=== PATIENT | female | born 1975 | race African-American/Black ===

== ENCOUNTER 2018-05-22 14:44 | Inpatient (IN) | payer MEDICARE, OTHER ==
[2018-05-22 16:03] VITALS: BMI 33.1
--- NOTE | 2018-05-22 19:21 | HP ---
COWS - Scale Resting Pulse: 0= CO 80 or Below Sweatin=Flushed/Facial Moisture Restless Observation: 1= Difficult to Sit Still Pupil Size: 2= Moderately Dilated (Pupils = 4 mm) Bone or Joint Aches: 1= Mild Discomfort Runny Nose/ Eye Tearin= Runny Nose/Eyes GI Upset > 30mins: 2= Nausea/Diarrhea Tremor Observation: 2= Slight Tremor Visible Yawning Observation: 0= None Anxiety or Irritability: 2=Irritable/Anxious Goose Flesh Skin: 0=Smooth Skin COWS Score: 14 CIWA Score - Admission Criteria OAS Guidelines: Admission for Medically Managed Detox: Requires at least one of the followin. CIWA greater than 12 2. Seizures within the past 24 hours 3. Delirium tremens within the past 24 hours 4. Hallucinations within the past 24 hours 5. Acute intervention needed for co occurring medical disorder 6. Acute intervention needed for co occurring psychiatric disorder 7. Severe withdrawal that cannot be handled at a lower level of care (continued vomiting, continued diarrhea, abnormal vital signs) requiring intravenous medication and/or fluids 8. Admission ROS [facility] Chief Complaint: Here for heroin withdrawal. Allergies/Adverse Reactions: Allergies Allergy/AdvReac Type Severity Reaction Status Date / Time No Known Allergies Allergy Verified 05/22/18 18:07 History of Present Illness: Hx alcohol use since age 35. States does not drink every day and alcohol is not a problem. Heroin use since age 35. States heroin is a significant problem and unable to cut down or stop. Denies seizures, blackouts, or overdose. Longest period of sobriety 2 days. States hx mental health issues, including schizo and anxiety. Hysterectomy 2010. Skin rash x years w/ itching. PDMP - negative Exam Limitations: No Limitations - Ebola screening Have you traveled outside of the country in the last 21 days: No Have you had contact with anyone from an Ebola affected area: No Have you been sick,other than usual withdrawal symptoms: No Do you have a fever: No - Review of Systems Constitutional: Diaphoresis, Changes in sleep (Difficulty falling asleep and staying asleep. Has nightmares.) EENT: reports: Blurred Vision, Nose Congestion (Runny r/t withdrawal), Other ( Blind (R) eye x 3 years.) Respiratory: reports: No Symptoms reported Cardiac: reports: No Symptoms Reported GI: reports: Diarrhea ( r/t withdrawal), Nausea ( r/t withdrawal) : reports: No Symptoms Reported Musculoskeletal: reports: Back Pain (LBP r/t withdrawal) Integumentary: reports: Rash (Rash on face and legs x 8 years w/ itching.) Neuro: reports: Tingling (Tingling at night in hands and fingers.), Tremors ( Papular lesions on face and legs x) Endocrine: reports: No Symptoms Reported Hematology: reports: No Symptoms Reported, Other (Asymptomatic varicose veins in legs.) Psychiatric: reports: Judgement Intact, Orientated x3, Agitated, Anxious, Depressed (Denies thoughts of harming self and others.) Patient History - Patient Medical History Hx Asthma: No Hx Chronic Obstructive Pulmonary Disease (COPD): No Hx Cardiac Disorders: No Hx Hypertension: No Hx Seizures: No Hx Diabetes: No Hx Gastrointestinal Disorders: No Hx Sexually Transmitted Disorders: No Hx Renal Disease (ESRD): No Hx Schizophrenia: Yes (WITH PSYCHOSIS) - Patient Surgical History Past Surgical History: No - PPD History Previous Implant?: No - Reproductive History Patient is a Female of Child Bearing Age (11 -55 yrs old): Yes Last Menstrual Period: 05/23/11 (Hysterectomy) Patient : No - Smoking Cessation Smoking history: Never smoked Have you smoked in the past 12 months: Yes Aproximately how many cigarettes per day: 2 Hx Chewing Tobacco Use: No Initiated information on smoking cessation: Yes 'Breaking Loose' booklet given: 05/22/18 - Substance & Tx. History Hx Alcohol Use: Yes Hx Substance Use: Yes Substance Use Type: Alcohol, Heroin Hx Substance Use Treatment: No - Substances Abused Alcohol Route: Oral Frequency: 3-6 times per week Amount used: 4 BOTTLE BEER (total 48 oz) Age of first use: 35 Date of Last Use: 05/22/18 Heroin Route: SNIFF Frequency: Daily Amount used: 1 BUNDLE Age of first use: 35 Date of Last Use: 05/22/18 Admission Physical Exam BHS - Vital Signs Vital Signs: Vital Signs - 24 hr 05/22/18 16:01 Temperature 97.2 F L Pulse Rate 80 Respiratory 20 Rate Blood Pressure 142/97 - Physical General Appearance: Yes: Mild Distress, Tremorous, Irritable, Sweating (Facial moisture), Anxious HEENTM: Yes: EOMI, Hearing grossly Normal, Normocephalic, Normal Voice, VINCE ( Pupils = 4 mm) Respiratory: Yes: Lungs Clear, Normal Breath Sounds, No Respiratory Distress Neck: Yes: No masses,lesions,Nodules, Supple Breast: Yes: Breast Exam Deferred Cardiology: Yes: Regular Rhythm, Regular Rate, S1, S2 Abdominal: Yes: Non Tender, Soft, Increased Bowel Sounds, Protuberent ( Increased abdominal adiposity) Genitourinary: Yes: Within Normal Limits Back: Yes: Normal Inspection Musculoskeletal: Yes: full range of Motion Extremities: Yes: Normal Capillary Refill, Normal Range of Motion, Non-Tender, Tremors (Mod tremors of hands when arms extended) Neurological: Yes: drying machine operator II-XII NML intact, Fully Oriented, Alert, Motor Strength 5/5, Normal Mood/Affect, Normal Response Integumentary: Yes: Normal Color, Dry, Warm, Rash (Papular lesions on scalp, face and legs. Lesions on legs and scalp scratched w/ exposure of granulation tissues w/o drainage/discharge.) Lymphatic: Yes: Within Normal Limits - Diagnostic (1) Opioid dependence with withdrawal Current Visit: Yes Status: Acute (2) Back pain Current Visit: No Status: Acute Qualifiers: Back pain location: low back pain Chronicity: chronic Back pain laterality: midline Sciatica presence: without sciatica Qualified Code(s): M54.5 - Low back pain; G89.29 - Other chronic pain (3) Uncomplicated alcohol abuse Current Visit: Yes Status: Chronic (4) Skin lesions, generalized Current Visit: Yes Status: Chronic (5) Vision loss, right eye Current Visit: Yes Status: Chronic Cleared for Admission [facility] - Detox or Rehab [facility] Level of Care: Medically Managed Detox Regimen/Protocol: Methadone [facility] Breath Alcohol Content Breath Alcohol Content: 0 Urine Drug Screen - Results Drug Screen Negative: No Urine Drug Screen Results: THC-Marijuana, OPI-Opiates, BZO-Benzodiazepines, FEN- Fentanyl
[2018-05-22] MEDS ORDERED: MAGNESIUM CITRATE 300 ML BOTTLE PO PRN (19:43)
[2018-05-22] MEDS ORDERED: MAGNESIUM HYDROX 2400MG/30ML ORAL SUSPENSION 30 ML CUP PO PRN (19:43)
[2018-05-22] MEDS ORDERED: MAG HYDROX/AL HYDROX/SIMETH 30 ML UNIT-DOSE CUP PO PRN (19:43)
[2018-05-22] MEDS ORDERED: ACETAMINOPHEN 325 MG TABLET (FP) PO PRN (19:43)
[2018-05-22] MEDS ORDERED: LOPERAMIDE HCL 2 MG CAPSULE PO PRN (19:43)
[2018-05-22] MEDS ORDERED: MENTHOL/PHENOL 1 EACH UD MM PRN (19:43)
[2018-05-22] MEDS ORDERED: COLLOIDAL OATMEAL 1 BAR EACH TP PRN (19:47)
[2018-05-22] MEDS ORDERED: METHADONE HCL 10 MG TABLET (FOR DETOX USE ONLY) PO ONE ×2 (20:00→23:00)
[2018-05-22] MEDS: diazePAM 5 MG TABLET PO PRN (21:49)
[2018-05-22] MEDS: BACITRACIN 0.9 GM PACKET TP SCH (21:49)
[2018-05-22] MEDS ORDERED: MELATONIN 5 MG TABLETS PO PRN (22:00)
[2018-05-22] MEDS ORDERED: THIAMINE HCL 100 MG TABLET (FP) PO SCH (22:00)
[2018-05-22] MEDS: IBUPROFEN 400 MG TABLET (FP) PO PRN (23:51)
[2018-05-23 02:46] LABS: URINE APPEARANCE SLCLOUDY; URINE BILIRUBIN NEGATIVE (<2.0 mg/dL); URINE COLOR YELLOW; URINE GLUCOSE (UA) NEGATIVE (NEGATIVE); URINE KETONE NEGATIVE (NEGATIVE); URINE LEUK ESTERASE NEGATIVE (NEGATIVE); URINE NITRITE NEGATIVE (NEGATIVE); URINE PROTEIN NEGATIVE (NEGATIVE)
--- NOTE | 2018-05-23 08:09 | CONSULT ---
[facility] Psychiatric Consult - Data Date of interview: 05/23/18 Admission source: [facility] Identifying data: This is 42 years old female, single, mother of one, living with family, on PA support, with history of Schizophrenia, with psychiatric hospitalizations history, repoorting Alcophol Heroin dependence, reporting withdrawal symptoms and seeking detox. Substance Abuse History: Smoking history: Never smoked. Have you smoked in the past 12 months: Yes. Aproximately how many cigarettes per day: 2. Hx Chewing Tobacco Use: No. Initiated information on smoking cessation: Yes. 'Breaking Loose' booklet given: 05/22/18. - Substance & Tx. History. Hx Alcohol Use: Yes. Hx Substance Use: Yes. Substance Use Type: Alcohol, Heroin. Hx Substance Use Treatment: No. - Substances Abused. Alcohol. Route: Oral. Frequency: 3-6 times per week. Amount used: 4 BOTTLE BEER (total 48 oz). Age of first use: 35. Date of Last Use: 05/22/18. Heroin. Route: SNIFF. Frequency: Daily. Amount used: 1 BUNDLE. Age of first use: 35. Date of Last Use: 05/22/18 Medical History: LBP, R.eye blindness Psychiatric History: Patient reports to carry Schizophrenia, denies psychiatric hospitalization history, reports insomnia, reports no syicidal, homicodal history, reports insomnia, taking prior to admission Seroquel 100mg po qhs. Patient denies suicidal, homicidal history. Physical/Sexual Abuse/Trauma History: Denies Additional Comment: Seroquel 100mg po qhs Mental Status Exam - Mental Status Exam Alert and Oriented to: Person Cognitive Function: Fair Patient Appearance: Unkempt Mood: Anxious Affect: Mood Congruent Patient Behavior: Cooperative Speech Pattern: Appropriate Voice Loudness: Normal Thought Process: Goal Oriented Thought Disorder: Being Controlled Hallucinations: Denies Suicidal Ideation: Denies Homicidal Ideation: Denies Insight/Judgement: Fair Sleep: Difficulty falling asleep Appetite: Fair Muscle strength/Tone: Mild Hypotonicity Gait/Station: Shuffling Additional Comments: Seroquel 100mg po qhs Psychiatric Findings - Problem List ([place] 1, 2,3) (1) Alcohol dependence Current Visit: Yes Status: Acute (2) Paranoid schizophrenia Current Visit: Yes Status: Acute (3) Opioid dependence with withdrawal Current Visit: Yes Status: Acute (4) Vision loss, right eye Current Visit: Yes Status: Chronic - Initial Treatment Plan Initial Treatment Plan: Seroquel 100mg po qhs
[2018-05-23 09:38] VITALS: BP 104/57; PULSE 76; TEMP 98.1
[2018-05-23] MEDS ORDERED: PRENATAL VITAMINS W/ FOLIC ACID TABLET (FP) PO SCH (10:00)
[2018-05-23] MEDS ORDERED: METHADONE HCL 10 MG TABLET (FOR DETOX USE ONLY) PO ONE (10:00)
[2018-05-23] MEDS ORDERED: BACITRACIN 15 GM TUBE TOPICAL OINTMENT TP SCH (10:00)
[2018-05-23] MEDS: BACITRACIN 0.9 GM PACKET TP SCH (10:40)
[2018-05-23] MEDS: diazePAM 5 MG TABLET PO PRN (10:42)
[2018-05-23] MEDS: IBUPROFEN 400 MG TABLET (FP) PO PRN (10:58)
[2018-05-23] MEDS ORDERED: ONDANSETRON *ODT* 4 MG TABLET SL PRN (11:18)
--- NOTE | 2018-05-23 11:55 | EKG ---
Test Reason : Blood Pressure : / mmHG Vent. Rate : 072 BPM Atrial Rate : 072 BPM P-R Int : 154 ms QRS Dur : 088 ms QT Int : 404 ms P-R-T Axes : 011 041 027 degrees QTc Int : 442 ms NORMAL SINUS RHYTHM NORMAL ECG WHEN COMPARED WITH ECG OF 24-MAR-1998 17:33, NO SIGNIFICANT CHANGE WAS FOUND Confirmed by GINGER PINZON MD ([id number]) on 05/23/2018 11:55:21 AM Referred By: Confirmed By:GINGER PINZON MD
--- NOTE | 2018-05-23 12:35 | PN ---
Progress Note (short form) - Note Progress Note: Asked to see this patient for evaluation of aggressive verbal abuse towards the LEATHER FINISHER and RN's on the unit. The LEATHER FINISHER, Leatha Shaver, who was covering Ms. Hernandez called and explained to me that the patient was using verbally abusive langauge towards her. On the unit, the patient was using racial slurs towards our full time staff interpreter's. The patient is a 42 year old black woman with a self-reported history of bipolar and schizoaffective disorder. She was seen by psychiatry who recommended Seroquel 100mg QHS. They did not recommend any other medications at this time. She was placed on a Librium and Methadone taper for alcohol and opiate use disorders. A MDT was arranged (myself, nurse manager poker deb, clinical edging supervisor Mirza) to discuss the case and how to best approach the patient in a non-threatening manner. The patient was approached and asked to return to her room so we could speak with her in private. She was asked about her use of inappropriate and aggressive language in a non-confrontational way. She denies using this type of language initially. When the RN to whom she spoke that way reminded her of some of the phrases she used, the patient again denied use of the language but became more and more agitated. I explained that there are alternative settings for obtaining the treatment she desires and that she would be more suitable for an outpatient facility which did not require so much personal negotiations in such a small space with many people. She refused this type of placement. The patient then went on to become aggressive verbally towards the security staff and the RN. Many attempts were made to de-escalate the situation without success. The patient was again offered discharge planning and the opportunity to appeal the discharge. She declined both.
--- NOTE | 2018-05-23 12:55 | PN ---
[facility] Progress Note Note: after medication, pt approached the nurses desk insisting on getting a tube of bacitracin for her body. pt was told that bacitracin was ordered but will try to see if pharmacy would send up a tube instead of the packets as per pt request. pt was told that pharmacy will get the tube and told pt she will get it as soon as it arrives from pharmacy. Pt then became irritable and aggressive using racial slurs and threatening towards staff and medical provider. Pt began to state "I know what to do, I am going to fuck some people up if i dont get what i need right now." pt was asked in a non confrontational way if there is anything she need until we can provide the bacitracin because she instantly became angry, pt looked at junior copywriter and pointed and states I going to start with you and going to fuck you up first. junior copywriter immediately called Dr. Uribe regarding the situation at hand. pt was escorted off the premises with security. pt refused any aftercare referrals. pt was administrative discharge.
--- NOTE | 2018-05-23 13:02 | DS ---
[facility] Detox Discharge Summary Admission Date: 05/22/18 - History Present History: Alcohol Dependence, Opioid Dependence - Physical Exam Results Vital Signs: Vital Signs Temperature 98.1 F 05/23/18 09:37 Pulse Rate 76 05/23/18 09:37 Respiratory Rate 16 05/23/18 09:37 Blood Pressure 104/57 L 05/23/18 09:37 O2 Sat by Pulse Oximetry (%) - Treatment Hospital Course: Discharged Condition Good - Medication Discharge Medications: Ambulatory Orders Quetiapine Fumarate [Seroquel] 100 mg PO HS #30 tablet 05/23/18 - AMA Did Patient Leave Against Medical Advice: No (administrative discharge. )
[2018-05-23] MEDS ORDERED: QUEtiapine FUMARATE 100 MG TABLET (FP) PO SCH (22:00)
[2018-05-24] MEDS ORDERED: METHADONE HCL 5 MG TABLET (FOR DETOX USE ONLY) PO ONE (10:00)
[2018-05-25] MEDS ORDERED: METHADONE HCL 5 MG TABLET (FOR DETOX USE ONLY) PO ONE (10:00)
[2018-05-26] MEDS ORDERED: METHADONE HCL 10 MG TABLET (FOR DETOX USE ONLY) PO ONE (10:00)
[2018-05-27] MEDS ORDERED: METHADONE HCL 5 MG TABLET (FOR DETOX USE ONLY) PO ONE (06:00)
== END 2018-05-23 12:18 | disposition left against medical advice (07) | DRG 897 ==
LOC: YASAS 14:44 → Y6N 19:11
PROC: HZ2ZZZZ Detoxification Services for Substance Abuse Treatment (ICD-10-PCS; principal; 2018-05-22)
DX: F11.23 Opioid dependence with withdrawal (principal); F10.20 Alcohol dependence, uncomplicated; F25.0 Schizoaffective disorder, bipolar type; H54.62 Unqualified visual loss, left eye, normal vision right eye; L98.8 Other specified disorders of the skin and subcutaneous tissue; M54.5 Low back pain; G89.29 Other chronic pain; F91.8 Other conduct disorders; Z91.19 Patient's noncompliance with other medical treatment and regimen
CPT/HCPCS: 81003; 93005; 93010

== ENCOUNTER 2020-04-02 03:12 | Inpatient (IN) | payer MEDICARE, OTHER ==
--- OUTSIDE RECORDS SUMMARY | 2020-04-02 03:58 | XMS ---
:1975 [facility] Organization [facility] Providers Name Role Phone MOISES LOWRY Unavailable Unavailable ED STAFF PHYSICIAN, STAFF Unavailable Unavailable RENAE LYLE MD Unavailable Unavailable [place], C Unavailable Unavailable Jose M, C Unavailable Unavailable Jose M, C Unavailable Unavailable [place], C Unavailable Unavailable Re-disclosure Warning The records that you are about to access may contain information from federally- assisted alcohol or drug abuse programs. If such information is present, then the following federally mandated warning applies: This information has been disclosed to you from records protected by federal confidentiality rules (42 CFR part 2). The federal rules prohibit you from making any further disclosure of this information unless further disclosure is expressly permitted by the written consent of the person to whom it pertains or as otherwise permitted by 42 CFR part 2. A general authorization for the release of medical or other information is NOT sufficient for this purpose. The Federal rules restrict any use of the information to criminally investigate or prosecute any alcohol or drug abuse patient.The records that you are about to access may contain highly sensitive health information, the redisclosure of which is protected by Article 27-F of the [facility] Public Health law. If you continue you may haveaccess to information: Regarding HIV / AIDS; Provided by facilities licensed or operated by the [facility] Office of Mental Health; or Provided by the [facility] Office for People With Developmental Disabilities. If such information is present, then the following [facility] mandated warning applies: This information has been disclosed to you from confidential records which are protected by state law. State law prohibits you from making any further disclosure of this information without the specific written consent of the person to whom it pertains, or as otherwise permitted by law. Any unauthorized further disclosure in violation of state law may result in a fine or residential sentence or both. A general authorization for the release of medical or other information is NOT sufficient authorization for further disclosure. Encounters Encounter Providers Location Date Indications Data Source(s ) Outpatient 01/07/2020 [facility] 01:44:00 PM Medical Cente r EDT Outpatient 01/07/2020 [facility] 12:00:00 AM Medical Cente r EDT Inpatient Attender: MOISES Orellana-HAL6 12/27/2019 [facility] JUSTINE DE LEON 06:17:[address] HAttender: STAFF ED EDT - STAFF 12/30/2019 PHYSICIANAdmitter: 05:50:00 PM MOISES DE LEON EDT HReferrer: MOISES Orellana Patient discharged. 12/27/2019 12:00:00 AM [facility] EDT - 11/27/2016 [place] 12:00:00 AM EDT Outpatient 02/19/2019 09:24:00 AM [facility] EDT Center Outpatient 02/19/2019 12:00:00 AM [facility] EDT Center Inpatient Attender: RENAE V-1D 01/03/2019 04:35:00 PM [facility] Hospital : Bryanna Salguero 10:17:00 PM EDT Outpatient [facility] 01/03/2019 12:47:00 PM [facility] EDT - 01/03/2019 Hospital 06:23:00 PM EDT Immunizations Vaccine Date Status Description Data Source(s) pneumococcal 11/27/2016 completed [facility] edical polysaccharide PPV23 11:28:00 AM EDT Cent er Medications Medication Brand Start Product Dose Route Administrative Pharm[facility] Indications Reaction Description Data Name Date Form Instructions Instructions Source(s) cobicistat Prezco ORAL complet Prezcob ix - Saint 150 MG / bix - 2019 Table ed 150 MG-800 Rudolph cents darunavir 150 12:00: t MG ORAL Hospi javon 800 MG Oral MG-800 00 AM Tablet Tablet MG EDT [Prezcobix] ORAL Tablet valacyclovi Valtre ORAL complet Valtre x - Saint r 500 MG x - 2018 Table ed 500 MG ORAL Rudolph cents Oral Tablet 500 MG 12:00: t Tablet Ho spital [Valtrex] ORAL 00 AM Tablet EDT Mirtazapine Remero ORAL complet Remero n - 15 Saint 15 MG Oral n - 15 2018 Table ed MG ORAL Rudolph cents Tablet MG 12:00: t Tablet Hospital [Remeron] ORAL 00 AM Tablet EDT quetiapine SEROqu ORAL complet SEROque l - Saint 50 MG Oral el - 2018 Table ed 50 MG ORAL Vi ncents Tablet 50 MG 12:00: t Tablet Hospital [Seroquel] ORAL 00 AM Tablet EDT quetiapine QUEtia 1 complet Kandice t 300 MG Oral pine ed Juan Tablet 300 mg Medical QUEtiapine Tablet Center 300 mg , Tablet, Ordere Ordered By: d By: Chinmay Griffin MDDirection f, s: 1 tablet MDDire oral daily ctions at bedtime : 1 tablet oral daily at bedtim e Nystatin nystat 5 mL complet Saint [id number] in ed Juan UNT/ML Oral 100,00 Medica l Suspension 0 Center nystatin unit/m 100,000 L unit/mL Suspen Suspension, roya, Ordered By: Abisai mahoney By: Bel Latif FNPDirectio e ns: 5 mL Wickha oral four m, times daily FNPDir ection s: 5 mL oral four times daily Fluconazole flucon 1 complet Diflucan Saint 100 MG Oral azole ed Juan Tablet (Diflu Medical [Diflucan] can) Center fluconazole 100 mg (Diflucan) Tablet 100 mg , Tablet, Ordere Ordered By: d By: Chinmay Griffinirection f, s: 1 tablet MDDire oral daily ctions : 1 tablet oral daily Amoxicillin amoxic 1 complet Satya nt 875 MG / illin- ed Juan Clavulanate pot Medical 125 MG Oral clavul Center Tablet anate amoxicillin 875 -pot mg-125 clavulanate mg 875 mg-125 Tablet mg Tablet, , Ordered By: Abisai mahoney By: Bel Latif FNPDirectio e ns: 1 Wickha tablet oral m, every FNPDir twelve ection hours with s: 1 or after tablet food oral every twelve hours with or after food valacyclovi valACY 2 complet Valtrex Saint r 500 MG clovir ed Juan Oral Tablet (Valtr Medica l [Valtrex] ex) [place] valACYclovi 500 mg r (Valtrex) Tablet 500 mg , Tablet, Ordere Ordered By: d By: Chinmay Griffin MDDirection f, s: 2 tablet MDDire oral twice ctions a day : 2 tablet oral twice a day Insurance Providers Payer name Policy type Policy ID Covered Covered alliance party's Policy P jay / Coverage alliance party ID relationship to Gray Inf ormation type gray W [id number] RADHA [id number] 01 [id number] 01 [id number] RADHA [id number] 01 [id number] RADHA HMO [id number] 01 [id number] MEDICARE OP W [id number] 01 [id number] MEDICAID INP [id number] Self [id number] F REHAB SELF PAY 00 Self 00 MDM RADHA [id number] Self [id number] MEDICARE ADV MEDICAID INP [id number] Self [id number] F PSYCH MEDICAID [id number] SP [id number] HARDEEP MEDICARE [id number] SP [id number] RADHA [id number] SP [id number] 900 MEDICARE ADV PLAN Problems, Conditions, and Diagnoses Code Display Name Description Problem Type Effective Data Dates Source(s) F19.10 Other psychoactive OTHER PSYCHOACTIVE Diagnosis 0 substance abuse, SUBSTANCE ABUSE, 05:50:00 PM Adriano osephs uncomplicated UNCOMPLICATED [facility] F25.9 Schizoaffective SCHIZOAFFECTIVE Diagnosis 12/30/2019 Kandice t disorder, DISORDER, 05:50:00 PM [facility] unspecified UNSPECIFIED [facility] F17.210 Nicotine dependence, NICOTINE DEPENDENCE, Diagnosis 12/29 cigarettes, CIGARETTES, 05:50:00 PM [facility] uncomplicated UNCOMPLICATED [facility] D64.9 Anemia, unspecified ANEMIA, UNSPECIFIED Diagnosis 020 Saint 05:50:00 PM [facility] A60.04 Herpesviral HERPESVIRAL Diagnosis 12/30/2019 vulvovaginitis VULVOVAGINITIS 05:50:00 PM [facility] B37.0 Candidal stomatitis CANDIDAL STOMATITIS Diagnosis 020 [facility] 05:50:00 PM [facility] B20 Human HUMAN Diagnosis 12/30/2019 [facility] immunodeficiency IMMUNODEFICIENCY 05:50:00 PM [facility] virus [HIV] disease VIRUS (HIV) DISEASE [facility] Z86.711 Personal history of PERSONAL HISTORY OF Diagnosis [facility] pulmonary embolism PULMONARY EMBOLISM 05:50:00 PM [facility] K29.00 Acute gastritis ACUTE GASTRITIS Diagnosis 12/30/2019 Kandice t without bleeding WITHOUT BLEEDING 05:50:00 PM [facility] R11.2 Nausea with NAUSEA WITH Diagnosis 12/27/2019 [facility] vomiting, VOMITING, 06:17:00 AM [facility] unspecified UNSPECIFIED [facility] F11.20 Opioid dependence, Opioid dependence, Diagnosis 9 [facility] uncomplicated uncomplicated 01:44:00 PM [facility] Hospital Results ID Date Data Source [facility].[id number] 12/30/2019 11:27:00 AM T [facility] Name Value Range Interpretation Code Description Data Josiane rce(s) Supporting Document(s ) UNK <content [facility] styleCode="Bold"> Medical Cent er Packed Red Blood Cells </content>Transfu sed 1 unit. (Reference Range: not available)
ID Date Data Source [facility].[id number] 12/30/2019 08:15:00 AM T [facility] Name Value Range Interpretation Code Description Data Josiane rce(s) Supporting Document(s ) UNK <content [facility] styleCode="Bold"> Medical Cent er RH Type </content>POSITIV E (Reference Range: not available)
UNK <content [facility] styleCode="Bold"> Medical Cent er Blood Type </content>GROUP A (Reference Range: not available)
ID Date Data Source Liver 12/30/2019 05:30:00 AM EDT [facility] Profile.[id number] Name Value Range Interpretation Description Data Sup porting Code Source(s) Document(s ) Alkaline 38-126 <content [facility] phosphatase styleCode="Bold"> Juan [Enzymatic Alkaline Medical activity/volume] Phosphatase (ALP) Cente r in Serum or Plasma </content>69 IU/L<content styleCode="Italic s"> (38-126 IU/L)</content> Alanine 7-30 <content Saint aminotransferase styleCode="Bold"> [facility] [Enzymatic Alanine Medical activity/volume] Aminotransferase Center in Serum or Plasma (ALT) </content>9 IU/L<content styleCode="Italic s"> (7-30 IU/L)</content> Aspartate 14-36 <content [facility] aminotransferase styleCode="Bold"> [facility] [Enzymatic Aspartate Medical activity/volume] Aminotransferase Center in Serum or Plasma (AST) </content>24 IU/L<content styleCode="Italic s"> (14-36 IU/L)</content> Albumin 3.5-5.0 Below low <content Saint [Mass/volume] in normal styleCode="Bold"> Rowdy hs Serum or Plasma Albumin Medical </content>2.8 Center G/DL L<content styleCode="Italic s"> (3.5-5.0 G/DL)</content> Bilirubin.total 0.2-1.3 <content Saint [Mass/volume] in styleCode="Bold"> Rowdy hs Serum or Plasma Bilirubin Total Medical </content>0.6 Center MG/DL<content styleCode="Italic s"> (0.2-1.3 MG/DL)</content> ID Date Data Source HematologyRou.[id number] 12/30/2019 05:30:00 AM EDT Satya [facility] 0400 Name Value Range Interpretation Description Data Sup porting Code Source(s) Document(s ) Erythrocytes 4.0-5.1 Below low normal <content Saint [#/volume] in styleCode="Bold [facility] Blood by ">Red Blood Medical Automated count Cell Count Center </content>2.39 MCUMM L<content styleCode="Ital ics"> (4.0-5.1 MCUMM)</content > Hemoglobin 12.3-16. Below lower <content Saint [Mass/volume] in 0 panic limits styleCode="Bold Abner phs Blood ">Hemoglobin Medical </content><cont Center ent styleCode="Bold ">6.9 G/DL LL</content><co ntent styleCode="Ital ics"> (12.3-16.0 G/DL)</content> Leukocytes 4.4-11.0 Below lower <content Saint [#/volume] in panic limits styleCode="Bold Juan Blood by ">White Blood Medical Automated count Cell Count Center </content><cont ent styleCode="Bold ">1.55 KCUMM LL</content><co ntent styleCode="Ital ics"> (4.4-11.0 KCUMM)</content > Hematocrit 36.0-46. Below low normal <content Saint [Volume 0 styleCode="Bold Juan Fraction] of ">Hematocrit Medical Blood by </content>22.5 Center Automated count % L<content styleCode="Ital ics"> (36.0-46.0 %)</content> Erythrocyte mean 26.0-34. <content Saint corpuscular 0 styleCode="Bold Juan hemoglobin ">Mean Medical [Entitic mass] Corposcular Center by Automated Hemoglobin count </content>28.9 PG<content styleCode="Ital ics"> (26.0-34.0 PG)</content> Erythrocyte mean 80.0-100 <content Saint corpuscular .0 styleCode="Bold Juan volume [Entitic ">Mean Medical volume] by Corpuscular Center Automated count Volume </content>94.1 FL<content styleCode="Ital ics"> (80.0-100.0 FL)</content> Erythrocyte mean 32.0-37. Below low normal <content Saint corpuscular 0 styleCode="Bold Juan hemoglobin ">Mean Corpus. Medical concentration Hgb Center [Mass/volume] by Concentration Automated count (MCHC) </content>30.7 G/DL L<content styleCode="Ital ics"> (32.0-37.0 G/DL)</content> Erythrocyte 11.5-14. Above high <content Saint distribution 5 normal styleCode="Bold Juan width [Ratio] by ">Red Cell Medical Automated count Distribution Center Width </content>14.6 % H<content styleCode="Ital ics"> (11.5-14.5 %)</content> Neutrophils 36-66 <content Saint [#/volume] in styleCode="Bold Juan Blood by ">Neutrophil Medical Automated count </content>62.0 Center %<content styleCode="Ital ics"> (36-66 %)</content> Platelets 130-400 <content Saint [#/volume] in styleCode="Bold Juan Blood by ">Platelet Medical Automated count Count Center </content>371 KCUMM<content styleCode="Ital ics"> (130-400 KCUMM)</content > Platelet mean 8.0-11.0 <content Saint volume [Entitic styleCode="Bold Juan volume] in Blood ">Mean Platelet Medical by Automated Volume Center count </content>9.2 FL<content styleCode="Ital ics"> (8.0-11.0 FL)</content> UNK 1.6-7.3 Below low normal <content Saint styleCode="Bold Juan ">Neutrophil Medical Count Center </content>0.96 KCUMM L<content styleCode="Ital ics"> (1.6-7.3 KCUMM)</content > Lymphocytes 24.0-44. Below low normal <content Saint [#/volume] in 0 styleCode="Bold Juan Blood by ">Lymphocyte Medical Automated count </content>17.4 Center % L<content styleCode="Ital ics"> (24.0-44.0 %)</content> UNK 1.0-4.8 Below low normal <content Saint styleCode="Bold Juan ">Lymphocyte Medical Count Center </content>0.27 KCUMM L<content styleCode="Ital ics"> (1.0-4.8 KCUMM)</content > UNK 0.2-0.9 <content Saint styleCode="Bold Juan ">Monocyte Medical Count Center </content>0.25 KCUMM<content styleCode="Ital ics"> (0.2-0.9 KCUMM)</content > Monocytes 3.0-10.0 Above high <content Saint [#/volume] in normal styleCode="Bold Juan Blood by ">Monocyte Medical Automated count </content>16.1 Center % H<content styleCode="Ital ics"> (3.0-10.0 %)</content> Eosinophils 0-5.0 <content Saint [#/volume] in styleCode="Bold Juan Blood by ">Eosinophil Medical Automated count </content>2.6 Center %<content styleCode="Ital ics"> (0-5.0 %)</content> UNK 0.0-0.6 <content Saint styleCode="Bold Juan ">Eosinophil Medical Count Center </content>0.04 KCUMM<content styleCode="Ital ics"> (0.0-0.6 KCUMM)</content > UNK 0 <content Saint styleCode="Bold Juan ">Nucleated Red Medical Blood Cell Center </content>0.0 /100<content styleCode="Ital ics"> (0 /100)</content> UNK 0.0 <content Saint styleCode="Bold Juan ">Nucleated Red Medical Blood Cell Center Count </content>0.00 KCUMM<content styleCode="Ital ics"> (0.0 KCUMM)</content > Basophils 0.0-1.0 <content Saint [#/volume] in styleCode="Bold Juan Blood by ">Basophil Medical Automated count </content>0.6 Center %<content styleCode="Ital ics"> (0.0-1.0 %)</content> UNK 0.0-0.3 <content Saint styleCode="Bold Juan ">Basophil Medical Count Center </content>0.01 KCUMM<content styleCode="Ital ics"> (0.0-0.3 KCUMM)</content > UNK < 1 Above high <content Saint normal styleCode="Bold Juan ">Immature Medical Granulocyte Center Ratio </content>1.3 % H<content styleCode="Ital ics"> (< 1 %)</content> UNK 0 Above high <content Saint normal styleCode="Bold Juan ">Atypical Medical Lymphocyte Center </content>4.0 % H<content styleCode="Ital ics"> (0 %)</content> UNK 0-0.1 <content Saint styleCode="Bold Juan ">Immature Medical Granulocyte Center Count </content>0.02 KCUMM<content styleCode="Ital ics"> (0-0.1 KCUMM)</content > UNK 42-75 <content Saint styleCode="Bold Juan ">Manual Medical Neutrophil Center count </content>72.0 %<content styleCode="Ital ics"> (42-75 %)</content> UNK < 3 Above high <content Saint normal styleCode="Bold Juan ">Band-Manual Medical </content>4.0 % Center H<content styleCode="Ital ics"> (< 3 %)</content> UNK NORMAL <content Saint styleCode="Bold Juan ">Elliptocyte Medical </content>SLIGH Center T <content styleCode="Ital ics"> (NORMAL )</content> UNK 21-51 Below low normal <content Saint styleCode="Bold Ujan ">Manual Medical Lymphocyte Center Count </content>8.0 % L<content styleCode="Ital ics"> (21-51 %)</content> UNK NORMAL <content Saint styleCode="Bold Juan ">RBC Medical Morphology Center </content>ABNOR MAL <content styleCode="Ital ics"> (NORMAL )</content> UNK 2-9 Above high <content Saint normal styleCode="Bold Juan ">Monocyte-Manu Medical al Center </content>10.0 % H<content styleCode="Ital ics"> (2-9 %)</content> UNK 0-3 <content Saint styleCode="Bold Juan ">Manual Medical Eosinophil Center Count </content>2.0 %<content styleCode="Ital ics"> (0-3 %)</content> ID Date Data Source GFR(Creatinine).[id number] 12/30/2019 05:30:00 AM EDT [facility] 0-0400 Name Value Range Interpretation Code Description Data Josiane rce(s) Supporting Document(s ) UNK > 60 <content [facility] styleCode="Bold"> Medical Cent er EGFR </content>99 GFR<content styleCode="Italic s"> (> 60 GFR)</content> ID Date Data Source Coagulation 12/30/2019 05:30:00 AM [facility] Rout.[id number] EDT Name Value Range Interpretation Description Data Sup porting Code Source(s) Document(s ) INR in 0.80-1.2 Above high normal <content Saint Platelet poor 0 styleCode="Bold" Juan plasma by >INR Medical Coagulation </content>1.28 # Center assay H<content styleCode="Itali cs"> (0.80-1.20 #)</content> UNK 9.0-13.0 Above high normal <content Saint styleCode="Bold" Juan >Protime Medical </content>14.2 Center SEC H<content styleCode="Itali cs"> (9.0-13.0 SEC)</content> aPTT in 25.1-36. <content Saint Platelet poor 5 styleCode="Bold" Juan plasma by >Partial Medical Coagulation Thromboplastin Center assay Time </content>32.6 SEC<content styleCode="Itali cs"> (25.1-36.5 SEC)</content> ID Date Data Source ChemistrySpecia.[id number] 12/30/2019 05:30:00 AM EDT [facility] 0-0400 Name Value Range Interpretation Description Data Sup porting Code Source(s) Document(s ) Folate > 3.0 <content Saint [Mass/volume] styleCode="Esther Juan in Serum or d">Folic Acid Medical Plasma </content>8.65 Center NG/ML<content styleCode="Cary lics"> (> 3.0 NG/ML)</conten t> Cobalamin 239-931 <content Saint (Vitamin B12) styleCode="Esther Mendenhalls [Mass/volume] d">Vitamin B12 Medical in Serum or </content>903 Center Plasma PG/ML<content styleCode="Cary lics"> (239-931 PG/ML)</conten t> ID Date Data Source CHMROUTINECCDA.[id number] 12/30/2019 05:30:00 AM EDT [facility] -0400 Name Value Range Interpretation Description Data Sup porting Code Source(s) Document(s ) UNK >= 1.0 Below low normal <content Saint styleCode="Esther Mendenhalls d">AG Ratio Medical </content>0.7 Center L<content styleCode="Cary lics"> (>= 1.0 )</content> Ferritin 7-264 Above high normal <content Saint [Mass/volume] styleCode="Esther Juan in Serum or d">Ferritin Medical Plasma </content>680 Center NG/ML H<content styleCode="Cary lics"> (7-264 NG/ML)</conten t> UNK 2.3-3.5 Above high normal <content Saint styleCode="Esther Juan d">Globulin Medical </content>4.3 Center G/DL H<content styleCode="Cary lics"> (2.3-3.5 G/DL)</content > Iron 37-170 Below low normal <content Saint [Mass/volume] styleCode="Esther Juan in Serum or d">Iron Medical Plasma </content>22 Center UG/DL L<content styleCode="Cary lics"> (37-170 UG/DL)</conten t> Folate > 3.0 <content Saint [Mass/volume] styleCode="Esther Juan in Serum or d">Folic Acid Medical Plasma </content>8.65 Center NG/ML<content styleCode="Cary lics"> (> 3.0 NG/ML)</conten t> Phosphate 2.5-4.5 <content Saint [Mass/volume] styleCode="Esther Juan in Serum or d">Phosphorus Medical Plasma </content>3.1 Center MG/DL<content styleCode="Cary lics"> (2.5-4.5 MG/DL)</conten t> Protein 6.3-8.2 <content Saint [Mass/volume] styleCode="Esther Mendenhalls in Serum or d">Total Medical Plasma Protein Center </content>7.1 G/DL<content styleCode="Cary lics"> (6.3-8.2 G/DL)</content > UNK 265-497 Below low normal <content Saint styleCode="Esther Mendenhalls d">TIBC Medical </content>199 Center UG/DL L<content styleCode="Cary lics"> (265-497 UG/DL)</conten t> Magnesium 1.6-2.3 Below low normal <content Saint [Mass/volume] styleCode="Esther Mendenhalls in Serum or d">Magnesium Medical Plasma </content>1.5 Center MG/DL L<content styleCode="Cary lics"> (1.6-2.3 MG/DL)</conten t> ID Date Data Source [facility].[id number] 12/30/2019 05:30:00 AM EDT [facility] Name Value Range Interpretation Code Description Data Josiane rce(s) Supporting Document(s ) UNK NEGATIVE <content [facility] styleCode="Bold" Medical Cente r >Antibody Screen </content>NEGATI VE <content styleCode="Itali cs"> (NEGATIVE )</content> UNK <content [facility] styleCode="Bold" Medical Cente r >Cross-Match for Packed Cells </content>[id number] COMP A NEG (Reference Range: not available)
UNK <content [facility] styleCode="Bold" Medical Cente r >RH Type </content>POSITI VE (Reference Range: not available)
UNK <content [facility] styleCode="Bold" Medical Cente r >Blood Type </content>GROUP A (Reference Range: not available)
ID Date Data Source [facility].[id number] 12/30/2019 05:30:00 AM EDT [facility] Name Value Range Interpretation Description Data Sup porting Code Source(s) Document(s ) Sodium 137-145 <content Saint [Moles/volume] in styleCode="Bold"> Abner phs Serum or Plasma Sodium Medical </content>142 Center MEQ/L<content styleCode="Italic s"> (137-145 MEQ/L)</content> UNK 7-17 Below low <content Saint normal styleCode="Bold"> Juan BUN </content>4 Medical MG/DL L<content Center styleCode="Italic s"> (7-17 MG/DL)</content> Carbon dioxide, 22-30 <content Saint total styleCode="Bold"> Juan [Moles/volume] in Carbon Dioxide Medical Serum or Plasma </content>22 Center MEQ/L<content styleCode="Italic s"> (22-30 MEQ/L)</content> Potassium 3.5-5.3 <content Saint [Moles/volume] in styleCode="Bold"> Abner phs Serum or Plasma Potassium Medical </content>3.6 Center MEQ/L<content styleCode="Italic s"> (3.5-5.3 MEQ/L)</content> Chloride 98-107 Above high <content Saint [Moles/volume] in normal styleCode="Bold"> Abner phs Serum or Plasma Chloride Medical </content>110 Center MEQ/L H<content styleCode="Italic s"> (98-107 MEQ/L)</content> Creatinine 0.5-1.3 <content Saint [Mass/volume] in styleCode="Bold"> Rowdy hs Serum or Plasma Creatinine Medical </content>0.8 Center MG/DL<content styleCode="Italic s"> (0.5-1.3 MG/DL)</content> UNK > 60 <content Saint styleCode="Bold"> Juan EGFR </content>99 Medical GFR<content Center styleCode="Italic s"> (> 60 GFR)</content> Calcium 8.4-10. <content Saint [Mass/volume] in 2 styleCode="Bold"> Rowdy hs Serum or Plasma Calcium Medical </content>8.9 Center MG/DL<content styleCode="Italic s"> (8.4-10.2 MG/DL)</content> Glucose 74-106 <content Saint [Mass/volume] in styleCode="Bold"> Rowdy hs Serum or Plasma Glucose Medical </content>103 Center MG/DL<content styleCode="Italic s"> (74-106 MG/DL)</content> Alkaline 38-126 <content Saint phosphatase styleCode="Bold"> [facility] [Enzymatic Alkaline Medical activity/volume] Phosphatase (ALP) Cente r in Serum or Plasma </content>69 IU/L<content styleCode="Italic s"> (38-126 IU/L)</content> Aspartate 14-36 <content Saint aminotransferase styleCode="Bold"> [facility]dy [facility] [Enzymatic Aspartate Medical activity/volume] Aminotransferase Center in Serum or Plasma (AST) </content>24 IU/L<content styleCode="Italic s"> (14-36 IU/L)</content> Bilirubin.total 0.2-1.3 <content [facility] [Mass/volume] in styleCode="Bold"> Rowdy hs Serum or Plasma Bilirubin Total Medical </content>0.6 Center MG/DL<content styleCode="Italic s"> (0.2-1.3 MG/DL)</content> Albumin 3.5-5.0 Below low <content [facility] [Mass/volume] in normal styleCode="Bold"> Rowdy hs Serum or Plasma Albumin Medical </content>2.8 Center G/DL L<content styleCode="Italic s"> (3.5-5.0 G/DL)</content> Alanine 7-30 <content [facility] aminotransferase styleCode="Bold"> Rowdy hs [Enzymatic Alanine Medical activity/volume] Aminotransferase Center in Serum or Plasma (ALT) </content>9 IU/L<content styleCode="Italic s"> (7-30 IU/L)</content> ID Date Data Source Liver 12/29/2019 05:15:00 AM EDT [facility] Profile.[id number] Name Value Range Interpretation Description Data Sup porting Code Source(s) Document(s ) Aspartate 14-36 <content [facility] aminotransferase styleCode="Bold"> Rowdy hs [Enzymatic Aspartate Medical activity/volume] Aminotransferase Center in Serum or Plasma (AST) </content>23 IU/L<content styleCode="Italic s"> (14-36 IU/L)</content> Alanine 7-30 Below low <content [facility] aminotransferase normal styleCode="Bold"> Rowdy hs [Enzymatic Alanine Medical activity/volume] Aminotransferase Center in Serum or Plasma (ALT) </content>6 IU/L L<content styleCode="Italic s"> (7-30 IU/L)</content> Bilirubin.total 0.2-1.3 <content [facility] [Mass/volume] in styleCode="Bold"> Rowdy hs Serum or Plasma Bilirubin Total Medical </content>0.4 Center MG/DL<content styleCode="Italic s"> (0.2-1.3 MG/DL)</content> Alkaline 38-126 <content [facility] phosphatase styleCode="Bold"> Juan [Enzymatic Alkaline Medical activity/volume] Phosphatase (ALP) Cente r in Serum or Plasma </content>74 IU/L<content styleCode="Italic s"> (38-126 IU/L)</content> Albumin 3.5-5.0 Below low <content [facility] [Mass/volume] in normal styleCode="Bold"> Rowdy hs Serum or Plasma Albumin Medical </content>2.8 Center G/DL L<content styleCode="Italic s"> (3.5-5.0 G/DL)</content> ID Date Data Source HematologyRou.[id number]- 12/29/2019 05:15:00 AM EDT [facility] 0400 Name Value Range Interpretation Description Data Sup porting Code Source(s) Document(s ) Hemoglobin 12.3-16. Below low normal <content [facility] [Mass/volume] in 0 styleCode="Bold Juan Blood ">Hemoglobin Medical </content>7.1 Center G/DL L<content styleCode="Ital ics"> (12.3-16.0 G/DL)</content> Hematocrit 36.0-46. Below low normal <content [facility] [Volume 0 styleCode="Bold Juan Fraction] of ">Hematocrit Medical Blood by </content>23.8 Center Automated count % L<content styleCode="Ital ics"> (36.0-46.0 %)</content> Leukocytes 4.4-11.0 Below lower <content [facility] [#/volume] in panic limits styleCode="Bold Juan Blood by ">White Blood Medical Automated count Cell Count Center </content><cont ent styleCode="Bold ">1.83 KCUMM LL</content><co ntent styleCode="Ital ics"> (4.4-11.0 KCUMM)</content > Erythrocytes 4.0-5.1 Below low normal <content [facility] [#/volume] in styleCode="Bold Juan Blood by ">Red Blood Medical Automated count Cell Count Center </content>2.50 MCUMM L<content styleCode="Ital ics"> (4.0-5.1 MCUMM)</content > Erythrocyte mean 80.0-100 <content [facility] corpuscular .0 styleCode="Bold Juan volume [Entitic ">Mean Medical volume] by Corpuscular Center Automated count Volume </content>95.2 FL<content styleCode="Ital ics"> (80.0-100.0 FL)</content> Erythrocyte mean 32.0-37. Below low normal <content [facility] corpuscular 0 styleCode="Bold Juan hemoglobin ">Mean Corpus. Medical concentration Hgb Center [Mass/volume] by Concentration Automated count (MCHC) </content>29.8 G/DL L<content styleCode="Ital ics"> (32.0-37.0 G/DL)</content> Erythrocyte mean 26.0-34. <content [facility] corpuscular 0 styleCode="Bold Juan hemoglobin ">Mean Medical [Entitic mass] Corposcular Center by Automated Hemoglobin count </content>28.4 PG<content styleCode="Ital ics"> (26.0-34.0 PG)</content> Platelet mean 8.0-11.0 <content [facility] volume [Entitic styleCode="Bold Juan volume] in Blood ">Mean Platelet Medical by Automated Volume Center count </content>9.2 FL<content styleCode="Ital ics"> (8.0-11.0 FL)</content> Platelets 130-400 <content [facility] [#/volume] in styleCode="Bold Juan Blood by ">Platelet Medical Automated count Count Center </content>394 KCUMM<content styleCode="Ital ics"> (130-400 KCUMM)</content > Erythrocyte 11.5-14. Above high <content [facility] distribution 5 normal styleCode="Bold Juan width [Ratio] by ">Red Cell Medical Automated count Distribution Center Width </content>14.9 % H<content styleCode="Ital ics"> (11.5-14.5 %)</content> UNK 1.0-4.8 Below low normal <content [facility] styleCode="Bold Juan ">Lymphocyte Medical Count Center </content>0.27 KCUMM L<content styleCode="Ital ics"> (1.0-4.8 KCUMM)</content > UNK 0.2-0.9 <content [facility] styleCode="Bold Juan ">Monocyte Medical Count Center </content>0.26 KCUMM<content styleCode="Ital ics"> (0.2-0.9 KCUMM)</content > UNK 0.0-0.6 <content [facility] styleCode="Bold Juan ">Eosinophil Medical Count Center </content>0.08 KCUMM<content styleCode="Ital ics"> (0.0-0.6 KCUMM)</content > UNK 1.6-7.3 Below low normal <content [facility] styleCode="Bold Juan ">Neutrophil Medical Count Center </content>1.17 KCUMM L<content styleCode="Ital ics"> (1.6-7.3 KCUMM)</content > UNK 0 <content [facility] styleCode="Bold Juan ">Nucleated Red Medical Blood Cell Center </content>0.0 /100<content styleCode="Ital ics"> (0 /100)</content> UNK 0.0 <content [facility] styleCode="Bold Juan ">Nucleated Red Medical Blood Cell Center Count </content>0.00 KCUMM<content styleCode="Ital ics"> (0.0 KCUMM)</content > UNK 0.0-0.3 <content [facility] styleCode="Bold Juan ">Basophil Medical Count Center </content>0.01 KCUMM<content styleCode="Ital ics"> (0.0-0.3 KCUMM)</content > UNK 21-51 <content [facility] styleCode="Bold Juan ">Manual Medical Lymphocyte Center Count </content>27.0 %<content styleCode="Ital ics"> (21-51 %)</content> UNK < 1 Above high <content [facility] normal styleCode="Bold Juan ">Immature Medical Granulocyte Center Ratio </content>2.2 % H<content styleCode="Ital ics"> (< 1 %)</content> UNK 0-0.1 <content [facility] styleCode="Bold Juan ">Immature Medical Granulocyte Center Count </content>0.04 KCUMM<content styleCode="Ital ics"> (0-0.1 KCUMM)</content > UNK 42-75 <content [facility] styleCode="Bold Juan ">Manual Medical Neutrophil Center count </content>67.0 %<content styleCode="Ital ics"> (42-75 %)</content> UNK 2-9 <content [facility] styleCode="Bold Juan ">Monocyte-Manu Medical al Center </content>6.0 %<content styleCode="Ital ics"> (2-9 %)</content> UNK NORMAL <content [facility] styleCode="Bold Juan ">Platelet Medical Estimate Center </content>LUCIA L <content styleCode="Ital ics"> (NORMAL )</content> UNK NORMAL <content [facility] styleCode="Bold Juan ">RBC Medical Morphology Center </content>LUCIA L <content styleCode="Ital ics"> (NORMAL )</content> ID Date Data Source GFR(Creatinine).[id number] 12/29/2019 05:15:00 AM EDT [facility] 0-0400 Name Value Range Interpretation Code Description Data Josiane rce(s) Supporting Document(s ) UNK > 60 <content [facility] styleCode="Bold"> Medical Cent er EGFR </content>116 GFR<content styleCode="Italic s"> (> 60 GFR)</content> ID Date Data Source JED.[id number] 12/29/2019 05:15:00 AM EDT [facility] -0400 Name Value Range Interpretation Description Data Sup porting Code Source(s) Document(s ) UNK >= 1.0 Below low normal <content [facility] styleCode="Esther Juan d">AG Ratio Medical </content>0.7 Center L<content styleCode="Cary lics"> (>= 1.0 )</content> Protein 6.3-8.2 <content [facility] [Mass/volume] styleCode="Esther Juan in Serum or d">Total Medical Plasma Protein Center </content>7.1 G/DL<content styleCode="Cary lics"> (6.3-8.2 G/DL)</content > UNK 2.3-3.5 Above high normal <content [facility] styleCode="Esther Juan d">Globulin Medical </content>4.3 Center G/DL H<content styleCode="Cary lics"> (2.3-3.5 G/DL)</content > Phosphate 2.5-4.5 <content [facility] [Mass/volume] styleCode="Esther Juan in Serum or d">Phosphorus Medical Plasma </content>3.4 Center MG/DL<content styleCode="Cary lics"> (2.5-4.5 MG/DL)</conten t> Magnesium 1.6-2.3 <content [facility] [Mass/volume] styleCode="Esther Juan in Serum or d">Magnesium Medical Plasma </content>1.8 Center MG/DL<content styleCode="Cary lics"> (1.6-2.3 MG/DL)</conten t> ID Date Data Source [facility].[id number] 12/29/2019 05:15:00 AM EDT [facility] Name Value Range Interpretation Description Data Sup porting Code Source(s) Document(s ) Sodium 137-145 <content [facility] [Moles/volume] in styleCode="Bold"> Abner phs Serum or Plasma Sodium Medical </content>143 Center MEQ/L<content styleCode="Italic s"> (137-145 MEQ/L)</content> Potassium 3.5-5.3 <content [facility] [Moles/volume] in styleCode="Bold"> Abner phs Serum or Plasma Potassium Medical </content>3.5 Center MEQ/L<content styleCode="Italic s"> (3.5-5.3 MEQ/L)</content> Carbon dioxide, 22-30 <content [facility] total styleCode="Bold"> Juan [Moles/volume] in Carbon Dioxide Medical Serum or Plasma </content>23 Center MEQ/L<content styleCode="Italic s"> (22-30 MEQ/L)</content> Creatinine 0.5-1.3 <content [facility] [Mass/volume] in styleCode="Bold"> Rowdy hs Serum or Plasma Creatinine Medical </content>0.7 Center MG/DL<content styleCode="Italic s"> (0.5-1.3 MG/DL)</content> Chloride 98-107 Above high <content [facility] [Moles/volume] in normal styleCode="Bold"> Abner phs Serum or Plasma Chloride Medical </content>113 Center MEQ/L H<content styleCode="Italic s"> (98-107 MEQ/L)</content> UNK 7-17 Below low <content [facility] normal styleCode="Bold"> Juan BUN </content>3 Medical MG/DL L<content Center styleCode="Italic s"> (7-17 MG/DL)</content> UNK > 60 <content [facility] styleCode="Bold"> Juan EGFR Medical </content>116 Center GFR<content styleCode="Italic s"> (> 60 GFR)</content> Glucose 74-106 <content [facility] [Mass/volume] in styleCode="Bold"> Rowdy hs Serum or Plasma Glucose Medical </content>91 Center MG/DL<content styleCode="Italic s"> (74-106 MG/DL)</content> Alanine 7-30 Below low <content [facility] aminotransferase normal styleCode="Bold"> Rowdy hs [Enzymatic Alanine Medical activity/volume] Aminotransferase Center in Serum or Plasma (ALT) </content>6 IU/L L<content styleCode="Italic s"> (7-30 IU/L)</content> Calcium 8.4-10. <content [facility] [Mass/volume] in 2 styleCode="Bold"> Rowdy hs Serum or Plasma Calcium Medical </content>8.9 Center MG/DL<content styleCode="Italic s"> (8.4-10.2 MG/DL)</content> Aspartate 14-36 <content [facility] aminotransferase styleCode="Bold"> Rowdy hs [Enzymatic Aspartate Medical activity/volume] Aminotransferase Center in Serum or Plasma (AST) </content>23 IU/L<content styleCode="Italic s"> (14-36 IU/L)</content> Alkaline 38-126 <content [facility] phosphatase styleCode="Bold"> Juan [Enzymatic Alkaline Medical activity/volume] Phosphatase (ALP) Cente r in Serum or Plasma </content>74 IU/L<content styleCode="Italic s"> (38-126 IU/L)</content> Albumin 3.5-5.0 Below low <content [facility] [Mass/volume] in normal styleCode="Bold"> Rowdy hs Serum or Plasma Albumin Medical </content>2.8 Center G/DL L<content styleCode="Italic s"> (3.5-5.0 G/DL)</content> Bilirubin.total 0.2-1.3 <content [facility] [Mass/volume] in styleCode="Bold"> Rowdy hs Serum or Plasma Bilirubin Total Medical </content>0.4 Center MG/DL<content styleCode="Italic s"> (0.2-1.3 MG/DL)</content> ID Date Data Source Liver 12/28/2019 05:55:00 AM EDT [facility] Profile.[id number] Name Value Range Interpretation Description Data Sup porting Code Source(s) Document(s ) Alanine 7-30 <content [facility] aminotransferase styleCode="Bold"> Rowdy hs [Enzymatic Alanine Medical activity/volume] Aminotransferase Center in Serum or Plasma (ALT) </content>7 IU/L<content styleCode="Italic s"> (7-30 IU/L)</content> Alkaline 38-126 <content [facility] phosphatase styleCode="Bold"> Juan [Enzymatic Alkaline Medical activity/volume] Phosphatase (ALP) Cente r in Serum or Plasma </content>76 IU/L<content styleCode="Italic s"> (38-126 IU/L)</content> Aspartate 14-36 <content [facility] aminotransferase styleCode="Bold"> Rowdy hs [Enzymatic Aspartate Medical activity/volume] Aminotransferase Center in Serum or Plasma (AST) </content>26 IU/L<content styleCode="Italic s"> (14-36 IU/L)</content> Bilirubin.total 0.2-1.3 <content [facility] [Mass/volume] in styleCode="Bold"> Rowdy hs Serum or Plasma Bilirubin Total Medical </content>0.4 Center MG/DL<content styleCode="Italic s"> (0.2-1.3 MG/DL)</content> Albumin 3.5-5.0 Below low <content [facility] [Mass/volume] in normal styleCode="Bold"> Rowdy hs Serum or Plasma Albumin Medical </content>3.0 Center G/DL L<content styleCode="Italic s"> (3.5-5.0 G/DL)</content> ID Date Data Source HematologyRou.[id number] 12/28/2019 05:55:00 AM EDT [facility] 0400 Name Value Range Interpretation Description Data Sup porting Code Source(s) Document(s ) Leukocytes 4.4-11.0 Below lower <content [facility] [#/volume] in panic limits styleCode="Bold Juan Blood by ">White Blood Medical Automated count Cell Count Center </content><cont ent styleCode="Bold ">1.78 KCUMM LL</content><co ntent styleCode="Ital ics"> (4.4-11.0 KCUMM)</content > Erythrocytes 4.0-5.1 Below low normal <content [facility] [#/volume] in styleCode="Bold Juan Blood by ">Red Blood Medical Automated count Cell Count Center </content>2.46 MCUMM L<content styleCode="Ital ics"> (4.0-5.1 MCUMM)</content > Hematocrit 36.0-46. Below low normal <content [facility] [Volume 0 styleCode="Bold Juan Fraction] of ">Hematocrit Medical Blood by </content>23.1 Center Automated count % L<content styleCode="Ital ics"> (36.0-46.0 %)</content> Hemoglobin 12.3-16. Below low normal <content [facility] [Mass/volume] in 0 styleCode="Bold Juan Blood ">Hemoglobin Medical </content>7.2 Center G/DL L<content styleCode="Ital ics"> (12.3-16.0 G/DL)</content> Erythrocyte mean 32.0-37. Below low normal <content [facility] corpuscular 0 styleCode="Bold Juan hemoglobin ">Mean Corpus. Medical concentration Hgb Center [Mass/volume] by Concentration Automated count (MCHC) </content>31.2 G/DL L<content styleCode="Ital ics"> (32.0-37.0 G/DL)</content> Erythrocyte mean 80.0-100 <content [facility] corpuscular .0 styleCode="Bold Juan volume [Entitic ">Mean Medical volume] by Corpuscular Center Automated count Volume </content>93.9 FL<content styleCode="Ital ics"> (80.0-100.0 FL)</content> Erythrocyte mean 26.0-34. <content [facility] corpuscular 0 styleCode="Bold Juan hemoglobin ">Mean Medical [Entitic mass] Corposcular Center by Automated Hemoglobin count </content>29.3 PG<content styleCode="Ital ics"> (26.0-34.0 PG)</content> Erythrocyte 11.5-14. Above high <content [facility] distribution 5 normal styleCode="Fatimah Mendenhalls width [Ratio] by ">Red Cell Medical Automated count Distribution Center Width </content>15.1 % H<content styleCode="Ital ics"> (11.5-14.5 %)</content> Platelet mean 8.0-11.0 <content [facility] volume [Entitic styleCode="Bold Juan volume] in Blood ">Mean Platelet Medical by Automated Volume Center count </content>9.2 FL<content styleCode="Ital ics"> (8.0-11.0 FL)</content> Platelets 130-400 <content [facility] [#/volume] in styleCode="Bold Juan Blood by ">Platelet Medical Automated count Count Center </content>392 KCUMM<content styleCode="Ital ics"> (130-400 KCUMM)</content > UNK 0.0 <content Saint styleCode="Bold Juan ">Nucleated Red Medical Blood Cell Center Count </content>0.00 KCUMM<content styleCode="Ital ics"> (0.0 KCUMM)</content > UNK 0 <content Saint styleCode="Bold Juan ">Nucleated Red Medical Blood Cell Center </content>0.0 /100<content styleCode="Ital ics"> (0 /100)</content> ID Date Data Source GFR(Creatinine).[id number] 12/28/2019 05:55:00 AM EDT [facility] 0-0400 Name Value Range Interpretation Code Description Data Josiane rce(s) Supporting Document(s ) UNK > 60 <content [facility] styleCode="Bold"> Medical Cent er EGFR </content>138 GFR<content styleCode="Italic s"> (> 60 GFR)</content> ID Date Data Source Coagulation 12/28/2019 05:55:00 AM [facility] Rout.[id number] EDT Name Value Range Interpretation Description Data Sup porting Code Source(s) Document(s ) INR in 0.80-1.2 <content [facility] Platelet poor 0 styleCode="Bold" [facility] plasma by >INR Medical Coagulation </content>1.14 Center assay #<content styleCode="Itali cs"> (0.80-1.20 #)</content> UNK 9.0-13.0 <content Saint styleCode="Bold" Juan >Protime Medical </content>12.7 Center SEC<content styleCode="Itali cs"> (9.0-13.0 SEC)</content> aPTT in 25.1-36. <content [facility] Platelet poor 5 styleCode="Bold" [facility] plasma by >Partial Medical Coagulation Thromboplastin Center assay Time </content>33.5 SEC<content styleCode="Itali cs"> (25.1-36.5 SEC)</content> ID Date Data Source CHMROUTINECCDA.[id number] 12/28/2019 05:55:00 AM EDT [facility] -0400 Name Value Range Interpretation Description Data Sup porting Code Source(s) Document(s ) UNK >= 1.0 Below low normal <content Saint styleCode="Esther Mendenhalls d">AG Ratio Medical </content>0.7 Center L<content styleCode="Cary lics"> (>= 1.0 )</content> Magnesium 1.6-2.3 <content [facility] [Mass/volume] styleCode="Esther Mendenhalls in Serum or d">Magnesium Medical Plasma </content>2.0 Center MG/DL<content styleCode="Cary lics"> (1.6-2.3 MG/DL)</conten t> UNK 2.3-3.5 Above high normal <content [facility] styleCode="Esther Juan d">Globulin Medical </content>4.3 Center G/DL H<content styleCode="Cary lics"> (2.3-3.5 G/DL)</content > Protein 6.3-8.2 <content [facility] [Mass/volume] styleCode="Esther Mendenhalls in Serum or d">Total Medical Plasma Protein Center </content>7.3 G/DL<content styleCode="Cayr lics"> (6.3-8.2 G/DL)</content > Phosphate 2.5-4.5 <content [facility] [Mass/volume] styleCode="Esther Juan in Serum or d">Phosphorus Medical Plasma </content>3.8 Center MG/DL<content styleCode="Cary lics"> (2.5-4.5 MG/DL)</conten t> ID Date Data Source [facility].[id number] 12/28/2019 05:55:00 AM EDT [facility] Center Name Value Range Interpretation Description Data Sup porting Code Source(s) Document(s ) Potassium 3.5-5.3 Below low <content Saint [Moles/volume] in normal styleCode="Bold"> Abner phs Serum or Plasma Potassium Medical </content>3.4 Center MEQ/L L<content styleCode="Italic s"> (3.5-5.3 MEQ/L)</content> Sodium 137-145 <content [facility] [Moles/volume] in styleCode="Bold"> Abner phs Serum or Plasma Sodium Medical </content>141 Center MEQ/L<content styleCode="Italic s"> (137-145 MEQ/L)</content> Chloride 98-107 Above high <content [facility] [Moles/volume] in normal styleCode="Bold"> Abner phs Serum or Plasma Chloride Medical </content>112 Center MEQ/L H<content styleCode="Italic s"> (98-107 MEQ/L)</content> Creatinine 0.5-1.3 <content [facility] [Mass/volume] in styleCode="Bold"> Rowdy hs Serum or Plasma Creatinine Medical </content>0.6 Center MG/DL<content styleCode="Italic s"> (0.5-1.3 MG/DL)</content> UNK 7-17 Below low <content [facility] normal styleCode="Bold"> Juan BUN </content>5 Medical MG/DL L<content Center styleCode="Italic s"> (7-17 MG/DL)</content> Glucose 74-106 Above high <content [facility] [Mass/volume] in normal styleCode="Bold"> Rowdy hs Serum or Plasma Glucose Medical </content>111 Center MG/DL H<content styleCode="Italic s"> (74-106 MG/DL)</content> Carbon dioxide, 22-30 <content [facility] total styleCode="Bold"> Juan [Moles/volume] in Carbon Dioxide Medical Serum or Plasma </content>22 Center MEQ/L<content styleCode="Italic s"> (22-30 MEQ/L)</content> UNK > 60 <content [facility] styleCode="Bold"> Juan EGFR Medical </content>138 Center GFR<content styleCode="Italic s"> (> 60 GFR)</content> Alanine 7-30 <content [facility] aminotransferase styleCode="Bold"> Rowdy hs [Enzymatic Alanine Medical activity/volume] Aminotransferase Center in Serum or Plasma (ALT) </content>7 IU/L<content styleCode="Italic s"> (7-30 IU/L)</content> Aspartate 14-36 <content [facility] aminotransferase styleCode="Bold"> Rowdy hs [Enzymatic Aspartate Medical activity/volume] Aminotransferase Center in Serum or Plasma (AST) </content>26 IU/L<content styleCode="Italic s"> (14-36 IU/L)</content> Calcium 8.4-10. <content [facility] [Mass/volume] in 2 styleCode="Bold"> Rowdy hs Serum or Plasma Calcium Medical </content>8.8 Center MG/DL<content styleCode="Italic s"> (8.4-10.2 MG/DL)</content> Alkaline 38-126 <content [facility] phosphatase styleCode="Bold"> Juan [Enzymatic Alkaline Medical activity/volume] Phosphatase (ALP) Cente r in Serum or Plasma </content>76 IU/L<content styleCode="Italic s"> (38-126 IU/L)</content> Bilirubin.total 0.2-1.3 <content [facility] [Mass/volume] in styleCode="Bold"> Rowdy hs Serum or Plasma Bilirubin Total Medical </content>0.4 Center MG/DL<content styleCode="Italic s"> (0.2-1.3 MG/DL)</content> Albumin 3.5-5.0 Below low <content [facility] [Mass/volume] in normal styleCode="Bold"> Rowdy hs Serum or Plasma Albumin Medical </content>3.0 Center G/DL L<content styleCode="Italic s"> (3.5-5.0 G/DL)</content> ID Date Data Source CHMROUTINECCDA.[id number] 12/28/2019 05:45:00 AM EDT [facility] -0400 Name Value Range Interpretation Description Data Sup porting Code Source(s) Document(s ) Cannabinoids <content Saint [Presence] in styleCode="[facility] Urine by Screen d">Cannabinoid Medical method >50 ng/mL s Center </content>NEGA TIVE NG/ML (Reference Range: not available)<br/ > ID Date Data Source [id number] 12/27/2019 01:30:00 PM EDT [facility] Name Value Range Interpretation Code Description Data Josiane rce(s) Supporting Document(s ) COV2 [facility] This lab was ordered by [facility] and reported by [facility]. ID Date Data Source Liver 12/27/2019 08:20:00 AM EDT [facility] Profile.[id number] Name Value Range Interpretation Description Data Sup porting Code Source(s) Document(s ) Aspartate 14-36 <content [facility] aminotransferase styleCode="Bold"> Rowdy hs [Enzymatic Aspartate Medical activity/volume] Aminotransferase Center in Serum or Plasma (AST) </content>31 IU/L<content styleCode="Italic s"> (14-36 IU/L)</content> Alkaline 38-126 <content [facility] phosphatase styleCode="Bold"> Juan [Enzymatic Alkaline Medical activity/volume] Phosphatase (ALP) Cente r in Serum or Plasma </content>87 IU/L<content styleCode="Italic s"> (38-126 IU/L)</content> Alanine 7-30 <content [facility] aminotransferase styleCode="Bold"> Rowdy hs [Enzymatic Alanine Medical activity/volume] Aminotransferase Center in Serum or Plasma (ALT) </content>8 IU/L<content styleCode="Italic s"> (7-30 IU/L)</content> Bilirubin.total 0.2-1.3 <content [facility] [Mass/volume] in styleCode="Bold"> Rowdy hs Serum or Plasma Bilirubin Total Medical </content>0.9 Center MG/DL<content styleCode="Italic s"> (0.2-1.3 MG/DL)</content> UNK 0.0-0.3 <content Saint styleCode="Bold"> Juan Bilirubin, Direct Medical </content>< 0.2 Center MG/DL<content styleCode="Italic s"> (0.0-0.3 MG/DL)</content> Albumin 3.5-5.0 Below low <content Saint [Mass/volume] in normal styleCode="Bold"> Rowdy hs Serum or Plasma Albumin Medical </content>3.3 Center G/DL L<content styleCode="Italic s"> (3.5-5.0 G/DL)</content> ID Date Data Source HematologyRou.[id number] 12/27/2019 08:20:00 AM EDT [facility] 0400 Name Value Range Interpretation Description Data Sup porting Code Source(s) Document(s ) Leukocytes 4.4-11.0 Below low normal <content Saint [#/volume] in styleCode="Bold Juan Blood by ">White Blood Medical Automated count Cell Count Center </content>2.79 KCUMM L<content styleCode="Ital ics"> (4.4-11.0 KCUMM)</content > Hematocrit 36.0-46. Below low normal <content Saint [Volume 0 styleCode="Bold Juan Fraction] of ">Hematocrit Medical Blood by </content>23.1 Center Automated count % L<content styleCode="Ital ics"> (36.0-46.0 %)</content> Hemoglobin 12.3-16. Below low normal <content [facility] [Mass/volume] in 0 styleCode="Bold Juan Blood ">Hemoglobin Medical </content>7.1 Center G/DL L<content styleCode="Ital ics"> (12.3-16.0 G/DL)</content> Erythrocytes 4.0-5.1 Below low normal <content Saint [#/volume] in styleCode="Bold Juan Blood by ">Red Blood Medical Automated count Cell Count Center </content>2.47 MCUMM L<content styleCode="Ital ics"> (4.0-5.1 MCUMM)</content > Erythrocyte mean 80.0-100 <content [facility] corpuscular .0 styleCode="Bold Juan volume [Entitic ">Mean Medical volume] by Corpuscular Center Automated count Volume </content>93.5 FL<content styleCode="Ital ics"> (80.0-100.0 FL)</content> Erythrocyte mean 26.0-34. <content [facility] corpuscular 0 styleCode="Bold Juan hemoglobin ">Mean Medical [Entitic mass] Corposcular Center by Automated Hemoglobin count </content>28.7 PG<content styleCode="Ital ics"> (26.0-34.0 PG)</content> Platelets 130-400 <content Saint [#/volume] in styleCode="Bold Juan Blood by ">Platelet Medical Automated count Count Center </content>389 KCUMM<content styleCode="Ital ics"> (130-400 KCUMM)</content > Erythrocyte mean 32.0-37. Below low normal <content [facility] corpuscular 0 styleCode="Bold Juan hemoglobin ">Mean Corpus. Medical concentration Hgb Center [Mass/volume] by Concentration Automated count (MCHC) </content>30.7 G/DL L<content styleCode="Ital ics"> (32.0-37.0 G/DL)</content> Erythrocyte 11.5-14. Above high <content Saint distribution 5 normal styleCode="Bold Juan width [Ratio] by ">Red Cell Medical Automated count Distribution Center Width </content>14.7 % H<content styleCode="Ital ics"> (11.5-14.5 %)</content> Platelet mean 8.0-11.0 <content Saint volume [Entitic styleCode="Bold Juan volume] in Blood ">Mean Platelet Medical by Automated Volume Center count </content>9.1 FL<content styleCode="Ital ics"> (8.0-11.0 FL)</content> UNK 0 <content Saint styleCode="Bold Juan ">Nucleated Red Medical Blood Cell Center </content>0.0 /100<content styleCode="Ital ics"> (0 /100)</content> UNK 0.0 <content Saint styleCode="Bold Juan ">Nucleated Red Medical Blood Cell Center Count </content>0.00 KCUMM<content styleCode="Ital ics"> (0.0 KCUMM)</content > ID Date Data Source GFR(Creatinine).[id number] 12/27/2019 08:20:00 AM EDT [facility] 0-0400 Name Value Range Interpretation Code Description Data Josiane rce(s) Supporting Document(s ) UNK > 60 <content [place] styleCode="Bold"> Medical Cent er EGFR </content>116 GFR<content styleCode="Italic s"> (> 60 GFR)</content> ID Date Data Source CHMROUTINECCDA.[id number] 12/27/2019 08:20:00 AM EDT [facility] -0400 Name Value Range Interpretation Description Data Sup porting Code Source(s) Document(s ) Lipase 23-300 <content [facility] [Enzymatic styleCode="Bold Medical activity/vo ">Lipase Center lume] in </content>51 Serum or IU/L<content Plasma styleCode="Ital ics"> (23-300 IU/L)</content> ID Date Data Source [id number] 12/27/2019 08:20:[address] [facility] Name Value Range Interpretation Description Data Sup porting Code Source(s) Document(s ) Carbon dioxide, 22-30 <content Saint total styleCode="Bold"> Juan [Moles/volume] in Carbon Dioxide Medical Serum or Plasma </content>26 Center MEQ/L<content styleCode="Italic s"> (22-30 MEQ/L)</content> Sodium 137-145 Below low <content Saint [Moles/volume] in normal styleCode="Bold"> [facility] Serum or Plasma Sodium Medical </content>136 Center MEQ/L L<content styleCode="Italic s"> (137-145 MEQ/L)</content> Chloride 98-107 <content Saint [Moles/volume] in styleCode="Bold"> [facility]ner phs Serum or Plasma Chloride Medical </content>103 Center MEQ/L<content styleCode="Italic s"> (98-107 MEQ/L)</content> Potassium 3.5-5.3 <content Saint [Moles/volume] in styleCode="Bold"> [facility] Serum or Plasma Potassium Medical </content>3.9 Center MEQ/L<content styleCode="Italic s"> (3.5-5.3 MEQ/L)</content> Glucose 74-106 <content Saint [Mass/volume] in styleCode="Bold"> [facility] hs Serum or Plasma Glucose Medical </content>103 Center MG/DL<content styleCode="Italic s"> (74-106 MG/DL)</content> Calcium 8.4-10. <content Saint [Mass/volume] in 2 styleCode="Bold"> [facility] hs Serum or Plasma Calcium Medical </content>9.0 Center MG/DL<content styleCode="Italic s"> (8.4-10.2 MG/DL)</content> UNK 7-17 <content Saint styleCode="Bold"> Juan BUN </content>7 Medical MG/DL<content Center styleCode="Italic s"> (7-17 MG/DL)</content> Creatinine 0.5-1.3 <content Saint [Mass/volume] in styleCode="Bold"> [place] hs Serum or Plasma Creatinine Medical </content>0.7 Center MG/DL<content styleCode="Italic s"> (0.5-1.3 MG/DL)</content> Alanine 7-30 <content Saint aminotransferase styleCode="Bold"> [facility] hs [Enzymatic Alanine Medical activity/volume] Aminotransferase Center in Serum or Plasma (ALT) </content>8 IU/L<content styleCode="Italic s"> (7-30 IU/L)</content> UNK > 60 <content Saint styleCode="Bold"> [facility] EGFR Medical </content>116 Center GFR<content styleCode="Italic s"> (> 60 GFR)</content> Aspartate 14-36 <content [facility] aminotransferase styleCode="Bold"> [facility] hs [Enzymatic Aspartate Medical activity/volume] Aminotransferase Center in Serum or Plasma (AST) </content>31 IU/L<content styleCode="Italic s"> (14-36 IU/L)</content> Alkaline 38-126 <content Saint phosphatase styleCode="Bold"> [facility] [Enzymatic Alkaline Medical activity/volume] Phosphatase (ALP) Cente r in Serum or Plasma </content>87 IU/L<content styleCode="Italic s"> (38-126 IU/L)</content> Bilirubin.total 0.2-1.3 <content Saint [Mass/volume] in styleCode="Bold"> [place] hs Serum or Plasma Bilirubin Total Medical </content>0.9 Center MG/DL<content styleCode="Italic s"> (0.2-1.3 MG/DL)</content> Albumin 3.5-5.0 Below low <content Saint [Mass/volume] in normal styleCode="Bold"> [place] hs Serum or Plasma Albumin Medical </content>3.3 Center G/DL L<content styleCode="Italic s"> (3.5-5.0 G/DL)</content> ID Date Data Source Urinalysis.[id number] 12/27/2019 07:36:00 AM EDT [facility] Name Value Range Interpretation Description Data Sup porting Code Source(s) Document(s ) Color of Urine YELLOW <content Saint styleCode="Esther Martinez d">Color, Medical Urine Center </content>YELL OW <content styleCode="Cary lics"> (YELLOW )</content> UNK CLEAR <content Saint styleCode="Esther Martinez d">Urine Medical Clarity Center </content>NONI R <content styleCode="Cary lics"> (CLEAR )</content> UNK NEGATIVE <content Saint styleCode="Esther Juan d">Urine Medical Bilirubin Center </content>SMAL L <content styleCode="Cary lics"> (NEGATIVE )</content> Glucose NEGATIVE <content Saint [Mass/volume] styleCode="Esther [place] in Urine by d">Urine Medical Test strip Glucose Center </content>NEGA TIVE MG/DL<content styleCode="Cary lics"> (NEGATIVE MG/DL)</conten t> Ketones NEGATIVE <content Saint [Mass/volume] styleCode="Esther [place]enh[place] in Urine by d">Urine Medical Test strip Ketone Center </content>NEGA TIVE MG/DL<content styleCode="Cary lics"> (NEGATIVE MG/DL)</conten t> Specific 1.015-1.02 Below low normal <content Saint gravity of 5 styleCode="Esther Mendenhalls Urine by Test d">Urine Medical strip Specific Center [place] </content>1.01 0 L<content styleCode="Cary lics"> (1.015-1.025 )</content> Hemoglobin NEGATIVE <content Saint [Presence] in styleCode="Esther Martinez Urine by Test d">Urine Blood Medical strip </content>MODE Center RATE <content styleCode="Cary lics"> (NEGATIVE )</content> pH of Urine by 4.5-8.0 <content Saint Test strip styleCode="Esther Juan d">Urine pH Medical </content>7.0 Center <content styleCode="Cary lics"> (4.5-8.0 )</content> Nitrite NEGATIVE <content Saint [Presence] in styleCode="Esther Mendenhalls Urine by Test d">Urine Medical strip Nitrite Center </content>NEGA TIVE <content styleCode="Cary lics"> (NEGATIVE )</content> Protein NEGATIVE <content Saint [Mass/volume] styleCode="Esther Mendenh[place] in Urine by d">Urine Medical Test strip Protein Center </content>30 MG/DL<content styleCode="Cary lics"> (NEGATIVE MG/DL)</conten t> Urobilinogen 0.2-1.0 <content Saint [Units/volume] styleCode="Esther Martinez in Urine by d">Urine Medical Test strip Urobilinogen Center </content>1.0 MG/DL<content styleCode="Cary lics"> (0.2-1.0 MG/DL)</conten t> Leukocyte NEGATIVE <content Saint esterase styleCode="Esther Martinez [Presence] in d">Urine Medical Urine by Test Leukocyte Center strip </content>LARG E <content styleCode="Cary lics"> (NEGATIVE )</content> UNK 0-3 <content Saint styleCode="Esther Juan d">Urine Red Medical Blood Cell Center </content>5 - 10 HPF<content styleCode="Cary lics"> (0-3 HPF)</content> UNK 0-3 <content Saint styleCode="Esther Juan d">Urine White Medical Blood Cell Center </content>20 - 50 HPF<content styleCode="Cary lics"> (0-3 HPF)</content> UNK NONE SEEN <content Saint styleCode="Esther Juan d">Epithelial Medical Cell Center </content>5 - 10 HPF<content styleCode="Cary lics"> (NONE SEEN HPF)</content> UNK NONE <content Saint styleCode="Esther Juan d">Trichomonas Medical Vaginalis Center </content>FEW HPF<content styleCode="Cary lics"> (NONE HPF)</content> UNK 0-2 <content Saint styleCode="Esther Juan d">Hyaline Medical Cast Center </content>5 - 10 LPF<content styleCode="Cary lics"> (0-2 LPF)</content> ID Date Data Source Microbiology.[id number] 12/27/2019 07:36:00 AM EDT [facility] 400 Name Value Range Interpretation Code Description Data Josiane rce(s) Supporting Document(s ) UNK <item><content [facility] styleCode="Bold">Cu Medical Ce nter lture Status </content>
<tab le><tbody><tr><td>S pecimen Number:</td><td>[id number]</td></tr><tr ><td>Sample Collection Date/Time: </td><td>12/27/2019 7:36 AM</td></tr><tr><td >Specimen Source:</td><td>URI NE</td></tr><tr><td >[place] Count Urine:</td><td>>100 ,000 CFU/ML </td></tr><tr><td>P reliminary 1:</td><td>COAGULAS E POSITIVE STAPHYLOCOCCUS </td></tr><tr><td>C ulture Status:</td><td>Fin al </td></tr><tr><td>C ulture Report:</td><td>Cul ture in progress </td></tr><tr><td>U rine Culture:</td><td>Co llection Plate Date: 12/27/2019 07:38 </td></tr><tr><td>O rganism 1:</td><td>STAPH AUREUS MRSA </td></tr><tr><td>O rganism 2:</td><td>Gram-neg ative liana - Manager Recovery species </td></tr></tbody>< /table>
<table border="2"><tbody>< tr><td></td><td>1</ td><td>2</td></tr>< tr><td>Comment</td> <td></td><td></td>< /tr><tr><td>Result Value</td><td>STAPH AUREUS MRSA </td><td>Gram-negat go[place] liana - Manager Recovery species </td></tr><tr><td>R esult Status</td><td>Asuncion l Result</td><td>Asuncion l Result</td></tr><tr ><td></td><td></td> <td></td></tr><tr>< td>AMPICILLIN</td>< td>>8 R</td><td></td></tr ><tr><td>AMPICILLIN SULBACTAM</td><td>1 6/8 R</td><td></td></tr ><tr><td>AUGMENTIN< /td><td>>4/2 R</td><td></td></tr ><tr><td>CEFAZOLIN< /td><td><=8 R</td><td></td></tr ><tr><td>CEFTAROLIN E</td><td><= 0.5 S</td><td></td></tr ><tr><td>CEFTRIAXON E</td><td><=8 R</td><td></td></tr ><tr><td>CIPROFLOXA JANESSA</td><td>> 2 R</td><td></td></tr ><tr><td>DAPTOMYCIN </td><td><= 1 S</td><td></td></tr ><tr><td>GENTAMICIN </td><td><= 4 S</td><td></td></tr ><tr><td>LEVOFLOXAC IN</td><td>4 I</td><td></td></tr ><tr><td>LINEZOLID< /td><td><= 2 S</td><td></td></tr ><tr><td>NITROFURAN TOIN</td><td><= 32 S</td><td></td></tr ><tr><td>OXACILLIN< /td><td>> 2 R</td><td></td></tr ><tr><td>PENICILLIN </td><td>>8 R</td><td></td></tr ><tr><td>RIFAMPIN</ td><td><= 1 S</td><td></td></tr ><tr><td>TETRACYCLI NE</td><td><= 4 S</td><td></td></tr ><tr><td>TRIMETHOPR IM/SULFAMETHOXAZOLE </td><td><=0.5/9.5 S</td><td></td></tr ><tr><td>VANCOMYCIN </td><td>1 S</td><td></td></tr ></tbody></table></ item> UNK <item><content [facility] styleCode="Bold"> Medical Ce nter lture Report </content>
<tab le><tbody><tr><td>S pecimen Number:</td><td>[id number]</td></tr><tr ><td>Sample Collection Date/Time: </td><td>12/27/2019 7:36 AM</td></tr><tr><td >Specimen Source:</td><td>URI NE</td></tr><tr><td >Urine Culture:</td><td>Co llection Plate Date: 12/27/2019 07:38 </td></tr><tr><td>C ulture Status:</td><td>Fin al </td></tr><tr><td>C ulture Report:</td><td>Cul ture in progress </td></tr><tr><td>C olony Count Urine:</td><td>>100 ,000 CFU/ML </td></tr><tr><td>P reliminary 1:</td><td>COAGULAS E POSITIVE STAPHYLOCOCCUS </td></tr><tr><td>O rganism 1:</td><td>STAPH AUREUS MRSA </td></tr><tr><td>O rganism 2:</td><td>Gram-neg ative liana - Manager Recovery species </td></tr></tbody>< /table>
<table border="2"><tbody>< tr><td></td><td>1</ td><td>2</td></tr>< tr><td>Comment</td> <td></td><td></td>< /tr><tr><td>Result Value</td><td>STAPH AUREUS MRSA </td><td>Gram-negat go[place] liana - Manager Recovery species </td></tr><tr><td>R esult Status</td><td>Asuncion l Result</td><td>Asuncion l Result</td></tr><tr ><td></td><td></td> <td></td></tr><tr>< td>AMPICILLIN</td>< td>>8 R</td><td></td></tr ><tr><td>AMPICILLIN SULBACTAM</td><td>1 6 R</td><td></td></tr ><tr><td>AUGMENTIN< /td><td>>4/2 R</td><td></td></tr ><tr><td>CEFAZOLIN< /td><td><=8 R</td><td></td></tr ><tr><td>CEFTAROLIN E</td><td><= 0.5 S</td><td></td></tr ><tr><td>CEFTRIAXON E</td><td><=8 R</td><td></td></tr ><tr><td>CIPROFLOXA JANESSA</td><td>> 2 R</td><td></td></tr ><tr><td>DAPTOMYCIN </td><td><= 1 S</td><td></td></tr ><tr><td>GENTAMICIN </td><td><= 4 S</td><td></td></tr ><tr><td>LEVOFLOXAC IN</td><td>4 I</td><td></td></tr ><tr><td>LINEZOLID< /td><td><= 2 S</td><td></td></tr ><tr><td>NITROFURAN TOIN</td><td><= 32 S</td><td></td></tr ><tr><td>OXACILLIN< /td><td>> 2 R</td><td></td></tr ><tr><td>PENICILLIN </td><td>>8 R</td><td></td></tr ><tr><td>RIFAMPIN</ td><td><= 1 S</td><td></td></tr ><tr><td>TETRACYCLI NE</td><td><= 4 S</td><td></td></tr ><tr><td>TRIMETHOPR IM/SULFAMETHOXAZOLE </td><td><=0.5/9.5 S</td><td></td></tr ><tr><td>VANCOMYCIN </td><td>1 S</td><td></td></tr ></tbody></table></ item> ID Date Data Source Microbiology 07/25/2018 07:45:00 PM EST [facility] Name Value Range Interpretation Description Data Sup porting Code Source(s) Document(s ) UNK <item><content Saint styleCode="[facility] Juan d">[facility] Medical Report Center </content><br/ ><table><tbody ><tr><td>Speci men Number:</td><t d>[id number]</t d></tr><tr><td >Sample Collection Date/Time: </td><td>2018 7:45 PM</td></tr><t r><td>Specimen Source:</td><t d>THROAT</td>< /tr><tr><td>Th roat-Nose Culture:</td>< td>Collection Plate Date: 07/25/2018 19:50 </td></tr><tr> <td>Culture Status:</td><t d>Preliminary </td></tr><tr> <td>Culture Report:</td><t d>Culture in progress </td></tr></tb chela></table></ item> UNK <item><content [facility] styleCode="Esther Juan d">Culture Medical Status Center </content><br/ ><table><tbody ><tr><td>Speci men Number:</td><t d>[id number]</t d></tr><tr><td >Sample Collection Date/Time: </td><td>2018 7:45 PM</td></tr><t r><td>Specimen Source:</td><t d>THROAT</td>< /tr><tr><td>Cu lture Report:</td><t d>Culture in progress </td></tr><tr> <td>Throat-Nos e Culture:</td>< td>Collection Plate Date: 07/25/2018 19:50 </td></tr><tr> <td>Culture Status:</td><t d>Preliminary </td></tr></tb chela></table></ item> Streptococcus <item><content Saint pyogenes Ag styleCode="Esther Juan [Presence] in d">Rapid Strep Medical Unspecified A Center specimen by </content><br/ Immunoassay ><table><tbody ><tr><td>Speci men Number:</td><t d>[id number]</t d></tr><tr><td >Sample Collection Date/Time: </td><td>2018 7:45 PM</td></tr><t r><td>Specimen Source:</td><t d>THROAT</td>< /tr><tr><td>Ra pid Strep A:</td><td>NEG ATIVE </td></tr></tb chela></table></ item> Procedure Social History Code Duration Value Status Description Data Source(s ) Smoking 12/29/2019 04:56:00 Daily Smoker completed Daily Smoker S [facility] EDT Center Smoking 12/27/2019 04:22:00 Daily Smoker completed Daily Smoker S [facility] EDT Center Smoking 12/27/2019 02:18:00 Daily Smoker completed Daily Smoker S [facility] EDT Center Smoking 12/27/2019 08:15:00 Daily Smoker completed Daily Smoker S [facility] EDT Center Smoking 12/27/2019 07:14:00 Daily Smoker completed Daily Smoker [facility] EDT Center Smoking 12/27/2019 06:31:00 Daily Smoker completed Daily Smoker [facility] EDT Center Smoking 07/25/2018 08:49:00 Daily Smoker completed Daily Smoker [facility] EST Center Vital Signs ID Date Data Source UNK Name Value Range Interpretation Code Description Data Source(s) Body temperature 36.229346 Karen 36.717028 [facility] Respiratory rate 20 /min 20 /min [facility] Heart rate 72 /min 72 /min [facility] Diastolic blood 74 mm[Hg] 74 mm[Hg] [facility] Systolic blood 120 mm[Hg] 120 mm[Hg] [facility] Body temperature 36.215402 Karen 36.061173 [facility] Respiratory rate 20 /min 20 /min [facility] Heart rate 81 /min 81 /min [facility] Diastolic blood 66 mm[Hg] 66 mm[Hg] [facility] Systolic blood 102 mm[Hg] 102 mm[Hg] [facility] Body temperature 37.071584 Karen 37.767224 [facility] Respiratory rate 18 /min 18 /min [facility] Heart rate 71 /min 71 /min [facility] Diastolic blood 75 mm[Hg] 75 mm[Hg] [facility] Medical Center Systolic blood 130 mm[Hg] 130 mm[Hg] [facility] Body weight 86.699823 kg 86.048645 kg [facility] Body height 185.585229 cm 185.531576 cm [facility] Body mass index 25.25 kg/m2 25.25 kg/m2 [facility] (BMI) [Ratio] Medical Center Body temperature 37.672827 Karen 37.328495 [facility] Respiratory rate 20 /min 20 /min [facility] Heart rate 82 /min 82 /min [facility] Diastolic blood 76 mm[Hg] 76 mm[Hg] [facility] Medical Center Systolic blood 120 mm[Hg] 120 mm[Hg] [facility] Body temperature 36.632631 Karen 36.565301 [facility] Respiratory rate 20 /min 20 /min [facility] Heart rate 70 /min 70 /min [facility] Diastolic blood 75 mm[Hg] 75 mm[Hg] [facility] Medical Center Systolic blood 113 mm[Hg] 113 mm[Hg] [facility] Body weight 86.896837 kg 86.982549 kg [facility] Body height 177.250814 cm 177.053071 cm [facility] Body mass index 27.46 kg/m2 27.46 kg/m2 [facility] (BMI) [Ratio] Medical Center Body temperature 37.491209 Karen 37.786661 [facility] Respiratory rate 29 /min 29 /min [facility] Heart rate 84 /min 84 /min [facility] Diastolic blood 82 mm[Hg] 82 mm[Hg] [facility] Medical Center Systolic blood 119 mm[Hg] 119 mm[Hg] [facility] Oxygen 99 % 99 % [facility] [place] saturation in Medical Arterial blood Center by Pulse oximetry Body temperature 36.107609 Karen 36.907023 [facility] Respiratory rate 16 /min 16 /min [facility] Heart rate 72 /min 72 /min [facility] Diastolic blood 70 mm[Hg] 70 mm[Hg] [facility] pressure Medical Center Systolic blood 120 mm[Hg] 120 mm[Hg] [facility] Center Oxygen 99 % 99 % [facility] [place] saturation in Medical Arterial blood Center by Pulse oximetry Body temperature 37.820573 Karen 37.734479 [facility] Respiratory rate 16 /min 16 /min [facility] Heart rate 70 /min 70 /min [facility] Diastolic blood 69 mm[Hg] 69 mm[Hg] [facility] Medical Center Systolic blood 115 mm[Hg] 115 mm[Hg] [facility] Center Oxygen 99 % 99 % [place] saturation in Medical Arterial blood Center by Pulse oximetry Body temperature 36.086030 Karen 36.608610 [facility] Respiratory rate 20 /min 20 /min [facility] Heart rate 76 /min 76 /min [facility] Diastolic blood 75 mm[Hg] 75 mm[Hg] [facility] pressure Medical Center Systolic blood 116 mm[Hg] 116 mm[Hg] [facility] Medical Center Oxygen 100 % 100 % [place] saturation in Medical Arterial blood Center by Pulse oximetry Body temperature 37.100002 Karen 37.333223 [facility] Respiratory rate 18 /min 18 /min [facility] Heart rate 83 /min 83 /min [facility] Diastolic blood 78 mm[Hg] 78 mm[Hg] [facility] Medical Center Systolic blood 118 mm[Hg] 118 mm[Hg] [facility] Medical Center Oxygen 99 % 99 % [place] saturation in Medical Arterial blood Center by Pulse oximetry Diastolic blood 84 mmHg 84 mmHg [facility] Systolic blood 135 mmHg 135 mmHg [facility] Respiratory rate 18 bpm 18 bpm [facility] Heart rate 110 bpm 110 bpm [facility] Body temperature 98.2 Fahrenheit 98.2 Fahrenhei t [facility] Diastolic blood 80 mmHg 80 mmHg [facility] Systolic blood 119 mmHg 119 mmHg [facility] Respiratory rate 18 bpm 18 bpm [facility] Heart rate 92 bpm 92 bpm [facility] Body temperature 96.1 Fahrenheit 96.1 Fahrenh t [facility] Diastolic blood 74 mmHg 74 mmHg [facility] Systolic blood 137 mmHg 137 mmHg [facility] Respiratory rate 18 bpm 18 bpm [facility] Heart rate 119 bpm 119 bpm [facility] Diastolic blood 83 mmHg 83 mmHg [facility] Systolic blood 119 mmHg 119 mmHg [facility] Respiratory rate 18 bpm 18 bpm [facility] Heart rate 113 bpm 113 bpm [facility] Body weight 234 lbs 234 lbs [facility] Diastolic blood 86 mmHg 86 mmHg [facility] Systolic blood 135 mmHg 135 mmHg [facility] Respiratory rate 18 bpm 18 bpm [facility] Heart rate 81 bpm 81 bpm [facility] Body temperature 97.6 Fahrenheit 97.6 Fahrenhei t [facility] Body temperature 36.743386 Karen 36.199402 [facility] Respiratory rate 18 /min 18 /min [facility] Oxygen 98 % 98 % [facility] saturation in Medical Arterial blood Center by Pulse oximetry Heart rate 102 /min 102 /min [facility] Diastolic blood 87 mm[Hg] 87 mm[Hg] [facility] Systolic blood 136 mm[Hg] 136 mm[Hg] [facility] Patient Treatment Plan of Care Planned Activity Planned Date Details Description Data Source (s) Fluconazole 100 MG Oral [facility] Tablet [Diflucan] [place] quetiapine 300 MG Oral [facility] Tablet [place] valacyclovir 500 MG Oral [facility] Tablet [Valtrex] [place] Amoxicillin 875 MG / [facility] Clavulanate 125 MG Oral [facility] Tablet Nystatin 978199 UNT/ML Oral [facility] Suspension [place]
--- NOTE | 2020-04-02 04:16 | PDOC ---
History of Present Illness - General Chief Complaint: Back Pain Stated Complaint: BACK PAIN Time Seen by Provider: 04/02/20 03:15 - History of Present Illness Initial Comments: HPI: 04/02/20 04:13 44 yo F PMH HIV not on meds, PE 2 years ago not taking Eliquis, bipolar/schizophrenia (last manic episode reportedly yesterday, yelled at brother), heroin use (snorts, never IV, daily), nicotine (5 cigarettes a day), marijuana (occasional), 12 oz beer every other day, R eye blindness, presenting with back pain. States that she hasn't eaten "in years" and has gone from 290 pounds to 160 pounds over the past several years. Here today with thoracic back pain that "feels like a gas bubble is caught in there and shifting around". Fur ther complains of mild shortness of breath. No PMD, has not been taking any medications, does not follow with anyone. Reports HIV untreated essentially since she was diagnosed 23 years ago. ROS: GENERAL/CONSTITUTIONAL: endorses loss of appetite, weight change, malaise. Den ies fever, chills, diaphoresis, generalized weakness HEAD, EYES, EARS, NOSE AND THROAT: denies rhinorrhea, nasal congestion, throat pain, throat swelling, difficulty swallowing NEUROLOGIC: denies headache, focal weakness, dizziness, unsteady gait, seizure, mental status changes, bladder or bowel incontinence CARDIOVASCULAR: denies chest pain, syncope, palpitations, irregular heart rate, lightheadedness, peripheral edema RESPIRATORY: endorses mild shortness of breath. Denies cough, dyspnea with e xertion, orthopnea, wheezing, stridor, hemoptysis GASTROINTESTINAL: denies abdominal pain, abdominal distension, nausea, vomiting, diarrhea, constipation, melena, hematochezia GENITOURINARY: denies dysuria, frequency, urgency, hesitancy, hematuria, flank pain, genital pain MUSCULOSKELETAL: endorses back pain. Denies myalgia, arthralgia, joint swelling, neck pain SKIN: denies rash, itching, pallor HEMATOLOGIC/IMMUNOLOGIC: denies easy bleeding, easy bruising, lymphadenopathy, frequent infections ENDOCRINE: denies unexplained weight gain, unexplained weight loss, heat intolerance, cold intolerance PSYCHIATRIC: denies anxiety, depression, suicidal or homicidal ideation, hallucinations PE: Gen: unkempt, flat affect Neuro: AAOX4, CN II-XII intact, 5/5 strength, SILT. R eye blindness HEENT: atraumatic, normocephalic, dry mucous membranes, oral thrush Neck: trachea midline, supple CV: regular rate, regular rhythm, no murmurs, rubs, or gallops Pulm: CTA b/l, no wheezing Abd: soft, non-distended, non-tender MSK: full ROM, intact pulses Back: reports tenderness along thoracic spine, tenderness around R paraspinal to R flank Extr: no edema, no deformities Skin: warm, dry, two grade 2 sacral decubitus ulcers, multiple pocked scars around whole body in varying stages of healing MDM: Concern for uncontrolled HIV, sepsis, possible spinal abscess. - sepsis work up - Ofirmev - COVID - nystatin - pending Cr, plan for CT pearl spine with contrast to r/o abscess - admit 04/02/20 07:06 Hgb 7.2, WBC 2, ANC 1.4. Will plan for CT pearl spine with contrast, plan to admit for uncontrolled HIV. Patient signed out to Dr. Payne. Past History - Medical History Allergies/Adverse Reactions: Allergies Allergy/AdvReac Type Severity Reaction Status Date / Time No Known Allergies Allergy Verified 04/02/20 03:15 Home Medications: Ambulatory Orders Quetiapine Fumarate [Seroquel -] 100 mg PO HS #30 tablet 05/23/18 Apixaban [Eliquis] 2.5 mg PO DAILY 04/02/20 Mirtazapine [Remeron -] 15 mg PO DAILY 04/02/20 Olanzapine [Zyprexa -] 5 mg PO DAILY 04/02/20 Asthma: No Cardiac Disorders: No COPD: No Diabetes: No GI Disorders: No HTN: No Seizures: No - Reproductive History Is Patient Now?: No - Psycho-Social/Smoking History Smoking History: Never smoked Have you smoked in the past 12 months: No Number of Cigarettes Smoked Daily: 2 Information on smoking cessation initiated: No 'Breaking Loose' booklet given: 05/22/18 - Substance Abuse Hx (Audit-C & DAST Scrn) How often the patient has a drink containing alcohol: Never Score: In Men: 4 or > Positive; In Women: 3 or > Positive: 0 Screen Result (Pos requires Nsg. Audit-10AR): Negative In the last yr the pt used illegal drug/Rx for NonMed reason: No Score: Yes response is considered Positive: 0 Screen Result (Positive result requires Nsg. DAST-10): Negative *Physical Exam - Vital Signs Last Vital Signs Temp Pulse Resp BP Pulse Ox 99.9 F H 103 H 20 95/65 99 04/02/20 03:15 04/02/20 03:15 04/02/20 03:15 04/02/20 03:15 04/02/20 03:15 ED Treatment Course - LABORATORY CBC & Chemistry Diagram: 04/03/20 08:12 04/03/20 08:12 - RADIOLOGY Radiology Studies Ordered: Category Date Time Status CHEST X-RAY PORTABLE* [RAD] Stat Radiology 04/02/20 04:11 Ordered Discharge - Discharge Information Problems reviewed: Yes Clinical Impression/Diagnosis: Paranoid schizophrenia, Skin lesions, generalized Neutropenia Qualifiers: Neutropenia type: due to infection Qualified Code(s): D70.3 - Neutropenia due to infection HIV (human immunodeficiency virus infection) Qualifiers: HIV symptom status: symptomatic Qualified Code(s): B20 - Human immunodeficiency virus [HIV] disease - Follow up/Referral - Patient Discharge Instructions - Post Discharge Activity
[2020-04-02] MEDS ORDERED: NYSTATIN 500,000 UNITS/5 ML SUSPENSION PO ONE (04:34)
[2020-04-02] MEDS ORDERED: ACETAMINOPHEN 1000 MG/100 ML VIAL (NON FORMULARY) IVPB ONE (04:49)
[2020-04-02] MEDS ORDERED: ACETAMINOPHEN INJECTION 100 ML IVPB ONE (04:50)
--- NOTE | 2020-04-02 05:11 | PDOC ---
Attending Attestation - Resident Resident Name: AnayaJohan no - ED Attending Attestation I have performed the following: I have examined & evaluated the patient, The case was reviewed & discussed with the resident, I agree w/resident's findings & plan, Exceptions are as noted - HPI HPI: 04/02/20 08:12 See resident HPI - Physicial Exam PE: 04/02/20 08:12 Agree with documented exam - Medical Decision Making 04/02/20 08:13 Likely uncontrolled HIV/AIDS, sepsis with no obvious source, ?opportunistic infection, c/o back pain with fever, should evaluate for SEA f/u labs, pearl cx, ua, cxr, ekg, MRI ctl spine, abx, ivf will need admission Discharge - Discharge Information Problems reviewed: Yes Clinical Impression/Diagnosis: Paranoid schizophrenia, Skin lesions, generalized Neutropenia Qualifiers: Neutropenia type: due to infection Qualified Code(s): D70.3 - Neutropenia due to infection HIV (human immunodeficiency virus infection) Qualifiers: HIV symptom status: symptomatic Qualified Code(s): B20 - Human immunodeficiency virus [HIV] disease - Follow up/Referral - Patient Discharge Instructions - Post Discharge Activity
[2020-04-02] MEDS ORDERED: CEFEPIME HCL/D5W 1 GM/50 ML BAG IVPB ONE (05:48)
[2020-04-02] MEDS ORDERED: VANCOMYCIN 1,250 MG in DEXTROSE 5%-WATER - 250 ML IVPB ONE (05:49)
[2020-04-02] MEDS ORDERED: CEFEPIME 1 GM/100 ML BAG IVPB ONE ×2 (05:52→13:03)
[2020-04-02 06:03] LABS: BASO % 0.3 % (0-2.0); EOS % 3.9 % (0-4.5); HEMATOCRIT 21.7 % (32.4-45.2); HEMOGLOBIN 7.2 GM/dL (10.7-15.3); LYMPH % 9.4 % (8-40); MCH 30.5 pg (25.7-33.7); MCHC 33.1 g/dl (32.0-36.0); MEAN CELL VOLUME 92.2 fl (80-96); MEAN PLT VOLUME 7.3 fl (7.5-11.1); MONO % 14.8 % (3.8-10.2); NEUT % 71.6 % (42.8-82.8); PLATELET COUNT 425 K/MM3 (134-434); RBC 2.35 M/mm3 (3.60-5.2); RDW 14.8 % (11.6-15.6)
[2020-04-02 06:26] LABS: INR 1.18 (0.83-1.09)
[2020-04-02 06:29] LABS: ACTIVATED PTT 31.2 SECONDS (25.2-36.5)
[2020-04-02 06:39] LABS: ALBUMIN 2.3 g/dl (3.4-5.0); BILIRUBIN,TOTAL 0.5 mg/dL (0.2-1); BLOOD UREA NITROGEN 10.2 mg/dL (7-18); CREATININE 0.8 mg/dL (0.55-1.3); POTASSIUM 4.2 mmol/L (3.5-5.1); TOT PROT 9.2 g/dl (6.4-8.2)
--- NOTE | 2020-04-02 07:06 | PDOC ---
*Physical Exam - Vital Signs Last Vital Signs Temp Pulse Resp BP Pulse Ox 100.2 F H 103 H 20 95/65 99 04/02/20 04:20 04/02/20 03:15 04/02/20 03:15 04/02/20 03:15 04/02/20 03:15 - Physical Exam General Appearance: Yes: Nourished, Disheveled Respiratory/Chest: positive: Normal Breath Sounds, Other (decreased BS). negative: Chest Tender, Respiratory Distress, Accessory Muscle Use Cardiovascular: positive: Regular Rhythm, Regular Rate. negative: JVD, Murmur, Tachycardia Gastrointestinal/Abdominal: positive: Normal Bowel Sounds, Tender (Diffuse tenderness), Soft. negative: Organomegaly, Pulsatile Mass, Distended, Guarding, Rebound Musculoskeletal: positive: Normal Inspection, CVA Tenderness, CVA Tenderness (R). negative: CVA Tenderness (L) Extremity: positive: Tender, Calf Tenderness (L). negative: Coldness Integumentary: positive: Normal Color, Warm, Clammy Neurologic: positive: Fully Oriented, Alert, Normal Mood/Affect, Normal Response ED Treatment Course - LABORATORY CBC & Chemistry Diagram: 04/02/20 05:00 04/02/20 05:00 - ADDITIONAL ORDERS Additional order review: Laboratory Results 04/02/20 04/02/20 04/02/20 05:00 05:00 05:00 PT with INR INR PTT (Actin FS) Sodium 133 L Potassium 4.2 Chloride 98 Carbon Dioxide 28 Anion Gap 7 L BUN 10.2 Creatinine 0.8 Est GFR (CKD-EPI)AfAm 102.47 Est GFR (CKD-EPI)NonAf 88.41 Random Glucose 88 Lactic Acid 1.6 Calcium 9.0 Total Bilirubin 0.5 AST 46 H ALT 20 Alkaline Phosphatase 136 H Troponin I < 0.02 Total Protein 9.2 H Albumin 2.3 L 04/02/20 05:00 PT with INR 14.00 H INR 1.18 H PTT (Actin FS) 31.2 Sodium Potassium Chloride Carbon Dioxide Anion Gap BUN Creatinine Est GFR (CKD-EPI)AfAm Est GFR (CKD-EPI)NonAf Random Glucose Lactic Acid Calcium Total Bilirubin AST ALT Alkaline Phosphatase Troponin I Total Protein Albumin 04/02/20 05:00 RBC 2.35 L MCV 92.2 MCHC 33.1 RDW 14.8 MPV 7.3 L Neutrophils % 71.6 Lymphocytes % 9.4 Monocytes % 14.8 H Eosinophils % 3.9 Basophils % 0.3 - Medications Given in the ED: ED Medications Discontinued Medications Generic Name Dose Route Start Last Admin Trade Name Krystian PRN Reason Stop Dose Admin Acetaminophen 1,000 mg 04/02/20 04:49 04/02/20 04:58 Ofirmev Injection - IVPB 04/02/20 04:50 1,000 mg ONCE ONE Administration Cefepime HCl 1 gm in 50 mls @ 100 mls/hr 04/02/20 05:48 04/02/20 06:02 Maxipime 1 Gm Premix Ivpb IVPB 04/02/20 06:17 100 mls/hr ONCE ONE Administration Nystatin 500,000 units 04/02/20 04:34 04/02/20 05:25 Nystatin Oral Suspension - PO 04/02/20 04:35 500,000 units ONCE ONE Administration ED Progress Note - Progress Note Progress Note: 04/02/20 07:20 Patient was signed out to me by Dr. Anaya. Medical Decision Making - Medical Decision Making 04/02/20 07:22 44 yo F PMH HIV not on meds, PE 2 years ago not taking Eliquis, bipolar/schizophrenia Presenting due to fever, chills, cough, N/V. DDx: Septic unknown source (UTI, abscess, blood), uncontrolled HIV, neutropenic fever Labs: WBC 2, ANC 1.4, Hgb 7.2, Hct 21.7, Na 133, Trop < 0.02 CXR: Lung clear, no acute process seen. Patient has received Vancomycin and 1g IV Tylenol in the ED Dispo: Admission for neutropenic fever/ Uncontrolled HIV - Will admit patient for full sepsis workup, patient will need lumbar MRI due to suspicion of paraspinal abscess, due to time it takes to complete and receive results from the MRI patient will be admitted. 04/02/20 09:43 Discharge - Discharge Information Problems reviewed: Yes Clinical Impression/Diagnosis: Neutropenia Qualifiers: Neutropenia type: other Qualified Code(s): D70.8 - Other neutropenia - Follow up/Referral - Patient Discharge Instructions - Post Discharge Activity
[2020-04-02 08:16] LABS: EPI CELLS >36 /uL (0-25.1); HYALINE CASTS 1 /uL (0-3.1); URINE APPEARANCE CLEAR; URINE BACTERIA 97 /uL (0-1359); URINE BILIRUBIN NEGATIVE (NEGATIVE); URINE COLOR YELLOW; URINE GLUCOSE (UA) NEGATIVE (NEGATIVE); URINE KETONE NEGATIVE (NEGATIVE); URINE LEUK ESTERASE 1+ (NEGATIVE); URINE NITRITE NEGATIVE (NEGATIVE); URINE PROTEIN TRACE (NEGATIVE); URINE RBC 7 /uL (0-23.9); URINE UROBILINOGEN 0.2 mg/dL (0.2-1.0); URINE WBC 31 /uL (0-25.8)
[2020-04-02 10:14] LABS: ANISOCYTOSIS 1+; MACROCYTOSIS 0; OVALOCYTE 1+; PLATELET ESTIMATE NORMAL; TEAR DROP CELLS 1+; TOXIC GRANULATION 1+
[2020-04-02] MEDS ORDERED: SODIUM CHLORIDE 1,000 ML IV SCH (10:15)
--- NOTE | 2020-04-02 10:35 | EKG ---
Test Reason : Blood Pressure : / mmHG Vent. Rate : 094 BPM Atrial Rate : 094 BPM P-R Int : 156 ms QRS Dur : 084 ms QT Int : 376 ms P-R-T Axes : 053 048 047 degrees QTc Int : 470 ms NORMAL SINUS RHYTHM NORMAL ECG WHEN COMPARED WITH ECG OF 22-MAY-2018 22:17, NO SIGNIFICANT CHANGE WAS FOUND Confirmed by ASHWINI LEHMAN MD ([id number]) on 04/02/2020 10:35:11 AM Referred By: Confirmed By:ASHWINI LEHMAN MD
--- OUTSIDE RECORDS SUMMARY | 2020-04-02 11:30 | XMS ---
:1975 Author Organization [facility] Care Team Providers Name Role Phone MOISES LOWRY Unavailable Unavailable ED STAFF PHYSICIAN, STAFF Unavailable Unavailable RENAE LYLE MD Unavailable Unavailable Rains, C Unavailable Unavailable Rains, C Unavailable Unavailable Rains, C Unavailable Unavailable Rains, C Unavailable Unavailable Re-disclosure Warning The records [...] is protected by Article 27-F of the [facility] Public Health law. If you continue you may haveaccess to information: Regarding HIV / AIDS; Provided by facilities licensed or operated by the [facility] Office of Mental Health; or Provided by the [facility] Office for People With Developmental Disabilities. If such information is present, then the following [facility] mandated warning applies: This information has been [...] law may result in a fine or usp sentence or both. A general authorization for the release of medical or other information is NOT sufficient authorization for further disclosure. Encounters Encounter Providers Location Date Indications Data Source(s ) Outpatient 01/07/2020 [facility] 01:44:00 PM [facility] EDT Outpatient 01/07/2020 [facility] 12:00:00 AM Medical Cente r EDT Inpatient Attender: MOISES Orellana-HAL6 12/27/2019 [facility] doris JUSTINE DE LEON 06:17:00 AM Medical Sarthak jd HAttender: STAFF ED EDT - STAFF 12/30/2019 PHYSICIANAdmitter: 05:50:00 PM MOISES DE LEON EDT HReferrer: MOISES Orellana Patient discharged. 12/27/2019 12:00:00 [facility] ED[facility] - 11/27/2016 Center 12:00:00 AM EDT Outpatient 02/19/2019 09:24:00 AM [facility] EDT Center Outpatient 02/19/2019 12:00:00 AM [facility] EDT Center Inpatient Attender: RENAE BARBAV-1D 01/03/2019 04:35:00 PM [facility] Judith Dinero EDT - 01/10/2019 Hospital : Bryanna Salguero 10:17:00 PM EDT Outpatient [facility] 01/03/2019 12:47:00 PM [facility] EDT - 01/03/2019 Hospital 06:23:00 PM EDT Immunizations Vaccine Date Status Description Data Source(s) pneumococcal 11/27/2016 completed [facility] edical polysaccharide PPV23 11:28:00 AM EDT Cent er Medications Medication Brand Start Product Dose Route Administrative Pharmacy [facility] Indications Reaction Description Data Name Date Form [...] - 15 [facility] 15 MG Oral n 15 2018 Table ed MG ORAL Rudolph cents Tablet MG 12:00: t [facility] Hospital [Remeron] ORAL 00 AM Tablet EDT quetiapine SEROqu ORAL complet SEROque l - Saint 50 MG Oral el 2018 Table ed 50 MG ORAL Vi [...] e Nystatin nystat 5 mL complet Saint 865753 in ed Juan UNT/ML Oral 100,00 Medica [...] Tablet mg Tablet, , Ordered By: Abisai Cornejo d By: Bel Latif FNPDirectio e ns: 1 Wickha tablet oral m, every FNPDir twelve ection hours with s: 1 or after tablet food oral every twelve hours with or after food valacyclovi valACY 2 complet Valtrex Saint r 500 MG clovir ed Juan Oral Tablet (Valtr Medica l [Valtrex] ex) [place] valACYclovi 500 mg r (Valtrex) Tablet 500 mg , Tablet, Ordere Ordered By: d By: Chinmay Griffin MDDirection f, s: 2 tablet MDDire oral twice ctions a day : 2 tablet oral twice a day Insurance Providers Payer name Policy type Policy ID Covered Covered democrat's Policy P jay / Coverage democrat ID relationship to [facility] Inf ormation type mckeon RADHA [id number] SP [id number] MEDICARE ADV PLAN MEDICAID [id number] SP [id number] W [id number] 01 [id number] RADHA [id number] 01 [id number] 01 [id number] RADHA [id number] 01 [id number] RADHA HMO [id number] 01 [id number] MEDICARE OP W [id number] 01 [id number] 01 [id number] 900 MEDICAID IN [id number] Self [id number] F REHAB SELF PAY 00 Self 00 [facility] RADHA [id number] Self [id number] MEDICARE ADV MEDICAID IN [id number] Self [id number] F PSYCH HRADEEP MEDICARE [id number] SP [id number] RADHA [id number] SP [id number] 900 MEDICARE ADV PLAN Problems, Conditions, and Diagnoses Code Display Name Description Problem Type Effective Data Dates Source(s) F19.10 Other psychoactive OTHER PSYCHOACTIVE Diagnosis 0 substance abuse, SUBSTANCE ABUSE, 05:50:00 PM Adriano osephs uncomplicated UNCOMPLICATED [facility] F25.9 Schizoaffective SCHIZOAFFECTIVE Diagnosis 12/30/2019 Kandice t disorder, DISORDER, 05:50:00 PM Juan unspecified UNSPECIFIED [facility] F17.210 Nicotine dependence, NICOTINE DEPENDENCE, Diagnosis 12/29 cigarettes, CIGARETTES, 05:50:00 PM [facility] uncomplicated UNCOMPLICATED [facility] D64.9 Anemia, unspecified ANEMIA, UNSPECIFIED Diagnosis Saint 05:50:00 PM [facility] A60.04 Herpesviral HERPESVIRAL Diagnosis 12/30/2019 vulvovaginitis VULVOVAGINITIS 05:50:00 PM Rowdy hs [facility] B37.0 Candidal stomatitis CANDIDAL STOMATITIS Diagnosis Saint 05:50:00 PM [facility] B20 Human HUMAN Diagnosis 12/30/2019 [facility] immunodeficiency IMMUNODEFICIENCY 05:50:00 PM [facility] virus [HIV] disease VIRUS (HIV) DISEASE [facility] Z86.711 Personal history of PERSONAL HISTORY OF Diagnosis pulmonary embolism PULMONARY EMBOLISM 05:50:00 PM [facility] K29.00 Acute gastritis ACUTE GASTRITIS Diagnosis 12/30/2019 Kandice t without bleeding WITHOUT BLEEDING 05:50:00 PM [facility] R11.2 Nausea with NAUSEA WITH Diagnosis 12/27/2019 vomiting, VOMITING, 06:17:00 AM [facility] unspecified UNSPECIFIED [facility] F11.20 Opioid dependence, Opioid dependence, Diagnosis 9 uncomplicated uncomplicated 01:44:[address] [facility] Results ID Date Data Source BloodBank.[id number] 12/30/2019 11:27:00 AM T [facility] Name Value Range Interpretation Code Description Data Josiane rce(s) Supporting Document(s ) UNK <content [facility] styleCode="Bold"> Medical Cent er Packed Red Blood Cells </content>Transfu sed 1 unit. (Reference Range: not available)
ID Date Data Source [facility].[id number] 12/30/2019 08:15:00 AM T [facility] Name Value Range Interpretation Code Description Data Josiane rce(s) Supporting Document(s ) UNK <content [facility] styleCode="Bold"> Medical Cent er RH Type </content>POSITIV E (Reference Range: not available)
UNK <content [facility] styleCode="Bold"> Medical Cent er Blood Type </content>GROUP A (Reference Range: not available)
ID Date Data Source Liver 12/30/2019 05:30:00 AM EDT [facility] Profile.[id number] Name Value Range Interpretation Description Data Sup [...] s"> (0.2-1.3 MG/DL)</content> ID Date Data Source HematologyRou.[id number] 12/30/2019 05:30:00 AM EDT [facility] 0400 Name Value Range Interpretation Description [...] 21-51 Below low normal <content Saint styleCode="Bold Juan ">Manual Medical Lymphocyte Center Count </content>8.0 % [...] ics"> (0-3 %)</content> ID Date Data Source GFR(Creatinine).[id number] 12/30/2019 05:30:00 AM EDT [facility] 0-0400 Name Value Range Interpretation Code Description Data Josiane rce(s) Supporting Document(s ) UNK > 60 <content [facility] styleCode="Bold"> Medical Cent er EGFR </content>99 GFR<content styleCode="Italic s"> (> 60 GFR)</content> ID Date Data Source Coagulation 12/30/2019 05:30:00 AM [facility] ical Center Rout.[id number] EDT Name Value Range Interpretation Description Data [...] cs"> (25.1-36.5 SEC)</content> ID Date Data Source ChemistrySpecia.[id number] 12/30/2019 05:30:00 AM EDT [facility] 0-0400 Name Value Range Interpretation Description Data Sup porting Code Source(s) Document(s ) Folate > 3.0 <content Saint [Mass/volume] styleCode="Esther Juan in Serum or d">Folic Acid Medical Plasma </content>8.65 Center NG/ML<content styleCode="Cary lics"> (> 3.0 NG/ML)</conten t> Cobalamin 239-931 <content Saint (Vitamin B12) styleCode="Esther Juan [Mass/volume] d">Vitamin B12 Medical in Serum or </content>903 Center Plasma PG/ML<content styleCode="Cary lics"> (239-931 PG/ML)</conten t> ID Date Data Source CHMROUTINECCDA.[id number] 12/30/2019 05:30:00 AM EDT [facility] -0400 Name Value Range Interpretation Description Data [...] t> Phosphate 2.5-4.5 <content Saint [Mass/volume] styleCode="Esther Mendenhalls in Serum or d">Phosphorus Medical Plasma </content>3.1 Center MG/DL<content styleCode="Cary lics"> (2.5-4.5 MG/DL)</conten t> Protein 6.3-8.2 <content [facility] [Mass/volume] styleCode="Esther Juan [...] (1.6-2.3 MG/DL)</conten t> ID Date Data Source BloodBank.[id number] 12/30/2019 05:30:00 AM EDT [facility] Name Value Range Interpretation Code Description Data Josiane rce(s) Supporting Document(s ) UNK NEGATIVE <content [facility] styleCode="Bold" Medical Cente r >Antibody Screen </content>NEGATI VE <content styleCode="Itali cs"> (NEGATIVE )</content> UNK <content [facility] styleCode="Bold" Medical Cente r >Cross-Match for Packed Cells </content>[id number] COMP A NEG (Reference Range: not available)
UNK <content [facility] styleCode="Bold" Medical Cente r >RH Type </content>POSITI VE (Reference Range: not available)
UNK <content [facility] Juan styleCode="Bold" Medical Cente r >Blood Type </content>GROUP A (Reference Range: not available)
ID Date Data Source [facility].[id number] 12/30/2019 05:30:00 AM EDT [facility] Name Value Range Interpretation [...] Data Source Liver 12/29/2019 05:15:00 AM EDT [facility] Profile.[id number] Name Value Range Interpretation Description Data Sup [...] s"> (3.5-5.0 G/DL)</content> ID Date Data Source HematologyRou.[id number] 12/29/2019 05:15:00 AM EDT [facility] 0400 Name Value Range Interpretation Description [...] ics"> (NORMAL )</content> ID Date Data Source GFR(Creatinine).[id number] 12/29/2019 05:15:00 AM EDT [facility] 0-0400 Name Value Range Interpretation Code Description Data Josiane rce(s) Supporting Document(s ) UNK > 60 <content [facility] styleCode="Bold"> Medical Cent er EGFR </content>116 GFR<content styleCode="Italic s"> (> 60 GFR)</content> ID Date Data Source CHMROUTINECCDA.[id number] 12/29/2019 05:15:00 AM EDT [facility] -0400 Name Value Range Interpretation Description Data [...] (1.6-2.3 MG/DL)</conten t> ID Date Data Source [facility].[id number] 12/29/2019 05:15:00 AM EDT [facility] Name Value Range Interpretation Description Data Sup porting Code Source(s) Document(s ) Sodium 137-145 <content Saint [Moles/volume] in styleCode="Bold"> Abner phs Serum or Plasma Sodium Medical </content>143 Center MEQ/L<content styleCode="Italic s"> (137-145 MEQ/L)</content> Potassium 3.5-5.3 <content Saint [Moles/volume] in styleCode="Bold"> [facility] Serum or Plasma Potassium Medical </content>3.5 Center [...] Data Source Liver 12/28/2019 05:55:00 AM EDT [facility] Profile.[id number] Name Value Range Interpretation Description Data Sup [...] s"> (3.5-5.0 G/DL)</content> ID Date Data Source HematologyRou.[id number] 12/28/2019 05:55:00 AM EDT [facility] 0400 Name Value Range Interpretation Description [...] high <content Saint distribution 5 normal styleCode="Fatimah Martinez width [Ratio] by ">Red Cell Medical Automated [...] ics"> (0 /100)</content> ID Date Data Source GFR(Creatinine).[id number] 12/28/2019 05:55:00 AM EDT [facility] 0-0400 Name Value Range Interpretation Code Description Data Josiane rce(s) Supporting Document(s ) UNK > 60 <content [facility] styleCode="Bold"> Medical Cent er EGFR </content>138 GFR<content styleCode="Italic s"> (> 60 GFR)</content> ID Date Data Source Coagulation 12/28/2019 05:55:00 AM [facility] Rout.[id number] EDT Name Value Range Interpretation Description Data Sup porting Code Source(s) Document(s ) INR in 0.80-1.2 <content Saint Platelet poor 0 styleCode="Bold" Juan plasma by >INR Medical Coagulation </content>1.14 Center assay #<content styleCode="Itali cs"> (0.80-1.20 #)</content> UNK 9.0-13.0 <content Saint styleCode="Bold" Juan >Protime Medical </content>12.7 Center SEC<content styleCode="Itali cs"> (9.0-13.0 SEC)</content> aPTT in 25.1-36. <content Saint Platelet poor 5 styleCode="Bold" Juan plasma by >Partial Medical Coagulation Thromboplastin Center assay Time </content>33.5 SEC<content styleCode="Itali cs"> (25.1-36.5 SEC)</content> ID Date Data Source MROUTINECCDA.[id number] 12/28/2019 05:55:00 AM EDT [facility] -0400 Name Value Range Interpretation Description Data Sup porting Code Source(s) Document(s ) UNK >= 1.0 Below low normal <content Saint styleCode="Esther Juan d">AG Ratio Medical </content>0.7 Center L<content styleCode="Cary lics"> (>= 1.0 )</content> Magnesium 1.6-2.3 <content Saint [Mass/volume] styleCode="Esther Juan in Serum or d">Magnesium Medical Plasma </content>2.0 Center MG/DL<content styleCode="Cary lics"> (1.6-2.3 MG/DL)</conten t> UNK 2.3-3.5 Above high normal <content Saint styleCode="Esther Juan d">Globulin Medical </content>4.3 Center G/DL H<content styleCode="Cary lics"> (2.3-3.5 G/DL)</content > Protein 6.3-8.2 <content Saint [Mass/volume] styleCode="Esther Martinez in Serum or d">Total Medical Plasma Protein Center </content>7.3 G/DL<content styleCode="Cary lics"> (6.3-8.2 G/DL)</content > Phosphate 2.5-4.5 <content Saint [Mass/volume] styleCode="Esther Martinez in Serum or d">Phosphorus Medical Plasma </content>3.8 Center MG/DL<content styleCode="Cary lics"> (2.5-4.5 MG/DL)</conten t> ID Date Data Source BMP.[id number] 12/28/2019 05:55:00 AM EDT [facility] Name Value Range Interpretation Description Data Sup porting Code Source(s) Document(s ) Potassium 3.5-5.3 Below low <content Saint [Moles/volume] in normal styleCode="Bold"> [facility] Serum or Plasma Potassium Medical </content>3.4 Center MEQ/L L<content styleCode="Italic s"> (3.5-5.3 MEQ/L)</content> Sodium 137-145 <content Saint [Moles/volume] in styleCode="Bold"> [facility] Serum or Plasma Sodium Medical </content>141 Center MEQ/L<content styleCode="Italic s"> (137-145 MEQ/L)</content> Chloride 98-107 Above high <content Saint [Moles/volume] in normal styleCode="Bold"> [facility] Serum or Plasma Chloride Medical </content>112 Center [...] s"> (3.5-5.0 G/DL)</content> ID Date Data Source CHMROUTINECCDA.[id number] 12/28/2019 05:45:00 AM EDT [facility] -0400 Name Value Range Interpretation Description Data Sup porting Code Source(s) Document(s ) Cannabinoids <content Saint [Presence] in styleCode="[facility] Urine by Screen d">Cannabinoid Medical method >50 ng/mL s Center </content>NEGA TIVE NG/ML (Reference Range: not available)<br/ > ID Date Data Source [id number] 12/27/2019 01:30:00 PM EDT [facility] Name Value Range Interpretation Code Description Data Josiane rce(s) Supporting Document(s ) COV2 [facility] This lab was ordered by [facility] and reported by [facility]. ID Date Data Source Liver 12/27/2019 08:20:00 AM EDT [facility] Profile.[id number] Name Value Range Interpretation Description Data Sup [...] s"> (3.5-5.0 G/DL)</content> ID Date Data Source HematologyRou.[id number] 12/27/2019 08:20:00 AM EDT [facility] 0400 Name Value Range Interpretation Description [...] (0.0 KCUMM)</content > ID Date Data Source GFR(Creatinine).[id number] 12/27/2019 08:20:00 AM EDT [facility] 0-0400 Name Value Range Interpretation Code Description Data Josiane rce(s) Supporting Document(s ) UNK > 60 <content [facility] Juan styleCode="Bold"> Medical Cent er EGFR </content>116 GFR<content styleCode="Italic s"> (> 60 GFR)</content> ID Date Data Source CHMROUTINECCDA.[id number] 12/27/2019 08:20:00 AM EDT [facility] -0400 Name Value Range Interpretation Description Data Sup porting Code Source(s) Document(s ) Lipase 23-300 <content [facility] Juan [Enzymatic styleCode="Bold Medical activity/vo ">Lipase Center lume] in </content>51 Serum or IU/L<content Plasma styleCode="Ital ics"> (23-300 IU/L)</content> ID Date Data Source [facility].[id number] 12/27/2019 08:20:00 AM EDT [facility] Name Value Range Interpretation Description [...] Abner phs Serum or Plasma Potassium Medical </content>3.9 Center [...] IU/L)</content> UNK > 60 <content Saint styleCode="Bold"> [facility] EGFR Medical </content>116 Center GFR<content styleCode="Italic s"> (> 60 GFR)</content> Aspartate 14-36 <content Saint aminotransferase styleCode="Bold"> [facility] [Enzymatic Aspartate Medical activity/volume] Aminotransferase Center in Serum or Plasma (AST) </content>31 IU/L<content styleCode="Italic s"> (14-36 IU/L)</content> Alkaline 38-126 <content Saint phosphatase styleCode="Bold"> [facility] [Enzymatic Alkaline Medical activity/volume] Phosphatase (ALP) Cente [...] s"> (3.5-5.0 G/DL)</content> ID Date Data Source Urinalysis.[id number] 12/27/2019 07:36:00 AM EDT [facility] 0 Name Value Range Interpretation Description Data Sup porting Code Source(s) Document(s ) Color of Urine YELLOW <content Saint styleCode="Esther Martinez d">Color, Medical Urine Center </content>YELL OW <content styleCode="Cary lics"> (YELLOW )</content> UNK CLEAR <content Saint styleCode="Esther Mendenhalls d">Urine Medical Clarity Center </content>NONI R <content styleCode="Cary lics"> (CLEAR )</content> UNK NEGATIVE <content Saint styleCode="Esther Juan d">Urine Medical Bilirubin Center </content>SMAL L <content styleCode="Cary lics"> (NEGATIVE )</content> Glucose NEGATIVE <content Saint [Mass/volume] styleCode="Esther Martinez in Urine by d">Urine Medical Test strip Glucose Center </content>NEGA TIVE MG/DL<content styleCode="Cary lics"> (NEGATIVE MG/DL)</conten t> Ketones NEGATIVE <content Saint [Mass/volume] styleCode="Esther Mendenhalls in Urine by d">Urine Medical Test strip Ketone Center </content>NEGA TIVE MG/DL<content styleCode="Cary lics"> (NEGATIVE MG/DL)</conten t> Specific 1.015-1.02 Below low normal <content Saint gravity of 5 styleCode="Esther Martinez Urine by Test d">Urine Medical strip Specific Center [place] </content>1.01 0 L<content styleCode="Cary lics"> (1.015-1.025 )</content> Hemoglobin NEGATIVE <content Saint [Presence] in styleCode="Esther Martinez Urine by Test d">Urine Blood Medical strip </content>MODE Center RATE <content styleCode="Cary lics"> (NEGATIVE )</content> pH of Urine by 4.5-8.0 <content Saint Test strip styleCode="Esther Mendenhalls d">Urine pH Medical </content>7.0 Center <content styleCode="Cary [...] lics"> (0-2 LPF)</content> ID Date Data Source Microbiology.[id number] 12/27/2019 07:36:00 AM EDT [facility] 400 Name Value Range Interpretation Code Description Data Josiane rce(s) Supporting Document(s ) UNK <item><content [facility] Juan styleCode="Bold">Cu Medical Ce nter lture Status </content>
<tab le><tbody><tr><td>S pecimen Number:</td><td>[id number]</td></tr><tr ><td>Sample Collection Date/Time: </td><td>12/27/2019 7:36 AM</td></tr><tr><td >Specimen Source:</td><td>URI NE</td></tr><tr><td >[place] Count Urine:</td><td>>100 ,000 CFU/ML </td></tr><tr><td>P reliminary 1:</td><td>COAGULAS E POSITIVE STAPHYLOCOCCUS </td></tr><tr><td>C ulture Status:</td><td>Fin al </td></tr><tr><td>C ulture Report:</td><td>Cul ture in progress </td></tr><tr><td>U rine Culture:</td><td>Co llection Plate Date: 12/27/2019 07:38 </td></tr><tr><td>O rganism 1:</td><td>STAPH AUREUS MRSA </td></tr><tr><td>O rganism 2:</td><td>Gram-neg ative liana - Dressing Room Attendant species </td></tr></tbody>< /table>
<table border="2"><tbody>< tr><td></td><td>1</ td><td>2</td></tr>< tr><td>Comment</td> <td></td><td></td>< /tr><tr><td>Result Value</td><td>STAPH AUREUS MRSA </td><td>Gram-negat goyo liana - Dressing Room Attendant species </td></tr><tr><td>R esult Status</td><td>Asuncion l Result</td><td>Asuncion l Result</td></tr><tr ><td></td><td></td> <td></td></tr><tr>< td>AMPICILLIN</td>< td>>8 R</td><td></td></tr ><tr><td>AMPICILLIN SULBACTAM</td><td>1 6/8 R</td><td></td></tr ><tr><td>AUGMENTIN< /td><td>>4/ R</td><td></td></tr ><tr><td>CEFAZOLIN< /td><td><=8 R</td><td></td></tr ><tr><td>CEFTAROLIN E</td><td><= 0.5 S</td><td></td></tr ><tr><td>CEFTRIAXON E</td><td><=8 R</td><td></td></tr ><tr><td>CIPROFLOXA JANESSA</td><td>> 2 R</td><td></td></tr ><tr><td>DAPTOMYCIN </td><td><= 1 S</td><td></td></tr ><tr><td>GENTAMICIN </td><td><= 4 S</td><td></td></tr ><tr><td>LEVOFLOXAC IN</td><td>4 I</td><td></td></tr ><tr><td>LINEZOLID< /td><td><= 2 S</td><td></td></tr ><tr><td>NITROFURAN TOIN</td><td><= 32 S</td><td></td></tr ><tr><td>OXACILLIN< /td><td>> 2 R</td><td></td></tr ><tr><td>PENICILLIN </td><td>>8 R</td><td></td></tr ><tr><td>RIFAMPIN</ td><td><= 1 S</td><td></td></tr ><tr><td>TETRACYCLI NE</td><td><= 4 S</td><td></td></tr ><tr><td>TRIMETHOPR IM/SULFAMETHOXAZOLE </td><td><=0.5/9.5 S</td><td></td></tr ><tr><td>VANCOMYCIN </td><td>1 S</td><td></td></tr ></tbody></table></ item> UNK <item><content [facility] styleCode="Bold"> Medical Ce nter lture Report </content>
<tab le><tbody><tr><td>S pecimen Number:</td><td>[id number]</td></tr><tr ><td>Sample Collection Date/Time: </td><td>12/27/2019 7:36 AM</td></tr><tr><td >Specimen Source:</td><td>URI NE</td></tr><tr><td >Urine Culture:</td><td>Co llection Plate Date: 12/27/2019 07:38 </td></tr><tr><td>C ulture Status:</td><td>Fin al </td></tr><tr><td>C ulture Report:</td><td>Cul ture in progress </td></tr><tr><td>C olony Count Urine:</td><td>>100 ,000 CFU/ML </td></tr><tr><td>P reliminary 1:</td><td>COAGULAS E POSITIVE STAPHYLOCOCCUS </td></tr><tr><td>O rganism 1:</td><td>STAPH AUREUS MRSA </td></tr><tr><td>O rganism 2:</td><td>Gram-neg ative liana - Dressing Room Attendant species </td></tr></tbody>< /table>
<table border="2"><tbody>< tr><td></td><td>1</ td><td>2</td></tr>< tr><td>Comment</td> <td></td><td></td>< /tr><tr><td>Result Value</td><td>STAPH AUREUS MRSA </td><td>Gram-negat goyo liana - Dressing Room Attendant species </td></tr><tr><td>R esult Status</td><td>Asuncion l Result</td><td>Asuncion l Result</td></tr><tr ><td></td><td></td> <td></td></tr><tr>< td>AMPICILLIN</td>< td>>8 R</td><td></td></tr ><tr><td>AMPICILLIN SULBACTAM</td><td>1 68 R</td><td></td></tr ><tr><td>AUGMENTIN< /td><td>>4/ R</td><td></td></tr ><tr><td>CEFAZOLIN< /td><td><=8 R</td><td></td></tr ><tr><td>CEFTAROLIN E</td><td><= 0.5 [...] Data Source Microbiology 07/25/2018 07:45:00 PM EST [facility] Name Value Range Interpretation Description Data Sup porting Code Source(s) Document(s ) UNK <item><content [facility]">Culture Medical Report Center </content><br/ ><table><tbody ><tr><td>Speci men Number:</td><t d>[id number]</t d></tr><tr><td >Sample Collection Date/Time: </td><td>2018 7:45 PM</td></tr><t r><td>Specimen Source:</td><t d>THROAT</td>< /tr><tr><td>Th roat-Nose Culture:</td>< td>Collection Plate Date: 07/25/2018 19:50 </td></tr><tr> <td>Culture Status:</td><t d>Preliminary </td></tr><tr> <td>Culture Report:</td><t d>Culture in progress </td></tr></tb chela></table></ item> UNK <item><content [facility] styleCode="Esther Martinez d">Culture Medical Status Center </content><br/ ><table><tbody ><tr><td>Speci men Number:</td><t d>[id number]</t d></tr><tr><td >Sample Collection Date/Time: </td><td>2018 7:45 PM</td></tr><t r><td>Specimen Source:</td><t d>THROAT</td>< /tr><tr><td>Cu lture Report:</td><t d>Culture in progress </td></tr><tr> <td>Throat-Nos e Culture:</td>< td>Collection Plate Date: 07/25/2018 19:50 </td></tr><tr> <td>Culture Status:</td><t d>Preliminary </td></tr></tb chela></table></ item> Streptococcus <item><content Saint pyogenes Ag styleCode="Esther Martinez [Presence] in d">Rapid Strep Medical Unspecified A Center specimen by </content><br/ Immunoassay ><table><tbody ><tr><td>Speci men Number:</td><t d>[id number]</t d></tr><tr><td >Sample Collection Date/Time: </td><td>2018 7:45 PM</td></tr><t r><td>Specimen Source:</td><t d>THROAT</td>< /tr><tr><td>Ra pid Strep A:</td><td>NEG ATIVE </td></tr></tb chela></table></ item> Procedure Social History Code Duration Value Status Description Data Source(s ) Smoking 12/29/2019 04:56:00 Daily Smoker completed Daily Smoker S [facility] EDT Center Smoking 12/27/2019 04:22:00 Daily Smoker completed Daily Smoker S [facility] EDT Center Smoking 12/27/2019 02:18:00 Daily Smoker completed Daily Smoker [facility] EDT Center Smoking 12/27/2019 08:15:00 Daily Smoker completed Daily Smoker [facility] EDT Center Smoking 12/27/2019 07:14:00 Daily Smoker completed Daily Smoker S [facility] EDT Center Smoking 12/27/2019 06:31:00 Daily Smoker completed Daily Smoker [facility] EDT Center Smoking 07/25/2018 08:49:00 Daily Smoker completed Daily Smoker [facility] EST Center Vital Signs ID Date Data Source UNK Name Value Range Interpretation Code Description Data Source(s) Body temperature 36.829256 Karen 36.491400 Karen [facility] Respiratory rate 20 /min 20 /min [facility] Heart rate 72 /min 72 /min [facility] Diastolic blood 74 mm[Hg] 74 mm[Hg] [facility] Systolic blood 120 mm[Hg] 120 mm[Hg] [facility] Body temperature 36.380855 Karen 36.553371 Karen [facility] Respiratory rate 20 /min 20 /min [facility] Heart rate 81 /min 81 /min [facility] Diastolic blood 66 mm[Hg] 66 mm[Hg] [facility] pressure Medical Center Systolic blood 102 mm[Hg] 102 mm[Hg] [facility] [place] Body temperature 37.908136 Karen 37.444983 Karen [facility] Respiratory rate 18 /min 18 /min [facility] Heart rate 71 /min 71 /min [facility] Diastolic blood 75 mm[Hg] 75 mm[Hg] [facility] Systolic blood 130 mm[Hg] 130 mm[Hg] [facility] Body weight 86.486182 kg 86.638100 kg [facility] [place] Body height 185.444057 cm 185.274326 cm [facility] Body mass index 25.25 kg/m2 25.25 kg/m2 [facility] (BMI) [Ratio] Medical Center Body temperature 37.893071 Karen 37.205124 Karen [facility] Respiratory rate 20 /min 20 /min [facility] Heart rate 82 /min 82 /min [facility] Diastolic blood 76 mm[Hg] 76 mm[Hg] [facility] Systolic blood 120 mm[Hg] 120 mm[Hg] [facility] Body temperature 36.452338 Karen 36.358758 Karen [facility] Respiratory rate 20 /min 20 /min [facility] Heart rate 70 /min 70 /min [facility] Diastolic blood 75 mm[Hg] 75 mm[Hg] [facility] Systolic blood 113 mm[Hg] 113 mm[Hg] [facility] Body weight 86.543249 kg 86.532353 kg [facility] Body height 177.805723 cm 177.893659 cm [facility] Body mass index 27.46 kg/m2 27.46 kg/m2 [facility] (BMI) [Ratio] Medical Center Body temperature 37.937045 Karen 37.670040 Karen [facility] Respiratory rate 29 /min 29 /min [facility] Heart rate 84 /min 84 /min [facility] Diastolic blood 82 mm[Hg] 82 mm[Hg] [facility] pressure Medical Center Systolic blood 119 mm[Hg] 119 mm[Hg] [facility] Oxygen 99 % 99 % [place] saturation in Medical Arterial blood Center by Pulse oximetry Body temperature 36.452741 Karen 36.969323 Karen [facility] Respiratory rate 16 /min 16 /min [facility] Heart rate 72 /min 72 /min [facility] Diastolic blood 70 mm[Hg] 70 mm[Hg] [facility] pressure Medical Center Systolic blood 120 mm[Hg] 120 mm[Hg] [facility] Oxygen 99 % 99 % [place] saturation in Medical Arterial blood Center by Pulse oximetry Body temperature 37.916016 Karen 37.110843 Karen [facility] Respiratory rate 16 /min 16 /min [facility] Heart rate 70 /min 70 /min [facility] Diastolic blood 69 mm[Hg] 69 mm[Hg] [facility] Systolic blood 115 mm[Hg] 115 mm[Hg] [facility] Oxygen 99 % 99 % [place] saturation in Medical Arterial blood Center by Pulse oximetry Body temperature 36.714271 Karen 36.516528 Karen [facility] Respiratory rate 20 /min 20 /min [facility] Heart rate 76 /min 76 /min [facility] Diastolic blood 75 mm[Hg] 75 mm[Hg] [facility] Systolic blood 116 mm[Hg] 116 mm[Hg] [facility] Oxygen 100 % 100 % [place] saturation in Medical Arterial blood Center by Pulse oximetry Body temperature 37.183522 Karen 37.982492 Karen [facility] Respiratory rate 18 /min 18 /min [facility] Heart rate 83 /min 83 /min [facility] Diastolic blood 78 mm[Hg] 78 mm[Hg] [facility] pressure Medical Center Systolic blood 118 mm[Hg] 118 mm[Hg] [facility] Oxygen 99 % 99 % [place] saturation in Medical Arterial blood Center by Pulse oximetry Diastolic blood 84 mmHg 84 mmHg [facility] Systolic blood 135 mmHg 135 mmHg [facility] Respiratory rate 18 bpm 18 bpm [facility] Heart rate 110 bpm 110 bpm [facility] Body temperature 98.2 Fahrenheit 98.2 Fahrenhei t [facility] Diastolic blood 80 mmHg 80 mmHg [facility] Systolic blood 119 mmHg 119 mmHg [facility] Respiratory rate 18 bpm 18 bpm [facility] Heart rate 92 bpm 92 bpm [facility] Body temperature 96.1 Fahrenheit 96.1 Fahrenhei t [facility] Diastolic blood 74 mmHg 74 mmHg [facility] Systolic blood 137 mmHg 137 mmHg [facility] Respiratory rate 18 bpm 18 bpm [facility] Heart rate 119 bpm 119 bpm [facility] Diastolic blood 83 mmHg 83 mmHg [facility] Systolic blood 119 mmHg 119 mmHg [facility] Respiratory rate 18 bpm 18 bpm [facility] Heart rate 113 bpm 113 bpm [facility] Body weight 234 lbs 234 lbs [facility] Diastolic blood 86 mmHg 86 mmHg [facility] Systolic blood 135 mmHg 135 mmHg [facility] Respiratory rate 18 bpm 18 bpm [facility] Heart rate 81 bpm 81 bpm [facility] Body temperature 97.6 Fahrenheit 97.6 Fahrenhei t [facility] Body temperature 36.934828 Karen 36.803983 Karen [facility] Respiratory rate 18 /min 18 /min [facility] Oxygen 98 % 98 % [facility] saturation in Medical Arterial blood Center by Pulse oximetry Heart rate 102 /min 102 /min [facility] Diastolic blood 87 mm[Hg] 87 mm[Hg] [facility] Systolic blood 136 mm[Hg] 136 mm[Hg] [facility] Patient Treatment Plan of Care Planned Activity Planned Date Details Description Data Source (s) Fluconazole 100 MG Oral [facility] Medical Tablet [Diflucan] Center quetiapine 300 MG Oral [facility] Medical Tablet Center valacyclovir 500 MG Oral [facility] Tablet [Valtrex] Center Amoxicillin 875 MG / [facility] Clavulanate 125 MG Oral Cent er Tablet Nystatin 999405 UNT/ML Oral [facility] Suspension Center
--- NOTE | 2020-04-02 11:46 | CON.ID ---
Consult Referred by:: hospitalist service Reason for Consultation:: hiv, fever - History of Present Illness Chief Complaint: fever and chills for 2 weeks History of Present Illness: 44 yo female with HIV for 23 years- found out when at childbirth- off meds for years, no regualar f/u history of bipolar disorder and schizophrenia reports fevers and chills for two weeks no cough no sob no diarrhea +vomiting, +back pain no IVDU +snorts heroin last yesterday no appetite was at [facility] over the summer, then [facility] then rehab lives with daughter and grandchild denies history of TB, hepatitis or STDS not sexually active she has a large bag of pills from the pharmacy that she says she doesnot take - History Source History Provided By: Patient, Medical Record Limitations to Obtaining History: Poor Historian - Past Medical History Cardio/Vascular: Yes: Other (hole in her heart??) Pulmonary: Yes: Pulmonary Embolus (doesnot take her eliquis) ...LMP: 03/18/20 ...: No Infectious Disease: Yes: HIV Psych: Yes: Bipolar, Schizophrenia - Past Surgical History Past Surgical History: Yes: Hysterectomy - Alcohol/Substance Use Hx Alcohol Use: Yes - Smoking History Smoking history: Never smoked Have you smoked in the past 12 months: No Aproximately how many cigarettes per day: 2 Home Medications - Allergies Allergies/Adverse Reactions: Allergies Allergy/AdvReac Type Severity Reaction Status Date / Time No Known Allergies Allergy Verified 04/02/20 03:15 - Home Medications Home Medications: Ambulatory Orders Quetiapine Fumarate [Seroquel -] 100 mg PO HS #30 tablet 05/23/18 Family Medical History Family History: Denies Review of Systems - Review of Systems Constitutional: reports: Chills, Fever Eyes: reports: No Symptoms HENT: reports: No Symptoms. denies: Throat Pain Neck: reports: No Symptoms Cardiovascular: reports: No Symptoms. denies: Chest Pain, Edema Respiratory: denies: Cough, SOB Gastrointestinal: reports: Vomiting. denies: Abdominal Pain, Constipation, Diarrhea Genitourinary: reports: No Symptoms Neurological: reports: Numbness (of her feet) Physical Exam Vital Signs: Vital Signs Temperature 100.2 F H 04/02/20 04:20 Pulse Rate 79 04/02/20 07:28 Respiratory Rate 17 04/02/20 07:28 Blood Pressure 106/75 04/02/20 07:28 O2 Sat by Pulse Oximetry (%) 100 04/02/20 07:28 Constitutional: Yes: Thin Eyes: Yes: Conjunctiva Clear HENT: Yes: Atraumatic, Normocephalic. No: Thrush Neck: Yes: Supple Cardiovascular: Yes: Regular Rate and Rhythm Respiratory: Yes: Regular, CTA Bilaterally Gastrointestinal: Yes: Normal Bowel Sounds, Soft Musculoskeletal: Yes: Other (tender thoracic and lumbar spline, has mmultiple scats llumbar region that she says occasionally drain) Extremities: Yes: WNL Integumentary: Yes: Other (hyperpigmented scars on her legs) Neurological: Yes: Alert, Oriented Labs: CBC, BMP 04/02/20 05:00 Laboratory Tests 04/02/20 05:00 WBC 2.0 L RBC 2.35 L Hgb 7.2 L Hct 21.7 L MCV 92.2 MCH 30.5 MCHC 33.1 RDW 14.8 Plt Count 425 Absolute Neuts (auto) 1.4 L cultures pending Imaging - Results Chest X-ray: Report Reviewed, Image Reviewed (d/w radiologist) Problem List - Problems (1) Fever Code(s): R50.9 - FEVER, UNSPECIFIED (2) Neutropenia Code(s): D70.9 - NEUTROPENIA, UNSPECIFIED (3) HIV (human immunodeficiency virus infection) Code(s): B20 - HUMAN IMMUNODEFICIENCY VIRUS [HIV] DISEASE (4) Anemia Code(s): D64.9 - ANEMIA, UNSPECIFIED (5) Substance use disorder Code(s): F19.90 - OTHER PSYCHOACTIVE SUBSTANCE USE, UNSPECIFIED, UNCOMPLICATED (6) Bipolar 1 disorder Code(s): F31.9 - BIPOLAR DISORDER, UNSPECIFIED (7) Paranoid schizophrenia Code(s): F20.0 - PARANOID SCHIZOPHRENIA Assessment/Plan cd4 count cultures milady of thoracic and lumbar spine vanco/cefepime f/u cultures suspected AIDS- check cryptococcal antigen LDH afb blood cultures f/u cd4 count
--- NOTE | 2020-04-02 12:11 | HP ---
CHIEF COMPLAINT: fever, back pain, cough with sputum PCP: none HISTORY OF PRESENT ILLNESS: Patient is a 44 y/o female with a history of HIV (not on medication), PE (not on AC), bipolar, schizophrenia, and heroin abuse who presents for two weeks of fever, back pain, shortness of breath and sputum. Patient reports she has been having fever for two weeks, they come and go. She reports the back pain has also been going on for two week and it cause her pain with walking. She is not sure of the time line for coughing or shortness of breath but also notes she has that. Also states she has abdominal pain, with some soft stools, lower extremity pain. Patient reports she is also actively using heroin. Denies ever using it IV and states she only uses it in her nose. She does not take her medications. She had with her multiple bottles but they were all 6-12 months old. Reports she has never been compliant with her HIV medications. She lives with her daughter in an apartment. States she also has b/l cramping in her leg when she walks. ER course was notable for: (1) (2) (3) Recent Travel: PAST MEDICAL HISTORY: HIV (not on medication), PE (not on AC), bipolar, schizophrenia, and heroin abus PAST SURGICAL HISTORY: Social History: Smoking: Alcohol: Drugs: heroin Allergies No Known Allergies Allergy (Verified 04/02/20 03:15) HOME MEDICATIONS: Home Medications Medication Instructions Recorded Quetiapine Fumarate [Seroquel -] 100 mg PO HS #30 tablet 05/23/18 REVIEW OF SYSTEMS CONSTITUTIONAL: fever, Absent: chills, diaphoresis, generalized weakness, malaise, loss of appetite, weight change HEENT: Absent: rhinorrhea, nasal congestion, throat pain, throat swelling, difficulty swallowing, mouth swelling, ear pain, eye pain, visual changes CARDIOVASCULAR: Absent: chest pain, syncope, palpitations, irregular heart rate, lightheadedness, peripheral edema RESPIRATORY: shortness of breath, dyspnea with exertion, Absent: cough, orthopnea, wheezing, stridor, hemoptysis GASTROINTESTINAL: Absent: abdominal pain, abdominal distension, nausea, vomiting, diarrhea, constipation, melena, hematochezia GENITOURINARY: Absent: dysuria, frequency, urgency, hesitancy, hematuria, flank pain, genital pain MUSCULOSKELETAL: back pain, Absent: myalgia, arthralgia, joint swelling, neck pain SKIN: Absent: rash, itching, pallor HEMATOLOGIC/IMMUNOLOGIC: Absent: easy bleeding, easy bruising, lymphadenopathy, frequent infections ENDOCRINE: Absent: unexplained weight gain, unexplained weight loss, heat intolerance, cold intolerance NEUROLOGIC: Absent: headache, focal weakness or paresthesias, dizziness, unsteady gait, seizure, mental status changes, bladder or bowel incontinence PSYCHIATRIC: Absent: anxiety, depression, suicidal or homicidal ideation, hallucinations. PHYSICAL EXAMINATION Vital Signs - 24 hr 04/02/20 04/02/20 04/02/20 03:15 04:20 07:28 Temperature 99.9 F H 100.2 F H Pulse Rate 103 H Pulse Rate [ 79 Right Radial] Respiratory 20 17 Rate Blood Pressure 95/65 Blood Pressure 106/75 [Left Arm] O2 Sat by Pulse 99 100 Oximetry (%) GENERAL: Awake, alert, and fully oriented, in no acute distress. HEAD: Normal with no signs of trauma. EYES: Pupils equal, round and reactive to light, extraocular movements intact, LUNGS: Breath sounds equal, clear to auscultation bilaterally. No wheezes, and no crackles. No accessory muscle use. HEART: upper sternal murmur does not radiate to carotids ABDOMEN: Soft, tenderness to palpation, not distended, normoactive bowel sounds, no guarding, no rebound, no masses. MUSCULOSKELETAL: thenderness over spine of lumbar and thoracic back and under ribs LOWER EXTREMITIES: 2+ pulses, warm, well-perfused. No calf tenderness. No peripheral edema. NEUROLOGICAL: Normal speech. PSYCHIATRIC: Cooperative. Good eye contact. Appropriate mood and affect. SKIN: no rashes, no ulcerations of feet, small circular skin changes diffusely throughout body CBC, BMP 04/02/20 05:00 CBC WBC 2.0 K/mm3 (4.0-10.0) L 04/02/20 05:00 RBC 2.35 M/mm3 (3.60-5.2) L 04/02/20 05:00 Hgb 7.2 GM/dL (10.7-15.3) L 04/02/20 05:00 Hct 21.7 % (32.4-45.2) L 04/02/20 05:00 MCV 92.2 fl (80-96) 04/02/20 05:00 MCH 30.5 pg (25.7-33.7) 04/02/20 05:00 MCHC 33.1 g/dl (32.0-36.0) 04/02/20 05:00 RDW 14.8 % (11.6-15.6) 04/02/20 05:00 Plt Count 425 K/MM3 (134-434) 04/02/20 05:00 MPV 7.3 fl (7.5-11.1) L 04/02/20 05:00 Absolute Neuts (auto) 1.4 K/mm3 (1.5-8.0) L 04/02/20 05:00 Neutrophils % 71.6 % (42.8-82.8) 04/02/20 05:00 Neutrophils % (Manual) 61.6 % (42.8-82.8) 04/02/20 05:00 Band Neutrophils % 5.1 % 04/02/20 05:00 Lymphocytes % 9.4 % (8-40) 04/02/20 05:00 Lymphocytes % (Manual) 13.1 % (8-40) 04/02/20 05:00 Monocytes % 14.8 % (3.8-10.2) H 04/02/20 05:00 Monocytes % (Manual) 16 % (3.8-10.2) H 04/02/20 05:00 Eosinophils % 3.9 % (0-4.5) 04/02/20 05:00 Eosinophils % (Manual) 4.0 % (0-4.5) 04/02/20 05:00 Basophils % 0.3 % (0-2.0) 04/02/20 05:00 Basophils % (Manual) 0.0 % (0-2.0) 04/02/20 05:00 Myelocytes % (Man) 0 % (0-2) 04/02/20 05:00 Promyelocytes % (Man) 0 % (0-2) 04/02/20 05:00 Blast Cells % (Manual) 0 % (0-0) 04/02/20 05:00 Nucleated RBC % 0 % (0-0) 04/02/20 05:00 Metamyelocytes 0 % (0-2) 04/02/20 05:00 Hypochromia 0 04/02/20 05:00 Toxic Granulation 1+ 04/02/20 05:00 Platelet Estimate Normal 04/02/20 05:00 Polychromasia 0 04/02/20 05:00 Poikilocytosis 1+ 04/02/20 05:00 Anisocytosis 1+ 04/02/20 05:00 Microcytosis 1+ 04/02/20 05:00 Macrocytosis 0 04/02/20 05:00 Tear Drop Cells 1+ 04/02/20 05:00 Ovalocytes 1+ 04/02/20 05:00 Stomatocytes 1+ 04/02/20 05:00 ASSESSMENT/PLAN: Patient is a 44 y/o female with a history of HIV (not on medication), PE (not on AC), bipolar, schizophrenia, and heroin abuse who is admitted for neutropenic fever. #Neutropenic fever - likely related to untreated HIV, suspicious for AIDS - with back pain need to r/o abscess, although patient denies IV drug use - r/o opportunistic infections, CXR clear for PNA, monitor for any signs of Cdiff, f/u AFB culture - f/u Ucx and blood cx - f/u CD4 count - discussed with Dr. Roland, continue patient on Cefepime and Vancomycin - neutropenic precautions #heroin abuse - consult Dr. Nicole #hx PE - continue Eiquis 2.5 mg daily #bipolar/schizophrenic - restarted seroquel 100 hs - olanzapine 5mg hs - QTC 470. ordered 2 gm Mg to be given before seroquel given - monitor QTC prolongation #DVT ppx - Eliquis 2.5 mg daily FEN - regular diet Dispo: med/surg Family Medical History Family History: As Documented Visit type - Emergency Visit Emergency Visit: Yes ED Registration Date: 04/02/20 Care time: The patient presented to the Emergency Department on the above date and was hospitalized for further evaluation of their emergent condition. - New Patient This patient is new to me today: Yes Date on this admission: 04/05/20 - Critical Care Critical Care patient: No ATTENDING PHYSICIAN STATEMENT I saw and evaluated the patient. I reviewed the resident's note and discussed the case with the resident. I agree with the resident's findings and plan as documented. SUBJECTIVE: OBJECTIVE: ASSESSMENT AND PLAN:
[2020-04-02] MEDS: CEFEPIME 1 GM in DEXTROSE 5%-WATER 100 ML IVPB SCH ×2 (13:37→18:07)
--- NOTE | 2020-04-02 13:44 | PN ---
Teaching Attending Note Name of Resident: Rosalina Olmos ATTENDING PHYSICIAN STATEMENT I saw and evaluated the patient. I reviewed the resident's note and discussed the case with the resident. I agree with the resident's findings and plan as documented. SUBJECTIVE: Patient seen and examined at bedside, admitted for deconditioning, neutropenia, non-compliant w/ HAART. OBJECTIVE: GA lethargic, AAOx3, tired appearing HEENT NC/AT, oral thrush present, neck supple, dry MM CHest Coarse b/l BS, poor inspiratory effort Abd Soft, NT< ND< BS+ Ext no LE edema, flat/darkened plaque lesions throughout arms and legs Vital Signs (72 hours) 04/03/20 04/03/20 04/03/20 04:00 06:00 22:40 Temperature 99.3 F 99.4 F 99 F Pulse Rate 100 H 115 H 107 H Respiratory 18 18 20 Rate Blood Pressure 106/67 104/73 111/77 O2 Sat by Pulse 99 100 100 Oximetry (%) 04/03/20 04/03/20 04/04/20 23:19 23:30 02:00 Temperature 98.7 F 98.5 F Pulse Rate 131 H 133 H 104 H Respiratory 20 18 18 Rate Blood Pressure 108/74 109/73 117/85 O2 Sat by Pulse 99 Oximetry (%) 04/04/20 04/04/20 04/04/20 05:26 09:00 10:00 Temperature 98.7 F Pulse Rate 88 100 H Respiratory 18 18 Rate Blood Pressure 112/78 122/86 O2 Sat by Pulse 100 95 100 Oximetry (%) 04/04/20 04/04/20 04/04/20 15:03 21:00 21:30 Temperature 98.5 F 100.2 F H Pulse Rate 96 H 132 H Respiratory 16 18 Rate Blood Pressure 124/88 117/76 O2 Sat by Pulse 100 100 Oximetry (%) 04/04/20 04/05/20 04/05/20 22:32 00:40 02:00 Temperature 97.7 F 97.6 F Pulse Rate 110 H 120 H 117 H Respiratory 18 18 Rate Blood Pressure 92/69 104/71 O2 Sat by Pulse 100 100 100 Oximetry (%) 04/05/20 04/05/20 04/05/20 06:00 09:00 10:18 Temperature 97.5 F L 97.6 F Pulse Rate 105 H 108 H Respiratory 18 20 Rate Blood Pressure 102/69 105/65 O2 Sat by Pulse 100 100 100 Oximetry (%) 04/05/20 04/05/20 15:00 21:27 Temperature 97.7 F 97.5 F L Pulse Rate 104 H 107 H Respiratory 20 18 Rate Blood Pressure 104/76 85/60 L O2 Sat by Pulse 97 98 Oximetry (%) Microbiology 04/02/20 04:11 Blood Culture - Preliminary Blood - Peripheral Venous NO GROWTH OBTAINED AFTER 72 HOURS, INCUBATION TO CONTINUE FOR 2 DAYS. 04/02/20 04:11 Blood Culture - Preliminary Blood - Peripheral Venous NO GROWTH OBTAINED AFTER 72 HOURS, INCUBATION TO CONTINUE FOR 2 DAYS. Home Medications Medication Instructions Recorded Quetiapine Fumarate [Seroquel -] 100 mg PO HS #30 tablet 05/23/18 Apixaban [Eliquis] 2.5 mg PO DAILY 04/02/20 Mirtazapine [Remeron -] 15 mg PO DAILY 04/02/20 Olanzapine [Zyprexa -] 5 mg PO DAILY 04/02/20 Current Medications Generic Name Dose Route Start Last Admin Trade Name Freq PRN Reason Stop Dose Admin Acetaminophen 650 mg 04/02/20 10:15 04/05/20 22:11 Tylenol - PO 650 mg Q4H PRN Administration FEVER Alprazolam 1 mg 04/04/20 10:27 04/05/20 22:12 Xanax PO 1 mg Q4H PRN Administration ANXIETY Apixaban 2.5 mg 04/03/20 22:00 04/05/20 22:11 Eliquis - PO 2.5 mg BID JEZ Administration Haloperidol 5 mg 04/04/20 13:23 Haldol - PO ONCE PRN ANXIETY Cefepime HCl 1 gm/ Dextrose 100 mls @ 200 mls/hr 04/02/20 12:00 04/05/20 18:11 IVPB 200 mls/hr Q8H-IV JEZ Administration Protocol Vancomycin HCl 1,000 mg in 250 mls @ 166.667 mls/hr 04/05/20 17:00 04/05/20 16:39 Vancomycin (Pre-Docked) IVPB 166.667 mls/hr DAILY@1700 JEZ Administration Protocol Lorazepam 1 mg 04/04/20 13:22 04/04/20 19:30 Ativan Injection - IVPUSH 1 mg Q4H PRN Administration ANXIETY Melatonin 5 mg 04/03/20 23:05 04/05/20 20:30 Melatonin PO 5 mg HS PRN Administration INSOMNIA Mirtazapine 15 mg 04/05/20 22:00 04/05/20 22:12 Remeron - PO 15 mg HS JEZ Administration Olanzapine 5 mg 04/02/20 16:15 04/05/20 10:03 Zyprexa - PO 5 mg DAILY JEZ Administration Quetiapine Fumarate 100 mg 04/02/20 15:45 04/05/20 22:14 Seroquel - PO 100 mg HS JEZ Administration ASSESSMENT AND PLAN: 44 F Neutropenia HIV/AIDS non-compliant w/ HAART r/o PCP PNA Oral candidiasis Bipolar disorder Malnourished Deconditioned Plan: Cefepime/Vancomycin for sepsis obtain LDH if elevated start steroids for PCP PNA Avoid HAART for now to reduce risk for IRIS ID following DVT ppx: Eliquis
[2020-04-02] MEDS ORDERED: ALPRAZolam 1 MG TABLET PO PRN (14:21)
[2020-04-02] MEDS ORDERED: ALPRAZolam 1 MG TABLET ONE ×2 (14:30→14:51)
[2020-04-02] MEDS ORDERED: ALPRAZolam 1 MG TABLET PO ONE (15:00)
[2020-04-02] MEDS ORDERED: OLANZapine 10 MG TABLET ONE (16:15)
[2020-04-02] MEDS ORDERED: MAGNESIUM 2GM/50ML STERILE WATER IVPB IVPB ONE (16:15)
[2020-04-02] MEDS ORDERED: MAGNESIUM SULFATE IN WATER 2 GM/50 ML IVPB IVPB ONE (16:16)
[2020-04-02] MEDS ORDERED: QUEtiapine FUMARATE 100 MG TABLET (FP) ONE ×2 (16:16→22:04)
[2020-04-02] MEDS: QUEtiapine FUMARATE 100 MG TABLET (FP) PO SCH ×2 (16:48→22:17)
[2020-04-02] MEDS: OLANZapine 5 MG TABLET PO SCH (16:48)
[2020-04-02] MEDS ORDERED: VANCOMYCIN 1 GRAM (PRE-DOCKED) 1,000 MG/250 ML BAG IVPB ONE (19:18)
[2020-04-02] MEDS: VANCOMYCIN 1 GRAM (PRE-DOCKED) 1,000 MG/250 ML BAG IVPB SCH (20:12)
[2020-04-03] MEDS ORDERED: DEXTROSE 5%-WATER 100 ML IVPB ONE ×3 (02:03→17:09)
[2020-04-03] MEDS ORDERED: CEFEPIME HCL 1 GM VIAL (RESTRICTED TO ID) ONE ×3 (02:03→17:09)
[2020-04-03] MEDS: CEFEPIME 1 GM in DEXTROSE 5%-WATER 100 ML IVPB SCH ×3 (02:08→17:23)
[2020-04-03] MEDS ORDERED: MELATONIN 5 MG TABLETS PO ONE (02:44)
[2020-04-03] MEDS: VANCOMYCIN 1 GRAM (PRE-DOCKED) 1,000 MG/250 ML BAG IVPB SCH ×2 (06:24→18:27)
[2020-04-03 08:45] LABS: BASO % 0.7 % (0-2.0); EOS % 3.2 % (0-4.5); HEMATOCRIT 22.1 % (32.4-45.2); HEMOGLOBIN 7.4 GM/dL (10.7-15.3); LYMPH % 14.5 % (8-40); MCHC 33.6 g/dl (32.0-36.0); MEAN CELL VOLUME 92.2 fl (80-96); MEAN PLT VOLUME 7.1 fl (7.5-11.1); MONO % 18.9 % (3.8-10.2); NEUT % 62.7 % (42.8-82.8); PLATELET COUNT 432 K/MM3 (134-434); RDW 14.4 % (11.6-15.6)
[2020-04-03 09:01] LABS: WHITE BLOOD COUNT 1.4 K/mm3 (4.0-10.0)
[2020-04-03 09:12] LABS: ALBUMIN 2.1 g/dl (3.4-5.0); BILIRUBIN,TOTAL 0.4 mg/dL (0.2-1); CALCIUM 9.2 mg/dL (8.5-10.1); CREATININE 0.8 mg/dL (0.55-1.3); MAGNESIUM 2.4 mg/dL (1.8-2.4); PHOSPHOROUS 3.4 mg/dL (2.5-4.9); POTASSIUM 4.1 mmol/L (3.5-5.1); TOT PROT 8.9 g/dl (6.4-8.2)
[2020-04-03] MEDS: OLANZapine 5 MG TABLET PO SCH (09:39)
[2020-04-03] MEDS ORDERED: APIXABAN 2.5 MG TABLET PO SCH (10:00)
[2020-04-03] MEDS ORDERED: ENOXAPARIN NA (PORCINE) 40 MG/0.4 ML DISP.SYRIN SQ SCH (10:00)
[2020-04-03 10:45] LABS: PLATELET ESTIMATE NORMAL
[2020-04-03] MEDS: ACETAMINOPHEN 325 MG TABLET (FP) PO PRN ×2 (11:51→22:42)
[2020-04-03] MEDS ORDERED: ALPRAZolam 1 MG TABLET PO ONE (12:29)
[2020-04-03] MEDS ORDERED: ALPRAZolam 1 MG TABLET PO PRN (15:31)
--- NOTE | 2020-04-03 15:38 | PN ---
Progress Note, Physician Chief Complaint: Agitated requesting psych meds History of Present Illness: Patient is a 44 y/o female with a history of HIV (not on medication), PE (not on AC), bipolar, schizophrenia, and heroin abuse who was admitted for neutropenic fever. - Current Medication List Current Medications: Active Medications Acetaminophen (Tylenol -) 650 mg PO Q4H PRN PRN Reason: FEVER Last Admin: 04/03/20 11:51 Dose: 650 mg Documented by: Alprazolam (Xanax) 1 mg PO ONCE PRN PRN Reason: ANXIETY Stop: 04/04/20 15:30 Apixaban (Eliquis -) 2.5 mg PO BID [facility] Vancomycin HCl (Vancomycin (Pre-Docked)) 1,000 mg in 250 mls @ 166.667 mls/hr IVPB BID@0700,1900 [facility]; Protocol Last Admin: 04/03/20 06:24 Dose: 166.667 mls/hr Documented by: Cefepime HCl 1 gm/ Dextrose 100 mls @ 200 mls/hr IVPB Q8H-IV [facility]; Protocol Last Admin: 04/03/20 09:39 Dose: 200 mls/hr Documented by: Olanzapine (Zyprexa -) 5 mg PO DAILY [facility] Last Admin: 04/03/20 09:39 Dose: 5 mg Documented by: Quetiapine Fumarate (Seroquel -) 100 mg PO HS [facility] Last Admin: 04/02/20 22:17 Dose: 100 mg Documented by: - Objective Vital Signs: Vital Signs Temperature 99.4 F 04/03/20 06:00 Pulse Rate 115 H 04/03/20 06:00 Respiratory Rate 18 04/03/20 06:00 Blood Pressure 104/73 04/03/20 06:00 O2 Sat by Pulse Oximetry (%) 100 04/03/20 06:00 Constitutional: Yes: Well Nourished Eyes: Yes: WNL, Conjunctiva Clear, EOM Intact HENT: Yes: WNL, Atraumatic, Normocephalic Neck: Yes: WNL, Supple, Trachea Midline Cardiovascular: Yes: WNL, Regular Rate and Rhythm Respiratory: Yes: WNL, Regular, CTA Bilaterally Gastrointestinal: Yes: WNL, Normal Bowel Sounds, Soft Musculoskeletal: Yes: WNL Extremities: Yes: WNL Edema: No Peripheral Pulses WNL: Yes Integumentary: Yes: WNL Neurological: Yes: WNL, Alert, Oriented Psychiatric: Yes: WNL, Alert, Oriented Labs: CBC, BMP 04/03/20 08:12 04/03/20 08:12 INR, PTT INR 1.18 (0.83-1.09) H 04/02/20 05:00 Impression/Plan Impression/Plan: Patient is a 44 y/o female with a history of HIV (not on medication), PE (not on AC), bipolar, schizophrenia, and heroin abuse who was admitted for neutropenic fever. #Neutropenic fever - likely related to untreated HIV, suspicious for AIDS - with back pain need to r/o abscess, although patient denies IV drug use - r/o opportunistic infections, CXR clear for PNA, monitor for any signs of Cdiff, f/u AFB culture - f/u Ucx and blood cx - f/u CD4 count - discussed with Dr. Roland, continue patient on Cefepime and Vancomycin - neutropenic precautions #heroin abuse - consult Dr. Nicole - #History of PE - continue Eliquis 2.5 mg BID #bipolar/schizophrenic - restarted seroquel 100 hs - olanzapine 5mg hs - QTC 470. ordered 2 gm Mg to be given before seroquel given - monitor QTC prolongation * Haldol 5mg PO x 1 given on 04/03 due to agitation #DVT prophylaxsis - As noted above on Eliquis 2.5 mg BID FEN - regular diet Dispo: med/surg Visit type - Emergency Visit Emergency Visit: Yes ED Registration Date: 04/02/20 Care time: The patient presented to the Emergency Department on the above date and was hospitalized for further evaluation of their emergent condition. - New Patient This patient is new to me today: Yes Date on this admission: 04/03/20 - Critical Care Critical Care patient: No - Discharge Referral Referred to [facility] Med P.C.: No
[2020-04-03] MEDS ORDERED: HALOPERIDOL 5 MG TABLET PO ONE (15:56)
[2020-04-03] MEDS: APIXABAN 2.5 MG TABLET PO SCH ×2 (20:18→21:47)
[2020-04-03] MEDS: QUEtiapine FUMARATE 100 MG TABLET (FP) PO SCH ×2 (20:19→21:47)
--- NOTE | 2020-04-03 23:09 | PN ---
Progress Note (short form) - Note Progress Note: AWAKE, ALERT IN BED REFUSES TO ANSWER QUESTIONS UNCOOPERATIVE WITH EXAM TEMPS DOWN AFEBRILE LEUKOPENIC/ NEUTROPENIC CULTURES PRELIM(-) CD4 PENDING CONTINUE EMPIRIC CEFEPIME/VANCOMYCIN
[2020-04-03] MEDS ORDERED: SODIUM CHLORIDE 1,000 ML IV STA (23:31)
[2020-04-03] MEDS ORDERED: MAGNESIUM SULF 50% (8.12 MEQ/2 ML-1 GM VIAL) IVPB ONE (23:38)
--- NOTE | 2020-04-04 00:01 | RAPID ---
Physical Examination Vital Signs: Vital Signs Temperature 99 F 04/03/20 22:40 Pulse Rate 133 H 04/03/20 23:30 Respiratory Rate 18 04/03/20 23:30 Blood Pressure 109/73 04/03/20 23:30 O2 Sat by Pulse Oximetry (%) 100 04/03/20 22:40 Labs: CBC, BMP 04/03/20 08:12 04/03/20 08:12 Rapid Response - Rapid Response Assessment: Rapid response called overhead. call worker person team arrived immediately. Upon arrival patient was tachycardic in the 130s. Vitals: BP: 109/73 Pulse: 133 RR: 18 A/P #Tachycardia likely due to Sepsis -oral temp ordered -NS ordered -Patient has known prolonged QTc due to Seroquel use -2 g Mg Sulfate was ordered but not given since patient recently received Mg -Patient responded to fluids and slept afterwards
[2020-04-04] MEDS ORDERED: CEFEPIME HCL 1 GM VIAL (RESTRICTED TO ID) ONE ×3 (00:39→17:02)
[2020-04-04] MEDS ORDERED: DEXTROSE 5%-WATER 100 ML IVPB ONE ×3 (00:40→17:02)
[2020-04-04] MEDS: CEFEPIME 1 GM in DEXTROSE 5%-WATER 100 ML IVPB SCH ×3 (01:07→17:39)
[2020-04-04] MEDS: VANCOMYCIN 1 GRAM (PRE-DOCKED) 1,000 MG/250 ML BAG IVPB SCH ×2 (06:06→19:54)
[2020-04-04] MEDS: OLANZapine 5 MG TABLET PO SCH (09:35)
[2020-04-04] MEDS: APIXABAN 2.5 MG TABLET PO SCH ×2 (09:36→21:17)
[2020-04-04 10:04] LABS: BASO % 0.4 % (0-2.0); EOS % 4.4 % (0-4.5); HEMATOCRIT 24.5 % (32.4-45.2); HEMOGLOBIN 8.1 GM/dL (10.7-15.3); MCH 31.3 pg (25.7-33.7); MONO % 14.8 % (3.8-10.2); NEUT % 61.4 % (42.8-82.8); PLATELET COUNT 447 K/MM3 (134-434); RBC 2.58 M/mm3 (3.60-5.2); RDW 14.8 % (11.6-15.6)
[2020-04-04 10:12] LABS: WHITE BLOOD COUNT 1.8 K/mm3 (4.0-10.0)
[2020-04-04] MEDS ORDERED: HALOPERIDOL 5 MG TABLET PO PRN ×2 (10:27→13:23)
[2020-04-04 10:33] LABS: CREATININE 0.8 mg/dL (0.55-1.3); POTASSIUM 4.5 mmol/L (3.5-5.1)
[2020-04-04] MEDS: ALPRAZolam 1 MG TABLET PO PRN (10:34)
[2020-04-04 10:39] LABS: ANISOCYTOSIS 0; MACROCYTOSIS 0; PLATELET ESTIMATE NORMAL
--- NOTE | 2020-04-04 13:29 | PN ---
Progress Note, Physician Chief Complaint: Agitated again today History of Present Illness: Patient is a 44 y/o female with a history of HIV (not on medication), PE (not on AC), bipolar, schizophrenia, and heroin abuse who was admitted for neutropenic fever. - Current Medication List Current Medications: Active Medications Acetaminophen (Tylenol -) 650 mg PO Q4H PRN PRN Reason: FEVER Last Admin: 04/03/20 22:42 Dose: 650 mg Documented by: Alprazolam (Xanax) 1 mg PO ONCE PRN PRN Reason: ANXIETY Stop: 04/04/20 15:30 Last Admin: 04/03/20 15:41 Dose: 1 mg Documented by: Alprazolam (Xanax) 1 mg PO Q4H PRN PRN Reason: ANXIETY Last Admin: 04/04/20 10:34 Dose: 1 mg Documented by: Apixaban (Eliquis -) 2.5 mg PO BID [facility] Last Admin: 04/04/20 09:36 Dose: 2.5 mg Documented by: Haloperidol (Haldol -) 5 mg PO ONCE PRN PRN Reason: ANXIETY Last Admin: 04/04/20 11:26 Dose: 5 mg Documented by: Vancomycin HCl (Vancomycin (Pre-Docked)) 1,000 mg in 250 mls @ 166.667 mls/hr IVPB BID@0700,1900 [facility]; Protocol Last Admin: 04/04/20 06:06 Dose: 166.667 mls/hr Documented by: Cefepime HCl 1 gm/ Dextrose 100 mls @ 200 mls/hr IVPB Q8H-IV [facility]; Protocol Last Admin: 04/04/20 09:39 Dose: 200 mls/hr Documented by: Lorazepam (Ativan Injection -) 1 mg IVPUSH Q4H PRN PRN Reason: ANXIETY Melatonin (Melatonin) 5 mg PO HS PRN PRN Reason: INSOMNIA Olanzapine (Zyprexa -) 5 mg PO DAILY [facility] Last Admin: 04/04/20 09:35 Dose: 5 mg Documented by: Quetiapine Fumarate (Seroquel -) 100 mg PO HS [facility] Last Admin: 04/03/20 21:47 Dose: Not Given Documented by: - Objective Vital Signs: Vital Signs Temperature 98.7 F 04/04/20 05:26 Pulse Rate 100 H 04/04/20 10:00 Respiratory Rate 18 04/04/20 10:00 Blood Pressure 122/86 04/04/20 10:00 O2 Sat by Pulse Oximetry (%) 100 04/04/20 10:00 Constitutional: Yes: Well Nourished, No Distress, Calm Eyes: Yes: WNL, Conjunctiva Clear, EOM Intact HENT: Yes: WNL, Atraumatic, Normocephalic Neck: Yes: WNL, Supple, Trachea Midline Cardiovascular: Yes: WNL, Regular Rate and Rhythm, S3 Respiratory: Yes: WNL, Regular, CTA Bilaterally Gastrointestinal: Yes: WNL, Normal Bowel Sounds, Soft Musculoskeletal: Yes: WNL Extremities: Yes: WNL Edema: No Peripheral Pulses WNL: Yes Integumentary: Yes: WNL Neurological: Yes: WNL, Alert, Oriented Psychiatric: Yes: WNL, Alert, Oriented Labs: CBC, BMP 04/04/20 09:45 04/04/20 09:45 INR, PTT INR 1.18 (0.83-1.09) H 04/02/20 05:00 Impression/Plan Impression/Plan: Patient is a 44 y/o female with a history of HIV (not on medication), PE (not on AC), bipolar, schizophrenia, and heroin abuse who was admitted for neutropenic fever. #Neutropenic fever - likely related to untreated HIV, suspicious for AIDS - with back pain need to r/o abscess, although patient denies IV drug use - r/o opportunistic infections, CXR clear for PNA, monitor for any signs of Cdiff, f/u AFB culture - f/u Ucx and blood cx - f/u CD4 count - discussed with Dr. Roland, continue patient on Cefepime and Vancomycin - neutropenic precautions #heroin abuse - consulted Dr. Nicole - #History of PE - continue Eliquis 2.5 mg BID #bipolar/schizophrenic - restarted seroquel 100 hs - olanzapine 5mg hs - QTC 470. ordered 2 gm Mg to be given before seroquel given - monitor QTC prolongation * Haldol 5mg PO x 1 given on 04/03 due to agitation #DVT prophylaxsis - As noted above on Eliquis 2.5 mg BID FEN - regular diet Dispo: med/surg Visit type - Emergency Visit Emergency Visit: Yes ED Registration Date: 04/02/20 Care time: The patient presented to the Emergency Department on the above date and was hospitalized for further evaluation of their emergent condition. - New Patient This patient is new to me today: No - Critical Care Critical Care patient: No - Discharge Referral Referred to [facility] Med P.C.: No
--- NOTE | 2020-04-04 15:06 | EKG ---
Test Reason : Blood Pressure : / mmHG Vent. Rate : 133 BPM Atrial Rate : 133 BPM P-R Int : 136 ms QRS Dur : 072 ms QT Int : 376 ms P-R-T Axes : 057 052 054 degrees QTc Int : 559 ms SINUS TACHYCARDIA OTHERWISE NORMAL ECG WHEN COMPARED WITH ECG OF 02-APR-2020 04:33, NO SIGNIFICANT CHANGE WAS FOUND Confirmed by MD Henderson Daniel ([id number]) on 04/04/2020 3:06:37 PM Referred By: Confirmed By:Jorden Henderson MD
[2020-04-04] MEDS: LORazepam 2 MG/ML SDV VIAL IVPUSH PRN ×2 (15:10→19:30)
--- NOTE | 2020-04-04 16:12 | CONSULT ---
[facility] Reason for Current Admission/Consult: Opioid Dependence Referred by:: Rosalina Olmos - History History of Present Illness: 44 yo F PMH HIV not on meds, PE 2 years ago not taking Eliquis, bipolar/schizophrenia, heroin use (snorts, never IV, daily), nicotine (5 cigare ttes a day), marijuana (occasional), 12 oz beer every other day, R eye blindness, presented to ED 04/02/20 with thoracic back pain. States that she hasn't eaten "in years" and has gone from 290 pounds to 160 pounds over the past several years. The thoracic back pain "feels like a gas bubble is caught in there and shifting around". Further complains of mild shortness of breath. She is known to [facility] only for a short non-completed detox in 2018 for opioid dependence. She is non-compliant with medical and psychiatric treatment even from 2 years ago. She has no PMD, has not been taking any medications, does not follow with anyone. Reports HIV untreated essentially since she was diagnosed 23 years ago. - History Source History Provided By: Medical Record Limitations to Obtaining History: No Limitations - Alcohol/Substance Use Hx Alcohol Use: No Hx Substance Use: Yes (opiates, marijuana, nicotine) Hx Substance Use Treatment: Yes (2018 [facility] non-completed) - Current Drug/Alcohol Use Heroin Route: Inhalation Frequency: Daily Amount used: 1 bundle Age of first use: 14 Date of Last Use: 04/01/20 Alcohol Route: Oral Frequency: 3-6 times per week Amount used: 1 beer Age of first use: 14 Date of Last Use: 04/01/20 Marijuana/Hashish Route: Smoking Frequency: 3-6 times per week Amount used: 1 blunt Age of first use: 16 Date of Last Use: 04/01/20 - Past Medical History Cardio/Vascular: Yes: Other (hole in her heart??) Pulmonary: Yes: Pulmonary Embolus (doesnot take her eliquis) ...LMP: 03/18/20 ...: No Infectious Disease: Yes: HIV Psych: Yes: Bipolar, Schizophrenia - Past Surgical History Past Surgical History: Yes: Hysterectomy - Significant Medical Findings: As per House physician: Vital Signs: Vital Signs Temperature 98.7 F 04/04/20 05:26 Pulse Rate 100 H 04/04/20 10:00 Respiratory Rate 18 04/04/20 10:00 Blood Pressure 122/86 04/04/20 10:00 O2 Sat by Pulse Oximetry (%) 100 04/04/20 10:00 Constitutional: Yes: Well Nourished, No Distress, Calm Eyes: Yes: WNL, Conjunctiva Clear, EOM Intact HENT: Yes: WNL, Atraumatic, Normocephalic Neck: Yes: WNL, Supple, Trachea Midline Cardiovascular: Yes: WNL, Regular Rate and Rhythm, S3 Respiratory: Yes: WNL, Regular, CTA Bilaterally Gastrointestinal: Yes: WNL, Normal Bowel Sounds, Soft Musculoskeletal: Yes: WNL Extremities: Yes: WNL Edema: No Peripheral Pulses WNL: Yes Integumentary: Yes: WNL Neurological: Yes: WNL, Alert, Oriented Psychiatric: Yes: WNL, Alert, Oriented Assessment Plan - Plan Plan: Patient is a 44 y/o female with a history of HIV (not on medication), PE (not on AC), bipolar, schizophrenia, and opioid dependence with prolonged Qtc, who was admitted for neutropenic fever. 1. Opioid Dependence: -Patient does not appear to be in withdrawals. Though she admits to having a history of heroin use, she did not even complete detox in 2018. -Please assess patient for COWS score and if she has a low score, I would not start her on a methadone detox. -In addition, due to her prolonged QTC and subsequent restart of all medications that can contribute to further prolongation of the QTC, I would be not inclined to start methadone on this patient. -Once patient is stabilized medically and other work up has been completed and causes for neutropenic fever has been resolved and treated, she can then be referred for rehab services for her numerous substances of abuse. -Do agree with continuation of Xanax to treat her possible symptoms of withdrawals. However, if you stop the benzodiazepine, then you can properly assess if the patient is having opiate withdrawals. Only then can we determine if methadone detox would be warranted in the first place. -Do not hesitate to call detox [facility] for further clarification. 2. Neutropenic Fever: - Agree with medicine's handling and work up and must be stabilized and treated if it is infectious. - Once work up is completed, please re-consult for transfer to [facility]. 3. History of PE - continue Eliquis 2.5 mg BID 4. Bipolar/schizophrenic - restarted seroquel 100 hs - olanzapine 5mg hs - QTC 470. ordered 2 gm Mg to be given before seroquel given - monitor QTC prolongation * Haldol 5mg PO x 1 given on 04/03 due to agitation 5. DVT prophylaxsis - As noted above on Eliquis 2.5 mg BID
[2020-04-04] MEDS ORDERED: PT OWN MED DRAWER 7, Y5N ONE (20:35)
[2020-04-04] MEDS: ACETAMINOPHEN 325 MG TABLET (FP) PO PRN (20:36)
[2020-04-04] MEDS: QUEtiapine FUMARATE 100 MG TABLET (FP) PO SCH (21:18)
[2020-04-05] MEDS ORDERED: CEFEPIME HCL 1 GM VIAL (RESTRICTED TO ID) ONE ×3 (01:15→17:02)
[2020-04-05] MEDS ORDERED: DEXTROSE 5%-WATER 100 ML IVPB ONE ×3 (01:15→17:02)
[2020-04-05] MEDS: CEFEPIME 1 GM in DEXTROSE 5%-WATER 100 ML IVPB SCH ×3 (01:29→18:11)
[2020-04-05] MEDS: ALPRAZolam 1 MG TABLET PO PRN ×4 (03:12→22:12)
[2020-04-05] MEDS: ACETAMINOPHEN 325 MG TABLET (FP) PO PRN ×4 (08:48→22:11)
[2020-04-05] MEDS: APIXABAN 2.5 MG TABLET PO SCH ×2 (10:02→22:11)
[2020-04-05] MEDS: OLANZapine 5 MG TABLET PO SCH (10:03)
[2020-04-05 12:01] LABS: BASO % 0.7 % (0-2.0); EOS % 5.5 % (0-4.5); HEMATOCRIT 23.9 % (32.4-45.2); HEMOGLOBIN 7.8 GM/dL (10.7-15.3); LYMPH % 21.2 % (8-40); MCHC 32.6 g/dl (32.0-36.0); MEAN CELL VOLUME 91.9 fl (80-96); MONO % 10.7 % (3.8-10.2); NEUT % 61.9 % (42.8-82.8); PLATELET COUNT 481 K/MM3 (134-434); RDW 14.8 % (11.6-15.6); WHITE BLOOD COUNT 1.5 K/mm3 (4.0-10.0)
[2020-04-05 12:35] LABS: CALCIUM 8.9 mg/dL (8.5-10.1); CREATININE 0.9 mg/dL (0.55-1.3); POTASSIUM 4.3 mmol/L (3.5-5.1)
--- NOTE | 2020-04-05 13:57 | PN ---
Progress Note (short form) - Note Progress Note: no fevers since admission awaiting MRIs of the back vanco held due to level of 27-will resume daily dosing now says she gets care at [facility]??- was on 3 meds for her HIV - has a bottle of prezicobix- please contact her pharmacy so we can resume her meds if she wishes to do so - can f/u with [facility] after discharge Vital Signs Period Temp Pulse Resp BP Sys/Bhat Pulse Ox Last 24 Hr 97.5 F-100.2 F 96-132 16-20 92-124/65-88 100-100 cor-rrr lungs clear abd soft,nt ext no edema skin unchangedback pain unchanged CBC, BMP 04/05/20 11:00 04/05/20 11:00 Microbiology 04/02/20 04:11 Blood - Peripheral Venous Blood Culture - Preliminary NO GROWTH OBTAINED AFTER 72 HOURS, INCUBATION TO CONTINUE FOR 2 DAYS. 04/02/20 04:11 Blood - Peripheral Venous Blood Culture - Preliminary NO GROWTH OBTAINED AFTER 72 HOURS, INCUBATION TO CONTINUE FOR 2 DAYS. 04/02/20 07:00 Urine - Urine Clean Catch Urine Culture - Final Contaminated: Please Repeat a/p fevers resolved remains neutropenic HIV- please contact her pharmacy/[facility] doc to resume her meds if she is agreeable awaiting MRI continue vanco/cefepime f/u psych and detox Problem List - Problems (1) Fever Code(s): R50.9 - FEVER, UNSPECIFIED (2) Neutropenia Code(s): D70.9 - NEUTROPENIA, UNSPECIFIED Qualifiers: Neutropenia type: due to infection Qualified Code(s): D70.3 - Neutropenia due to infection (3) HIV (human immunodeficiency virus infection) Code(s): B20 - HUMAN IMMUNODEFICIENCY VIRUS [HIV] DISEASE Qualifiers: HIV symptom status: symptomatic Qualified Code(s): B20 - Human immunodeficiency virus [HIV] disease (4) Anemia Code(s): D64.9 - ANEMIA, UNSPECIFIED (5) Substance use disorder Code(s): F19.90 - OTHER PSYCHOACTIVE SUBSTANCE USE, UNSPECIFIED, UNCOMPLICATED (6) Bipolar 1 disorder Code(s): F31.9 - BIPOLAR DISORDER, UNSPECIFIED (7) Paranoid schizophrenia Code(s): F20.0 - PARANOID SCHIZOPHRENIA
--- NOTE | 2020-04-05 14:02 | EKG ---
Test Reason : Blood Pressure : / mmHG Vent. Rate : 119 BPM Atrial Rate : 119 BPM P-R Int : 134 ms QRS Dur : 074 ms QT Int : 346 ms P-R-T Axes : 060 056 060 degrees QTc Int : 486 ms SINUS TACHYCARDIA OTHERWISE NORMAL ECG WHEN COMPARED WITH ECG OF 03-APR-2020 23:38, NO SIGNIFICANT CHANGE WAS FOUND Confirmed by SUDEEP GANDARA MD ([id number]) on 04/05/2020 2:01:54 PM Referred By: Confirmed By:SUDEEP GANDARA MD
[2020-04-05 14:16] LABS: ANISOCYTOSIS 1+; MACROCYTOSIS 0; OVALOCYTE 1+; PLATELET ESTIMATE NORMAL
[2020-04-05] MEDS: VANCOMYCIN 1 GRAM (PRE-DOCKED) 1,000 MG/250 ML BAG IVPB SCH (16:39)
--- NOTE | 2020-04-05 18:11 | CON.PSY ---
Psychiatry Consult Chief Complaint: Asked to see Ms. Hernandez to help clarify psych. 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 David Cotter is a 44 year old female with a history of substance use disorder, and bipolar disorder with psychosis/Schizophrenia. Patient was hostile and her history was vague and she did not/ was unable to give a detailed chronological psych history. She reports no hospitalizations/ no psych. hospitalization. and was receiving care at [facility]- could'nt tell the period in which she received care. Asked about her psych. meds and she pointed to a bag full of meds in her drawer. These were reviewed. She denies hearing voices now but admits that she did in the past. Father has a history of bipolar disorder. Denies suicidal attempt Symptoms: reports: Sleep Disturbance, Anxiety - Family Member Father Hx Family Bipolar Disorder: Yes (father) - Current Medications Current Medications: Active Medications Acetaminophen (Tylenol -) 650 mg PO Q4H PRN PRN Reason: FEVER Last Admin: 04/05/20 14:09 Dose: 650 mg Documented by: Alprazolam (Xanax) 1 mg PO Q4H PRN PRN Reason: ANXIETY Last Admin: 04/05/20 14:09 Dose: 1 mg Documented by: Apixaban (Eliquis -) 2.5 mg PO BID [facility] Last Admin: 04/05/20 10:02 Dose: 2.5 mg Documented by: Haloperidol (Haldol -) 5 mg PO ONCE PRN PRN Reason: ANXIETY Cefepime HCl 1 gm/ Dextrose 100 mls @ 200 mls/hr IVPB Q8H-IV [facility]; Protocol Last Admin: 04/05/20 10:03 Dose: 200 mls/hr Documented by: Vancomycin HCl (Vancomycin (Pre-Docked)) 1,000 mg in 250 mls @ 166.667 mls/hr IVPB DAILY@1700 [facility]; Protocol Last Admin: 04/05/20 16:39 Dose: 166.667 mls/hr Documented by: Lorazepam (Ativan Injection -) 1 mg IVPUSH Q4H PRN PRN Reason: ANXIETY Last Admin: 04/04/20 19:30 Dose: 1 mg Documented by: Melatonin (Melatonin) 5 mg PO HS PRN PRN Reason: INSOMNIA Olanzapine (Zyprexa -) 5 mg PO DAILY [facility] Last Admin: 04/05/20 10:03 Dose: 5 mg Documented by: Quetiapine Fumarate (Seroquel -) 100 mg PO HS [facility] Last Admin: 04/04/20 21:18 Dose: 100 mg Documented by: - Allergies Allergies: Allergies Allergy/AdvReac Type Severity Reaction Status Date / Time No Known Allergies Allergy Verified 04/02/20 03:15 - Current Living Status Usual Living Arrangement: Alone (lives in her own rental apartment) - Current Mental Status Evaluation Appearance: Disheveled, Bizarre Attitude: Guarded, Suspicious, Belligerent - Affect Appropriateness: Not Appropriate - Mood Mood: Angry, Irritable - Speech/Language Expressive: Loud Receptive: Age Appropriate Comprehension of Spoken Words, Delayed Receptive Comprehension (prob due to her) - Psychomotor Activity Psychomotor Activity: Normal - Thought Process Thought Process: Circumstantial - Thought Content Hallucinations: Absent Delusions: Absent - Self Perception Self Perception: No Impairment - Cognition Attention: Diminished Orientation: Time, Person, Place Memory, Immediate Recall: Impaired Memory, Short Term: 2/3 - Concentration Simple Calculations Intact: Yes - Abstraction Judgement: Moderately Impaired (affected by substance abuse) - Suicidal Ideation Suicidal Ideation: No - Homicidal Ideation Homicidal Ideation: No Assessment/Plan Patient may have a diagnosis of bipolar/ or Schizophrenia, Most likely bipolar considering her father has this disorder. At this time, it is hard to decipher . She says that she is able to tell the future and when bad things are happening. Mood fluctation noted. Meds reviewed in her bag dated from [facility] Atttempted to call Michael at [phone] but their system is down at this time. Substance abuse admits to 4 bags of heroin /day continue benzo Monito VS and signs of opiod withdrawal- Bipolar Start Remeron 15 mgs- she is requesting- and recent rx found in her bag Continue Seroquel 100 mgs- last Rx seenfor this dosage- she reports that she can tolerate low dose only- helps her with sleep, continue Xanax 1 mgs qid or consider long acting klonopin Continue Zyprexa 5 mgs - as Seroquel 100 mgs is mostly for sleep/anxiety and not for psychosis /or bipolar. Patient bag contained also zithromax KELSEY prophylaxis 600mgs 2 tabs weekly Patient bag also contained Bactrim DS 1 tab daily.PCP Prophylaxis
[2020-04-05] MEDS ORDERED: HALOPERIDOL 5 MG TABLET PO ONE (18:36)
[2020-04-05] MEDS: MELATONIN 5 MG TABLETS PO PRN (20:30)
[2020-04-05] MEDS: MIRTAZAPINE 15 MG TABLET (FP) PO SCH (22:12)
[2020-04-05] MEDS ORDERED: PT OWN MED DRAWER 7, Y5N ONE (22:13)
[2020-04-05] MEDS: QUEtiapine FUMARATE 100 MG TABLET (FP) PO SCH (22:14)
[2020-04-06] MEDS ORDERED: DEXTROSE 5%-WATER 100 ML IVPB ONE ×3 (01:45→18:22)
[2020-04-06] MEDS ORDERED: CEFEPIME HCL 1 GM VIAL (RESTRICTED TO ID) ONE ×3 (01:45→18:22)
[2020-04-06] MEDS: CEFEPIME 1 GM in DEXTROSE 5%-WATER 100 ML IVPB SCH ×3 (01:53→17:47)
[2020-04-06] MEDS: ACETAMINOPHEN 325 MG TABLET (FP) PO PRN ×4 (02:27→18:23)
[2020-04-06] MEDS: ALPRAZolam 1 MG TABLET PO PRN ×5 (02:35→22:01)
[2020-04-06] MEDS: LORazepam 2 MG/ML SDV VIAL IVPUSH PRN (03:34)
[2020-04-06 08:46] LABS: BLOOD UREA NITROGEN 12.1 mg/dL (7-18); CALCIUM 9.1 mg/dL (8.5-10.1); CREATININE 0.8 mg/dL (0.55-1.3); POTASSIUM 4.4 mmol/L (3.5-5.1)
[2020-04-06] MEDS: OLANZapine 5 MG TABLET PO SCH (10:33)
[2020-04-06] MEDS: APIXABAN 2.5 MG TABLET PO SCH ×2 (10:33→21:29)
--- NOTE | 2020-04-06 13:49 | PN ---
Physical Exam: SUBJECTIVE: Patient seen and examined at the bedside. she denies any chest pain or shortness of breath. OBJECTIVE: Patient is a 44 year old female with a history of HIV (not on medication), PE (not on AC), bipolar, schizophrenia, and heroin abuse who was admitted to the ED on 04/02/2020 for neutropenic fever. Vital Signs Period Temp Pulse Resp BP Sys/Bhat Pulse Ox Last 24 Hr 97.5 F-98 F 104-110 18-20 85-108/60-76 96-100 GENERAL: The patient is awake, alert, and fully oriented, in no acute distress. HEAD: Normal with no signs of trauma. EYES: PERRL, extraocular movements intact, sclera anicteric, conjunctiva clear. No ptosis. ENT: Ears normal, nares patent, oropharynx clear without exudates NECK: Trachea midline, full range of motion, supple. LUNGS: Breath sounds equal, clear to auscultation bilaterally, no wheezes HEART: Regular rate and rhythm ABDOMEN: Soft, nontender, nondistended, normoactive bowel sounds EXTREMITIES: trace edema bilaterally NEUROLOGICAL:Normal speech, gait not observed. PSYCH: restless/agitated at times SKIN: bilateral lower ext with dried ulcerations, closed. buttocks with small round scattered open lesions (apx 2 - both measures ~0.5cm x 0.5cm) Laboratory Results - last 24 hr 04/02/20 04/05/20 04/06/20 10:46 11:00 07:50 WBC 2.0 Absolute Lymphs (auto) 0.2 L Neutrophils % (Manual) 57.4 Band Neutrophils % 1.0 Lymphocytes % (Manual) 23.8 Monocytes % (Manual) 9 Eosinophils % (Manual) 5.9 H D Basophils % (Manual) 0.0 Myelocytes % (Man) 0 Promyelocytes % (Man) 0 Blast Cells % (Manual) 0 Nucleated RBC % 0 Lymphocytes 10 Metamyelocytes 0 Nucleated RBCs TNP Hypochromia 0 Platelet Estimate Normal Platelet Comment Present Polychromasia 0 Poikilocytosis 1+ Anisocytosis 1+ Microcytosis 1+ Macrocytosis 0 Spherocytes 1+ Ovalocytes 1+ Sodium 140 Potassium 4.4 Chloride 110 H Carbon Dioxide 25 Anion Gap 5 L BUN 12.1 Creatinine 0.8 Est GFR (CKD-EPI)AfAm 102.47 Est GFR (CKD-EPI)NonAf 88.41 Random Glucose 79 Calcium 9.1 Absolute CD3 Count TNP % CD3+ Lymphocytes TNP Absolute CD4 [place] TNP % CD4+ Lymphocyte TNP CD4/CD8 Ratio TNP % CD8+ Lymphocyte TNP Absolute CD8 Count TNP Active Medications Generic Name Dose Route Start Last Admin Trade Name Freq PRN Reason Stop Dose Admin Acetaminophen 650 mg 04/02/20 10:15 04/06/20 06:44 Tylenol - PO 650 mg Q4H PRN Administration FEVER Alprazolam 1 mg 04/04/20 10:27 04/06/20 12:01 Xanax PO 1 mg Q4H PRN Administration ANXIETY Apixaban 2.5 mg 04/03/20 22:00 04/06/20 10:33 Eliquis - PO 2.5 mg BID JEZ Administration Haloperidol 5 mg 04/04/20 13:23 Haldol - PO ONCE PRN ANXIETY Cefepime HCl 1 gm/ Dextrose 100 mls @ 200 mls/hr 04/02/20 12:00 04/06/20 10:33 IVPB 200 mls/hr Q8H-IV JEZ Administration Protocol Vancomycin HCl 1,000 mg in 250 mls @ 166.667 mls/hr 04/05/20 17:00 04/05/20 16:39 Vancomycin (Pre-Docked) IVPB 166.667 mls/hr DAILY@1700 JEZ Administration Protocol Lorazepam 1 mg 04/04/20 13:22 04/06/20 03:34 Ativan Injection - IVPUSH 1 mg Q4H PRN Administration ANXIETY Melatonin 5 mg 04/03/20 23:05 04/05/20 20:30 Melatonin PO 5 mg HS PRN Administration INSOMNIA Mirtazapine 15 mg 04/05/20 22:00 04/05/20 22:12 Remeron - PO 15 mg HS JEZ Administration Olanzapine 5 mg 04/02/20 16:15 04/06/20 10:33 Zyprexa - PO 5 mg DAILY JEZ Administration Quetiapine Fumarate 100 mg 04/02/20 15:45 04/05/20 22:14 Seroquel - PO 100 mg HS JEZ Administration ASSESSMENT/PLAN: Problem List - Problems (1) Bipolar 1 disorder Assessment/Plan: continue recommended medications by psyche Code(s): F31.9 - BIPOLAR DISORDER, UNSPECIFIED (2) Fever Assessment/Plan: no fevers Code(s): R50.9 - FEVER, UNSPECIFIED (3) HIV (human immunodeficiency virus infection) Assessment/Plan: not on any antivirals currently. serology pending Code(s): B20 - HUMAN IMMUNODEFICIENCY VIRUS [HIV] DISEASE Qualifiers: HIV symptom status: symptomatic Qualified Code(s): B20 - Human immunodeficiency virus [HIV] disease (4) Neutropenia Assessment/Plan: Neutropenia in the settng of untreated HIV and possible AIDS patient denies any iv drug use monitor labs daily, follow up blood and urine cultures follow up cd4 count on Cefepime and Vancomycin maintain neutopenic precautions ID following Code(s): D70.9 - NEUTROPENIA, UNSPECIFIED Qualifiers: Neutropenia type: due to infection Qualified Code(s): D70.3 - Neutropenia due to infection (5) Paranoid schizophrenia Assessment/Plan: seen by psyche, notes reviewed. per psyche, start on remeron, continue seroquel, continue xanax and zyprexa patient on haldol prn monitor ekg Code(s): F20.0 - PARANOID SCHIZOPHRENIA (6) Substance use disorder Assessment/Plan: seen by addiction medicine, Code(s): F19.90 - OTHER PSYCHOACTIVE SUBSTANCE USE, UNSPECIFIED, UNCOMPLICATED (7) Skin lesions, generalized Assessment/Plan: skin lesions on bilateral lower extremities and open lesions on her buttocks. maintain clean and dry and open to air. allevyn to back to protect bony prominences and avoid lesions to get worse Code(s): L98.9 - DISORDER OF THE SKIN AND SUBCUTANEOUS TISSUE, UNSPECIFIED (8) Vision loss, right eye Assessment/Plan: supportive care Code(s): H54.61 - UNQUALIFIED VISUAL LOSS, RIGHT EYE, NORMAL VISION LEFT EYE (9) Heroin abuse Assessment/Plan: addiction medicine consulted. notes reviewed. recommend transfer to [facility] if patient is willing. continue xanax. Code(s): F11.10 - OPIOID ABUSE, UNCOMPLICATED Visit type - Emergency Visit Emergency Visit: Yes ED Registration Date: 04/02/20 Care time: The patient presented to the Emergency Department on the above date and was hospitalized for further evaluation of their emergent condition. - New Patient This patient is new to me today: Yes Date on this admission: 04/06/20 - Critical Care Critical Care patient: No - Discharge Referral Referred to [facility] No COWS - Scale Resting Pulse: 2= MT 101-120 Sweatin= No chills or Flushing Restless Observation: 0= Sits Still Pupil Size: 0= Normal to Room Light Bone or Joint Aches: 0= None Runny Nose/ Eye Tearin= None GI Upset > 30mins: 0= None Tremor Observation: 0= None Yawning Observation: 0= None Anxiety or Irritability: 1=Feels Anxious/Irritable Goose Flesh Skin: 0=Smooth Skin COWS Score: 3
--- NOTE | 2020-04-06 15:35 | PN ---
Progress Note (short form) - Note Progress Note: no fevers since admission she was given bactrim as outpt never took- it made her dizzy will start Mepron she had a bottle of prezcobix in her bag as well Vital Signs Period Temp Pulse Resp BP Sys/Bhat Pulse Ox Last 24 Hr 97.5 F-100.2 F 96-132 16-20 92-124/65-88 100-100 cor-rrr lungs clear abd soft,nt ext no edema few open ulcers sacral area skin unchanged back pain unchanged 04/05/20 11:00 04/06/20 07:50 Microbiology 04/02/20 04:11 Blood - Peripheral Venous Blood Culture - Preliminary NO GROWTH OBTAINED AFTER 96 HOURS, INCUBATION TO CONTINUE FOR 1 DAYS. 04/02/20 04:11 Blood - Peripheral Venous Blood Culture - Preliminary NO GROWTH OBTAINED AFTER 96 HOURS, INCUBATION TO CONTINUE FOR 1 DAYS. 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 viral culture will start valtrex will call jony to get her meds refers hilda Craven as her provider- history PCP 10/2018 cd4-5 12/25 ecoli bacteremia December 2018 Problem List - Problems (1) Fever Code(s): R50.9 - FEVER, UNSPECIFIED (2) Neutropenia Code(s): D70.9 - NEUTROPENIA, UNSPECIFIED Qualifiers: Neutropenia type: due to infection Qualified Code(s): D70.3 - Neutropenia due to infection (3) HIV (human immunodeficiency virus infection) Code(s): B20 - HUMAN IMMUNODEFICIENCY VIRUS [HIV] DISEASE Qualifiers: HIV symptom status: symptomatic Qualified Code(s): B20 - Human immunodeficiency virus [HIV] disease (4) Anemia Code(s): D64.9 - ANEMIA, UNSPECIFIED (5) Substance use disorder Code(s): F19.90 - OTHER PSYCHOACTIVE SUBSTANCE USE, UNSPECIFIED, UNCOMPLICATED (6) Bipolar 1 disorder Code(s): F31.9 - BIPOLAR DISORDER, UNSPECIFIED (7) Paranoid schizophrenia Code(s): F20.0 - PARANOID SCHIZOPHRENIA
[2020-04-06] MEDS: VANCOMYCIN 1 GRAM (PRE-DOCKED) 1,000 MG/250 ML BAG IVPB SCH (16:39)
[2020-04-06] MEDS: ATOVAQUONE 750 MG/5 ML (UNIT-DOSE PACKAGING) PO SCH (17:47)
[2020-04-06] MEDS: valACYclovir HCL 1000 MG TABLET PO SCH (21:29)
[2020-04-06] MEDS: QUEtiapine FUMARATE 100 MG TABLET (FP) PO SCH (21:29)
[2020-04-06] MEDS: MIRTAZAPINE 15 MG TABLET (FP) PO SCH (21:29)
[2020-04-06] MEDS: MELATONIN 5 MG TABLETS PO PRN (22:01)
[2020-04-07] MEDS: ACETAMINOPHEN 325 MG TABLET (FP) PO PRN ×4 (00:05→20:08)
[2020-04-07] MEDS ORDERED: DEXTROSE 5%-WATER 100 ML IVPB ONE ×2 (01:56→11:35)
[2020-04-07] MEDS ORDERED: CEFEPIME HCL 1 GM VIAL (RESTRICTED TO ID) ONE ×2 (01:56→11:35)
[2020-04-07] MEDS: CEFEPIME 1 GM in DEXTROSE 5%-WATER 100 ML IVPB SCH ×2 (02:11→09:22)
[2020-04-07] MEDS: ALPRAZolam 1 MG TABLET PO PRN ×4 (05:22→20:08)
[2020-04-07] MEDS ORDERED: PT OWN MED DRAWER 7, Y5N ONE ×3 (09:15→21:49)
[2020-04-07] MEDS: APIXABAN 5 MG TABLET PO SCH ×2 (09:21→21:45)
[2020-04-07] MEDS: OLANZapine 5 MG TABLET PO SCH (09:21)
[2020-04-07] MEDS: valACYclovir HCL 1000 MG TABLET PO SCH ×2 (09:22→21:51)
[2020-04-07] MEDS: ATOVAQUONE 750 MG/5 ML (UNIT-DOSE PACKAGING) PO SCH (09:22)
--- NOTE | 2020-04-07 09:36 | PN ---
Physical Exam: SUBJECTIVE: Patient seen and examined OBJECTIVE: Patient is a 44 year old female with a history of HIV (not on medication), PE (not on AC), bipolar, schizophrenia, and heroin abuse who was admitted to the ED on 04/02/2020 for neutropenic fever. Vital Signs Period Temp Pulse Resp BP Sys/Bhat Pulse Ox Last 24 Hr 97.6 F-98.1 F 108-120 18-19 98-109/63-86 95-100 GENERAL: The patient is awake, alert, and fully oriented, in no acute distress. HEAD: Normal with no signs of trauma. EYES: PERRL, extraocular movements intact, sclera anicteric, conjunctiva clear. No ptosis. ENT: Ears normal, nares patent, oropharynx clear without exudates NECK: Trachea midline, full range of motion, supple. LUNGS: Breath sounds equal, clear to auscultation bilaterally, no wheezes HEART: Regular rate and rhythm ABDOMEN: Soft, nontender, nondistended, normoactive bowel sounds EXTREMITIES: trace edema bilaterally NEUROLOGICAL:Normal speech, gait not observed. PSYCH: restless/agitated at times SKIN: bilateral lower ext with dried ulcerations, closed. buttocks with small round scattered open lesions (apx 2 - both measures ~0.5cm x 0.5cm) Laboratory Results - last 24 hr 04/02/20 10:46 Absolute Lymphs (auto) 0.2 L Lymphocytes 10 Nucleated RBCs TNP Absolute CD3 Count TNP % CD3+ Lymphocytes TNP Absolute CD4 [place] TNP % CD4+ Lymphocyte TNP CD4/CD8 Ratio TNP % CD8+ Lymphocyte TNP Absolute CD8 Count TNP Active Medications Generic Name Dose Route Start Last Admin Trade Name Freq PRN Reason Stop Dose Admin Acetaminophen 650 mg 04/02/20 10:15 04/07/20 09:21 Tylenol - PO 650 mg Q4H PRN Administration FEVER Alprazolam 1 mg 04/04/20 10:27 04/07/20 09:21 Xanax PO 1 mg Q4H PRN Administration ANXIETY Apixaban 5 mg 04/07/20 10:00 04/07/20 09:21 Eliquis - PO 5 mg BID JEZ Administration Atovaquone 1,500 mg 04/06/20 15:30 04/07/20 09:22 Mepron - PO 1,500 mg DAILY@0800 JEZ Administration Haloperidol 5 mg 04/04/20 13:23 04/06/20 14:42 Haldol - PO 5 mg ONCE PRN Administration ANXIETY Cefepime HCl 1 gm/ Dextrose 100 mls @ 200 mls/hr 04/02/20 12:00 04/07/20 0 9:22 IVPB 200 mls/hr Q8H-IV JEZ Administration Protocol Vancomycin HCl 1,000 mg in 250 mls @ 166.667 mls/hr 04/05/20 17:00 04/06/20 16:39 Vancomycin (Pre-Docked) IVPB 166.667 mls/hr DAILY@1700 JEZ Administration Protocol Lorazepam 1 mg 04/04/20 13:22 04/06/20 03:34 Ativan Injection - IVPUSH 1 mg Q4H PRN Administration ANXIETY Melatonin 5 mg 04/03/20 23:05 04/06/20 22:01 Melatonin PO 5 mg HS PRN Administration INSOMNIA Mirtazapine 15 mg 04/05/20 22:00 04/06/20 21:29 Remeron - PO 15 mg HS JEZ Administration Olanzapine 5 mg 04/02/20 16:15 04/07/20 09:21 Zyprexa - PO 5 mg DAILY JEZ Administration Quetiapine Fumarate 100 mg 04/02/20 15:45 04/06/20 21:29 Seroquel - PO 100 mg HS JEZ Administration Valacyclovir HCl 1,000 mg 04/06/20 22:00 04/07/20 09:22 Valtrex - PO 1,000 mg BID JEZ Administration ASSESSMENT/PLAN: Problem List - Problems (1) Bipolar 1 disorder Assessment/Plan: continue recommended medications by psych Code(s): F31.9 - BIPOLAR DISORDER, UNSPECIFIED (2) Fever Assessment/Plan: no fevers Code(s): R50.9 - FEVER, UNSPECIFIED (3) HIV (human immunodeficiency virus infection) Assessment/Plan: not on any antivirals currently. serology pending Code(s): B20 - HUMAN IMMUNODEFICIENCY VIRUS [HIV] DISEASE Qualifiers: HIV symptom status: symptomatic Qualified Code(s): B20 - Human immunodeficiency virus [HIV] disease (4) Neutropenia Assessment/Plan: Neutropenia in the settng of untreated HIV and possible AIDS patient denies any iv drug use monitor labs daily, follow up blood and urine cultures follow up cd4 count on Cefepime and Vancomycin maintain neutopenic precautions ID following Code(s): D70.9 - NEUTROPENIA, UNSPECIFIED Qualifiers: Neutropenia type: due to infection Qualified Code(s): D70.3 - Neutropenia due to infection (5) Paranoid schizophrenia Assessment/Plan: seen by psych, notes reviewed. per psych, continue remeron, continue seroquel, continue xanax and zyprexa patient on haldol prn monitor Qtc on ekg Code(s): F20.0 - PARANOID SCHIZOPHRENIA (6) Substance use disorder Assessment/Plan: seen by addiction medicine, Code(s): F19.90 - OTHER PSYCHOACTIVE SUBSTANCE USE, UNSPECIFIED, UNCOMPLICATED (7) Skin lesions, generalized Assessment/Plan: skin lesions on bilateral lower extremities and open lesions on her buttocks. maintain clean and dry and open to air. allevyn to back to protect bony prominences and avoid lesions to get worse Code(s): L98.9 - DISORDER OF THE SKIN AND SUBCUTANEOUS TISSUE, UNSPECIFIED (8) Vision loss, right eye Assessment/Plan: supportive care Code(s): H54.61 - UNQUALIFIED VISUAL LOSS, RIGHT EYE, NORMAL VISION LEFT EYE (9) Heroin abuse Assessment/Plan: addiction medicine consulted. notes reviewed. recommend transfer to [facility] if patient is willing. continue xanax. Code(s): F11.10 - OPIOID ABUSE, UNCOMPLICATED (10) Weakness Assessment/Plan: LE weakness. Start physical therapy Problems reviewed: Yes Code(s): R53.1 - WEAKNESS (11) DVT prophylaxis Assessment/Plan: patient on eliquis 5 bid for hx of PE Code(s): Z29.9 - ENCOUNTER FOR PROPHYLACTIC MEASURES, UNSPECIFIED Visit type - Emergency Visit Emergency Visit: Yes ED Registration Date: 04/02/20 Care time: The patient presented to the Emergency Department on the above date and was hospitalized for further evaluation of their emergent condition. - New Patient This patient is new to me today: No - Critical Care Critical Care patient: No - Discharge Referral Referred to [facility] No
[2020-04-07 11:14] LABS: BASO % 0.5 % (0-2.0); EOS % 6.3 % (0-4.5); HEMOGLOBIN 8.1 GM/dL (10.7-15.3); LYMPH % 17.3 % (8-40); MCH 29.9 pg (25.7-33.7); MCHC 32.6 g/dl (32.0-36.0); MEAN CELL VOLUME 91.9 fl (80-96); MEAN PLT VOLUME 6.9 fl (7.5-11.1); NEUT % 63.9 % (42.8-82.8); PLATELET COUNT 423 K/MM3 (134-434); RBC 2.72 M/mm3 (3.60-5.2); RDW 14.3 % (11.6-15.6)
[2020-04-07 11:22] LABS: WHITE BLOOD COUNT 1.6 K/mm3 (4.0-10.0)
[2020-04-07 11:40] LABS: ALBUMIN 2.3 g/dl (3.4-5.0); BILIRUBIN,TOTAL 0.3 mg/dL (0.2-1); BLOOD UREA NITROGEN 12.9 mg/dL (7-18); CALCIUM 9.4 mg/dL (8.5-10.1); CREATININE 0.9 mg/dL (0.55-1.3); MAGNESIUM 2.3 mg/dL (1.8-2.4); POTASSIUM 4.5 mmol/L (3.5-5.1); TOT PROT 9.4 g/dl (6.4-8.2)
--- NOTE | 2020-04-07 12:56 | EKG ---
Test Reason : Blood Pressure : / mmHG Vent. Rate : 114 BPM Atrial Rate : 114 BPM P-R Int : 132 ms QRS Dur : 072 ms QT Int : 348 ms P-R-T Axes : 068 043 054 degrees QTc Int : 479 ms SINUS TACHYCARDIA OTHERWISE NORMAL ECG WHEN COMPARED WITH ECG OF 05-APR-2020 00:51, NO SIGNIFICANT CHANGE WAS FOUND Confirmed by MD Padilla Edward ([id number]) on 04/07/2020 12:56:23 PM Referred By: Confirmed By:Addison Padilla MD
[2020-04-07 13:13] LABS: ANISOCYTOSIS 1+; MACROCYTOSIS 0; OVALOCYTE 1+; PLATELET ESTIMATE NORMAL
--- NOTE | 2020-04-07 14:22 | PN ---
Progress Note (short form) - Note Progress Note: alert no fevers since admission she was given bactrim as outpt never took- it made her dizzy will start Mepron she had a bottle of prezcobix in her bag as well-apparently never took it- it is years old Vital Signs Period Temp Pulse Resp BP Sys/Bhat Pulse Ox Last 24 Hr 97.6 F-98.1 F 113-120 18-18 98-109/63-86 95-100 no thrush cor-rrr lungs decreased bs at bases abd soft,nt ext no edema CBC, BMP 04/07/20 10:55 04/07/20 06:00 Microbiology 04/02/20 04:11 Blood - Peripheral Venous Blood Culture - Final NO GROWTH AFTER 5 DAYS INCUBATION 04/02/20 04:11 Blood - Peripheral Venous Blood Culture - Final NO GROWTH AFTER 5 DAYS INCUBATION 04/03/20 08:12 Serum Cryptococcal Antigen - Final-negative 04/02/20 07:00 Urine - Urine Clean Catch Urine Culture - Final Contaminated: Please Repeat ldh 192 (normal) a/p fevers resolved-cultures negative, refuses imaging- will d/c antibiotics remains neutropenic AIDS- -she is agreeable to trying meds- will start descovy and tivivay-no drug interactions with her psych meds has not been on meds for years cryptococcal antigen is negative continue mepron for pcp refusing imaging d/c vanco/cefepime f/u psych and detox cd4 not measureable! viral load pending continue valtrex, viral culture refers to Merissa as her provider- cd4-5 12/25 ecoli bacteremia December 2018 d/w hospitalist Problem List - Problems (1) Fever Code(s): R50.9 - FEVER, UNSPECIFIED (2) Neutropenia Code(s): D70.9 - NEUTROPENIA, UNSPECIFIED Qualifiers: Neutropenia type: due to infection Qualified Code(s): D70.3 - Neutropenia due to infection (3) HIV (human immunodeficiency virus infection) Code(s): B20 - HUMAN IMMUNODEFICIENCY VIRUS [HIV] DISEASE Qualifiers: HIV symptom status: symptomatic Qualified Code(s): B20 - Human immunode ficiency virus [HIV] disease (4) Anemia Code(s): D64.9 - ANEMIA, UNSPECIFIED (5) Substance use disorder Code(s): F19.90 - OTHER PSYCHOACTIVE SUBSTANCE USE, UNSPECIFIED, UNCOMPLICATED (6) Bipolar 1 disorder Code(s): F31.9 - BIPOLAR DISORDER, UNSPECIFIED (7) Paranoid schizophrenia Code(s): F20.0 - PARANOID SCHIZOPHRENIA
[2020-04-07] MEDS: MIRTAZAPINE 15 MG TABLET (FP) PO SCH (21:45)
[2020-04-07] MEDS: MELATONIN 5 MG TABLETS PO PRN (21:51)
[2020-04-07] MEDS: QUEtiapine FUMARATE 100 MG TABLET (FP) PO SCH (21:51)
[2020-04-07] MEDS: LORazepam 2 MG/ML SDV VIAL IVPUSH PRN (23:33)
--- NOTE | 2020-04-08 00:37 | HOSP ---
Subjective - Review of Symptoms Events since last encounter: Hospitalist Encounter Notified by the RN, that the patient's HR is 139 denies chest pain, was asked to assess Plan: EKG- stat Physical Examination Vital Signs: Vital Signs Temperature 97.8 F 04/07/20 15:35 Pulse Rate 108 H 04/07/20 15:35 Respiratory Rate 18 04/07/20 15:35 Blood Pressure 98/68 04/07/20 15:35 O2 Sat by Pulse Oximetry (%) 97 04/07/20 15:35 Constitutional: Yes: Pallor, Thin, Other (lethargic) Eyes: Yes: Conjunctiva Clear, PERRL HENT: Yes: Atraumatic, Normocephalic, Other (dry mucousa) Neck: Yes: Supple, Trachea Midline Cardiovascular: Yes: Tachycardia, S1, S2 Respiratory: Yes: Regular, CTA Bilaterally Gastrointestinal: Yes: Normal Bowel Sounds, Soft ...Rectal Exam: Yes: Deferred Renal/: Yes: WNL Breast(s): Yes: WNL Musculoskeletal: Yes: WNL Extremities: Yes: WNL Edema: No Peripheral Pulses WNL: Yes Neurological: Yes: Lethargy Labs: CBC, BMP 04/07/20 10:55 04/07/20 06:00 Hospitalist Encounter Assessment: Patient is a 44 year old female with a history of HIV (not on medication), PE (not on AC), bipolar, schizophrenia, and heroin abuse who was admitted to the ED on 04/02/2020 for neutropenic fever. Outcome: EKG reviewed- ST rate increased compared to prior study Patient's HR improved post fluid bolus Labs reviewed Will continue to monitor, day provider will resume care in am Recommendations/Interventions: Monitor Mg Critical Care Total Critical Care Time (in minutes): 35 Critical Care Statement: The care of this patient involved high complexity decision making to prevent further life threatening deterioration of the patient's condition and/or to evaluate & treat vital organ system(s) failure or risk of failure.
[2020-04-08] MEDS ORDERED: SODIUM CHLORIDE 500 ML IV STA ×2 (00:47→01:50)
[2020-04-08 01:08] LABS: BASO % 0.6 % (0-2.0); EOS % 5.6 % (0-4.5); LYMPH % 19.7 % (8-40); MCH 31.2 pg (25.7-33.7); MCHC 33.4 g/dl (32.0-36.0); MEAN CELL VOLUME 93.2 fl (80-96); MEAN PLT VOLUME 7.2 fl (7.5-11.1); MONO % 12.9 % (3.8-10.2); NEUT % 61.2 % (42.8-82.8); PLATELET COUNT 393 K/MM3 (134-434); RBC 2.57 M/mm3 (3.60-5.2); RDW 14.5 % (11.6-15.6); WHITE BLOOD COUNT 1.8 K/mm3 (4.0-10.0)
[2020-04-08 01:46] LABS: ALBUMIN 2.3 g/dl (3.4-5.0); ALK PHOS 168 U/L (45-117); ANION GAP 5 MMOL/L (8-16); BILIRUBIN,TOTAL 0.2 mg/dL (0.2-1); CALCIUM 8.8 mg/dL (8.5-10.1); CHLORIDE 107 mmol/L (98-107); CO2 27 mmol/L (21-32); CREATININE 1.1 mg/dL (0.55-1.3); GLUCOSE,RANDOM 121 mg/dL (74-106); MAGNESIUM 1.9 mg/dL (1.8-2.4); PHOSPHOROUS 4.2 mg/dL (2.5-4.9); POTASSIUM 3.9 mmol/L (3.5-5.1); SGOT/AST 37 U/L (15-37); SGPT/ALT 23 U/L (13-61); SODIUM 138 mmol/L (136-145)
[2020-04-08 02:01] LABS: ANISOCYTOSIS 0; MACROCYTOSIS 0; OVALOCYTE 1+; PLATELET ESTIMATE NORMAL
[2020-04-08] MEDS: ALPRAZolam 1 MG TABLET PO PRN ×3 (06:21→20:25)
[2020-04-08] MEDS: ACETAMINOPHEN 325 MG TABLET (FP) PO PRN ×3 (06:21→19:01)
[2020-04-08 08:42] LABS: BASO % 0.6 % (0-2.0); EOS % 5.6 % (0-4.5); HEMATOCRIT 23.1 % (32.4-45.2); HEMOGLOBIN 7.6 GM/dL (10.7-15.3); LYMPH % 23.4 % (8-40); MCH 30.7 pg (25.7-33.7); MCHC 32.8 g/dl (32.0-36.0); MEAN CELL VOLUME 93.6 fl (80-96); MEAN PLT VOLUME 7.5 fl (7.5-11.1); MONO % 10.8 % (3.8-10.2); NEUT % 59.6 % (42.8-82.8); PLATELET COUNT 380 K/MM3 (134-434); RBC 2.47 M/mm3 (3.60-5.2); RDW 14.4 % (11.6-15.6)
[2020-04-08 08:45] LABS: WHITE BLOOD COUNT 1.6 K/mm3 (4.0-10.0)
[2020-04-08 09:17] LABS: ALBUMIN 2.2 g/dl (3.4-5.0); BILIRUBIN,TOTAL 0.2 mg/dL (0.2-1); BLOOD UREA NITROGEN 16.7 mg/dL (7-18); CALCIUM 8.5 mg/dL (8.5-10.1); TOT PROT 8.8 g/dl (6.4-8.2)
--- NOTE | 2020-04-08 09:55 | EKG ---
Test Reason : Blood Pressure : / mmHG Vent. Rate : 137 BPM Atrial Rate : 137 BPM P-R Int : 130 ms QRS Dur : 074 ms QT Int : 364 ms P-R-T Axes : 060 052 061 degrees QTc Int : 549 ms POOR DATA QUALITY, INTERPRETATION MAY BE ADVERSELY AFFECTED SINUS TACHYCARDIA NONSPECIFIC T WAVE ABNORMALITY ABNORMAL ECG WHEN COMPARED WITH ECG OF 07-APR-2020 11:10, NO SIGNIFICANT CHANGE WAS FOUND Confirmed by JEROMY HUGO, GINGER ([id number]) on 04/08/2020 9:54:55 AM Referred By: Confirmed By:GINGER PINZON MD
[2020-04-08 10:07] LABS: ANISOCYTOSIS 1+; MACROCYTOSIS 0; OVALOCYTE 1+; PLATELET ESTIMATE NORMAL
[2020-04-08] MEDS ORDERED: PT OWN MED DRAWER 7, Y5N ONE ×2 (11:49→17:00)
[2020-04-08] MEDS: APIXABAN 5 MG TABLET PO SCH ×2 (12:00→21:17)
[2020-04-08] MEDS: OLANZapine 5 MG TABLET PO SCH (12:00)
[2020-04-08] MEDS: ATOVAQUONE 750 MG/5 ML (UNIT-DOSE PACKAGING) PO SCH (12:00)
[2020-04-08] MEDS: DOLUTEGRAVIR SODIUM 50 MG TABLET (NON-FORMULARY) PO SCH (12:01)
[2020-04-08] MEDS: EMTRICITABINE/TENOFOV ALAFENAM (DESCOVY) TABLET PO SCH (12:01)
[2020-04-08] MEDS: valACYclovir HCL 1000 MG TABLET PO SCH ×2 (12:01→21:16)
--- NOTE | 2020-04-08 13:21 | CONSULT ---
Consultation: REQUESTING PROVIDER: CONSULT REQUEST: We have been asked to medically evaluate this patient for neupogen. HISTORY OF PRESENT ILLNESS: 44 y/o F PMHx AIDS (noncompliant with HAART), PE (Not on AC), Bipolar, Schizophrenia, Opiate Dependence presented with fever, SOB, productive cough. During my interview, patient was somnolent and only responsive to light touch but refused to participate in the interview. As per chart review, patient was in her usual state of health until about 2 weeks ago when she started feeling on and off subjective fevers accompanied by waxing and waning back pain. She additionally felt SOB and productive cough. Patient is an active heroin user with last use one day prior to admission; Endorses 4-10 bags daily via snorting. Patient presented to the ED and was found to be septic. Initial Labwork revealed Leukopenia/Neutropenia and patient was started on and completed a course of broad spectrum ABx. ID was consulted, recommended MRI T/L Spine inaddition to f/u cryptococcal Ag, viral load; Pending Crypotcoccal Ag, HAART therapy will begin as CD4 count is unmeasureable. Detox was consulted and recommended to avoid Methoadone given prolonged QTc and to continue Benzo's. Since admission, her fevers have resolved however her Neutropenia persists and patient refuses imaging. Overnight patient became tachycardic that responded to IVF. Hematology was consulted for neupogen use. Denies any hx of STDs, TB. Not currently sexually active. ROS unable to be performed as patient was very somnolent. PMHx: As per HPI PSHx: Hysterectomy Social Hx: Snorts Heroin, Residence with daughter FHx: Father with Bipolar REVIEW OF SYSTEMS: As per HPI PHYSICAL EXAMINATION Vital Signs Temperature 99.6 F 04/08/20 06:49 Pulse Rate 129 H 04/08/20 06:49 Respiratory Rate 18 04/08/20 06:49 Blood Pressure 115/79 04/08/20 06:49 O2 Sat by Pulse Oximetry (%) 100 04/08/20 09:00 GENERAL: Somnolent HEAD: NCAT EARS, NOSE, THROAT: Moist mucous membranes, No thrush LUNGS: Diminished breath sounds at the bases, No wheezes HEART: Regular rate and rhythm, normal S1 and S2 without murmur ABDOMEN: Soft, nontender, not distended, +bowel sounds, no guarding, no rebound EXTREMITIES: No peripheral edema. NEUROLOGICAL: wakes to touch but minimally verbal SKIN: Warm, dry Laboratory Last Values WBC 1.6 K/mm3 (4.0-10.0) L* 04/08/20 07:10 RBC 2.47 M/mm3 (3.60-5.2) L 04/08/20 07:10 Hgb 7.6 GM/dL (10.7-15.3) L 04/08/20 07:10 Hct 23.1 % (32.4-45.2) L 04/08/20 07:10 MCV 93.6 fl (80-96) 04/08/20 07:10 MCH 30.7 pg (25.7-33.7) 04/08/20 07:10 MCHC 32.8 g/dl (32.0-36.0) 04/08/20 07:10 RDW 14.4 % (11.6-15.6) 04/08/20 07:10 Plt Count 380 K/MM3 (134-434) 04/08/20 07:10 MPV 7.5 fl (7.5-11.1) 04/08/20 07:10 Absolute Neuts (auto) 1.0 K/mm3 (1.5-8.0) L 04/08/20 07:10 Absolute Lymphs (auto) 0.2 x10E3/uL (0.7-3.1) L 04/02/20 10:46 Neutrophils % 59.6 % (42.8-82.8) 04/08/20 07:10 Neutrophils % (Manual) 57.6 % (42.8-82.8) 04/08/20 07:10 Band Neutrophils % 3.0 % 04/08/20 07:10 Lymphocytes % 23.4 % (8-40) 04/08/20 07:10 Lymphocytes % (Manual) 22.2 % (8-40) 04/08/20 07:10 Monocytes % 10.8 % (3.8-10.2) H 04/08/20 07:10 Monocytes % (Manual) 9 % (3.8-10.2) 04/08/20 07:10 Eosinophils % 5.6 % (0-4.5) H 04/08/20 07:10 Eosinophils % (Manual) 3.0 % (0-4.5) 04/08/20 07:10 Basophils % 0.6 % (0-2.0) 04/08/20 07:10 Basophils % (Manual) 0.0 % (0-2.0) 04/08/20 07:10 Myelocytes % (Man) 0 % (0-2) 04/08/20 07:10 Promyelocytes % (Man) 0 % (0-2) 04/08/20 07:10 Blast Cells % (Manual) 0 % (0-0) 04/08/20 07:10 Nucleated RBC % 0 % (0-0) 04/08/20 07:10 Lymphocytes 10 % (Not Estab.) 04/02/20 10:46 Metamyelocytes 0 % (0-2) 04/08/20 07:10 Nucleated RBCs TNP 04/02/20 10:46 Hypochromia 0 04/08/20 07:10 Toxic Granulation 1+ 04/02/20 05:00 Platelet Estimate Normal 04/08/20 07:10 Platelet Comment Present 04/08/20 07:10 Polychromasia 1+ 04/08/20 07:10 Poikilocytosis 1+ 04/08/20 07:10 Anisocytosis 1+ 04/08/20 07:10 Microcytosis 1+ 04/08/20 07:10 Macrocytosis 0 04/08/20 07:10 Spherocytes 1+ 04/08/20 07:10 Tear Drop Cells 1+ 04/02/20 05:00 Ovalocytes 1+ 04/08/20 07:10 Stomatocytes 1+ 04/02/20 05:00 PT with INR 14.00 SEC (9.7-13.0) H 04/02/20 05:00 INR 1.18 (0.83-1.09) H 04/02/20 05:00 PTT (Actin FS) 31.2 SECONDS (25.2-36.5) 04/02/20 05:00 Sodium 139 mmol/L (136-145) 04/08/20 07:10 Potassium 4.0 mmol/L (3.5-5.1) 04/08/20 07:10 Chloride 109 mmol/L (98-107) H 04/08/20 07:10 Carbon Dioxide 23 mmol/L (21-32) 04/08/20 07:10 Anion Gap 7 MMOL/L (8-16) L 04/08/20 07:10 BUN 16.7 mg/dL (7-18) 04/08/20 07:10 Creatinine 1.0 mg/dL (0.55-1.3) 04/08/20 07:10 Est GFR (CKD-EPI)AfAm 78.24 04/08/20 07:10 Est GFR (CKD-EPI)NonAf 67.51 04/08/20 07:10 Random Glucose 121 mg/dL (74-106) H 04/08/20 07:10 Lactic Acid 0.8 mmol/L (0.4-2.0) 04/02/20 07:29 Calcium 8.5 mg/dL (8.5-10.1) 04/08/20 07:10 Phosphorus 4.2 mg/dL (2.5-4.9) 04/08/20 00:45 Magnesium 2.0 mg/dL (1.8-2.4) 04/08/20 07:10 Total Bilirubin 0.2 mg/dL (0.2-1) 04/08/20 07:10 AST 39 U/L (15-37) H 04/08/20 07:10 ALT 24 U/L (13-61) 04/08/20 07:10 Alkaline Phosphatase 174 U/L (45-117) H 04/08/20 07:10 LD Total 192 U/L (84-246) 04/03/20 08:12 Troponin I < 0.02 ng/ml (0.00-0.05) 04/08/20 00:45 Total Protein 8.8 g/dl (6.4-8.2) H 04/08/20 07:10 Albumin 2.2 g/dl (3.4-5.0) L 04/08/20 07:10 Serum , Qual Negative 04/02/20 05:00 Urine Color Yellow 04/02/20 07:00 Urine Appearance Clear 04/02/20 07:00 Urine pH 8.0 (5.0-8.0) 04/02/20 07:00 Ur Specific [place] 1.009 (1.010-1.035) L 04/02/20 07:00 Urine Protein Trace (NEGATIVE) 04/02/20 07:00 Urine Glucose (UA) Negative (NEGATIVE) 04/02/20 07:00 Urine Ketones Negative (NEGATIVE) 04/02/20 07:00 Urine Blood Negative (NEGATIVE) 04/02/20 07:00 Urine Nitrite Negative (NEGATIVE) 04/02/20 07:00 Urine Bilirubin Negative (NEGATIVE) 04/02/20 07:00 Urine Urobilinogen 0.2 mg/dL (0.2-1.0) 04/02/20 07:00 Ur Leukocyte Esterase 1+ (NEGATIVE) H 04/02/20 07:00 Urine WBC (Auto) 31 /uL (0-25.8) 04/02/20 07:00 Urine RBC (Auto) 7 /uL (0-23.9) 04/02/20 07:00 Urine Casts (Auto) 1 /uL (0-3.1) 04/02/20 07:00 U Epithel Cells (Auto) >36 /uL (0-25.1) 04/02/20 07:00 Urine Bacteria (Auto) 97 /uL (0-1359) 04/02/20 07:00 Vancomycin Pre-Dose 21.1 ug/ml (5-10) H 04/04/20 18:25 Absolute CD3 Count TNP 04/02/20 10:46 % CD3+ Lymphocytes TNP 04/02/20 10:46 Absolute CD4 [place] TNP 04/02/20 10:46 % CD4+ Lymphocyte TNP 04/02/20 10:46 CD4/CD8 Ratio TNP 04/02/20 10:46 % CD8+ Lymphocyte TNP 04/02/20 10:46 Absolute CD8 Count TNP 04/02/20 10:46 COVID-19 ([facility]ON) Not detected (Not Detected) 04/02/20 11:00 ASSESSMENT/PLAN: 44 y/o F PMHx AIDS (noncompliant with HAART), PE (Not on AC), Bipolar, Schizophrenia, Opiate Dependence presented with fever, SOB, productive cough. Found to be septic on admission, Initial Labwork revealed Leukopenia/Neutropenia and patient was started on and completed a course of broad spectrum ABx. CD4 unmeasureable, Viral Load pending, patient started in HAART therapy. Patient refusing further imaging (MRI T/L Spine). Fevers have resolved since admission however Neutropenia persists Hematology was consulted for neupogen use. #Neutropenia -In the setting of AIDS, Sepsis -Would consider stopping Seroquel as this can contribute to neutropenia (and prolonged QTc) -Continue HAART therapy; Expect Neutropenia to resolve and bone marrow to recover as long as patient remains compliant with HAART therapy -Continue Atovaquone -Imaging when patient agreeable -ID Evaluation appreciated; ABx course completed -Will need close outpatient follow up with [facility] Dispo: We will continue to follow the patient. Thank you for this consultative opportunity. Visit type - Emergency Visit Emergency Visit: Yes ED Registration Date: 04/02/20 Care time: The patient presented to the Emergency Department on the above date and was hospitalized for further evaluation of their emergent condition. - New Patient This patient is new to me today: Yes Date on this admission: 04/09/20 - Critical Care Critical Care patient: No ATTENDING PHYSICIAN STATEMENT I saw and evaluated the patient. I reviewed the resident's note and discussed the case with the resident. I agree with the resident's findings and plan as documented. SUBJECTIVE: OBJECTIVE: ASSESSMENT AND PLAN:
--- NOTE | 2020-04-08 14:22 | PN ---
Physical Exam: SUBJECTIVE: Patient seen and examined at the bedside. patient reported to be awake and alert this morning, ate breakfast and lunch and then became lethargic and only responsive to tactile stimuli and sternal rub. vitals stable, patient given her ordered psyche medications. no visitors today but patient had a visitor yesterday evening searched her immediate surroundings and no signs of paraphanelia or evidence of outside drugs, bracelet from a [facility] found with a different name of patient. patient appears overmedicated and concern that she may have taken heroin as she was very difficult to arouse vitals stable, airway patent narcan given x 1 and patient immediately woke up and began to curse at me and staff caring for her. abg orded but patient refused head ct ordered will transfer to [facility] for persistent tachycardia and now with prolonged qtc OBJECTIVE: patient noted to be less responsive during rounds, minimally resonponsive to sternal rub Patient is a 44 year old female with a history of HIV (not on medication), PE (not on AC), bipolar, schizophrenia, and heroin abuse who was admitted to the ED on 04/02/2020 for neutropenic fever. She was seen by transportation aide and no neupogen recommended at this time. Vital Signs Period Temp Pulse Resp BP Sys/Bhat Pulse Ox Last 24 Hr 97.7 F-99.6 F 108-139 18-20 98-115/65-79 97-100 GENERAL: patient initally lethargic, obtunded, more awake after narcan. upset and cursing. she is moving all her extremities and + facial symmetry. HEAD: Normal with no signs of trauma. EYES: PERRL, extraocular movements intact, sclera anicteric, conjunctiva clear. No ptosis. ENT: Ears normal, nares patent, oropharynx clear without exudates NECK: Trachea midline, full range of motion, supple. LUNGS: Breath sounds equal, clear to auscultation bilaterally, no wheezes HEART: sinus tachycardia ABDOMEN: Soft, nontender, nondistended, normoactive bowel sounds EXTREMITIES: trace edema bilaterally NEUROLOGICAL:Normal speech, gait not observed. PSYCH: restless/agitated at times SKIN: bilateral lower ext with dried ulcerations, closed. buttocks with small round scattered open lesions (apx 2 - both measures ~0.5cm x 0.5cm) Laboratory Results - last 24 hr 04/08/20 04/08/20 04/08/20 00:45 00:45 07:10 WBC 1.8 L* 1.6 L* RBC 2.57 L 2.47 L Hgb 8.0 L 7.6 L Hct 24.0 L 23.1 L MCV 93.2 93.6 MCH 31.2 30.7 MCHC 33.4 32.8 RDW 14.5 14.4 Plt Count 393 380 MPV 7.2 L 7.5 Absolute Neuts (auto) 1.1 L 1.0 L Neutrophils % 61.2 59.6 Neutrophils % (Manual) 55.8 57.6 Band Neutrophils % 2.1 3.0 Lymphocytes % 19.7 23.4 Lymphocytes % (Manual) 24.2 22.2 Monocytes % 12.9 H 10.8 H Monocytes % (Manual) 8 9 Eosinophils % 5.6 H 5.6 H Eosinophils % (Manual) 9.5 H 3.0 Basophils % 0.6 0.6 Basophils % (Manual) 0.0 0.0 Myelocytes % (Man) 0 0 Promyelocytes % (Man) 0 0 Blast Cells % (Manual) 0 0 Nucleated RBC % 0 0 Metamyelocytes 0 0 Hypochromia 0 0 Platelet Estimate Normal Normal Platelet Comment Present Present Polychromasia 0 1+ Poikilocytosis 1+ 1+ Anisocytosis 0 1+ Microcytosis 0 1+ Macrocytosis 0 0 Spherocytes 1+ Ovalocytes 1+ 1+ Sodium 138 Potassium 3.9 Chloride 107 Carbon Dioxide 27 Anion Gap 5 L BUN 16.0 Creatinine 1.1 Est GFR (CKD-EPI)AfAm 69.73 Est GFR (CKD-EPI)NonAf 60.16 Random Glucose 121 H Calcium 8.8 Phosphorus 4.2 Magnesium 1.9 Total Bilirubin 0.2 AST 37 ALT 23 Alkaline Phosphatase 168 H Troponin I < 0.02 Total Protein 9.0 H Albumin 2.3 L 04/08/20 07:10 WBC RBC Hgb Hct MCV MCH MCHC RDW Plt Count MPV Absolute Neuts (auto) Neutrophils % Neutrophils % (Manual) Band Neutrophils % Lymphocytes % Lymphocytes % (Manual) Monocytes % Monocytes % (Manual) Eosinophils % Eosinophils % (Manual) Basophils % Basophils % (Manual) Myelocytes % (Man) Promyelocytes % (Man) Blast Cells % (Manual) Nucleated RBC % Metamyelocytes Hypochromia Platelet Estimate Platelet Comment Polychromasia Poikilocytosis Anisocytosis Microcytosis Macrocytosis Spherocytes Ovalocytes Sodium 139 Potassium 4.0 Chloride 109 H Carbon Dioxide 23 Anion Gap 7 L BUN 16.7 Creatinine 1.0 Est GFR (CKD-EPI)AfAm 78.24 Est GFR (CKD-EPI)NonAf 67.51 Random Glucose 121 H Calcium 8.5 Phosphorus Magnesium 2.0 Total Bilirubin 0.2 AST 39 H ALT 24 Alkaline Phosphatase 174 H Troponin I Total Protein 8.8 H Albumin 2.2 L Active Medications Generic Name Dose Route Start Last Admin Trade Name Freq PRN Reason Stop Dose Admin Acetaminophen 650 mg 04/02/20 10:15 04/08/20 11:59 Tylenol - PO 650 mg Q4H PRN Administration FEVER Alprazolam 1 mg 04/04/20 10:27 04/08/20 06:21 Xanax PO 1 mg Q4H PRN Administration ANXIETY Apixaban 5 mg 04/07/20 10:00 04/08/20 12:00 Eliquis - PO 5 mg BID JEZ Administration Atovaquone 1,500 mg 04/06/20 15:30 04/08/20 12:00 Mepron - PO Not Given DAILY@0800 JEZ Haloperidol 5 mg 04/04/20 13:23 04/06/20 14:42 Haldol - PO 5 mg ONCE PRN Administration ANXIETY Lorazepam 1 mg 04/04/20 13:22 04/07/20 23:33 Ativan Injection - IVPUSH 1 mg Q4H PRN Administration ANXIETY Melatonin 5 mg 04/03/20 23:05 04/07/20 21:51 Melatonin PO 5 mg HS PRN Administration INSOMNIA Mirtazapine 15 mg 04/05/20 22:00 04/07/20 21:45 Remeron - PO 15 mg HS JEZ Administration Olanzapine 5 mg 04/02/20 16:15 04/08/20 12:00 Zyprexa - PO 5 mg DAILY JEZ Administration Quetiapine Fumarate 100 mg 04/02/20 15:45 04/07/20 21:51 Seroquel - PO 100 mg HS JEZ Administration Valacyclovir HCl 1,000 mg 04/06/20 22:00 04/08/20 12:01 Valtrex - PO 1,000 mg BID JEZ Administration ASSESSMENT/PLAN: Problem List - Problems (1) Bipolar 1 disorder Assessment/Plan: on zyprexa and xanax. stopped seroqul for prolonged qtc. stopped haldol. psyche re consulted Code(s): F31.9 - BIPOLAR DISORDER, UNSPECIFIED (2) Fever Assessment/Plan: no fevers Code(s): R50.9 - FEVER, UNSPECIFIED (3) HIV (human immunodeficiency virus infection) Assessment/Plan: started on antiviral medications Code(s): B20 - HUMAN IMMUNODEFICIENCY VIRUS [HIV] DISEASE Qualifiers: HIV symptom status: symptomatic Qualified Code(s): B20 - Human immunodeficiency virus [HIV] disease (4) Neutropenia Assessment/Plan: Neutropenia in the settng of untreated HIV and AIDS pateint seen by hematology to assess for neupogen. per heme, neupogen not recommended at this time Code(s): D70.9 - NEUTROPENIA, UNSPECIFIED Qualifiers: Neutropenia type: due to infection Qualified Code(s): D70.3 - Neutropenia due to infection (5) Paranoid schizophrenia Assessment/Plan: seen by psych, notes reviewed. per psych, continue remeron, continue seroquel, continue xanax and zyprexa patient on haldol prn monitor Qtc on ekg Code(s): F20.0 - PARANOID SCHIZOPHRENIA (6) Substance use disorder Assessment/Plan: seen by addiction medicine, Code(s): F19.90 - OTHER PSYCHOACTIVE SUBSTANCE USE, UNSPECIFIED, UNCOMPLICATED (7) Skin lesions, generalized Assessment/Plan: skin lesions on bilateral lower extremities and open lesions on her buttocks. maintain clean and dry and open to air. allevyn to back to protect bony prominences and avoid lesions to get worse Code(s): L98.9 - DISORDER OF THE SKIN AND SUBCUTANEOUS TISSUE, UNSPECIFIED (8) Vision loss, right eye Assessment/Plan: supportive care Code(s): H54.61 - UNQUALIFIED VISUAL LOSS, RIGHT EYE, NORMAL VISION LEFT EYE (9) Heroin abuse Assessment/Plan: patient likely consumed heroin during her inpatient stay. she was lethargic and minimally responsive. she responded to narcan and was Code(s): F11.10 - OPIOID ABUSE, UNCOMPLICATED (10) Weakness Assessment/Plan: LE weakness. Start physical therapy Code(s): R53.1 - WEAKNESS (11) DVT prophylaxis Assessment/Plan: patient on eliquis 5 bid for hx of PE Code(s): Z29.9 - ENCOUNTER FOR PROPHYLACTIC MEASURES, UNSPECIFIED (12) Prolonged Q-T interval on ECG Assessment/Plan: patient noted to have prolonged qtc on ekg. will stop seroquel and haldol and monitor. psyche re consulted to help with psyche medications that do not cause qtc prologation. will continue xanax and zyprexa for agitation monitor with daily ekgs monitor QTC on cardiac monitor technician Code(s): R94.31 - ABNORMAL ELECTROCARDIOGRAM [ECG] [EKG] (13) AIDS Assessment/Plan: patient started on antivirals per ID. patient to follow up with the [facility] Code(s): B20 - HUMAN IMMUNODEFICIENCY VIRUS [HIV] DISEASE Visit type - Emergency Visit Emergency Visit: Yes ED Registration Date: 04/02/20 Care time: The patient presented to the Emergency Department on the above date and was hospitalized for further evaluation of their emergent condition. - New Patient This patient is new to me today: No - Critical Care Critical Care patient: No - Discharge Referral Referred to [facility] Med [facility] No
[2020-04-08] MEDS ORDERED: NALOXONE HCL 0.4 MG/ML VIAL IVPUSH ONE (14:30)
--- NOTE | 2020-04-08 14:38 | PN ---
Progress Note (short form) - Note Progress Note: lethargic, minimally responsive this began suddenly this afternoon she was talking earlier she ate both breakfast and lunch Vital Signs Period Temp Pulse Resp BP Sys/Bhat Pulse Ox Last 24 Hr 97.7 F-99.6 F 108-139 18-20 98-115/65-79 97-100 neck supple cor-rrr lungs decreased bs at bases abd soft,nt ext no edema chronic skin changes both legs CBC, BMP 04/08/20 07:10 04/08/20 07:10 Microbiology 04/03/20 10:28 Blood - Peripheral Venous Mycobacterial Culture - Preliminary 04/02/20 04:11 Blood - Peripheral Venous Blood Culture - Final NO GROWTH AFTER 5 DAYS INCUBATION 04/02/20 04:11 Blood - Peripheral Venous Blood Culture - Final NO GROWTH AFTER 5 DAYS INCUBATION 04/03/20 08:12 Serum Cryptococcal Antigen - Final 04/02/20 07:00 Urine - Urine Clean Catch Urine Culture - Final Contaminated: Please Repeat ldh 192 (normal) a/p sudden lethargy- trial narcan, head ct ordered d/w hospitalist- no fevers noted fevers resolved-remains neutropenic due to her advanced aids- antibiotics d/fuentes yesterday AIDS- -she is agreeable to trying meds- will start descovy and tivivay-no drug interactions with her psych meds has not been on meds for years cryptococcal antigen is negative continue mepron for pcp refusing imaging ?hsv lesions on coccyx continue valtrex, viral culture refers to [facility] as her provider- overall prognosis poor given her advanced aids hold po meds for now d/w hospitalist Problem List - Problems (1) Fever Code(s): R50.9 - FEVER, UNSPECIFIED (2) Neutropenia Code(s): D70.9 - NEUTROPENIA, UNSPECIFIED Qualifiers: Neutropenia type: due to infection Qualified Code(s): D70.3 - Neutropenia due to infection (3) HIV (human immunodeficiency virus infection) Code(s): B20 - HUMAN IMMUNODEFICIENCY VIRUS [HIV] DISEASE Qualifiers: HIV symptom status: symptomatic Qualified Code(s): B20 - Human immunodeficiency virus [HIV] disease (4) Anemia Code(s): D64.9 - ANEMIA, UNSPECIFIED (5) Substance use disorder Code(s): F19.90 - OTHER PSYCHOACTIVE SUBSTANCE USE, UNSPECIFIED, UNCOMPLICATED (6) Bipolar 1 disorder Code(s): F31.9 - BIPOLAR DISORDER, UNSPECIFIED (7) Paranoid schizophrenia Code(s): F20.0 - PARANOID SCHIZOPHRENIA
--- NOTE | 2020-04-08 15:35 | PN ---
Teaching Attending Note Name of Resident: Veronika Perez ATTENDING PHYSICIAN STATEMENT I saw and evaluated the patient. I reviewed the resident's note and discussed the case with the resident. I agree with the resident's findings and plan as documented. 44y F with PMHx of HIV/AIDS (current CD4 count undetectable; non compliant wtih HAART) polysubstance abuse, bipolar/schizophrenia presents with fever and productive cough. Attempted to see patient on rounds today but she was extremely lethargic which was concerning and not her baseline. She was admitted for sepsis workup and treated with broad spectrum antibiotics since she was neutropenic and CD4 count was<200. At this time, would not recommend Neupogen as ANC is 1000 and her bone marrow will likely recover after compliance with HAART therapy. Psych meds can also contribute to neutropenia (such as seroquel)
[2020-04-08] MEDS: MELATONIN 5 MG TABLETS PO PRN (20:25)
[2020-04-08] MEDS ORDERED: valACYclovir HCL 500 MG TABLET (FP) ONE (21:13)
[2020-04-08] MEDS: MIRTAZAPINE 15 MG TABLET (FP) PO SCH (21:17)
[2020-04-09] MEDS: ALPRAZolam 1 MG TABLET PO PRN ×4 (01:03→21:59)
[2020-04-09] MEDS ORDERED: MELATONIN 1 MG TABLET PO ONE (03:57)
[2020-04-09] MEDS ORDERED: PT OWN MED DRAWER 7, Y5N ONE ×2 (08:03→08:58)
[2020-04-09] MEDS: SODIUM CHLORIDE 1,000 ML IV SCH ×2 (08:05→16:20)
--- NOTE | 2020-04-09 08:48 | CON.CARD ---
Consult Consult Specialty:: Cardiology Referred by:: Hospitalist Medicine Reason for Consultation:: Prolonged QT - History of Present Illness Chief Complaint: Neutropenic fever, altered mental status History of Present Illness: 44y F with advance aids presents with neutropenic fever. She has just been restarted on her HAART therapy after her CD4 account was undetectable. Lethargic and obtunded due to suspicion of contraband heroin, reversed with Narcan, prolonged QT and tachycardia noted, she denies chest pain, palpitations or dyspnea. - History Source History Provided By: Medical Record Limitations to Obtaining History: Clinical Condition - Past Medical History Cardio/Vascular: Yes: Other (hole in her heart??) Pulmonary: Yes: Pulmonary Embolus (doesnot take her eliquis) ...LMP: 03/18/20 ...: No Infectious Disease: Yes: HIV Psych: Yes: Bipolar, Schizophrenia - Past Surgical History Past Surgical History: Yes: Hysterectomy - Alcohol/Substance Use Hx Alcohol Use: No - Smoking History Smoking history: Never smoked Have you smoked in the past 12 months: No Aproximately how many cigarettes per day: 2 - Social History Usual Living Arrangement: Alone (lives in her own rental apartment) Home Medications - Allergies Allergies/Adverse Reactions: Allergies Allergy/AdvReac Type Severity Reaction Status Date / Time No Known Allergies Allergy Verified 04/02/20 03:15 - Home Medications Home Medications: Ambulatory Orders Quetiapine Fumarate [Seroquel -] 100 mg PO HS #30 tablet 05/23/18 Apixaban [Eliquis] 2.5 mg PO DAILY 04/02/20 Mirtazapine [Remeron -] 15 mg PO DAILY 04/02/20 Olanzapine [Zyprexa -] 5 mg PO DAILY 04/02/20 Fluconazole 100 mg PO ONCE 04/06/20 Valacyclovir HCl [Valtrex] 1,000 mg PO BID 04/06/20 Family Medical History Family History: Denies Review of Systems - Review of Systems Constitutional: reports: Lethargy Vital Signs: Vital Signs Temperature 97.5 F L 04/09/20 06:00 Pulse Rate 108 H 04/09/20 06:00 Respiratory Rate 18 04/09/20 06:00 Blood Pressure 116/71 04/09/20 06:00 O2 Sat by Pulse Oximetry (%) 100 04/09/20 06:00 Constitutional: Yes: No Distress, Calm Neck: Yes: Supple Respiratory: Yes: Regular, Diminished Gastrointestinal: Yes: Soft, Hypoactive Bowel Sounds Cardiovascular: Yes: Tachycardia JVD: No Carotid Bruit: No Heart Sounds: Yes: S1, S2 Edema: No - Other Data Labs, Other Data: CBC, BMP 04/08/20 07:10 04/08/20 07:10 INR, PTT INR 1.18 (0.83-1.09) H 04/02/20 05:00 ECG: ST @ 137 prolonged QTC 549 msec Tele: NSR Imaging - Results Chest X-ray: Report Reviewed (NAD) Cat Scan: Report Reviewed (HCT: No acute changes) Problem List - Problems (1) AIDS Code(s): B20 - HUMAN IMMUNODEFICIENCY VIRUS [HIV] DISEASE (2) Acute metabolic encephalopathy Code(s): G93.41 - METABOLIC ENCEPHALOPATHY (3) Bipolar 1 disorder Code(s): F31.9 - BIPOLAR DISORDER, UNSPECIFIED (4) DVT prophylaxis Code(s): Z29.9 - ENCOUNTER FOR PROPHYLACTIC MEASURES, UNSPECIFIED (5) Heroin abuse Code(s): F11.10 - OPIOID ABUSE, UNCOMPLICATED (6) Neutropenia Code(s): D70.9 - NEUTROPENIA, UNSPECIFIED Qualifiers: Neutropenia type: due to infection Qualified Code(s): D70.3 - Neutropenia due to infection (7) Paranoid schizophrenia Code(s): F20.0 - PARANOID SCHIZOPHRENIA (8) Prolonged Q-T interval on ECG Code(s): R94.31 - ABNORMAL ELECTROCARDIOGRAM [ECG] [EKG] (9) Sinus tachycardia Code(s): R00.0 - TACHYCARDIA, UNSPECIFIED Assessment/Plan 1. Acute metabolic encephelopathy due to opiates reversed with Narcan 2. Prolonged QT, suspect medication effects 3. Reactive tachycardia 4. Neutropenic fever resolving -> Suspect bone marrow will recover once her viral load is suppressed 5. Advanced AIDS P:1. Observing off antibiotics per ID, trial of HAART and PCP prophylaxis 2. Monitor telemetry, avoid QT prolonging agents (Remeron and Zyprexa with caution), keep K>4.0 Mg 2.0, serial ECG 3. Eliquis for DVT prophylaxis 4. Thank you for consultative opportunity
[2020-04-09] MEDS ORDERED: valACYclovir HCL 500 MG TABLET (FP) ONE (08:55)
[2020-04-09] MEDS: APIXABAN 5 MG TABLET PO SCH ×2 (09:00→21:59)
[2020-04-09] MEDS: ATOVAQUONE 750 MG/5 ML (UNIT-DOSE PACKAGING) PO SCH (09:00)
[2020-04-09] MEDS: OLANZapine 5 MG TABLET PO SCH (09:01)
[2020-04-09] MEDS: valACYclovir HCL 1000 MG TABLET PO SCH ×2 (09:01→22:00)
--- NOTE | 2020-04-09 09:09 | PN ---
Physical Exam: SUBJECTIVE: Patient seen and examined at the bedside. denies headaches, denies visual defects. tells me she wants her AIDS to go away, wants to get better and go to rehab. OBJECTIVE: Patient is a 44 year old female with a history of HIV (not on medication), PE (not on AC), bipolar, schizophrenia, and heroin abuse who was admitted to the ED on 04/02/2020 for neutropenic fever. She was seen by stove tender and no neupogen recommended at this time. On 04/08/2020 patient unresponsive to verbal and tactile stimuli, only responsive to sternal rub and responded to narcan. After narcan, mentation back to her baseline. Transferred to [facility] for closier monitor. patient had a prolonged qtc of 550 on ekg 04/08. Now QTC 467 after stopping seroquel and haldol. Tells me she feels short of breath but denies chest pain. will order chest xray. --- chest xray 04/09: no acute pathology head ct 04/09: 4mm dural based calcified density along lateral margin of the left temporal lobe canot rule out calcified meningioma echo 04/09: trace mr, trace to mild tr, mild aortic regurg, no pericardial effusion. Period Temp Pulse Resp BP Sys/Bhat Pulse Ox Last 24 Hr 97.4 F-97.9 F 106-120 16-20 102-119/64-80 99-100 GENERAL: patient is awake and alert, in no acute distress HEAD: Normal with no signs of trauma. EYES: PERRL, extraocular movements intact, sclera anicteric, conjunctiva clear. No ptosis. ENT: Ears normal, nares patent, oropharynx clear without exudates NECK: Trachea midline, full range of motion, supple. LUNGS: Breath sounds equal, clear to auscultation bilaterally, no wheezes HEART: sinus tachycardia ABDOMEN: Soft, nontender, nondistended, normoactive bowel sounds EXTREMITIES: trace edema bilaterally NEUROLOGICAL:Normal speech, gait not observed. PSYCH: restless/agitated at times SKIN: bilateral lower ext with dried ulcerations, closed. buttocks with small round scattered open lesions (apx 2 - both measures ~0.5cm x 0.5cm) 04/08/20 04/08/20 07:10 07:10 Neutrophils % (Manual) 57.6 Band Neutrophils % 3.0 Lymphocytes % (Manual) 22.2 Monocytes % (Manual) 9 Eosinophils % (Manual) 3.0 Basophils % (Manual) 0.0 Myelocytes % (Man) 0 Promyelocytes % (Man) 0 Blast Cells % (Manual) 0 Nucleated RBC % 0 Metamyelocytes 0 Hypochromia 0 Platelet Estimate Normal Platelet Comment Present Polychromasia 1+ Poikilocytosis 1+ Anisocytosis 1+ Microcytosis 1+ Macrocytosis 0 Spherocytes 1+ Ovalocytes 1+ Sodium 139 Potassium 4.0 Chloride 109 H Carbon Dioxide 23 Anion Gap 7 L BUN 16.7 Creatinine 1.0 Est GFR (CKD-EPI)AfAm 78.24 Est GFR (CKD-EPI)NonAf 67.51 Random Glucose 121 H Calcium 8.5 Magnesium 2.0 Total Bilirubin 0.2 AST 39 H ALT 24 Alkaline Phosphatase 174 H Total Protein 8.8 H Albumin 2.2 L Active Medications Generic Name Dose Route Start Last Admin Trade Name Freq PRN Reason Stop Dose Admin Acetaminophen 650 mg 04/02/20 10:15 04/08/20 19:01 Tylenol - PO 650 mg Q4H PRN Administration FEVER Alprazolam 1 mg 04/04/20 10:27 04/09/20 01:03 Xanax PO 1 mg Q4H PRN Administration ANXIETY Apixaban 5 mg 04/07/20 10:00 04/09/20 09:00 Eliquis - PO 5 mg BID JEZ Administration Atovaquone 1,500 mg 04/06/20 15:30 04/09/20 09:00 Mepron - PO 1,500 mg DAILY@0800 JEZ Administration Sodium Chloride 1,000 mls @ 100 mls/hr 04/08/20 14:30 04/09/20 08:05 Normal Saline - IV Not Given ASDIR JEZ Melatonin 5 mg 04/03/20 23:05 04/08/20 20:25 Melatonin PO 5 mg HS PRN Administration INSOMNIA Mirtazapine 15 mg 04/05/20 22:00 04/08/20 21:17 Remeron - PO 15 mg HS JEZ Administration Olanzapine 5 mg 04/02/20 16:15 04/09/20 09:01 Zyprexa - PO 5 mg DAILY JEZ Administration Valacyclovir HCl 1,000 mg 04/06/20 22:00 04/09/20 09:01 Valtrex - PO 1,000 mg BID JEZ Administration ASSESSMENT/PLAN: Problem List - Problems (1) Acute metabolic encephalopathy Assessment/Plan: patient lethargic on 04/08 when seen on rounds. had breakfast, lunch and then became obtunded. concern that patient may have taken outside drugs with history of heroin abuse. she had a visitor on evening of 04/07. narcan 0.4mg x 1 given and patient immediately woke up and was agitated/angry abg ordered, but patient did not allow it head ct ordered, and 4mm calcified mengioma found transfer to tele for closer monitor as her qtc was prolonged and she remains tachycardic monitor mental status Code(s): G93.41 - METABOLIC ENCEPHALOPATHY (2) Neutropenia Assessment/Plan: Neutropenia in the settng of untreated HIV and AIDS patient seen by hematology to assess for neupogen. per heme, neupogen not recommended at this time Code(s): D70.9 - NEUTROPENIA, UNSPECIFIED Qualifiers: Neutropenia type: due to infection Qualified Code(s): D70.3 - Neutropenia due to infection (3) Bipolar 1 disorder Assessment/Plan: on zyprexa and xanax. stopped seroqul for prolonged qtc. stopped haldol. psyche re consulted Code(s): F31.9 - BIPOLAR DISORDER, UNSPECIFIED (4) Fever Assessment/Plan: no fevers Code(s): R50.9 - FEVER, UNSPECIFIED (5) HIV (human immunodeficiency virus infection) Assessment/Plan: started on antiviral medications Code(s): B20 - HUMAN IMMUNODEFICIENCY VIRUS [HIV] DISEASE Qualifiers: HIV symptom status: symptomatic Qualified Code(s): B20 - Human immunodeficiency virus [HIV] disease (6) Paranoid schizophrenia Assessment/Plan: seen by psych, notes reviewed. per psych, continue remeron, continue seroquel, continue xanax and zyprexa, however stopped seroquel and haldol for qtc 550 on ekg 04/08, qtc now improved. Code(s): F20.0 - PARANOID SCHIZOPHRENIA (7) Substance use disorder Assessment/Plan: seen by addiction medicine, Code(s): F19.90 - OTHER PSYCHOACTIVE SUBSTANCE USE, UNSPECIFIED, UNCOMPLICATED (8) Skin lesions, generalized Assessment/Plan: skin lesions on bilateral lower extremities and open lesions on her buttocks. maintain clean and dry and open to air. allevyn to back to protect bony prominences and avoid lesions to get worse Code(s): L98.9 - DISORDER OF THE SKIN AND SUBCUTANEOUS TISSUE, UNSPECIFIED (9) Vision loss, right eye Assessment/Plan: supportive care Code(s): H54.61 - UNQUALIFIED VISUAL LOSS, RIGHT EYE, NORMAL VISION LEFT EYE (10) Heroin abuse Assessment/Plan: patient likely consumed heroin during her inpatient stay. she was lethargic and minimally responsive. she responded to narcan and was more alert after narcan administered. Code(s): F11.10 - OPIOID ABUSE, UNCOMPLICATED (11) Weakness Assessment/Plan: LE weakness. Start physical therapy for rehab placement Code(s): R53.1 - WEAKNESS (12) DVT prophylaxis Assessment/Plan: patient on eliquis 5 bid for hx of PE Code(s): Z29.9 - ENCOUNTER FOR PROPHYLACTIC MEASURES, UNSPECIFIED (13) Prolonged Q-T interval on ECG Assessment/Plan: patient noted to have prolonged qtc on ekg. stoped seroquel and haldol and monitor. psyche re consulted to help with psyche medications that do not cause qtc prologation. will continue xanax and zyprexa for agitation monitor QTC on nuclear monitoring technician Code(s): R94.31 - ABNORMAL ELECTROCARDIOGRAM [ECG] [EKG] (14) AIDS Assessment/Plan: patient started on antivirals per ID. patient to follow up with the [facility] CD4 count unable to be measured per ID Code(s): B20 - HUMAN IMMUNODEFICIENCY VIRUS [HIV] DISEASE Visit type - Emergency Visit Emergency Visit: Yes ED Registration Date: 04/02/20 Care time: The patient presented to the Emergency Department on the above date and was hospitalized for further evaluation of their emergent condition. - New Patient This patient is new to me today: No - Critical Care Critical Care patient: No - Discharge Referral Referred to [facility] Med P.C.: No
[2020-04-09 09:12] LABS: BASO % 0.5 % (0-2.0); EOS % 3.7 % (0-4.5); HEMATOCRIT 25.8 % (32.4-45.2); HEMOGLOBIN 8.4 GM/dL (10.7-15.3); LYMPH % 33.3 % (8-40); MCH 30.9 pg (25.7-33.7); MCHC 32.6 g/dl (32.0-36.0); MEAN CELL VOLUME 94.7 fl (80-96); MEAN PLT VOLUME 7.3 fl (7.5-11.1); MONO % 10.5 % (3.8-10.2); PLATELET COUNT 364 K/MM3 (134-434); RBC 2.73 M/mm3 (3.60-5.2); RDW 14.7 % (11.6-15.6); WHITE BLOOD COUNT 1.8 K/mm3 (4.0-10.0)
[2020-04-09 09:40] LABS: ALBUMIN 2.3 g/dl (3.4-5.0); BILIRUBIN,TOTAL 0.3 mg/dL (0.2-1); BLOOD UREA NITROGEN 15.6 mg/dL (7-18); CALCIUM 9.1 mg/dL (8.5-10.1); CREATININE 1.1 mg/dL (0.55-1.3); MAGNESIUM 2.1 mg/dL (1.8-2.4); POTASSIUM 4.2 mmol/L (3.5-5.1); TOT PROT 9.2 g/dl (6.4-8.2)
--- NOTE | 2020-04-09 09:43 | PN ---
Physical Exam: SUBJECTIVE: Patient seen and examined this AM. Concern that patient used outside drugs yesterday and resulted in somnolence and was given narcan and transferred to [facility]. OBJECTIVE: Vital Signs Period Temp Pulse Resp BP Sys/Bhat Pulse Ox Last 24 Hr 97.4 F-97.9 F 106-120 16-20 102-119/64-80 99-100 GENERAL: The patient is awake, alert, and fully oriented, in no acute distress. HEAD: Normal with no signs of trauma. EYES: PERRL, extraocular movements intact, sclera anicteric, conjunctiva clear. No ptosis. ENT: Ears normal, nares patent, oropharynx clear without exudates, moist mucous membranes. NECK: Trachea midline, full range of motion, supple. LUNGS: Breath sounds equal, clear to auscultation bilaterally, no wheezes, no crackles, no accessory muscle use. HEART: Regular rate and rhythm, S1, S2 without murmur, rub or gallop. ABDOMEN: Soft, nontender, nondistended, normoactive bowel sounds, no guarding, no rebound, no hepatosplenomegaly, no masses. EXTREMITIES: 2+ pulses, warm, well-perfused, no edema. NEUROLOGICAL: Cranial nerves II through XII grossly intact. Normal speech, gait not observed. PSYCH: Normal mood, normal affect. SKIN: Warm, dry, normal turgor, no rashes or lesions noted Laboratory Last Values WBC 1.8 K/mm3 (4.0-10.0) L* 04/09/20 08:30 RBC 2.73 M/mm3 (3.60-5.2) L 04/09/20 08:30 Hgb 8.4 GM/dL (10.7-15.3) L 04/09/20 08:30 Hct 25.8 % (32.4-45.2) L 04/09/20 08:30 MCV 94.7 fl (80-96) 04/09/20 08:30 MCH 30.9 pg (25.7-33.7) 04/09/20 08:30 MCHC 32.6 g/dl (32.0-36.0) 04/09/20 08:30 RDW 14.7 % (11.6-15.6) 04/09/20 08:30 Plt Count 364 K/MM3 (134-434) 04/09/20 08:30 MPV 7.3 fl (7.5-11.1) L 04/09/20 08:30 Absolute Neuts (auto) 0.9 K/mm3 (1.5-8.0) L 04/09/20 08:30 Absolute Lymphs (auto) 0.2 x10E3/uL (0.7-3.1) L 04/02/20 10:46 Neutrophils % 52.0 % (42.8-82.8) 04/09/20 08:30 Neutrophils % (Manual) 57.6 % (42.8-82.8) 04/08/20 07:10 Band Neutrophils % 3.0 % 04/08/20 07:10 Lymphocytes % 33.3 % (8-40) D 04/09/20 08:30 Lymphocytes % (Manual) 22.2 % (8-40) 04/08/20 07:10 Monocytes % 10.5 % (3.8-10.2) H 04/09/20 08:30 Monocytes % (Manual) 9 % (3.8-10.2) 04/08/20 07:10 Eosinophils % 3.7 % (0-4.5) 04/09/20 08:30 Eosinophils % (Manual) 3.0 % (0-4.5) 04/08/20 07:10 Basophils % 0.5 % (0-2.0) 04/09/20 08:30 Basophils % (Manual) 0.0 % (0-2.0) 04/08/20 07:10 Myelocytes % (Man) 0 % (0-2) 04/08/20 07:10 Promyelocytes % (Man) 0 % (0-2) 04/08/20 07:10 Blast Cells % (Manual) 0 % (0-0) 04/08/20 07:10 Nucleated RBC % 0 % (0-0) 04/09/20 08:30 Lymphocytes 10 % (Not Estab.) 04/02/20 10:46 Metamyelocytes 0 % (0-2) 04/08/20 07:10 Nucleated RBCs TNP 04/02/20 10:46 Hypochromia 0 04/08/20 07:10 Toxic Granulation 1+ 04/02/20 05:00 Platelet Estimate Normal 04/08/20 07:10 Platelet Comment Present 04/08/20 07:10 Polychromasia 1+ 04/08/20 07:10 Poikilocytosis 1+ 04/08/20 07:10 Anisocytosis 1+ 04/08/20 07:10 Microcytosis 1+ 04/08/20 07:10 Macrocytosis 0 04/08/20 07:10 Spherocytes 1+ 04/08/20 07:10 Tear Drop Cells 1+ 04/02/20 05:00 Ovalocytes 1+ 04/08/20 07:10 Stomatocytes 1+ 04/02/20 05:00 PT with INR 14.00 SEC (9.7-13.0) H 04/02/20 05:00 INR 1.18 (0.83-1.09) H 04/02/20 05:00 PTT (Actin FS) 31.2 SECONDS (25.2-36.5) 04/02/20 05:00 Sodium 139 mmol/L (136-145) 04/08/20 07:10 Potassium 4.0 mmol/L (3.5-5.1) 04/08/20 07:10 Chloride 109 mmol/L (98-107) H 04/08/20 07:10 Carbon Dioxide 23 mmol/L (21-32) 04/08/20 07:10 Anion Gap 7 MMOL/L (8-16) L 04/08/20 07:10 BUN 16.7 mg/dL (7-18) 04/08/20 07:10 Creatinine 1.0 mg/dL (0.55-1.3) 04/08/20 07:10 Est GFR (CKD-EPI)AfAm 78.24 04/08/20 07:10 Est GFR (CKD-EPI)NonAf 67.51 04/08/20 07:10 Random Glucose 121 mg/dL (74-106) H 04/08/20 07:10 Lactic Acid 0.8 mmol/L (0.4-2.0) 04/02/20 07:29 Calcium 8.5 mg/dL (8.5-10.1) 04/08/20 07:10 Phosphorus 4.2 mg/dL (2.5-4.9) 04/08/20 00:45 Magnesium 2.0 mg/dL (1.8-2.4) 04/08/20 07:10 Total Bilirubin 0.2 mg/dL (0.2-1) 04/08/20 07:10 AST 39 U/L (15-37) H 04/08/20 07:10 ALT 24 U/L (13-61) 04/08/20 07:10 Alkaline Phosphatase 174 U/L (45-117) H 04/08/20 07:10 LD Total 192 U/L (84-246) 04/03/20 08:12 Troponin I < 0.02 ng/ml (0.00-0.05) 04/08/20 00:45 Total Protein 8.8 g/dl (6.4-8.2) H 04/08/20 07:10 Albumin 2.2 g/dl (3.4-5.0) L 04/08/20 07:10 Serum , Qual Negative 04/02/20 05:00 Urine Color Yellow 04/02/20 07:00 Urine Appearance Clear 04/02/20 07:00 Urine pH 8.0 (5.0-8.0) 04/02/20 07:00 Ur Specific [place] 1.009 (1.010-1.035) L 04/02/20 07:00 Urine Protein Trace (NEGATIVE) 04/02/20 07:00 Urine Glucose (UA) Negative (NEGATIVE) 04/02/20 07:00 Urine Ketones Negative (NEGATIVE) 04/02/20 07:00 Urine Blood Negative (NEGATIVE) 04/02/20 07:00 Urine Nitrite Negative (NEGATIVE) 04/02/20 07:00 Urine Bilirubin Negative (NEGATIVE) 04/02/20 07:00 Urine Urobilinogen 0.2 mg/dL (0.2-1.0) 04/02/20 07:00 Ur Leukocyte Esterase 1+ (NEGATIVE) H 04/02/20 07:00 Urine WBC (Auto) 31 /uL (0-25.8) 04/02/20 07:00 Urine RBC (Auto) 7 /uL (0-23.9) 04/02/20 07:00 Urine Casts (Auto) 1 /uL (0-3.1) 04/02/20 07:00 U Epithel Cells (Auto) >36 /uL (0-25.1) 04/02/20 07:00 Urine Bacteria (Auto) 97 /uL (0-1359) 04/02/20 07:00 Vancomycin Pre-Dose 21.1 ug/ml (5-10) H 04/04/20 18:25 Absolute CD3 Count TNP 04/02/20 10:46 % CD3+ Lymphocytes TNP 04/02/20 10:46 Absolute CD4 [place] TNP 04/02/20 10:46 % CD4+ Lymphocyte TNP 04/02/20 10:46 CD4/CD8 Ratio TNP 04/02/20 10:46 % CD8+ Lymphocyte TNP 04/02/20 10:46 Absolute CD8 Count TNP 04/02/20 10:46 COVID-19 ([facility]) Not detected (Not Detected) 04/02/20 11:00 ASSESSMENT/PLAN: 44 y/o F PMHx AIDS (noncompliant with HAART), PE (Not on AC), Bipolar, Schizophrenia, Opiate Dependence presented with fever, SOB, productive cough. Found to be septic on admission, Initial Labwork revealed Leukopenia/Neutropenia and patient was started on and completed a course of broad spectrum ABx. CD4 unmeasureable, Viral Load pending, patient started in HAART therapy. Patient refusing further imaging (MRI T/L Spine). Fevers have resolved since admission however Neutropenia persists Hematology was consulted for neupogen use. #Neutropenia -In the setting of AIDS, Sepsis -Would consider stopping Seroquel as this can contribute to neutropenia (and prolonged QTc) -Continue HAART therapy; Expect Neutropenia to resolve and bone marrow to recover as long as patient remains compliant with HAART therapy -Continue Atovaquone -Imaging when patient agreeable -ID Evaluation appreciated; ABx course completed -Will need close outpatient follow up with [facility] Dispo: We will continue to follow the patient. Thank you for this consultative opportunity. Visit type - Emergency Visit Emergency Visit: Yes ED Registration Date: 04/02/20 Care time: The patient presented to the Emergency Department on the above date and was hospitalized for further evaluation of their emergent condition. - New Patient This patient is new to me today: Yes Date on this admission: 04/12/20 - Critical Care Critical Care patient: No - Discharge Referral Referred to [facility] Med P.C.: No ATTENDING PHYSICIAN STATEMENT I saw and evaluated the patient. I reviewed the resident's note and discussed the case with the resident. I agree with the resident's findings and plan as documented. SUBJECTIVE: OBJECTIVE: ASSESSMENT AND PLAN:
[2020-04-09 10:36] LABS: MACROCYTOSIS 0; PLATELET ESTIMATE NORMAL
[2020-04-09 10:37] LABS: ANISOCYTOSIS 1+
[2020-04-09] MEDS: EMTRICITABINE/TENOFOV ALAFENAM (DESCOVY) TABLET PO SCH (11:32)
[2020-04-09] MEDS: DOLUTEGRAVIR SODIUM 50 MG TABLET (NON-FORMULARY) PO SCH (11:32)
--- NOTE | 2020-04-09 11:33 | ECHO ---
Version: 1 Name: IRVIN SUAREZ Exam: Adult Echocardiogram Study Date: 04/09/2020, 10:35 AM Age: 44 Years MMode/2D Measurements & Calculations IVSd: 0.82 cm LVIDs: 2.7 cm LVIDd: 3.8 cm LVPWd: 0.86 cm LAV (MOD-bp): 36.5 ml LVOT diam: 1.99 cm Ao root diam: 2.5 cm LA dimension: 2.03 cm Doppler Measurements & Calculations MV E max jez: 60.7 cm/sec Med E/e': 6.3 MV A max jez: 72.7 cm/sec Med Peak E' Jez: 9.7 cm/sec MV E/A: 0.83 Lat E/e': 7.1 Lat Peak E' Jez: 8.6 cm/sec Ao max P.2 mmHg Ao V2 max: 102.6 cm/sec AI P1/2t: 279.3 msec Procedure The study was technically difficult with many images being suboptimal in quality. Left Ventricle Left ventricular systolic function is grossly normal. Ejection Fraction = 50-55%. Regional wall brittany on abnormalities cannot be excluded due to limited visualization. Right Ventricle The right ventricle is grossly normal size. The right ventricular systolic function is grossly adolfo l. Atria Normal left and right atrial size and function. Mitral Valve The mitral valve is normal in structure and function. There is no mitral valve stenosis. There is tr chuckie mitral regurgitation. Tricuspid Valve The tricuspid valve is normal in structure and function. There is Trace to mild tricuspid regurgitat ion. There was insufficient TR detected to calculate RV systolic pressure. Aortic Valve Moderate focal calcification on the aortic valve. No hemodynamically significant valvular aortic demetria nosis. Mild aortic regurgitation. Pulmonic Valve The pulmonic valve is not well seen, but is grossly normal. There is no pulmonic valvular stenosis. Trace pulmonic valvular regurgitation. Great Vessels The aortic root is normal size. Pericardium/Pleura There is no pericardial effusion. Summary Statements The study was technically difficult with many images being suboptimal in quality. Left ventricular systolic function is grossly normal. Regional wall motion abnormalities cannot be excluded due to limited visualization. There is trace mitral regurgitation. There is Trace to mild tricuspid regurgitation. Moderate focal calcification on the aortic valve. Mild aortic regurgitation. The aortic root is normal size. There is no pericardial effusion. MD Walker *Davion 04/09/2020, 11:33 AM Ordering Physician: Nancy Gray Performed By: Jammie Denson
--- NOTE | 2020-04-09 13:01 | PN ---
Progress Note (short form) - Note Progress Note: lshe woke up to Narcan yesterday just returned form head ct and echo requesting ensure and seroquel Vital Signs Period Temp Pulse Resp BP Sys/Bhat Pulse Ox Last 24 Hr 97.4 F-97.9 F 106-120 16-19 102-119/64-80 100-100 cor-rrr lungs clear abd soft,nt ext scars on legs noted and unchanged CBC, BMP 04/09/20 08:30 04/09/20 08:30 Microbiology 04/03/20 10:28 Blood - Peripheral Venous Mycobacterial Culture - Preliminary 04/02/20 04:11 Blood - Peripheral Venous Blood Culture - Final NO GROWTH AFTER 5 DAYS INCUBATION 04/02/20 04:11 Blood - Peripheral Venous Blood Culture - Final NO GROWTH AFTER 5 DAYS INCUBATION 04/03/20 08:12 Serum Cryptococcal Antigen - Final 04/02/20 07:00 Urine - Urine Clean Catch Urine Culture - Final Contaminated: Please Repeat ldh 192 (normal) a/p sudden lethargy- resolved after narcan fevers resolved-remains neutropenic due to her advanced aids- off antibiotics AIDS- -she is agreeable to trying meds- will start descovy and tivivay-no drug interactions with her psych meds has not been on meds for years cryptococcal antigen is negative, ldh is normal continue mepron for pcp refusing imaging ?hsv lesions on coccyx continue valtrex, viral culture refers to [facility] as her provider- overall prognosis poor given her advanced aids she can f/u with her docs at [facility] please call back if needed d/w hospitalist Problem List - Problems (1) Fever Code(s): R50.9 - FEVER, UNSPECIFIED (2) Neutropenia Code(s): D70.9 - NEUTROPENIA, UNSPECIFIED Qualifiers: Neutropenia type: due to infection Qualified Code(s): D70.3 - Neutropenia due to infection (3) HIV (human immunodeficiency virus infection) Code(s): B20 - HUMAN IMMUNODEFICIENCY VIRUS [HIV] DISEASE Qualifiers: HIV symptom status: symptomatic Qualified Code(s): B20 - Human immunodeficiency virus [HIV] disease (4) Anemia Code(s): D64.9 - ANEMIA, UNSPECIFIED (5) Substance use disorder Code(s): F19.90 - OTHER PSYCHOACTIVE SUBSTANCE USE, UNSPECIFIED, UNCOMPLICATED (6) Bipolar 1 disorder Code(s): F31.9 - BIPOLAR DISORDER, UNSPECIFIED (7) Paranoid schizophrenia Code(s): F20.0 - PARANOID SCHIZOPHRENIA
--- NOTE | 2020-04-09 15:50 | PN ---
Teaching Attending Note Name of Resident: Veronika Perez ATTENDING PHYSICIAN STATEMENT I saw and evaluated the patient. I reviewed the resident's note and discussed the case with the resident. I agree with the resident's findings and plan as documented. 44y F with advance aids presents with neutropenic fever. She has just been restarted on her HAART therapy after her CD4 account was undetectable. Hematology was initially consulted for use of neupogen for her neutropenia. Suspect that her bone marrow will recover once her viral load is suppressed.
[2020-04-09 17:12] VITALS: BMI 22.6
[2020-04-09] MEDS: ACETAMINOPHEN 325 MG TABLET (FP) PO PRN (17:30)
[2020-04-09] MEDS: MIRTAZAPINE 15 MG TABLET (FP) PO SCH (21:59)
[2020-04-09] MEDS: MELATONIN 5 MG TABLETS PO PRN (22:00)
[2020-04-10] MEDS: ALPRAZolam 1 MG TABLET PO PRN ×5 (03:23→23:00)
[2020-04-10] MEDS: ACETAMINOPHEN 325 MG TABLET (FP) PO PRN ×3 (03:24→20:07)
[2020-04-10] MEDS ORDERED: PT OWN MED DRAWER 7, Y5N ONE ×2 (08:04→10:38)
--- NOTE | 2020-04-10 10:12 | PN ---
Progress Note, Physician Chief Complaint: Events noted Awake History of Present Illness: Patient was seen and examined. Chart was reviewed Denies chest pain, SOB or palpitations - Current Medication List Current Medications: Active Medications Acetaminophen (Tylenol -) 650 mg PO Q4H PRN PRN Reason: FEVER Last Admin: 04/10/20 03:24 Dose: 650 mg Documented by: Alprazolam (Xanax) 1 mg PO Q4H PRN PRN Reason: ANXIETY Last Admin: 04/10/20 03:23 Dose: 1 mg Documented by: Apixaban (Eliquis -) 5 mg PO BID [facility] Last Admin: 04/09/20 21:59 Dose: 5 mg Documented by: Atovaquone (Mepron -) 1,500 mg PO DAILY@0800 [facility] Last Admin: 04/09/20 09:00 Dose: 1,500 mg Documented by: Melatonin (Melatonin) 5 mg PO HS PRN PRN Reason: INSOMNIA Last Admin: 04/08/20 20:25 Dose: 5 mg Documented by: Mirtazapine (Remeron -) 15 mg PO HS [facility] Last Admin: 04/09/20 21:59 Dose: 15 mg Documented by: Olanzapine (Zyprexa -) 5 mg PO DAILY [facility] Last Admin: 04/09/20 09:01 Dose: 5 mg Documented by: Valacyclovir HCl (Valtrex -) 1,000 mg PO BID [facility] Last Admin: 04/09/20 22:00 Dose: 1,000 mg Documented by: - Objective Vital Signs: Vital Signs Temperature 97.3 F L 04/10/20 06:00 Pulse Rate 104 H 04/10/20 06:00 Respiratory Rate 18 04/10/20 06:00 Blood Pressure 100/70 04/10/20 06:00 O2 Sat by Pulse Oximetry (%) 100 04/10/20 06:00 Neck: Yes: Supple Cardiovascular: Yes: Tachycardia, S1, S2. No: Murmur Respiratory: Yes: CTA Bilaterally Gastrointestinal: Yes: Normal Bowel Sounds, Soft. No: Tenderness Edema: No Additional Findings/Remarks: - Review of Systems Constitutional: denies: Chills, Fever Cardiovascular: denies: Shortness of Breath. denies: Chest Pain, Palpitations Respiratory: denies: Cough, SOB. denies: Hemoptysis, Orthopnea, PND, Wheezing Gastrointestinal: denies: Abdominal Pain, Constipation, Diarrhea, Melena, Na usea, Rectal Bleeding, Vomiting Musculoskeletal: denies: Back Pain, Joint Pain Neurological: denies: Dizziness, Headache, Seizure, Syncope Labs: CBC, BMP 04/09/20 08:30 04/09/20 08:30 Problem List - Problems (1) AIDS Code(s): B20 - HUMAN IMMUNODEFICIENCY VIRUS [HIV] DISEASE (2) Acute metabolic encephalopathy Code(s): G93.41 - METABOLIC ENCEPHALOPATHY (3) HIV (human immunodeficiency virus infection) Code(s): B20 - HUMAN IMMUNODEFICIENCY VIRUS [HIV] DISEASE Qualifiers: HIV symptom status: symptomatic Qualified Code(s): B20 - Human immunodeficiency virus [HIV] disease (4) Neutropenia Code(s): D70.9 - NEUTROPENIA, UNSPECIFIED Qualifiers: Neutropenia type: due to infection Qualified Code(s): D70.3 - Neutropenia due to infection (5) Prolonged Q-T interval on ECG Code(s): R94.31 - ABNORMAL ELECTROCARDIOGRAM [ECG] [EKG] (6) Sinus tachycardia Code(s): R00.0 - TACHYCARDIA, UNSPECIFIED (7) Substance use disorder Code(s): F19.90 - OTHER PSYCHOACTIVE SUBSTANCE USE, UNSPECIFIED, UNCOMPLICATED Assessment/Plan 1. Acute metabolic encephalopathy due to opiates reversed with Narcan 2. Prolonged QT - suspect medication effects 3. Sinus tachycardia 4. Neutropenic fever resolving - Suspect bone marrow suppression will recover once her viral load is suppressed 5. HIV/AIDS PLAN: 1. Trial of HAART and PCP prophylaxis. 2. Monitor on telemetry. Avoid QT prolonging agents (Remeron and Zyprexa with caution) 3. Eliquis being used for DVT prophylaxis 4. Echocardiography report noted 5. Await further Hematology input Greg Abarca MD
[2020-04-10 10:26] LABS: BASO % 0.8 % (0-2.0); HEMATOCRIT 27.1 % (32.4-45.2); HEMOGLOBIN 8.7 GM/dL (10.7-15.3); MCH 30.2 pg (25.7-33.7); MCHC 32.2 g/dl (32.0-36.0); MEAN CELL VOLUME 93.7 fl (80-96); MEAN PLT VOLUME 7.2 fl (7.5-11.1); MONO % 11.9 % (3.8-10.2); NEUT % 44.3 % (42.8-82.8); PLATELET COUNT 373 K/MM3 (134-434); RBC 2.89 M/mm3 (3.60-5.2); RDW 14.6 % (11.6-15.6); WHITE BLOOD COUNT 2.1 K/mm3 (4.0-10.0)
[2020-04-10] MEDS ORDERED: valACYclovir HCL 500 MG TABLET (FP) ONE ×2 (10:37→20:49)
[2020-04-10] MEDS: ATOVAQUONE 750 MG/5 ML (UNIT-DOSE PACKAGING) PO SCH (10:41)
[2020-04-10] MEDS: valACYclovir HCL 1000 MG TABLET PO SCH ×2 (10:42→21:19)
[2020-04-10] MEDS: APIXABAN 5 MG TABLET PO SCH ×2 (10:42→21:19)
[2020-04-10] MEDS: OLANZapine 5 MG TABLET PO SCH (10:42)
[2020-04-10] MEDS: DOLUTEGRAVIR SODIUM 50 MG TABLET (NON-FORMULARY) PO SCH (10:42)
[2020-04-10] MEDS: EMTRICITABINE/TENOFOV ALAFENAM (DESCOVY) TABLET PO SCH (10:42)
[2020-04-10 11:05] LABS: ALBUMIN 2.3 g/dl (3.4-5.0); BILIRUBIN,TOTAL 0.2 mg/dL (0.2-1); BLOOD UREA NITROGEN 20.1 mg/dL (7-18); CALCIUM 9.4 mg/dL (8.5-10.1); CREATININE 1.1 mg/dL (0.55-1.3); MAGNESIUM 2.2 mg/dL (1.8-2.4); POTASSIUM 4.1 mmol/L (3.5-5.1); TOT PROT 9.4 g/dl (6.4-8.2)
[2020-04-10 12:15] LABS: ANISOCYTOSIS 1+; MACROCYTOSIS 1+; PLATELET ESTIMATE NORMAL
[2020-04-10] MEDS ORDERED: ALPRAZolam 1 MG TABLET PO ONE (12:21)
--- NOTE | 2020-04-10 15:55 | PN ---
Physical Exam: SUBJECTIVE: Patient seen and examined at the bedside. agitated today, screaming at staff. tells me she is unable to ambulate but was seen by staff ambulating to bathroom. she wants rehab and PT has been ordered. OBJECTIVE: Patient is a 44 year old female with a history of HIV (not on medication), PE (not on AC), bipolar, schizophrenia, and heroin abuse who was admitted to the ED on 04/02/2020 for neutropenic fever. She was seen by international marketing coordinator and no neupogen recommended at this time. On 04/08/2020 patient unresponsive to verbal and tactile stimuli, only responsive to sternal rub and responded to narcan. After narcan, mentation back to her baseline. Transferred to [facility] for closer monitor and for prolonged qtc of 550 on ekg 04/08. Now QTC 467 after stopping seroquel and haldol. -- chest xray 04/09: no acute pathology head ct 04/09: 4mm dural based calcified density along lateral margin of the left temporal lobe cannot rule out calcified meningioma echo 04/09: trace mr, trace to mild tr, mild aortic regurg, no pericardial effusion. Vital Signs Period Temp Pulse Resp BP Sys/Bhat Pulse Ox Last 24 Hr 97.3 F-98.7 F 98-125 18-20 100-119/65-75 98-100 GENERAL: patient is awake and alert, in no acute distress, agitated HEAD: Normal with no signs of trauma. EYES: PERRL, extraocular movements intact, sclera anicteric, conjunctiva clear. No ptosis. ENT: Ears normal, nares patent, oropharynx clear without exudates NECK: Trachea midline, full range of motion, supple. LUNGS: Breath sounds equal, clear to auscultation bilaterally, no wheezes HEART: sinus tachycardia ABDOMEN: Soft, nontender, nondistended, normoactive bowel sounds EXTREMITIES: trace edema bilaterally NEUROLOGICAL:Normal speech, gait not observed. PSYCH: restless/agitated at times SKIN: bilateral lower ext with dried ulcerations, closed. buttocks with small round scattered open lesions (apx 2 - both measures ~0.5cm x 0.5cm) Laboratory Results - last 24 hr 04/10/20 04/10/20 09:55 09:55 WBC 2.1 L RBC 2.89 L Hgb 8.7 L Hct 27.1 L MCV 93.7 MCH 30.2 MCHC 32.2 RDW 14.6 Plt Count 373 MPV 7.2 L Absolute Neuts (auto) 0.9 L Neutrophils % 44.3 Neutrophils % (Manual) 49.0 Band Neutrophils % 0.0 Lymphocytes % 40.0 D Lymphocytes % (Manual) 41.8 H Monocytes % 11.9 H Monocytes % (Manual) 6 D Eosinophils % 3.0 Eosinophils % (Manual) 3.1 Basophils % 0.8 Basophils % (Manual) 0.0 Myelocytes % (Man) 0 Promyelocytes % (Man) 0 Blast Cells % (Manual) 0 Nucleated RBC % 0 Metamyelocytes 0 Hypochromia 0 Platelet Estimate Normal Polychromasia 0 Poikilocytosis 1+ Anisocytosis 1+ Microcytosis 0 Macrocytosis 1+ Sodium 142 Potassium 4.1 Chloride 110 H Carbon Dioxide 27 Anion Gap 6 L BUN 20.1 H Creatinine 1.1 Est GFR (CKD-EPI)AfAm 69.73 Est GFR (CKD-EPI)NonAf 60.16 Random Glucose 104 Calcium 9.4 Magnesium 2.2 Total Bilirubin 0.2 AST 47 H ALT 28 Alkaline Phosphatase 204 H Total Protein 9.4 H Albumin 2.3 L Active Medications Generic Name Dose Route Start Last Admin Trade Name Freq PRN Reason Stop Dose Admin Acetaminophen 650 mg 04/02/20 10:15 04/10/20 15:14 Tylenol - PO 650 mg Q4H PRN Administration FEVER Alprazolam 2 mg 04/10/20 13:17 04/10/20 14:51 Xanax PO 2 mg Q4H PRN Administration ANXIETY Apixaban 5 mg 04/07/20 10:00 04/10/20 10:42 Eliquis - PO 5 mg BID JEZ Administration Atovaquone 1,500 mg 04/06/20 15:30 04/10/20 10:41 Mepron - PO 1,500 mg DAILY@0800 JEZ Administration Melatonin 5 mg 04/03/20 23:05 04/08/20 20:25 Melatonin PO 5 mg HS PRN Administration INSOMNIA Mirtazapine 15 mg 04/05/20 22:00 04/09/20 21:59 Remeron - PO 15 mg HS JEZ Administration Olanzapine 5 mg 04/02/20 16:15 04/10/20 10:42 Zyprexa - PO 5 mg DAILY JEZ Administration Valacyclovir HCl 1,000 mg 04/06/20 22:00 04/10/20 10:42 Valtrex - PO 1,000 mg BID JEZ Administration ASSESSMENT/PLAN: Problem List - Problems (1) Acute metabolic encephalopathy Assessment/Plan: patient lethargic on 04/08 when seen on rounds. had breakfast, lunch and then became obtunded. concern that patient may have taken outside drugs with history of heroin abuse. she had a visitor on evening of 04/07. narcan 0.4mg x 1 given and patient immediately woke up and was agitated/angry head ct ordered, and 4mm calcified mengioma found monitor mental status Code(s): G93.41 - METABOLIC ENCEPHALOPATHY (2) Neutropenia Assessment/Plan: Neutropenia in the settng of untreated HIV and AIDS, improving. no neupogen recommended by heme at this time. Code(s): D70.9 - NEUTROPENIA, UNSPECIFIED Qualifiers: Neutropenia type: due to infection Qualified Code(s): D70.3 - Neutropenia due to infection (3) Bipolar 1 disorder Assessment/Plan: on zyprexa and xanax. stopped seroqul for prolonged qtc. stopped haldol. psyche re consulted Code(s): F31.9 - BIPOLAR DISORDER, UNSPECIFIED (4) Fever Assessment/Plan: no fevers Code(s): R50.9 - FEVER, UNSPECIFIED (5) HIV (human immunodeficiency virus infection) Assessment/Plan: started on antiviral medications Code(s): B20 - HUMAN IMMUNODEFICIENCY VIRUS [HIV] DISEASE Qualifiers: HIV symptom status: symptomatic Qualified Code(s): B20 - Human immunodeficiency virus [HIV] disease (6) Paranoid schizophrenia Assessment/Plan: seen by psych, notes reviewed. per psych, continue remeron, continue seroquel, continue xanax and zyprexa, however stopped seroquel and haldol for qtc 550 on ekg 04/08, qtc now improved. Code(s): F20.0 - PARANOID SCHIZOPHRENIA (7) Substance use disorder Assessment/Plan: seen by addiction medicine, Code(s): F19.90 - OTHER PSYCHOACTIVE SUBSTANCE USE, UNSPECIFIED, UNCOMPLICATED (8) Skin lesions, generalized Assessment/Plan: skin lesions on bilateral lower extremities and open lesions on her buttocks. maintain clean and dry and open to air. allevyn to back to protect bony prominences and avoid lesions to get worse Code(s): L98.9 - DISORDER OF THE SKIN AND SUBCUTANEOUS TISSUE, UNSPECIFIED (9) Vision loss, right eye Assessment/Plan: supportive care Code(s): H54.61 - UNQUALIFIED VISUAL LOSS, RIGHT EYE, NORMAL VISION LEFT EYE (10) Heroin abuse Assessment/Plan: patient likely consumed heroin during her inpatient stay. she was lethargic and minimally responsive. she responded to narcan and was more alert after narcan administered. Code(s): F11.10 - OPIOID ABUSE, UNCOMPLICATED (11) Weakness Assessment/Plan: LE weakness. Start physical therapy for rehab placement Code(s): R53.1 - WEAKNESS (12) DVT prophylaxis Assessment/Plan: patient on eliquis 5 bid for hx of PE Code(s): Z29.9 - ENCOUNTER FOR PROPHYLACTIC MEASURES, UNSPECIFIED (13) Prolonged Q-T interval on ECG Assessment/Plan: patient noted to have prolonged qtc on ekg. stoped seroquel and haldol and monitor. psyche re consulted to help with psyche medications that do not cause qtc prologation. will continue xanax and zyprexa for agitation monitor QTC on regulatory affairs analyst Code(s): R94.31 - ABNORMAL ELECTROCARDIOGRAM [ECG] [EKG] (14) AIDS Assessment/Plan: patient started on antivirals per ID. patient to follow up with the [facility] CD4 count unable to be measured per ID Code(s): B20 - HUMAN IMMUNODEFICIENCY VIRUS [HIV] DISEASE Visit type - Emergency Visit Emergency Visit: Yes ED Registration Date: 04/02/20 Care time: The patient presented to the Emergency Department on the above date and was hospitalized for further evaluation of their emergent condition. - New Patient This patient is new to me today: No - Critical Care Critical Care patient: No - Discharge Referral Referred to [facility] Med P.C.: No
[2020-04-10] MEDS: MIRTAZAPINE 15 MG TABLET (FP) PO SCH (21:19)
[2020-04-10] MEDS: MELATONIN 5 MG TABLETS PO PRN (23:00)
[2020-04-11] MEDS: ALPRAZolam 1 MG TABLET PO PRN ×4 (02:52→23:06)
[2020-04-11] MEDS: ACETAMINOPHEN 325 MG TABLET (FP) PO PRN ×4 (02:53→23:07)
[2020-04-11] MEDS ORDERED: PT OWN MED DRAWER 7, Y5N ONE ×2 (08:15→09:17)
--- NOTE | 2020-04-11 09:02 | PN ---
Progress Note, Physician Chief Complaint: Events noted Awake History of Present Illness: Patient was seen and examined. Chart was reviewed Denies chest pain, SOB or palpitations - Current Medication List Current Medications: Active Medications Acetaminophen (Tylenol -) 650 mg PO Q4H PRN PRN Reason: FEVER Last Admin: 04/11/20 02:53 Dose: 650 mg Documented by: Alprazolam (Xanax) 2 mg PO Q4H PRN PRN Reason: ANXIETY Last Admin: 04/11/20 02:52 Dose: 2 mg Documented by: Apixaban (Eliquis -) 5 mg PO BID COUNT INCLUDES THE [facility] Last Admin: 04/10/20 21:19 Dose: 5 mg Documented by: Atovaquone (Mepron -) 1,500 mg PO DAILY@0800 COUNT INCLUDES THE [facility] Last Admin: 04/10/20 10:41 Dose: 1,500 mg Documented by: Melatonin (Melatonin) 5 mg PO HS PRN PRN Reason: INSOMNIA Last Admin: 04/10/20 23:00 Dose: 5 mg Documented by: Mirtazapine (Remeron -) 15 mg PO HS COUNT INCLUDES THE [facility] Last Admin: 04/10/20 21:19 Dose: 15 mg Documented by: Olanzapine (Zyprexa -) 5 mg PO DAILY COUNT INCLUDES THE [facility] Last Admin: 04/10/20 10:42 Dose: 5 mg Documented by: Valacyclovir HCl (Valtrex -) 1,000 mg PO BID COUNT INCLUDES THE [facility] Last Admin: 04/10/20 21:19 Dose: 1,000 mg Documented by: - Objective Vital Signs: Vital Signs Temperature 97.6 F 04/11/20 08:22 Pulse Rate 107 H 04/11/20 08:22 Respiratory Rate 18 04/11/20 08:22 Blood Pressure 107/76 04/11/20 08:22 O2 Sat by Pulse Oximetry (%) 100 04/11/20 08:22 Neck: Yes: Supple Cardiovascular: Yes: Regular Rate and Rhythm, S1, S2 Respiratory: Yes: CTA Bilaterally Gastrointestinal: Yes: Normal Bowel Sounds, Soft. No: Tenderness Edema: No Additional Findings/Remarks: - Review of Systems Constitutional: denies: Chills, Fever Cardiovascular: denies: Shortness of Breath. denies: Chest Pain, Palpitations Respiratory: denies: Cough, SOB. denies: Hemoptysis, Orthopnea, PND, Wheezing Gastrointestinal: denies: Abdominal Pain, Constipation, Diarrhea, Melena, Naus ea, Rectal Bleeding, Vomiting Musculoskeletal: denies: Back Pain, Joint Pain Neurological: denies: Dizziness, Headache, Seizure, Syncope Labs: CBC, BMP 04/10/20 09:55 04/10/20 09:55 Problem List - Problems (1) AIDS Code(s): B20 - HUMAN IMMUNODEFICIENCY VIRUS [HIV] DISEASE (2) Acute metabolic encephalopathy Code(s): G93.41 - METABOLIC ENCEPHALOPATHY (3) HIV (human immunodeficiency virus infection) Code(s): B20 - HUMAN IMMUNODEFICIENCY VIRUS [HIV] DISEASE Qualifiers: HIV symptom status: symptomatic Qualified Code(s): B20 - Human immunodeficiency virus [HIV] disease (4) Neutropenia Code(s): D70.9 - NEUTROPENIA, UNSPECIFIED Qualifiers: Neutropenia type: due to infection Qualified Code(s): D70.3 - Neutropenia due to infection (5) Prolonged Q-T interval on ECG Code(s): R94.31 - ABNORMAL ELECTROCARDIOGRAM [ECG] [EKG] (6) Sinus tachycardia Code(s): R00.0 - TACHYCARDIA, UNSPECIFIED (7) Substance use disorder Code(s): F19.90 - OTHER PSYCHOACTIVE SUBSTANCE USE, UNSPECIFIED, UNCOMPLICATED Assessment/Plan 1. Acute metabolic encephalopathy due to opiates reversed with Narcan 2. Prolonged QT - suspect medication effects 3. Sinus tachycardia 4. Neutropenic fever resolving - Suspect bone marrow suppression will recover once her viral load is suppressed 5. HIV/AIDS PLAN: 1. Trial of HAART and PCP prophylaxis. 2. Monitor on telemetry. Avoid QT prolonging agents 3. Eliquis being used for DVT prophylaxis 4. Await further Hematology input Greg Abarca MD
[2020-04-11] MEDS ORDERED: valACYclovir HCL 500 MG TABLET (FP) ONE (09:17)
[2020-04-11] MEDS: OLANZapine 5 MG TABLET PO SCH (09:20)
[2020-04-11] MEDS: valACYclovir HCL 1000 MG TABLET PO SCH (09:20)
[2020-04-11] MEDS: DOLUTEGRAVIR SODIUM 50 MG TABLET (NON-FORMULARY) PO SCH (09:21)
[2020-04-11] MEDS: APIXABAN 5 MG TABLET PO SCH ×2 (09:21→21:30)
[2020-04-11] MEDS: ATOVAQUONE 750 MG/5 ML (UNIT-DOSE PACKAGING) PO SCH (09:22)
[2020-04-11] MEDS: EMTRICITABINE/TENOFOV ALAFENAM (DESCOVY) TABLET PO SCH (09:25)
--- NOTE | 2020-04-11 10:27 | PN ---
Physical Exam: SUBJECTIVE: Patient seen and examined at the bedside. in no acute distress. tells me she did not sleep last night. OBJECTIVE: Patient is a 44 year old female with a history of HIV (not on medication), PE (not on AC), bipolar, schizophrenia, and heroin abuse who was admitted to the ED on 04/02/2020 for neutropenic fever. She was seen by assembly mechanic and no neupogen recommended at this time. On 04/08/2020 patient unresponsive to verbal and tactile stimuli, only responsive to sternal rub and responded to narcan. A fter narcan, mentation back to her baseline. Transferred to tele for closer monitor and for prolonged qtc of 550 on ekg 04/08. Now QTC 467 after stopping seroquel and haldol. -- chest xray 04/09: no acute pathology head ct 04/09: 4mm dural based calcified density along lateral margin of the left temporal lobe cannot rule out calcified meningioma echo 04/09: trace mr, trace to mild tr, mild aortic regurg, no pericardial effusion. --- psyche follow up to assess capacity to make decision. re eval psyche meds Vital Signs Period Temp Pulse Resp BP Sys/Bhat Pulse Ox Last 24 Hr 97.6 F-98.8 F 97-125 18-20 104-127/54-76 99-100 GENERAL: patient is awake and alert, in no acute distress HEAD: Normal with no signs of trauma. EYES: PERRL, extraocular movements intact, sclera anicteric, conjunctiva clear. No ptosis. ENT: Ears normal, nares patent, oropharynx clear without exudates NECK: Trachea midline, full range of motion, supple. LUNGS: Breath sounds equal, clear to auscultation bilaterally, no wheezes HEART: sinus tachycardia 120 ABDOMEN: Soft, nontender, nondistended, normoactive bowel sounds EXTREMITIES: trace edema bilaterally NEUROLOGICAL:Normal speech, gait not observed. PSYCH: restless/agitated at times SKIN: bilateral lower ext with dried ulcerations, closed. buttocks with small round scattered open lesions (apx 2 - both measures ~0.5cm x 0.5cm) Laboratory Results - last 24 hr 04/10/20 04/10/20 09:55 09:55 WBC 2.1 L RBC 2.89 L Hgb 8.7 L Hct 27.1 L MCV 93.7 MCH 30.2 MCHC 32.2 RDW 14.6 Plt Count 373 MPV 7.2 L Absolute Neuts (auto) 0.9 L Neutrophils % 44.3 Neutrophils % (Manual) 49.0 Band Neutrophils % 0.0 Lymphocytes % 40.0 D Lymphocytes % (Manual) 41.8 H Monocytes % 11.9 H Monocytes % (Manual) 6 D Eosinophils % 3.0 Eosinophils % (Manual) 3.1 Basophils % 0.8 Basophils % (Manual) 0.0 Myelocytes % (Man) 0 Promyelocytes % (Man) 0 Blast Cells % (Manual) 0 Nucleated RBC % 0 Metamyelocytes 0 Hypochromia 0 Platelet Estimate Normal Polychromasia 0 Poikilocytosis 1+ Anisocytosis 1+ Microcytosis 0 Macrocytosis 1+ Sodium 142 Potassium 4.1 Chloride 110 H Carbon Dioxide 27 Anion Gap 6 L BUN 20.1 H Creatinine 1.1 Est GFR (CKD-EPI)AfAm 69.73 Est GFR (CKD-EPI)NonAf 60.16 Random Glucose 104 Calcium 9.4 Magnesium 2.2 Total Bilirubin 0.2 AST 47 H ALT 28 Alkaline Phosphatase 204 H Total Protein 9.4 H Albumin 2.3 L Active Medications Generic Name Dose Route Start Last Admin Trade Name Freq PRN Reason Stop Dose Admin Acetaminophen 650 mg 04/02/20 10:15 04/11/20 09:33 Tylenol - PO 650 mg Q4H PRN Administration FEVER Alprazolam 2 mg 04/10/20 13:17 04/11/20 09:20 Xanax PO 2 mg Q4H PRN Administration ANXIETY Apixaban 5 mg 04/07/20 10:00 04/11/20 09:21 Eliquis - PO 5 mg BID JEZ Administration Atovaquone 1,500 mg 04/06/20 15:30 04/11/20 09:22 Mepron - PO 1,500 mg DAILY@0800 JEZ Administration Melatonin 5 mg 04/03/20 23:05 04/10/20 23:00 Melatonin PO 5 mg HS PRN Administration INSOMNIA Mirtazapine 15 mg 04/05/20 22:00 04/10/20 21:19 Remeron - PO 15 mg HS JEZ Administration Olanzapine 5 mg 04/02/20 16:15 04/11/20 09:20 Zyprexa - PO 5 mg DAILY JEZ Administration Valacyclovir HCl 1,000 mg 04/06/20 22:00 04/11/20 09:20 Valtrex - PO 1,000 mg BID JEZ Administration ASSESSMENT/PLAN: Problem List - Problems (1) Acute metabolic encephalopathy Assessment/Plan: patient lethargic on 04/08 when seen on rounds. had breakfast, lunch and then became obtunded. concern that patient may have taken outside drugs with history of heroin abuse. she had a visitor on evening of 04/07. narcan 0.4mg x 1 given and patient immediately woke up and was agitated/angry head ct ordered, and 4mm calcified mengioma found monitor mental status, appears to be back to baseline patient with extensive psyche history, will ask for psyche for assessment of capacity to make medical decisions and re evaluate psyche meds since she had to be taken off seroquel and haldol for prolonged qtc Code(s): G93.41 - METABOLIC ENCEPHALOPATHY (2) Neutropenia Assessment/Plan: Neutropenia in the settng of untreated HIV and AIDS, improving. no neupogen recommended by heme at this time. awaiting today's labs Code(s): D70.9 - NEUTROPENIA, UNSPECIFIED Qualifiers: Neutropenia type: due to infection Qualified Code(s): D70.3 - Neutropenia due to infection (3) Bipolar 1 disorder Assessment/Plan: on zyprexa and xanax. stopped seroqul for prolonged qtc. stopped haldol. psyche re consulted Code(s): F31.9 - BIPOLAR DISORDER, UNSPECIFIED (4) Fever Assessment/Plan: no fevers Code(s): R50.9 - FEVER, UNSPECIFIED (5) HIV (human immunodeficiency virus infection) Assessment/Plan: started on antiviral medications Code(s): B20 - HUMAN IMMUNODEFICIENCY VIRUS [HIV] DISEASE Qualifiers: HIV symptom status: symptomatic Qualified Code(s): B20 - Human immunodeficiency virus [HIV] disease (6) Paranoid schizophrenia Assessment/Plan: seen by psych, notes reviewed. per psych, continue remeron, continue seroquel, continue xanax and zyprexa, however stopped seroquel and haldol for qtc 550 on ekg 04/08, qtc now improved. Code(s): F20.0 - PARANOID SCHIZOPHRENIA (7) Substance use disorder Assessment/Plan: seen by addiction medicine, Code(s): F19.90 - OTHER PSYCHOACTIVE SUBSTANCE USE, UNSPECIFIED, UNCOMPLICATED (8) Skin lesions, generalized Assessment/Plan: skin lesions on bilateral lower extremities and open lesions on her buttocks. maintain clean and dry and open to air. allevyn to back to protect bony prominences and avoid lesions to get worse Code(s): L98.9 - DISORDER OF THE SKIN AND SUBCUTANEOUS TISSUE, UNSPECIFIED (9) Vision loss, right eye Assessment/Plan: supportive care Code(s): H54.61 - UNQUALIFIED VISUAL LOSS, RIGHT EYE, NORMAL VISION LEFT EYE (10) Heroin abuse Assessment/Plan: patient likely consumed heroin during her inpatient stay. she was lethargic and minimally responsive. she responded to narcan and was more alert after narcan administered. Code(s): F11.10 - OPIOID ABUSE, UNCOMPLICATED (11) Weakness Assessment/Plan: LE weakness. Start physical therapy for rehab placement Code(s): R53.1 - WEAKNESS (12) DVT prophylaxis Assessment/Plan: patient on eliquis 5 bid for hx of PE Code(s): Z29.9 - ENCOUNTER FOR PROPHYLACTIC MEASURES, UNSPECIFIED (13) Prolonged Q-T interval on ECG Assessment/Plan: patient noted to have prolonged qtc on ekg. stoped seroquel and haldol and monitor. psyche re consulted to help with psyche medications that do not cause qtc prologation. will continue xanax and zyprexa for agitation monitor QTC on cardiac rehabilitation program director Code(s): R94.31 - ABNORMAL ELECTROCARDIOGRAM [ECG] [EKG] (14) AIDS Assessment/Plan: patient started on antivirals per ID. patient to follow up with the [facility] CD4 count unable to be measured per ID Code(s): B20 - HUMAN IMMUNODEFICIENCY VIRUS [HIV] DISEASE Visit type - Emergency Visit Emergency Visit: Yes ED Registration Date: 04/02/20 Care time: The patient presented to the Emergency Department on the above date and was hospitalized for further evaluation of their emergent condition. - New Patient This patient is new to me today: No - Critical Care Critical Care patient: No - Discharge Referral Referred to [facility] No
[2020-04-11 10:59] LABS: BASO % 0.4 % (0-2.0); EOS % 2.5 % (0-4.5); HEMATOCRIT 26.2 % (32.4-45.2); HEMOGLOBIN 8.5 GM/dL (10.7-15.3); LYMPH % 29.1 % (8-40); MCH 30.4 pg (25.7-33.7); MCHC 32.6 g/dl (32.0-36.0); MEAN CELL VOLUME 93.3 fl (80-96); MEAN PLT VOLUME 7.5 fl (7.5-11.1); MONO % 11.5 % (3.8-10.2); NEUT % 56.5 % (42.8-82.8); PLATELET COUNT 353 K/MM3 (134-434); RBC 2.81 M/mm3 (3.60-5.2); RDW 14.7 % (11.6-15.6); WHITE BLOOD COUNT 2.2 K/mm3 (4.0-10.0)
[2020-04-11 11:19] LABS: ALBUMIN 2.5 g/dl (3.4-5.0); BILIRUBIN,TOTAL 0.2 mg/dL (0.2-1); CALCIUM 9.8 mg/dL (8.5-10.1); MAGNESIUM 1.9 mg/dL (1.8-2.4); POTASSIUM 4.1 mmol/L (3.5-5.1); TOT PROT 9.4 g/dl (6.4-8.2)
[2020-04-11 12:58] LABS: ANISOCYTOSIS 0; MACROCYTOSIS 0; PLATELET ESTIMATE NORMAL
--- NOTE | 2020-04-11 20:04 | EKG ---
Test Reason : Blood Pressure : / mmHG Vent. Rate : 112 BPM Atrial Rate : 112 BPM P-R Int : 140 ms QRS Dur : 074 ms QT Int : 342 ms P-R-T Axes : 062 044 051 degrees QTc Int : [address] ABNORMALITY, ?EARLY REPOLARIZATION WHEN COMPARED WITH ECG OF 08-APR-2020 00:43, NO SIGNIFICANT CHANGE WAS FOUND Confirmed by SUDEEP GANDARA MD ([id number]) on 04/11/2020 8:04:22 PM Referred By: Tamiko ELKINS Confirmed By:SUDEEP GANDARA MD
[2020-04-11] MEDS: valACYclovir HCL 500 MG TABLET (FP) PO SCH (21:30)
[2020-04-11] MEDS: MIRTAZAPINE 15 MG TABLET (FP) PO SCH (21:30)
[2020-04-11] MEDS: MELATONIN 5 MG TABLETS PO PRN (23:07)
[2020-04-12] MEDS: ACETAMINOPHEN 325 MG TABLET (FP) PO PRN (06:03)
[2020-04-12] MEDS: ALPRAZolam 1 MG TABLET PO PRN ×4 (06:04→21:39)
[2020-04-12] MEDS ORDERED: PT OWN MED DRAWER 7, Y5N ONE (08:50)
--- NOTE | 2020-04-12 08:58 | PN ---
Progress Note, Physician Chief Complaint: Events noted Remains with sinus tachycardia History of Present Illness: Patient was seen and examined. Chart was reviewed Denies chest pain, SOB or palpitations - Current Medication List Current Medications: Active Medications Acetaminophen (Tylenol -) 650 mg PO Q4H PRN PRN Reason: FEVER Last Admin: 04/12/20 06:03 Dose: 650 mg Documented by: Alprazolam (Xanax) 2 mg PO Q4H PRN PRN Reason: ANXIETY Last Admin: 04/12/20 06:04 Dose: 2 mg Documented by: Apixaban (Eliquis -) 5 mg PO BID [facility] Last Admin: 04/11/20 21:30 Dose: 5 mg Documented by: Atovaquone (Mepron -) 1,500 mg PO DAILY@0800 [facility] Melatonin (Melatonin) 5 mg PO HS PRN PRN Reason: INSOMNIA Last Admin: 04/11/20 23:07 Dose: 5 mg Documented by: Mirtazapine (Remeron -) 15 mg PO HS [facility] Last Admin: 04/11/20 21:30 Dose: 15 mg Documented by: Olanzapine (Zyprexa -) 5 mg PO DAILY [facility] Valacyclovir HCl (Valtrex -) 1,000 mg PO BID [facility] Last Admin: 04/11/20 21:30 Dose: 1,000 mg Documented by: - Objective Vital Signs: Vital Signs Temperature 97.4 F L 04/12/20 06:00 Pulse Rate 113 H 04/12/20 06:00 Respiratory Rate 18 04/12/20 06:00 Blood Pressure 111/69 04/12/20 06:00 O2 Sat by Pulse Oximetry (%) 100 04/12/20 06:00 Neck: Yes: Supple Cardiovascular: Yes: Tachycardia, S1, S2 Respiratory: Yes: CTA Bilaterally Gastrointestinal: Yes: Normal Bowel Sounds, Soft. No: Tenderness Edema: No Additional Findings/Remarks: - Review of Systems Constitutional: denies: Chills, Fever Cardiovascular: reports: Shortness of Breath. (+) Chest Pain, denies:Palpitations Respiratory: denies: Cough, (+) SOB. denies: Hemoptysis, Orthopnea, PND, Wheezing Gastrointestinal: denies: Abdominal Pain, Constipation, Diarrhea, Melena, Nausea, Rectal Bleeding, Vomiting Musculoskeletal: denies: Back Pain, Joint Pain Neurological: denies: Dizziness, Headache, Seizure, Syncope Labs: CBC, BMP 04/11/20 10:05 04/11/20 10:05 Problem List - Problems (1) AIDS Code(s): B20 - HUMAN IMMUNODEFICIENCY VIRUS [HIV] DISEASE (2) Acute metabolic encephalopathy Code(s): G93.41 - METABOLIC ENCEPHALOPATHY (3) HIV (human immunodeficiency virus infection) Code(s): B20 - HUMAN IMMUNODEFICIENCY VIRUS [HIV] DISEASE Qualifiers: HIV symptom status: symptomatic Qualified Code(s): B20 - Human immunodeficiency virus [HIV] disease (4) Neutropenia Code(s): D70.9 - NEUTROPENIA, UNSPECIFIED Qualifiers: Neutropenia type: due to infection Qualified Code(s): D70.3 - Neutropenia d ue to infection (5) Prolonged Q-T interval on ECG Code(s): R94.31 - ABNORMAL ELECTROCARDIOGRAM [ECG] [EKG] (6) Sinus tachycardia Code(s): R00.0 - TACHYCARDIA, UNSPECIFIED (7) Substance use disorder Code(s): F19.90 - OTHER PSYCHOACTIVE SUBSTANCE USE, UNSPECIFIED, UNCOMPLICATED Assessment/Plan 1. Acute metabolic encephalopathy due to opiates reversed with Narcan 2. Prolonged QT - suspect medication effects 3. Sinus tachycardia 4. Neutropenic fever resolving - Suspect bone marrow suppression will recover once her viral load is suppressed 5. HIV/AIDS (advanced) PLAN: 1. Currently off HIV medications 2. Avoid QT prolonging agents 3. Eliquis being used for DVT prophylaxis 4. Await further Hematology input 5. ID input noted Greg Abarca MD
[2020-04-12] MEDS: ATOVAQUONE 750 MG/5 ML (UNIT-DOSE PACKAGING) PO SCH (10:24)
[2020-04-12] MEDS: EMTRICITABINE/TENOFOV ALAFENAM (DESCOVY) TABLET PO SCH (10:25)
[2020-04-12] MEDS: valACYclovir HCL 500 MG TABLET (FP) PO SCH ×2 (10:25→21:39)
[2020-04-12] MEDS: OLANZapine 5 MG TABLET PO SCH (10:25)
[2020-04-12] MEDS: DOLUTEGRAVIR SODIUM 50 MG TABLET (NON-FORMULARY) PO SCH (10:26)
[2020-04-12] MEDS: APIXABAN 5 MG TABLET PO SCH ×2 (10:26→21:39)
[2020-04-12 11:10] LABS: BASO % 0.6 % (0-2.0); EOS % 2.7 % (0-4.5); HEMATOCRIT 24.7 % (32.4-45.2); LYMPH % 27.7 % (8-40); MCH 30.1 pg (25.7-33.7); MCHC 32.5 g/dl (32.0-36.0); MEAN CELL VOLUME 92.6 fl (80-96); MEAN PLT VOLUME 7.3 fl (7.5-11.1); MONO % 16.3 % (3.8-10.2); NEUT % 52.7 % (42.8-82.8); PLATELET COUNT 380 K/MM3 (134-434); RBC 2.67 M/mm3 (3.60-5.2); RDW 14.7 % (11.6-15.6); WHITE BLOOD COUNT 2.6 K/mm3 (4.0-10.0)
--- NOTE | 2020-04-12 11:28 | PN ---
Physical Exam: SUBJECTIVE: Patient seen and examined. ambulated 45 feet with PT. Rehab recommended, sw aware. OBJECTIVE: Patient is a 44 year old female with a history of HIV, PE (not on AC), bipolar, schizophrenia, and heroin abuse who was admitted to the ED on 04/02/2020 for neutropenic fever. She was seen by network diagnostic support specialist and no neupogen recommended at this time. On 04/08/2020 patient unresponsive to verbal and tactile stimuli, only responsive to sternal rub and responded to narcan. After narcan, mentation back to her baseline. Transferred to [facility] for closer monitor and for prolonged qtc of 550 on ekg 04/08. Now QTC 467 after stopping seroquel and haldol. -- chest xray 04/09: no acute pathology head ct 04/09: 4mm dural based calcified density along lateral margin of the left temporal lobe cannot rule out calcified meningioma echo 04/09: trace mr, trace to mild tr, mild aortic regurg, no pericardial effusion. --- psyche follow up to assess capacity to make decision. re eval psyche meds. Vital Signs Period Temp Pulse Resp BP Sys/Bhat Pulse Ox Last 24 Hr 97.4 F-98.7 F 113-125 18-21 108-116/68-75 99-100 GENERAL: patient is awake and alert, in no acute distress HEAD: Normal with no signs of trauma. EYES: PERRL, extraocular movements intact, sclera anicteric, conjunctiva clear. No ptosis. ENT: Ears normal, nares patent, oropharynx clear without exudates NECK: Trachea midline, full range of motion, supple. LUNGS: Breath sounds equal, clear to auscultation bilaterally, no wheezes HEART: sinus tachycardia 120 ABDOMEN: Soft, nontender, nondistended, normoactive bowel sounds EXTREMITIES: trace edema bilaterally NEUROLOGICAL:Normal speech, gait not observed. PSYCH: restless/agitated at times SKIN: bilateral lower ext with dried ulcerations, closed. buttocks with small round scattered open lesions (apx 2 - both measures ~0.5cm x 0.5cm) Laboratory Results - last 24 hr 04/02/20 04/11/20 04/12/20 10:46 10:05 10:40 WBC 2.6 L RBC 2.67 L Hgb 8.0 L Hct 24.7 L MCV 92.6 MCH 30.1 MCHC 32.5 RDW 14.7 Plt Count 380 MPV 7.3 L Absolute Neuts (auto) 1.4 L Neutrophils % 52.7 Neutrophils % (Manual) 61.5 Band Neutrophils % 0.0 Lymphocytes % 27.7 Lymphocytes % (Manual) 23.9 D Monocytes % 16.3 H Monocytes % (Manual) 9 Eosinophils % 2.7 Eosinophils % (Manual) 0.0 D Basophils % 0.6 Basophils % (Manual) 0.0 Myelocytes % (Man) 4 H D Promyelocytes % (Man) 0 Blast Cells % (Manual) 0 Nucleated RBC % 1 H 1 H Metamyelocytes 0 Hypochromia 0 Platelet Estimate Normal Polychromasia 0 Poikilocytosis 0 Anisocytosis 0 Microcytosis 0 Macrocytosis 0 HIV-1 RNA (PCR) 124071 HIV-1 RNA (PCR) log10 5.164 Active Medications Generic Name Dose Route Start Last Admin Trade Name Freq PRN Reason Stop Dose Admin Acetaminophen 650 mg 04/11/20 19:27 04/12/20 06:03 Tylenol - PO 650 mg Q4H PRN Administration FEVER Alprazolam 1 mg 04/12/20 09:55 04/12/20 10:25 Xanax PO 1 mg Q4H PRN Administration ANXIETY Apixaban 5 mg 04/11/20 22:00 04/12/20 10:26 Eliquis - PO 5 mg BID JEZ Administration Atovaquone 1,500 mg 04/12/20 08:00 04/12/20 10:24 Mepron - PO 1,500 mg DAILY@0800 JEZ Administration Melatonin 5 mg 04/11/20 19:27 04/11/20 23:07 Melatonin PO 5 mg HS PRN Administration INSOMNIA Mirtazapine 15 mg 04/11/20 22:00 04/11/20 21:30 Remeron - PO 15 mg HS JEZ Administration Olanzapine 5 mg 04/12/20 10:00 04/12/20 10:25 Zyprexa - PO 5 mg DAILY JEZ Administration Valacyclovir HCl 1,000 mg 04/11/20 22:00 04/12/20 10:25 Valtrex - PO 1,000 mg BID JEZ Administration ASSESSMENT/PLAN: Problem List - Problems (1) Acute metabolic encephalopathy Assessment/Plan: patient lethargic on 04/08 when seen on rounds. had breakfast, lunch and then became obtunded. concern that patient may have taken outside drugs with history of heroin abuse. she had a visitor on evening of 04/07. narcan 0.4mg x 1 given and patient immediately woke up and was agitated/angry head ct ordered, and 4mm calcified mengioma found monitor mental status, appears to be back to baseline patient with extensive psyche history, will ask for psyche for assessment of capacity to make medical decisions and re evaluate psyche meds since she had to be taken off seroquel and haldol for prolonged qtc Code(s): G93.41 - METABOLIC ENCEPHALOPATHY (2) Neutropenia Assessment/Plan: improving. Neutropenia in the settng of untreated HIV and AIDS, improving. no neupogen recommended by heme at this time. awaiting today's labs Code(s): D70.9 - NEUTROPENIA, UNSPECIFIED Qualifiers: Neutropenia type: due to infection Qualified Code(s): D70.3 - Neutropenia due to infection (3) Bipolar 1 disorder Assessment/Plan: on zyprexa and xanax. stopped seroqul for prolonged qtc. stopped haldol. psyche re consulted Code(s): F31.9 - BIPOLAR DISORDER, UNSPECIFIED (4) Fever Assessment/Plan: no fevers Code(s): R50.9 - FEVER, UNSPECIFIED (5) HIV (human immunodeficiency virus infection) Assessment/Plan: started on antiviral medications Code(s): B20 - HUMAN IMMUNODEFICIENCY VIRUS [HIV] DISEASE Qualifiers: HIV symptom status: symptomatic Qualified Code(s): B20 - Human immunodeficiency virus [HIV] disease (6) Paranoid schizophrenia Assessment/Plan: seen by psych, notes reviewed. per psych, continue remeron, continue seroquel, continue xanax and zyprexa, however stopped seroquel and haldol for qtc 550 on ekg 04/08, qtc now improved. Code(s): F20.0 - PARANOID SCHIZOPHRENIA (7) Substance use disorder Assessment/Plan: seen by addiction medicine, Code(s): F19.90 - OTHER PSYCHOACTIVE SUBSTANCE USE, UNSPECIFIED, UNCOMPLICATED (8) Skin lesions, generalized Assessment/Plan: skin lesions on bilateral lower extremities and open lesions on her buttocks. maintain clean and dry and open to air. allevyn to back to protect bony prominences and avoid lesions to get worse Code(s): L98.9 - DISORDER OF THE SKIN AND SUBCUTANEOUS TISSUE, UNSPECIFIED (9) Vision loss, right eye Assessment/Plan: supportive care Code(s): H54.61 - UNQUALIFIED VISUAL LOSS, RIGHT EYE, NORMAL VISION LEFT EYE (10) Heroin abuse Assessment/Plan: patient likely consumed heroin during her inpatient stay. she was lethargic and minimally responsive. she responded to narcan and was more alert after narcan administered. Code(s): F11.10 - OPIOID ABUSE, UNCOMPLICATED (11) Weakness Assessment/Plan: LE weakness. Start physical therapy for rehab placement Code(s): R53.1 - WEAKNESS (12) Prolonged Q-T interval on ECG Assessment/Plan: patient noted to have prolonged qtc on ekg. stoped seroquel and haldol and monitor. psyche re consulted to help with psyche medications that do not cause qtc prologation. will continue xanax and zyprexa for agitation monitor QTC on airport screener Code(s): R94.31 - ABNORMAL ELECTROCARDIOGRAM [ECG] [EKG] (13) AIDS Assessment/Plan: patient started on antivirals per ID. patient to follow up with the [facility] CD4 count unable to be measured per ID Code(s): B20 - HUMAN IMMUNODEFICIENCY VIRUS [HIV] DISEASE (14) Elevated liver enzymes Assessment/Plan: continue to trend. tylenol d/c for elevated enzymes. Code(s): R74.8 - ABNORMAL LEVELS OF OTHER SERUM ENZYMES (15) DVT prophylaxis Assessment/Plan: patient on eliquis 5 bid for hx of PE Code(s): Z29.9 - ENCOUNTER FOR PROPHYLACTIC MEASURES, UNSPECIFIED Visit type - Emergency Visit Emergency Visit: Yes ED Registration Date: 04/02/20 Care time: The patient presented to the Emergency Department on the above date and was hospitalized for further evaluation of their emergent condition. - New Patient This patient is new to me today: No - Critical Care Critical Care patient: No - Discharge Referral Referred to [facility] Med P.C.: No
[2020-04-12 11:39] LABS: ALBUMIN 2.5 g/dl (3.4-5.0); BILIRUBIN,TOTAL 0.3 mg/dL (0.2-1); BLOOD UREA NITROGEN 24.5 mg/dL (7-18); CALCIUM 9.5 mg/dL (8.5-10.1); CREATININE 1.1 mg/dL (0.55-1.3); MAGNESIUM 1.8 mg/dL (1.8-2.4); POTASSIUM 4.3 mmol/L (3.5-5.1); TOT PROT 9.5 g/dl (6.4-8.2)
--- NOTE | 2020-04-12 12:08 | PN ---
Mental Health Exam - Mental Status Exam Alert and Oriented to: Time, Place, Person Cognitive Function: Grossly Intact Mood: Apathetic, Depressed, Fearful, Withdrawn, Apprehensive Affect: Constricted, Labile Patient Behavior: Dependent, Fatigued, Belligerent, Cooperative Speech Pattern: Delayed, Aphasic Voice Loudness: Mildly Soft/Quiet Thought Process: Tangential, Flight of Ideas, Disorganized Thought Disorder: Present Hallucinations: Visual ("i see visions of people". ) Suicidal Ideation: Denies, Past (client stated she has hurt self by severe opoid Addiction.) Homicidal Ideation: None Insight/Judgement: Fair Sleep: Fair Appetite: Fair (Request "strawberry flovour Boost".) Muscle strength/Tone: Mild Hypotonicity Gait/Station: Deferred Additional Comments: This is a 44 yofemale with Hiv status, Bipolar and Schizo affective history. Denies previous psychiatric hospitalizations. Client was admitted after heroin Overdose that responded to [facility]. Met client in room, is soft voice, brownish substance in mouth. She is blind in right eye, but able to focus on inspector automatic typewriter in conversation. Client has a substantial Opoid use> 13 years. Client attended multiple rehab, including [place] care. " idont want to go back there". Her chif complaint is inability to "sleep". She complains of multiple loss in her friendship [place] and her family. She is afraid of her own , feels that she has visions of her and others who are no longer living. Stated that her pentocosal genesis is helpful. She gets uspet easily, irritable and labile also. Her current meds are melatonin 5mg, po prn for insomnia. Remeron 15mg at night. Qszdy0cm po q 4hr for anxiety. Olanzapine 5mg at am. Dx Bipolar disorder with psychotic symptoms. Opoid use disorder. plan. Stop am olanzapine 5mg. Start Olanzapine 7.5mg at night.
[2020-04-12 14:08] LABS: ANISOCYTOSIS 1+; MACROCYTOSIS 0; OVALOCYTE 1+; PLATELET ESTIMATE NORMAL; TEAR DROP CELLS 1+
[2020-04-12] MEDS ORDERED: ACETAMINOPHEN 325 MG TABLET (FP) PO ONE ×2 (15:28→23:03)
[2020-04-12] MEDS: MIRTAZAPINE 15 MG TABLET (FP) PO SCH (21:39)
[2020-04-12] MEDS: MELATONIN 5 MG TABLETS PO PRN (21:40)
[2020-04-13] MEDS ORDERED: OLANZapine 7.5 MG TABLET PO ONE
--- NOTE | 2020-04-13 06:41 | PN ---
Progress Note (short form) - Note Progress Note: Chief Complaint: Events noted, notes reviewed, resting in bed, no complaint offered History of Present Illness: Seen and examined on telemetry. Events noted, notes reviewed, resting in bed, no complaint offered - Current Medication List Current Medications: Current Medications Generic Name Dose Route Start Last Admin Trade Name Freq PRN Reason Stop Dose Admin Alprazolam 1 mg 04/12/20 09:55 04/12/20 21:39 Xanax PO 1 mg Q4H PRN Administration ANXIETY Apixaban 5 mg 04/11/20 22:00 04/12/20 21:39 Eliquis - PO 5 mg BID JEZ Administration Atovaquone 1,500 mg 04/12/20 08:00 04/12/20 10:24 Mepron - PO 1,500 mg DAILY@0800 JEZ Administration Melatonin 5 mg 04/11/20 19:27 04/12/20 21:40 Melatonin PO 5 mg HS PRN Administration INSOMNIA Mirtazapine 15 mg 04/11/20 22:00 04/12/20 21:39 Remeron - PO 15 mg HS JEZ Administration Olanzapine 5 mg 04/12/20 10:00 04/12/20 10:25 Zyprexa - PO 5 mg DAILY JEZ Administration Olanzapine 2.5 mg/ Olanzapine 7.5 mg 04/13/20 22:00 5 mg PO HS JEZ Valacyclovir HCl 1,000 mg 04/11/20 22:00 04/12/20 21:39 Valtrex - PO 1,000 mg BID JEZ Administration Review of Systems - Review of Systems Constitutional: denies: Chills, Fever Cardiovascular: As noted above Respiratory: denies: Cough or sputum production Gastrointestinal: denies: Abdominal Pain, Constipation, Diarrhea, Melena, Nausea, Rectal Bleeding, Vomiting Musculoskeletal: No symptoms reported Neurological: No symptoms reported - Objective Vital Signs: Last Vital Signs Temp Pulse Resp BP Pulse Ox 98.1 F 107 H 18 92/59 L 100 04/13/20 05:38 04/13/20 05:38 04/13/20 05:38 04/13/20 05:38 04/12/20 20:58 Intake & Output 04/10/20 04/11/20 04/12/20 04/13/20 23:59 23:59 23:59 23:59 Intake Total 7180 680 6955 360 Balance 7983 934 8742 360 Neck: Supple Negative JVD Cardiovascular: S1 S2 Regular Rate and Rhythm Respiratory: Clear to A&P Bilaterally Gastrointestinal: Soft Benign Normal Bowel Sounds Ext: No Edema Labs: CBC, BMP 04/13/20 08:40 04/13/20 08:40 CBC, BMP 04/12/20 10:40 04/12/20 10:40 Hepatic Panel Total Bilirubin 0.3 mg/dL (0.2-1) 04/12/20 10:40 AST 100 U/L (15-37) H 04/12/20 10:40 ALT 64 U/L (13-61) H 04/12/20 10:40 Alkaline Phosphatase 190 U/L (45-117) H 04/12/20 10:40 Albumin 2.5 g/dl (3.4-5.0) L 04/12/20 10:40 INR, PTT INR 1.18 (0.83-1.09) H 04/02/20 05:00 Assessment/Plan ASSESSMENT: 1. Acute metabolic encephalopathy due to opiates reversed with Narcan, clinically resolved 2. Prolonged QT - suspected medication effects- Clinically improved/resolved 3. Sinus tachycardia- Clinically persistent 4. HIV/AIDS (advanced) 5. Neutropenia/anemia PLAN: 1. As outlined in the prior notes avoidance of QTC prolonging agents 2. Continue Eliquis therapy as per the primary team 3. Discharge as per the primary team Taran Levi MD
--- NOTE | 2020-04-13 07:59 | PN ---
Progress Note, Physician History of Present Illness: Patient is a 44 year old female with a history of HIV, PE (not on AC), bipolar, schizophrenia, and heroin abuse who was admitted to the ED on 04/02/2020 for neutropenic fever. She was seen by oracle database analyst and no neupogen recommended at this time. On 04/08/2020 patient unresponsive to verbal and tactile stimuli, only responsive to sternal rub and responded to narcan. After narcan, mentation back to her baseline. Transferred to [facility] for closer monitor and for prolonged qtc of 550 on ekg 04/08. Now QTC 467 after stopping seroquel and haldol. - Current Medication List Current Medications: Active Medications Alprazolam (Xanax) 1 mg PO Q4H PRN PRN Reason: ANXIETY Last Admin: 04/12/20 21:39 Dose: 1 mg Documented by: Apixaban (Eliquis -) 5 mg PO BID [facility] Last Admin: 04/12/20 21:39 Dose: 5 mg Documented by: Atovaquone (Mepron -) 1,500 mg PO DAILY@0800 [facility] Last Admin: 04/12/20 10:24 Dose: 1,500 mg Documented by: Melatonin (Melatonin) 5 mg PO HS PRN PRN Reason: INSOMNIA Last Admin: 04/12/20 21:40 Dose: 5 mg Documented by: Mirtazapine (Remeron -) 15 mg PO HS [facility] Last Admin: 04/12/20 21:39 Dose: 15 mg Documented by: Olanzapine (Zyprexa -) 5 mg PO DAILY [facility] Last Admin: 04/12/20 10:25 Dose: 5 mg Documented by: Olanzapine 2.5 mg/ Olanzapine (5 mg) 7.5 mg PO [facility] Valacyclovir HCl (Valtrex -) 1,000 mg PO BID [facility] Last Admin: 04/12/20 21:39 Dose: 1,000 mg Documented by: - Objective Vital Signs: Vital Signs Temperature 98.1 F 04/13/20 05:38 Pulse Rate 107 H 04/13/20 05:38 Respiratory Rate 18 04/13/20 05:38 Blood Pressure 92/59 L 04/13/20 05:38 O2 Sat by Pulse Oximetry (%) 100 04/12/20 20:58 Labs: CBC, BMP 04/12/20 10:40 04/12/20 10:40 INR, PTT INR 1.18 (0.83-1.09) H 04/02/20 05:00 Problem List - Problems (1) Prophylactic measure Code(s): Z29.9 - ENCOUNTER FOR PROPHYLACTIC MEASURES, UNSPECIFIED (2) COVID-19 ruled out Code(s): Z03.818 - ENCNTR FOR OBS FOR SUSP EXPSR TO OTH BIOLG AGENTS RULED OUT (3) Schizoaffective disorder, bipolar type Code(s): F25.0 - SCHIZOAFFECTIVE DISORDER, BIPOLAR TYPE (4) Acute metabolic encephalopathy Code(s): G93.41 - METABOLIC ENCEPHALOPATHY (5) HIV (human immunodeficiency virus infection) Code(s): B20 - HUMAN IMMUNODEFICIENCY VIRUS [HIV] DISEASE Qualifiers: HIV symptom status: symptomatic Qualified Code(s): B20 - Human immunodeficiency virus [HIV] disease (6) Heroin abuse Code(s): F11.10 - OPIOID ABUSE, UNCOMPLICATED (7) Prolonged Q-T interval on ECG Code(s): R94.31 - ABNORMAL ELECTROCARDIOGRAM [ECG] [EKG] (8) Sinus tachycardia Code(s): R00.0 - TACHYCARDIA, UNSPECIFIED (9) History of pulmonary embolism Code(s): Z86.711 - PERSONAL HISTORY OF PULMONARY EMBOLISM (10) Neutropenic fever Code(s): D70.9 - NEUTROPENIA, UNSPECIFIED; R50.81 - FEVER PRESENTING WITH CONDITIONS CLASSIFIED ELSEWHERE (11) AIDS Code(s): B20 - HUMAN IMMUNODEFICIENCY VIRUS [HIV] DISEASE (12) Elevated liver enzymes Code(s): R74.8 - ABNORMAL LEVELS OF OTHER SERUM ENZYMES (13) Weakness Code(s): R53.1 - WEAKNESS (14) Skin lesions, generalized Code(s): L98.9 - DISORDER OF THE SKIN AND SUBCUTANEOUS TISSUE, UNSPECIFIED (15) Vision loss, right eye Code(s): H54.61 - UNQUALIFIED VISUAL LOSS, RIGHT EYE, NORMAL VISION LEFT EYE
[2020-04-13 09:19] LABS: BASO % 0.7 % (0-2.0); EOS % 2.5 % (0-4.5); HEMOGLOBIN 8.4 GM/dL (10.7-15.3); LYMPH % 16.9 % (8-40); MCH 29.9 pg (25.7-33.7); MCHC 32.2 g/dl (32.0-36.0); MEAN CELL VOLUME 92.7 fl (80-96); MEAN PLT VOLUME 7.5 fl (7.5-11.1); MONO % 16.8 % (3.8-10.2); NEUT % 63.1 % (42.8-82.8); PLATELET COUNT 388 K/MM3 (134-434); RDW 14.7 % (11.6-15.6); WHITE BLOOD COUNT 2.6 K/mm3 (4.0-10.0)
[2020-04-13] MEDS: APIXABAN 5 MG TABLET PO SCH ×2 (09:53→21:11)
[2020-04-13] MEDS: DOLUTEGRAVIR SODIUM 50 MG TABLET (NON-FORMULARY) PO SCH (09:53)
[2020-04-13] MEDS: ATOVAQUONE 750 MG/5 ML (UNIT-DOSE PACKAGING) PO SCH (09:53)
[2020-04-13 09:54] LABS: ALBUMIN 2.6 g/dl (3.4-5.0); BILIRUBIN,TOTAL 0.4 mg/dL (0.2-1); BLOOD UREA NITROGEN 22.1 mg/dL (7-18); CREATININE 1.1 mg/dL (0.55-1.3); MAGNESIUM 2.1 mg/dL (1.8-2.4); POTASSIUM 3.9 mmol/L (3.5-5.1); TOT PROT 9.6 g/dl (6.4-8.2)
[2020-04-13] MEDS: EMTRICITABINE/TENOFOV ALAFENAM (DESCOVY) TABLET PO SCH (09:54)
[2020-04-13] MEDS: valACYclovir HCL 500 MG TABLET (FP) PO SCH ×2 (09:54→21:11)
[2020-04-13] MEDS: OLANZapine 5 MG TABLET PO SCH (10:10)
[2020-04-13 10:32] LABS: ANISOCYTOSIS 1+; MACROCYTOSIS 1+; PLATELET ESTIMATE NORMAL
--- NOTE | 2020-04-13 12:25 | DS ---
Physical Exam: SUBJECTIVE: Patient seen and examined OBJECTIVE: Vital Signs Period Temp Pulse Resp BP Sys/Bhat Pulse Ox Last 24 Hr 97.8 F-98.1 F 107-121 16-20 92-149/59-78 99-100 PHYSICAL EXAM GENERAL: patient is awake and alert, in no acute distress HEAD: Normal with no signs of trauma. EYES: PERRL, extraocular movements intact, sclera anicteric, conjunctiva clear. No ptosis. ENT: Ears normal, nares patent, oropharynx clear without exudates NECK: Trachea midline, full range of motion, supple. LUNGS: Breath sounds equal, clear to auscultation bilaterally, no wheezes HEART: sinus tachycardia 120 ABDOMEN: Soft, nontender, nondistended, normoactive bowel sounds EXTREMITIES: trace edema bilaterally NEUROLOGICAL:Normal speech, gait not observed. PSYCH: restless/agitated at times SKIN: bilateral lower ext with dried ulcerations, closed. buttocks with small round scattered open lesions (apx 2 - both measures ~0.5cm x 0.5cm) LABS Laboratory Results - last 24 hr 04/12/20 04/13/20 04/13/20 10:40 08:40 08:40 WBC 2.6 L RBC 2.80 L Hgb 8.4 L Hct 26.0 L MCV 92.7 MCH 29.9 MCHC 32.2 RDW 14.7 Plt Count 388 MPV 7.5 Absolute Neuts (auto) 1.6 Neutrophils % 63.1 Neutrophils % (Manual) 46.5 54.0 Band Neutrophils % 5.0 0.0 Lymphocytes % 16.9 D Lymphocytes % (Manual) 31.7 D 20.0 D Monocytes % 16.8 H Monocytes % (Manual) 5 19 H D Eosinophils % 2.5 Eosinophils % (Manual) 3.0 D 3.0 Basophils % 0.7 Basophils % (Manual) 0.0 0.0 Myelocytes % (Man) 0 D 0 Promyelocytes % (Man) 0 0 Blast Cells % (Manual) 0 0 Nucleated RBC % 2 H 0 Metamyelocytes 1 D 0 D Hypochromia 0 0 Platelet Estimate Normal Normal Platelet Comment Present Polychromasia 1+ 1+ Poikilocytosis 1+ 1+ Anisocytosis 1+ 1+ Microcytosis 1+ 1+ Macrocytosis 0 1+ Spherocytes 1+ Tear Drop Cells 1+ Ovalocytes 1+ Sodium 141 Potassium 3.9 Chloride 106 Carbon Dioxide 30 Anion Gap 5 L BUN 22.1 H Creatinine 1.1 Est GFR (CKD-EPI)AfAm 69.73 Est GFR (CKD-EPI)NonAf 60.16 Random Glucose 101 Calcium 10.0 Magnesium 2.1 Total Bilirubin 0.4 AST 71 H ALT 65 H Alkaline Phosphatase 191 H Total Protein 9.6 H Albumin 2.6 L HOSPITAL COURSE: Date of Admission:04/02/20 Date of Discharge: 04/13/20 Problem List - Problems (1) Acute metabolic encephalopathy Assessment/Plan: resolved restated on home zyprexa Code(s): G93.41 - METABOLIC ENCEPHALOPATHY (2) Neutropenia Assessment/Plan: improved Neutropenia in the settng of untreated HIV and AIDS, improving. no neupogen recommended by heme at this time. awaiting today's labs Code(s): D70.9 - NEUTROPENIA, UNSPECIFIED Qualifiers: Neutropenia type: due to infection Qualified Code(s): D70.3 - Neutropenia due to infection (3) Bipolar 1 disorder Assessment/Plan: c/t on zyprexa and xanax. stopped seroqul for prolonged qtc. stopped haldol. psyche re consulted Code(s): F31.9 - BIPOLAR DISORDER, UNSPECIFIED (4) Fever Assessment/Plan: no fevers Code(s): R50.9 - FEVER, UNSPECIFIED (5) HIV (human immunodeficiency virus infection) Assessment/Plan: c/w antiviral medications Code(s): B20 - HUMAN IMMUNODEFICIENCY VIRUS [HIV] DISEASE Qualifiers: HIV symptom status: symptomatic Qualified Code(s): B20 - Human immunodeficiency virus [HIV] disease (6) Paranoid schizophrenia Assessment/Plan: seen by psych, notes reviewed. per psych, continue remeron, continue seroquel, continue xanax and zyprexa, however stopped seroquel and haldol for qtc 550 on ekg 04/08, qtc now improved. Code(s): F20.0 - PARANOID SCHIZOPHRENIA (7) Substance use disorder Assessment/Plan: seen by addiction medicine, Code(s): F19.90 - OTHER PSYCHOACTIVE SUBSTANCE USE, UNSPECIFIED, UNCOMPLICATED (8) Skin lesions, generalized Assessment/Plan: skin lesions on bilateral lower extremities and open lesions on her buttocks. maintain clean and dry and open to air. allevyn to back to protect bony prominences and avoid lesions to get worse Code(s): L98.9 - DISORDER OF THE SKIN AND SUBCUTANEOUS TISSUE, UNSPECIFIED (9) Vision loss, right eye Assessment/Plan: supportive care Code(s): H54.61 - UNQUALIFIED VISUAL LOSS, RIGHT EYE, NORMAL VISION LEFT EYE (10) Heroin abuse Assessment/Plan: patient likely consumed heroin during her inpatient stay. she was lethargic and minimally responsive. she responded to narcan and was more alert after narcan administered. Code(s): F11.10 - OPIOID ABUSE, UNCOMPLICATED (11) Weakness Assessment/Plan: LE weakness. Start physical therapy approved for rehab-pending bed availability Code(s): R53.1 - WEAKNESS (12) Prolonged Q-T interval on ECG Assessment/Plan: patient noted to have prolonged qtc on ekg. stoped seroquel and haldol and monitor. psyche re consulted to help with psyche medications that do not cause qtc prologation. will continue xanax and zyprexa for agitation monitor QTC on cardiac rehab nurse Code(s): R94.31 - ABNORMAL ELECTROCARDIOGRAM [ECG] [EKG] (13) AIDS Assessment/Plan: patient started on antivirals per ID. patient to follow up with the [facility] CD4 count unable to be measured per ID Code(s): B20 - HUMAN IMMUNODEFICIENCY VIRUS [HIV] DISEASE (14) Elevated liver enzymes Assessment/Plan: continue to trend. tylenol d/c for elevated enzymes. Code(s): R74.8 - ABNORMAL LEVELS OF OTHER SERUM ENZYMES (15) DVT prophylaxis Assessment/Plan: patient on eliquis 5 bid for hx of PE Code(s): Z29.9 - ENCOUNTER FOR PROPHYLACTIC MEASURES, UNSPECIFIED Minutes to complete discharge: 40 Discharge Summary Problems reviewed: Yes Reason For Visit: HIV INFECTION,FEBRILE NEUTROPENIA Current Active Problems AIDS (Acute) Acute metabolic encephalopathy (Acute) Anemia (Acute) Bipolar 1 disorder (Acute) COVID-19 (Acute) COVID-19 ruled out (Acute) DVT prophylaxis (Acute) Elevated liver enzymes (Acute) Fever (Acute) HIV (human immunodeficiency virus infection) (Acute) Heroin abuse (Acute) History of pulmonary embolism (Acute) Neutropenia (Acute) Neutropenic fever (Acute) Paranoid schizophrenia (Acute) Prolonged Q-T interval on ECG (Acute) Prophylactic measure (Acute) Schizoaffective disorder, bipolar type (Acute) Sinus tachycardia (Acute) Substance use disorder (Acute) Weakness (Acute) Skin lesions, generalized (Chronic) Condition: Improved - Instructions Diet, Activity, Other Instructions: DISCHARGE YOUR VISIT You came to the hospital because MEDICATIONS Please continue to take your home medications as prescribed. There was XXXXX changes DIET Continue your home diet ADDITIONAL CARE Please make an appointment to see your primary care provider, [phone] 1 week from today. ADDITIONAL INFORMATION Please call 911 or come directly to the emergency department if you experience unusual headache, vision change, shortness of breath, chest pain, numbness, tingling, loss of alertness/awareness, loss of function, unusual bleeding or any alarming symptoms. Thank you for allowing me to care for you. Jame Luo, [facility], [facility] [phone] Disposition: [facility] - Home Medications Comprehensive Discharge Medication List: Ambulatory Orders Apixaban [Eliquis] 2.5 mg PO DAILY 04/02/20 Mirtazapine [Remeron -] 15 mg PO DAILY 04/02/20 Valacyclovir HCl [Valtrex] 1,000 mg PO BID 04/06/20 Acetaminophen [Tylenol .Regular Strength -] 650 mg PO Q4H PRN tablet 04/13/20 Amino Acids/Protein Hydrolys [Prosource No Carb Liquid Pkt] 30 ml PO BID@0800,1730 packet 04/13/20 Apixaban [Eliquis -] 5 mg PO BID tablet 04/13/20 Atovaquone [Mepron Oral Solution -] 1,500 mg PO DAILY@0800 ud 04/13/20 Docusate Sodium [Colace -] 300 mg PO HS capsule 04/13/20 Dolutegravir Sodium [Tivicay] 50 mg PO DAILY tablet 04/13/20 Emtricitabine/Tenofov Alafenam [Descovy 200-25 mg Tablet (Nf)] 1 each PO DAILY tablet 04/13/20 Melatonin 5 mg PO HS PRN tab 04/13/20 Mirtazapine [Remeron -] 15 mg PO HS tablet 04/13/20 Olanzapine [Zyprexa -] 7.5 mg PO HS tablet 04/13/20 Polyethylene Glycol 3350 [Miralax 119 gm Btl -] 17 gm PO DAILY bottle 04/13/20 Valacyclovir HCl [Valtrex -] 1,000 mg PO BID tablet 04/13/20 Prescription Drug Monitoring Program (I-STOP) results: I-STOP reviewed and issues identified Problem List - Problems (1) Prophylactic measure Code(s): Z29.9 - ENCOUNTER FOR PROPHYLACTIC MEASURES, UNSPECIFIED (2) COVID-19 ruled out Code(s): Z03.818 - ENCNTR FOR OBS FOR SUSP EXPSR TO OTH BIOLG AGENTS RULED OUT (3) Schizoaffective disorder, bipolar type Code(s): F25.0 - SCHIZOAFFECTIVE DISORDER, BIPOLAR TYPE (4) Acute metabolic encephalopathy Code(s): G93.41 - METABOLIC ENCEPHALOPATHY (5) HIV (human immunodeficiency virus infection) Code(s): B20 - HUMAN IMMUNODEFICIENCY VIRUS [HIV] DISEASE Qualifiers: HIV symptom status: symptomatic Qualified Code(s): B20 - Human immunodeficiency virus [HIV] disease (6) Heroin abuse Code(s): F11.10 - OPIOID ABUSE, UNCOMPLICATED (7) Prolonged Q-T interval on ECG Code(s): R94.31 - ABNORMAL ELECTROCARDIOGRAM [ECG] [EKG] (8) Sinus tachycardia Code(s): R00.0 - TACHYCARDIA, UNSPECIFIED (9) History of pulmonary embolism Code(s): Z86.711 - PERSONAL HISTORY OF PULMONARY EMBOLISM (10) Neutropenic fever Code(s): D70.9 - NEUTROPENIA, UNSPECIFIED; R50.81 - FEVER PRESENTING WITH CONDITIONS CLASSIFIED ELSEWHERE (11) AIDS Code(s): B20 - HUMAN IMMUNODEFICIENCY VIRUS [HIV] DISEASE (12) Elevated liver enzymes Code(s): R74.8 - ABNORMAL LEVELS OF OTHER SERUM ENZYMES (13) Weakness Code(s): R53.1 - WEAKNESS (14) Skin lesions, generalized Code(s): L98.9 - DISORDER OF THE SKIN AND SUBCUTANEOUS TISSUE, UNSPECIFIED (15) Vision loss, right eye Code(s): H54.61 - UNQUALIFIED VISUAL LOSS, RIGHT EYE, NORMAL VISION LEFT EYE This patient is new to me today: Yes Date on this admission: 04/13/20 Emergency Visit: Yes ED Registration Date: 04/02/20 Care time: The patient presented to the Emergency Department on the above date and was hospitalized for further evaluation of their emergent condition. Critical Care patient: No - Discharge Referral Referred to [facility] Med P.C.: No
--- NOTE | 2020-04-13 12:27 | EKG ---
Test Reason : Blood Pressure : / mmHG Vent. Rate : 125 BPM Atrial Rate : 125 BPM P-R Int : 138 ms QRS Dur : 068 ms QT Int : 322 ms P-R-T Axes : 074 053 066 degrees QTc Int : 464 ms SINUS TACHYCARDIA OTHERWISE NORMAL ECG NO PREVIOUS ECGS AVAILABLE Confirmed by Adam Watkins ([id number]) on 04/13/2020 12:26:37 PM Referred By: Confirmed By:Adam Watkins
[2020-04-13] MEDS: POLYETHYLENE GLYCOL 3350 119 GM BTL PO SCH ×2 (12:28→12:33)
[2020-04-13] MEDS: ALPRAZolam 1 MG TABLET PO PRN ×2 (13:04→21:17)
[2020-04-13] MEDS ORDERED: ACETAMINOPHEN 325 MG TABLET (FP) PO PRN (13:12)
[2020-04-13] MEDS: AMINO ACIDS/PROTEIN HYDROLYS 30 ML LIQUID.PKT PO SCH (17:05)
[2020-04-13] MEDS: MIRTAZAPINE 15 MG TABLET (FP) PO SCH (21:11)
[2020-04-13] MEDS ORDERED: PT OWN MED DRAWER 7, Y5N ONE (21:15)
[2020-04-13] MEDS ORDERED: OLANZapine 7.5 MG TABLET PO SCH (22:00)
[2020-04-13] MEDS ORDERED: DOCUSATE SODIUM 100 MG CAPSULE (FP) PO SCH (22:00)
[2020-04-13] MEDS ORDERED: OLANZAPINE 2.5 MG, OLANZAPINE 5 MG PO SCH (22:00)
[2020-04-13] MEDS ORDERED: MELATONIN 5 MG TABLETS PO ONE (22:39)
[2020-04-14 07:43] LABS: EOS % 2.2 % (0-4.5); HEMATOCRIT 24.8 % (32.4-45.2); HEMOGLOBIN 8.1 GM/dL (10.7-15.3); LYMPH % 16.3 % (8-40); MCH 30.4 pg (25.7-33.7); MCHC 32.6 g/dl (32.0-36.0); MEAN PLT VOLUME 7.7 fl (7.5-11.1); MONO % 15.3 % (3.8-10.2); NEUT % 65.2 % (42.8-82.8); PLATELET COUNT 378 K/MM3 (134-434); RBC 2.66 M/mm3 (3.60-5.2); RDW 14.4 % (11.6-15.6); WHITE BLOOD COUNT 3.1 K/mm3 (4.0-10.0)
[2020-04-14 08:09] LABS: ALBUMIN 2.6 g/dl (3.4-5.0); BILIRUBIN,TOTAL 0.3 mg/dL (0.2-1); BLOOD UREA NITROGEN 25.1 mg/dL (7-18); MAGNESIUM 2.2 mg/dL (1.8-2.4); POTASSIUM 4.2 mmol/L (3.5-5.1)
[2020-04-14 08:10] LABS: TOT PROT 9.5 g/dl (6.4-8.2)
[2020-04-14] MEDS ORDERED: PT OWN MED DRAWER 7, Y5N ONE (09:06)
--- NOTE | 2020-04-14 09:27 | PN ---
Progress Note, Physician History of Present Illness: Sensorium improved, interactive, afebrile, no complaints. - Current Medication List Current Medications: Active Medications Acetaminophen (Tylenol -) 650 mg PO Q6H PRN PRN Reason: Fever Or Pain Last Admin: 04/13/20 14:00 Dose: 650 mg Documented by: Alprazolam (Xanax) 1 mg PO Q4H PRN PRN Reason: ANXIETY Last Admin: 04/13/20 21:17 Dose: 1 mg Documented by: Amino Acids (Prosource No Carb Liquid Pkt) 30 ml PO BID@0800,1730 [facility] Last Admin: 04/13/20 17:05 Dose: 30 ml Documented by: Apixaban (Eliquis -) 5 mg PO BID [facility] Last Admin: 04/13/20 21:11 Dose: 5 mg Documented by: Atovaquone (Mepron -) 1,500 mg PO DAILY@0800 [facility] Last Admin: 04/13/20 09:53 Dose: 1,500 mg Documented by: Docusate Sodium (Colace -) 300 mg PO HS [facility] Last Admin: 04/13/20 21:10 Dose: 300 mg Documented by: Melatonin (Melatonin) 5 mg PO HS PRN PRN Reason: INSOMNIA Last Admin: 04/12/20 21:40 Dose: 5 mg Documented by: Mirtazapine (Remeron -) 15 mg PO HS [facility] Last Admin: 04/13/20 21:11 Dose: 15 mg Documented by: Olanzapine 2.5 mg/ Olanzapine (5 mg) 7.5 mg PO HS [facility] Last Admin: 04/13/20 21:16 Dose: 7.5 mg Documented by: Polyethylene Glycol (Miralax (For Daily Use) -) 17 gm PO DAILY [facility] Last Admin: 04/13/20 12:33 Dose: Not Given Documented by: Valacyclovir HCl (Valtrex -) 1,000 mg PO BID [facility] Last Admin: 04/13/20 21:11 Dose: 1,000 mg Documented by: - Objective Vital Signs: Vital Signs Temperature 98.1 F 04/14/20 06:00 Pulse Rate 116 H 04/14/20 06:00 Respiratory Rate 20 04/14/20 06:00 Blood Pressure 130/62 04/14/20 06:00 O2 Sat by Pulse Oximetry (%) 99 04/14/20 06:00 Constitutional: Yes: No Distress, Calm, Thin Neck: Yes: Supple Cardiovascular: Yes: Tachycardia Respiratory: Yes: Regular, CTA Bilaterally Gastrointestinal: Yes: Soft, Hypoactive Bowel Sounds Edema: No Labs: CBC, BMP 04/14/20 06:50 04/14/20 06:50 INR, PTT INR 1.18 (0.83-1.09) H 04/02/20 05:00 - ....Imaging EKG: Report Reviewed (Tele: ST @ 120's) Problem List - Problems (1) AIDS Code(s): B20 - HUMAN IMMUNODEFICIENCY VIRUS [HIV] DISEASE (2) Acute metabolic encephalopathy Code(s): G93.41 - METABOLIC ENCEPHALOPATHY (3) Bipolar 1 disorder Code(s): F31.9 - BIPOLAR DISORDER, UNSPECIFIED (4) DVT prophylaxis Code(s): Z29.9 - ENCOUNTER FOR PROPHYLACTIC MEASURES, UNSPECIFIED (5) Heroin abuse Code(s): F11.10 - OPIOID ABUSE, UNCOMPLICATED (6) Neutropenia Code(s): D70.9 - NEUTROPENIA, UNSPECIFIED Qualifiers: Neutropenia type: due to infection Qualified Code(s): D70.3 - Neutropenia due to infection (7) Paranoid schizophrenia Code(s): F20.0 - PARANOID SCHIZOPHRENIA (8) Prolonged Q-T interval on ECG Code(s): R94.31 - ABNORMAL ELECTROCARDIOGRAM [ECG] [EKG] (9) Sinus tachycardia Code(s): R00.0 - TACHYCARDIA, UNSPECIFIED Assessment/Plan ASSESSMENT: 1. Acute metabolic encephalopathy due to opiates reversed with Narcan, clinically resolved 2. Prolonged QT - suspected medication effects- Clinically improved/resolved 3. Sinus tachycardia- Clinically persistent 4. HIV/AIDS (advanced) 5. Neutropenia/anemia PLAN: 1. As outlined in the prior notes avoidance of QTC prolonging agents 2. Continue Eliquis 5 bid as per the primary team 3. Discharge as per the primary team
[2020-04-14] MEDS: AMINO ACIDS/PROTEIN HYDROLYS 30 ML LIQUID.PKT PO SCH ×2 (10:10→17:59)
[2020-04-14] MEDS: valACYclovir HCL 500 MG TABLET (FP) PO SCH (10:11)
[2020-04-14] MEDS: APIXABAN 5 MG TABLET PO SCH (10:11)
[2020-04-14] MEDS: DOLUTEGRAVIR SODIUM 50 MG TABLET (NON-FORMULARY) PO SCH (10:11)
[2020-04-14] MEDS: EMTRICITABINE/TENOFOV ALAFENAM (DESCOVY) TABLET PO SCH (10:12)
[2020-04-14] MEDS: POLYETHYLENE GLYCOL 3350 119 GM BTL PO SCH (10:12)
[2020-04-14] MEDS: ALPRAZolam 1 MG TABLET PO PRN ×2 (10:19→14:14)
[2020-04-14] MEDS: ATOVAQUONE 750 MG/5 ML (UNIT-DOSE PACKAGING) PO SCH (11:47)
--- NOTE | 2020-04-14 13:28 | PN ---
Progress Note, Physician History of Present Illness: Patient is a 44 year old female with a history of HIV, PE (not on AC), bipolar, schizophrenia, and heroin abuse who was admitted to the ED on 04/02/2020 for neutropenic fever. She was seen by furnace tapper and no neupogen recommended at this time. On 04/08/2020 patient unresponsive to verbal and tactile stimuli, only responsive to sternal rub and responded to narcan. After narcan, mentation back to her baseline. Transferred to [facility] for closer monitor and for prolonged qtc of 550 on ekg 04/08. Now QTC 467 after stopping seroquel and haldol. Now pending transfer to [facility] -- - Current Medication List Current Medications: Active Medications Acetaminophen (Tylenol -) 650 mg PO Q6H PRN PRN Reason: Fever Or Pain Last Admin: 04/13/20 14:00 Dose: 650 mg Documented by: Alprazolam (Xanax) 1 mg PO Q4H PRN PRN Reason: ANXIETY Last Admin: 04/14/20 10:19 Dose: 1 mg Documented by: Amino Acids (Prosource No Carb Liquid Pkt) 30 ml PO BID@0800,1730 [facility] Last Admin: 04/14/20 10:10 Dose: 30 ml Documented by: Apixaban (Eliquis -) 5 mg PO BID [facility] Last Admin: 04/14/20 10:11 Dose: 5 mg Documented by: Atovaquone (Mepron -) 1,500 mg PO DAILY@0800 [facility] Last Admin: 04/14/20 11:47 Dose: Not Given Documented by: Docusate Sodium (Colace -) 300 mg PO HS [facility] Last Admin: 04/13/20 21:10 Dose: 300 mg Documented by: Melatonin (Melatonin) 5 mg PO HS PRN PRN Reason: INSOMNIA Last Admin: 04/12/20 21:40 Dose: 5 mg Documented by: Mirtazapine (Remeron -) 15 mg PO HS [facility] Last Admin: 04/13/20 21:11 Dose: 15 mg Documented by: Olanzapine 2.5 mg/ Olanzapine (5 mg) 7.5 mg PO HS [facility] Last Admin: 04/13/20 21:16 Dose: 7.5 mg Documented by: Polyethylene Glycol (Miralax (For Daily Use) -) 17 gm PO DAILY [facility] Last Admin: 04/14/20 10:12 Dose: Not Given Documented by: Valacyclovir HCl (Valtrex -) 1,000 mg PO BID [facility] Last Admin: 04/14/20 10:11 Dose: 1,000 mg Documented by: - Objective Vital Signs: Vital Signs Temperature 98.3 F 04/14/20 09:36 Pulse Rate 123 H 04/14/20 09:36 Respiratory Rate 20 04/14/20 09:36 Blood Pressure 94/53 L 04/14/20 09:36 O2 Sat by Pulse Oximetry (%) 97 04/14/20 09:00 Additional Findings/Remarks: GENERAL: patient is awake and alert, in no acute distress HEAD: Normal with no signs of trauma. EYES: PERRL, extraocular movements intact, sclera anicteric, conjunctiva clear. No ptosis. ENT: Ears normal, nares patent, oropharynx clear without exudates NECK: Trachea midline, full range of motion, supple. LUNGS: Breath sounds equal, clear to auscultation bilaterally, no wheezes HEART: sinus tachycardia 120 ABDOMEN: Soft, nontender, nondistended, normoactive bowel sounds EXTREMITIES: trace edema bilaterally NEUROLOGICAL:Normal speech, gait not observed. PSYCH: restless/agitated at times SKIN: bilateral lower ext with dried ulcerations, closed. buttocks with small round scattered open lesions (apx 2 - both measures ~0.5cm x 0.5cm) Labs: CBC, BMP 04/14/20 06:50 04/14/20 06:50 INR, PTT INR 1.18 (0.83-1.09) H 04/02/20 05:00 Problem List - Problems (1) Prophylactic measure Assessment/Plan: FEN Fluids: adequate PO intake Electrolytes: monitor & replete as needed Nutrition: reg diet DVT moderate risk apixaban Dispo Maintain as inpatient full code discharge planning to [facility] Code(s): Z29.9 - ENCOUNTER FOR PROPHYLACTIC MEASURES, UNSPECIFIED (2) COVID-19 ruled out Assessment/Plan: negative pcr Code(s): Z03.818 - ENCNTR FOR OBS FOR SUSP EXPSR TO OTH BIOLG AGENTS RULED OUT (3) Schizoaffective disorder, bipolar type Assessment/Plan: c/t on zyprexa and xanax. stopped seroqul for prolonged qtc. stopped haldol. psyche re consulted c/w zyprexa 7.5 qhs Code(s): F25.0 - SCHIZOAFFECTIVE DISORDER, BIPOLAR TYPE (4) Acute metabolic encephalopathy Assessment/Plan: resolved restated on home zyprexa Code(s): G93.41 - METABOLIC ENCEPHALOPATHY (5) HIV (human immunodeficiency virus infection) Assessment/Plan: c/w antiviral medications Code(s): B20 - HUMAN IMMUNODEFICIENCY VIRUS [HIV] DISEASE Qualifiers: HIV symptom status: symptomatic Qualified Code(s): B20 - Human immunodeficiency virus [HIV] disease (6) Heroin abuse Assessment/Plan: patient likely consumed heroin during her inpatient stay. she was lethargic and minimally responsive. she responded to narcan and was more alert after narcan administered. Code(s): F11.10 - OPIOID ABUSE, UNCOMPLICATED (7) Prolonged Q-T interval on ECG Assessment/Plan: reolved Code(s): R94.31 - ABNORMAL ELECTROCARDIOGRAM [ECG] [EKG] (8) Sinus tachycardia Assessment/Plan: resolved Code(s): R00.0 - TACHYCARDIA, UNSPECIFIED (9) History of pulmonary embolism Assessment/Plan: c/w apixaban Code(s): Z86.711 - PERSONAL HISTORY OF PULMONARY EMBOLISM (10) Neutropenic fever Assessment/Plan: resolved Code(s): D70.9 - NEUTROPENIA, UNSPECIFIED; R50.81 - FEVER PRESENTING WITH CONDITIONS CLASSIFIED ELSEWHERE (11) AIDS Assessment/Plan: patient started on antivirals per ID. patient to follow up with the [facility] CD4 count unable to be measured per ID Code(s): B20 - HUMAN IMMUNODEFICIENCY VIRUS [HIV] DISEASE (12) Elevated liver enzymes Assessment/Plan: resolved continue to trend. tylenol d/c for elevated enzymes. Code(s): R74.8 - ABNORMAL LEVELS OF OTHER SERUM ENZYMES (13) Weakness Assessment/Plan: improving c/w PT pending bed at [facility] Code(s): R53.1 - WEAKNESS (14) Skin lesions, generalized Assessment/Plan: skin lesions on bilateral lower extremities and open lesions on her buttocks. maintain clean and dry and open to air. allevyn to back to protect bony prominences and avoid lesions to get worse Code(s): L98.9 - DISORDER OF THE SKIN AND SUBCUTANEOUS TISSUE, UNSPECIFIED (15) Vision loss, right eye Assessment/Plan: supportive care Code(s): H54.61 - UNQUALIFIED VISUAL LOSS, RIGHT EYE, NORMAL VISION LEFT EYE Visit type - Emergency Visit Emergency Visit: Yes ED Registration Date: 04/02/20 Care time: The patient presented to the Emergency Department on the above date and was hospitalized for further evaluation of their emergent condition. - New Patient This patient is new to me today: No - Critical Care Critical Care patient: No - Discharge Referral Referred to [facility] Med P.C.: No
[2020-04-14 14:34] LABS: PLATELET ESTIMATE NORMAL
[2020-04-14 15:13] VITALS: BP 111/74; PULSE 120; TEMP 97.9
== END 2020-04-14 19:09 | DRG 974 ==
LOC: JER 03:12 → JERBED 10:51 → J5S 04-03 01:50 → J4S 04-08 17:20 → J4W 04-12 17:37
PROVIDERS: ATTEND Nurse Practitioner Acute Care
DX: B20 Human immunodeficiency virus [HIV] disease (principal); G92 Toxic encephalopathy; B37.0 Candidal stomatitis; F20.0 Paranoid schizophrenia; E46 Unspecified protein-calorie malnutrition; F11.20 Opioid dependence, uncomplicated; D70.3 Neutropenia due to infection; R50.81 Fever presenting with conditions classified elsewhere; F31.9 Bipolar disorder, unspecified; Z86.711 Personal history of pulmonary embolism; D64.9 Anemia, unspecified; Z91.14 Patient's other noncompliance with medication regimen; R00.0 Tachycardia, unspecified; R94.31 Abnormal electrocardiogram [ECG] [EKG]; Z68.22 Body mass index [BMI] 22.0-22.9, adult; F17.210 Nicotine dependence, cigarettes, uncomplicated; F12.10 Cannabis abuse, uncomplicated; L98.9 Disorder of the skin and subcutaneous tissue, unspecified; H54.61 Unqualified visual loss, right eye, normal vision left eye; T40.2X1A Poisoning by other opioids, accidental (unintentional), initial encounter; R74.8 Abnormal levels of other serum enzymes; Z20.828 Contact with and (suspected) exposure to other viral communicable diseases
CPT/HCPCS: 36415; 70450-TC; 71045-TC-FY; 80048; 80053; 81003; 83605; 83615; 83735; 84100; 84484; 84703; 85025; 85610; 85730; 86359; 86360; 87040; 87086; 87116; 87536; 87899; 93005; 93010; 93306-TC; 93970-TC; 97116-GP; 97162-GP; 99285-25; G0480; J0131; U0003

== ENCOUNTER 2020-05-27 05:14 | Emergency (ER) | payer MEDICARE, OTHER ==
[2020-05-27 05:25] VITALS: TEMP 98.2; BMI 29.0
[2020-05-27 08:04] LABS: BASO % 1.2 % (0-2.0); EOS % 4.4 % (0-4.5); HEMATOCRIT 28.5 % (32.4-45.2); HEMOGLOBIN 9.6 GM/dL (10.7-15.3); LYMPH % 20.7 % (8-40); MCH 32.4 pg (25.7-33.7); MCHC 33.6 g/dl (32.0-36.0); MEAN CELL VOLUME 96.6 fl (80-96); MEAN PLT VOLUME 7.7 fl (7.5-11.1); MONO % 10.1 % (3.8-10.2); NEUT % 63.6 % (42.8-82.8); PLATELET COUNT 517 K/MM3 (134-434); RBC 2.95 M/mm3 (3.60-5.2); RDW 18.7 % (11.6-15.6); WHITE BLOOD COUNT 4.8 K/mm3 (4.0-10.0)
[2020-05-27 08:08] LABS: INR 1.18 (0.83-1.09); PROTHROMBIN TIME (PATIENT) 14.5 SEC (9.7-13.0)
[2020-05-27 08:11] LABS: ACTIVATED PTT 30.8 SECONDS (25.2-36.5)
[2020-05-27 08:31] LABS: POTASSIUM 5.4 mmol/L (3.5-5.1)
[2020-05-27 08:33] LABS: CALCIUM 9.5 mg/dL (8.5-10.1)
[2020-05-27 08:34] LABS: ALBUMIN 2.5 g/dl (3.4-5.0); BLOOD UREA NITROGEN 21.5 mg/dL (7-18)
[2020-05-27 08:37] LABS: CREATININE 1.3 mg/dL (0.55-1.3)
[2020-05-27 08:38] LABS: BILIRUBIN,TOTAL 0.9 mg/dL (0.2-1); TOT PROT 10.5 g/dl (6.4-8.2)
[2020-05-27 09:58] LABS: ANISOCYTOSIS 0; MACROCYTOSIS 0; PLATELET ESTIMATE INCREASED
[2020-05-27] MEDS ORDERED: ACETAMINOPHEN 325 MG TABLET (FP) PO ONE (11:47)
[2020-05-27] MEDS ORDERED: ACETAMINOPHEN 325 MG TABLET (FP) ONE (12:33)
[2020-05-27] MEDS ORDERED: OLANZapine 2.5 MG TABLET PO ONE (15:42)
[2020-05-27] MEDS ORDERED: MIRTAZAPINE 15 MG TABLET (FP) PO ONE (15:43)
[2020-05-27] MEDS ORDERED: MIRTAZAPINE 15 MG TABLET (FP) ONE (16:17)
[2020-05-27 16:43] LABS: EPI CELLS >36 /uL (0-25.1); HYALINE CASTS 0 /uL (0-3.1); PH,URINE 7.5 (5.0-8.0); URINE APPEARANCE CLOUDY; URINE BACTERIA 1877 /uL (0-1359); URINE BILIRUBIN NEGATIVE (NEGATIVE); URINE COLOR YELLOW; URINE GLUCOSE (UA) NEGATIVE (NEGATIVE); URINE KETONE NEGATIVE (NEGATIVE); URINE LEUK ESTERASE 1+ (NEGATIVE); URINE NITRITE NEGATIVE (NEGATIVE); URINE PROTEIN TRACE (NEGATIVE); URINE RBC 11 /uL (0-23.9); URINE WBC 168 /uL (0-25.8)
[2020-05-27 17:04] VITALS: BP 127/82; PULSE 84
[2020-05-28] MEDS ORDERED: MIRTAZAPINE 15 MG TABLET (FP) PO ONE (15:43)
== END 2020-05-27 17:05 | disposition home or self-care (01) ==
LOC: JER 05:14
DX: K76.89 Other specified diseases of liver (principal); R07.1 Chest pain on breathing; N30.00 Acute cystitis without hematuria
CPT/HCPCS: 36415; 71275-TC; 76705-TC; 80053; 81003; 84484; 85025; 85610; 85730; 93005; 93010; 99285-25; Q9967

== ENCOUNTER 2020-08-25 11:06 | Emergency (ER) | payer MEDICARE, OTHER ==
[2020-08-25 11:15] VITALS: TEMP 98; BMI 29.0
[2020-08-25 15:46] VITALS: BP 113/80; PULSE 86
== END 2020-08-25 15:44 | disposition home or self-care (01) ==
LOC: JER 11:06
PROC: 0H9CXZZ Drainage of Left Upper Arm Skin, External Approach (ICD-10-PCS; principal; 2020-08-25)
DX: L02.414 Cutaneous abscess of left upper limb (principal); Z21 Asymptomatic human immunodeficiency virus [HIV] infection status
CPT/HCPCS: 10060; 99283-25

== ENCOUNTER 2021-04-11 17:27 | Inpatient (IN) | payer MEDICARE, OTHER ==
[2021-04-11] MEDS ORDERED: SODIUM CHLORIDE 2,994 ML IV ONE (19:53)
[2021-04-11 20:35] LABS: HEMATOCRIT 20.9 % (32.4-45.2); HEMOGLOBIN 7.1 GM/dL (10.7-15.3); MCH 32.2 pg (25.7-33.7); MCHC 33.9 g/dl (32.0-36.0); MEAN CELL VOLUME 94.9 fl (80-96); MEAN PLT VOLUME 7.7 fl (7.5-11.1); PLATELET COUNT 371 10^3/uL (134-434); RBC 2.21 M/mm3 (3.60-5.2); RDW 14.3 % (11.6-15.6); WHITE BLOOD COUNT 4.6 K/mm3 (4.0-10.0)
[2021-04-11 20:41] LABS: INR 1.24 (0.83-1.09); PROTHROMBIN TIME (PATIENT) 15.3 SEC (9.7-13.0)
[2021-04-11 20:43] LABS: ACTIVATED PTT 31.7 SECONDS (25.2-36.5)
[2021-04-11 20:57] LABS: CHLORIDE 103 mmol/L (98-107); SODIUM 134 mmol/L (136-145)
[2021-04-11 20:59] LABS: CALCIUM 8.9 mg/dL (8.5-10.1)
[2021-04-11 21:00] LABS: ALBUMIN 1.6 g/dl (3.4-5.0); ANION GAP 12 MMOL/L (8-16); BLOOD UREA NITROGEN 48.8 mg/dL (7-18); CO2 18 mmol/L (21-32); GLUCOSE,RANDOM 112 mg/dL (74-106)
[2021-04-11 21:03] LABS: CREATININE 3.3 mg/dL (0.55-1.3); SGOT/AST 65 U/L (15-37); SGPT/ALT 24 U/L (13-61)
[2021-04-11 21:04] LABS: BILIRUBIN,TOTAL 0.8 mg/dL (0.2-1); TOT PROT 8.5 g/dl (6.4-8.2)
[2021-04-11 21:06] LABS: ALK PHOS 218 U/L (45-117); LACTIC ACID 2.3 mmol/L (0.4-2.0)
[2021-04-11] MEDS ORDERED: FLUCONAZOLE 200 MG/NS 100 ML IVPB ONE (21:12)
[2021-04-11 21:57] LABS: ANISOCYTOSIS 1+; MACROCYTOSIS 0; OVALOCYTE 1+; PLATELET ESTIMATE NORMAL; TARGET CELLS 1+
[2021-04-11] MEDS ORDERED: VANCOMYCIN 1 GM PREMIX - 1 GM/200 ML BAG IVPB ONE (22:04)
[2021-04-11] MEDS ORDERED: PIPERACILLIN/TAZOB 4.5 GM 4.5 GM in DEXTROSE 5%-WATER 100 ML IVPB ONE (22:04)
[2021-04-11] MEDS ORDERED: VANCOMYCIN 1 GRAM (PRE-DOCKED) 1,000 MG/250 ML BAG IVPB ONE (22:48)
[2021-04-11] MEDS ORDERED: PIPERACILLIN/TAZOB 4.5 GM 4.5 GM/100 ML BAG IVPB ONE (22:48)
[2021-04-11 23:43] LABS: EPI CELLS 11 /uL (0-25.1); HYALINE CASTS 4 /uL (0-3.1); PH,URINE 6.5 (5.0-8.0); URINE APPEARANCE CLEAR; URINE BILIRUBIN NEGATIVE (NEGATIVE); URINE COLOR YELLOW; URINE GLUCOSE (UA) NEGATIVE (NEGATIVE); URINE KETONE NEGATIVE (NEGATIVE); URINE LEUK ESTERASE 1+ (NEGATIVE); URINE NITRITE POSITIVE (NEGATIVE); URINE PROTEIN 3+ (NEGATIVE); URINE RBC 299 /uL (0-23.9); URINE WBC 267 /uL (0-25.8)
[2021-04-12] MEDS ORDERED: ACETAMINOPHEN INJECTION 100 ML IVPB ONE ×2 (01:21→11:21)
[2021-04-12] MEDS ORDERED: ACETAMINOPHEN 1000 MG/100 ML VIAL IVPB ONE ×2 (01:32→11:24)
[2021-04-12] MEDS ORDERED: dilTIAZem HCL 50 MG/10 ML - 10 ML VIAL IVPUSH ONE ×2 (01:44→20:14)
[2021-04-12] MEDS ORDERED: dilTIAZem HCL 125 MG/25 ML - 25 ML VIAL ONE ×2 (01:50→20:19)
[2021-04-12] MEDS ORDERED: ADENOSINE 6 MG/2 ML VIAL IVPUSH ONE (01:57)
[2021-04-12] MEDS: SODIUM CHLORIDE 1,000 ML IV SCH (02:11)
[2021-04-12] MEDS ORDERED: HALOPERIDOL LACTATE 5 MG/ML IM ONE ×2 (04:47→20:16)
[2021-04-12] MEDS ORDERED: HALOPERIDOL LACTATE 5 MG/ML ONE ×2 (04:57→20:18)
[2021-04-12] MEDS ORDERED: ACETAMINOPHEN 1000 MG/100 ML VIAL IVPB PRN ×2 (05:40→20:50)
[2021-04-12] MEDS ORDERED: FLUCONAZOLE 100 MG/NS 50 ML IVPB ONE (06:11)
[2021-04-12] MEDS ORDERED: valACYclovir HCL 500 MG TABLET (FP) PO ONE (06:14)
[2021-04-12 06:19] LABS: ALBUMIN 1.3 g/dl (3.4-5.0); CALCIUM 8.1 mg/dL (8.5-10.1)
[2021-04-12 06:20] LABS: MAGNESIUM 1.6 mg/dL (1.8-2.4)
[2021-04-12 06:22] LABS: CREATININE 3.1 mg/dL (0.55-1.3)
[2021-04-12 06:23] LABS: PHOSPHOROUS 3.5 mg/dL (2.5-4.9)
[2021-04-12 06:24] LABS: TOT PROT 7.1 g/dl (6.4-8.2)
[2021-04-12] MEDS ORDERED: valACYclovir HCL 500 MG TABLET (FP) ONE (06:34)
[2021-04-12 07:05] LABS: BASO % 0.2 % (0-2.0); EOS % 0.1 % (0-4.5); HEMATOCRIT 16.6 % (32.4-45.2); MCH 32.5 pg (25.7-33.7); MCHC 34.1 g/dl (32.0-36.0); MEAN CELL VOLUME 95.3 fl (80-96); MEAN PLT VOLUME 7.5 fl (7.5-11.1); MONO % 11.8 % (3.8-10.2); NEUT % 83.9 % (42.8-82.8); PLATELET COUNT 274 10^3/uL (134-434); RBC 1.74 M/mm3 (3.60-5.2); RDW 14.4 % (11.6-15.6); WHITE BLOOD COUNT 3.1 K/mm3 (4.0-10.0)
[2021-04-12 07:13] LABS: HEMOGLOBIN 5.7 GM/dL (10.7-15.3)
[2021-04-12 07:32] LABS: CREATININE 2.8 mg/dL (0.55-1.3)
[2021-04-12 07:40] LABS: BLOOD UREA NITROGEN 45.9 mg/dL (7-18); CALCIUM 7.5 mg/dL (8.5-10.1)
[2021-04-12] MEDS ORDERED: POTASSIUM CHLORIDE ORAL LIQUID 20 MEQ/15 ML PO ONE (08:15)
[2021-04-12] MEDS ORDERED: POTASSIUM CHLORIDE ORAL LIQUID 20 MEQ/15 ML ONE (08:26)
[2021-04-12 08:35] LABS: ANISOCYTOSIS 0; HELMET CELLS 0; HOWELL-JOLLY BODIES 0; MACROCYTOSIS 0; OVALOCYTE 0; PLATELET ESTIMATE NORMAL; ROULEAU 0; SICKELED CELLS 0; TARGET CELLS 0; TEAR DROP CELLS 0; TOXIC GRANULATION 0
[2021-04-12] MEDS ORDERED: PIPERACILLIN/TAZOB 2.25 GM 2.25 GM in DEXTROSE 5%-WATER - 50 ML IVPB SCH (09:00)
[2021-04-12] MEDS ORDERED: PIPERACILLIN/TAZOB 2.25 GM 2.25 GM/50 ML BAG IVPB ONE ×3 (09:43→22:18)
[2021-04-12] MEDS ORDERED: ALPRAZolam 1 MG TABLET ONE ×2 (09:43→18:58)
[2021-04-12] MEDS: ALPRAZolam 1 MG TABLET PO PRN ×2 (09:45→19:02)
[2021-04-12] MEDS: ATOVAQUONE 750 MG/5 ML (UNIT-DOSE PACKAGING) PO SCH (09:59)
[2021-04-12] MEDS ORDERED: CLINDAMYCIN 600MG PREMIX IVPB 600 MG/50 ML BAG IVPB SCH (10:00)
[2021-04-12] MEDS ORDERED: PIPERACILLIN/TAZOB 4.5 GM 4.5 GM in DEXTROSE 5%-WATER 100 ML IVPB SCH (10:00)
[2021-04-12] MEDS ORDERED: CLINDAMYCIN 600MG PREMIX IVPB 600 MG/50 ML BAG IVPB ONE (10:04)
[2021-04-12] MEDS ORDERED: METOPROLOL TARTRATE 5 MG/5 ML VIAL IVPUSH ONE (11:14)
[2021-04-12] MEDS ORDERED: ACETAMINOPHEN 325 MG TABLET (FP) PO ONE (11:14)
[2021-04-12] MEDS ORDERED: METOPROLOL TARTRATE 5 MG/5 ML VIAL ONE (11:21)
[2021-04-12] MEDS ORDERED: VANCOMYCIN 1 GRAM (PRE-DOCKED) 1,000 MG/250 ML BAG IVPB ONE ×2 (14:45→16:12)
[2021-04-12] MEDS: PIPERACILLIN/TAZOB 2.25 GM 2.25 GM in DEXTROSE 5%-WATER - 50 ML IVPB SCH ×2 (17:00→22:29)
[2021-04-12 20:11] LABS: HEMATOCRIT 25.8 % (32.4-45.2); HEMOGLOBIN 8.7 GM/dL (10.7-15.3); MCHC 33.7 g/dl (32.0-36.0); MEAN PLT VOLUME 7.8 fl (7.5-11.1); PLATELET COUNT 396 10^3/uL (134-434); RBC 2.71 M/mm3 (3.60-5.2); RDW 14.7 % (11.6-15.6); WHITE BLOOD COUNT 4.4 K/mm3 (4.0-10.0)
[2021-04-12] MEDS ORDERED: LORazepam 0.5 MG TABLET ONE (20:24)
[2021-04-12] MEDS ORDERED: LORazepam 0.5 MG TABLET PO ONE (20:26)
[2021-04-12] MEDS ORDERED: LORazepam 2 MG TABLET PO ONE (20:26)
[2021-04-12] MEDS ORDERED: LABETALOL HCL 5 MG/1 ML (100MG/20 ML VIAL) IVPUSH ONE (20:33)
[2021-04-12] MEDS ORDERED: MAGNESIUM SULF 50% (8.12 MEQ/2 ML-1 GM VIAL) IVPB ONE (20:38)
[2021-04-12] MEDS ORDERED: LABETALOL HCL 5 MG/1 ML (100MG/20 ML VIAL) IVPUSH PRN (20:42)
[2021-04-12] MEDS ORDERED: MAGNESIUM SULFATE IN WATER 2 GM/50 ML IVPB IVPB ONE (20:59)
[2021-04-12] MEDS ORDERED: OLANZapine 10 MG TABLET ONE (22:18)
[2021-04-12] MEDS ORDERED: PT OWN MED DRAWER 7, Y5N ONE (22:18)
[2021-04-12] MEDS: OLANZapine 5 MG TABLET PO SCH (22:29)
[2021-04-13] MEDS ORDERED: LABETALOL HCL 5 MG/1 ML (100MG/20 ML VIAL) IVPUSH PRN
[2021-04-13] MEDS ORDERED: dilTIAZem HCL 30 MG TABLET PO ONE (01:58)
[2021-04-13] MEDS ORDERED: PIPERACILLIN/TAZOBACTAM 2.25 GM VIAL IVPB ONE ×4 (02:02→20:48)
[2021-04-13] MEDS ORDERED: DEXTROSE 5%-WATER - 50 ML IVPB ONE ×3 (02:02→20:48)
[2021-04-13] MEDS: PIPERACILLIN/TAZOB 2.25 GM 2.25 GM in DEXTROSE 5%-WATER - 50 ML IVPB SCH ×4 (02:12→21:26)
[2021-04-13] MEDS: SODIUM CHLORIDE 1,000 ML IV SCH ×2 (02:12→17:36)
[2021-04-13 08:43] LABS: EPI CELLS 29 /uL (0-25.1); HYALINE CASTS 1 /uL (0-3.1); URINE APPEARANCE CLEAR; URINE BACTERIA 271 /uL (0-1359); URINE BILIRUBIN NEGATIVE (NEGATIVE); URINE COLOR YELLOW; URINE GLUCOSE (UA) NEGATIVE (NEGATIVE); URINE KETONE NEGATIVE (NEGATIVE); URINE LEUK ESTERASE TRACE (NEGATIVE); URINE NITRITE NEGATIVE (NEGATIVE); URINE PROTEIN 3+ (NEGATIVE); URINE RBC 8 /uL (0-23.9); URINE WBC 65 /uL (0-25.8)
[2021-04-13] MEDS: ALPRAZolam 1 MG TABLET PO PRN (09:12)
[2021-04-13] MEDS: ACETAMINOPHEN 1000 MG/100 ML VIAL IVPB PRN ×2 (09:14→15:44)
[2021-04-13] MEDS ORDERED: PT OWN MED DRAWER 7, Y5N ONE ×2 (09:49→20:48)
[2021-04-13] MEDS ORDERED: FLUCONAZOLE 100 MG/NS 50 ML IVPB ONE (10:00)
[2021-04-13] MEDS: ATOVAQUONE 750 MG/5 ML (UNIT-DOSE PACKAGING) PO SCH (11:02)
[2021-04-13] MEDS ORDERED: METOPROLOL TARTRATE 5 MG/5 ML VIAL IVPUSH PRN (11:05)
[2021-04-13 13:55] LABS: CALCIUM 8.1 mg/dL (8.5-10.1)
[2021-04-13 13:59] LABS: CREATININE 2.9 mg/dL (0.55-1.3)
[2021-04-13 14:32] LABS: BLOOD UREA NITROGEN 50.4 mg/dL (7-18)
[2021-04-13] MEDS: NYSTATIN 500,000 UNITS TABLET PO SCH ×2 (14:59→21:27)
[2021-04-13] MEDS ORDERED: DAPTOMYCIN 800 MG in SODIUM CHLORIDE 50 ML IVPB SCH (15:30)
[2021-04-13] MEDS: DAPTOMYCIN 700 MG in SODIUM CHLORIDE 50 ML IVPB SCH (17:32)
[2021-04-13 19:02] LABS: HEMATOCRIT 23.7 % (32.4-45.2); HEMOGLOBIN 8.1 GM/dL (10.7-15.3); MCH 31.9 pg (25.7-33.7); MEAN PLT VOLUME 7.6 fl (7.5-11.1); PLATELET COUNT 372 10^3/uL (134-434); RBC 2.53 M/mm3 (3.60-5.2); RDW 14.9 % (11.6-15.6); WHITE BLOOD COUNT 2.1 K/mm3 (4.0-10.0)
[2021-04-13] MEDS ORDERED: LORazepam 0.5 MG TABLET PO ONE (21:04)
[2021-04-13] MEDS: OLANZapine 5 MG TABLET PO SCH (21:33)
[2021-04-14] MEDS ORDERED: DEXTROSE 5%-WATER - 50 ML IVPB ONE ×4 (01:15→16:50)
[2021-04-14] MEDS ORDERED: PIPERACILLIN/TAZOBACTAM 2.25 GM VIAL IVPB ONE ×3 (01:15→12:57)
[2021-04-14] MEDS: SODIUM CHLORIDE 1,000 ML IV SCH ×2 (03:31→17:17)
[2021-04-14] MEDS: PIPERACILLIN/TAZOB 2.25 GM 2.25 GM in DEXTROSE 5%-WATER - 50 ML IVPB SCH ×3 (03:31→15:03)
[2021-04-14] MEDS ORDERED: MELATONIN 1 MG TABLET PO ONE (04:00)
[2021-04-14] MEDS: NYSTATIN 500,000 UNITS TABLET PO SCH ×3 (06:40→22:30)
[2021-04-14] MEDS: ATOVAQUONE 750 MG/5 ML (UNIT-DOSE PACKAGING) PO SCH (10:08)
[2021-04-14] MEDS: ALPRAZolam 1 MG TABLET PO PRN (10:10)
[2021-04-14] MEDS: METOPROLOL TARTRATE 25 MG TABLET (FP) PO SCH ×2 (12:48→22:31)
[2021-04-14] MEDS: ACETAMINOPHEN 1000 MG/100 ML VIAL IVPB PRN ×2 (13:07→20:26)
[2021-04-14 13:18] LABS: PHENCYCLIDINE,URINE NEGATIVE (NEGATIVE)
[2021-04-14 13:19] LABS: METHADONE, UR NEGATIVE (NEGATIVE); URINE BARBITURATES NEGATIVE (NEGATIVE); URINE BENZODIAZEPINES NEGATIVE (NEGATIVE)
[2021-04-14 13:23] LABS: COCAINE, UR POSITIVE (NEGATIVE); OPIATES, URI POSITIVE (NEGATIVE); URINE AMPHETAMINES NEGATIVE (NEGATIVE)
[2021-04-14 13:58] VITALS: BMI 25.2
[2021-04-14] MEDS ORDERED: cefTRIAXone SODIUM 1 GM VIAL ONE (16:50)
[2021-04-14] MEDS: CEFTRIAXONE 1 GM in DEXTROSE 5%-WATER - 50 ML IVPB SCH (17:15)
[2021-04-14] MEDS: OLANZapine 5 MG TABLET PO SCH (22:30)
[2021-04-14] MEDS: MELATONIN 1 MG TABLET PO SCH (22:31)
[2021-04-15] MEDS: ACETAMINOPHEN 1000 MG/100 ML VIAL IVPB PRN (03:17)
[2021-04-15] MEDS: SODIUM CHLORIDE 1,000 ML IV SCH (03:19)
[2021-04-15] MEDS ORDERED: LORazepam 2 MG/ML SDV VIAL IVPUSH ONE (04:31)
[2021-04-15] MEDS: NYSTATIN 500,000 UNITS TABLET PO SCH ×3 (06:50→21:25)
[2021-04-15 07:34] LABS: HEMATOCRIT 21.8 % (32.4-45.2); HEMOGLOBIN 7.4 GM/dL (10.7-15.3); MCHC 34.1 g/dl (32.0-36.0); MEAN CELL VOLUME 93.8 fl (80-96); MEAN PLT VOLUME 7.4 fl (7.5-11.1); PLATELET COUNT 409 10^3/uL (134-434); RBC 2.32 M/mm3 (3.60-5.2); RDW 14.8 % (11.6-15.6); WHITE BLOOD COUNT 3.5 K/mm3 (4.0-10.0)
[2021-04-15 07:57] LABS: ALBUMIN 1.3 g/dl (3.4-5.0); BLOOD UREA NITROGEN 42.2 mg/dL (7-18); CALCIUM 8.1 mg/dL (8.5-10.1)
[2021-04-15 07:58] LABS: MAGNESIUM 1.7 mg/dL (1.8-2.4)
[2021-04-15 08:01] LABS: CREATININE 2.6 mg/dL (0.55-1.3); PHOSPHOROUS 3.3 mg/dL (2.5-4.9)
[2021-04-15 08:02] LABS: BILIRUBIN,TOTAL 0.5 mg/dL (0.2-1)
[2021-04-15] MEDS ORDERED: POTASSIUM CHLORIDE ORAL LIQUID 20 MEQ/15 ML PO ONE (08:30)
[2021-04-15] MEDS ORDERED: MAGNESIUM SULF 50% (8.12 MEQ/2 ML-1 GM VIAL) IVPB ONE (08:30)
[2021-04-15 08:52] LABS: ANISOCYTOSIS 0; HELMET CELLS 0; HOWELL-JOLLY BODIES 0; MACROCYTOSIS 0; OVALOCYTE 0; PLATELET ESTIMATE NORMAL; ROULEAU 0; SICKELED CELLS 0; TARGET CELLS 0; TEAR DROP CELLS 0; TOXIC GRANULATION 0
[2021-04-15] MEDS ORDERED: cefTRIAXone SODIUM 1 GM VIAL ONE (08:57)
[2021-04-15] MEDS ORDERED: DEXTROSE 5%-WATER - 50 ML IVPB ONE (08:57)
[2021-04-15] MEDS: ATOVAQUONE 750 MG/5 ML (UNIT-DOSE PACKAGING) PO SCH (09:02)
[2021-04-15] MEDS: METOPROLOL TARTRATE 25 MG TABLET (FP) PO SCH ×2 (09:03→21:25)
[2021-04-15] MEDS: CEFTRIAXONE 1 GM in DEXTROSE 5%-WATER - 50 ML IVPB SCH (09:03)
[2021-04-15] MEDS: ALPRAZolam 1 MG TABLET PO PRN (09:23)
[2021-04-15] MEDS ORDERED: POTASSIUM CHLORIDE TABS 20 MEQ TABLET.ER (FP) PO ONE (10:30)
[2021-04-15] MEDS ORDERED: PT OWN MED DRAWER 7, Y5N ONE ×3 (14:14→21:43)
[2021-04-15] MEDS: ACETAMINOPHEN 500 MG TABLET (FP) PO PRN (16:10)
[2021-04-15] MEDS: DAPTOMYCIN 700 MG in SODIUM CHLORIDE 50 ML IVPB SCH (16:11)
[2021-04-15] MEDS: MELATONIN 1 MG TABLET PO SCH (21:24)
[2021-04-15] MEDS: ALPRAZolam 1 MG TABLET PO SCH (21:24)
[2021-04-15] MEDS: OLANZapine 5 MG TABLET PO SCH (21:26)
[2021-04-16] MEDS: SODIUM CHLORIDE 1,000 ML IV SCH ×2 (00:28→05:29)
[2021-04-16] MEDS ORDERED: MELATONIN 5 MG TABLETS PO ONE (05:29)
[2021-04-16] MEDS: ACETAMINOPHEN 500 MG TABLET (FP) PO PRN ×2 (05:30→13:18)
[2021-04-16] MEDS: NYSTATIN 500,000 UNITS TABLET PO SCH ×3 (05:30→21:25)
[2021-04-16] MEDS ORDERED: PT OWN MED DRAWER 7, Y5N ONE ×3 (09:12→22:48)
[2021-04-16] MEDS ORDERED: DEXTROSE 5%-WATER - 50 ML IVPB ONE (09:14)
[2021-04-16] MEDS ORDERED: cefTRIAXone SODIUM 1 GM VIAL ONE (09:14)
[2021-04-16] MEDS: METOPROLOL TARTRATE 25 MG TABLET (FP) PO SCH ×2 (09:18→21:25)
[2021-04-16] MEDS: ALPRAZolam 1 MG TABLET PO SCH ×2 (09:19→21:25)
[2021-04-16] MEDS: ATOVAQUONE 750 MG/5 ML (UNIT-DOSE PACKAGING) PO SCH (09:19)
[2021-04-16] MEDS: CEFTRIAXONE 1 GM in DEXTROSE 5%-WATER - 50 ML IVPB SCH (09:49)
[2021-04-16] MEDS: HEPARIN NA (PORCINE) 5,000 UNITS/ML 1ML VIAL SQ SCH ×3 (13:26→21:41)
[2021-04-16] MEDS ORDERED: HALOPERIDOL LACTATE 5 MG/ML IM ONE (13:45)
[2021-04-16] MEDS: ALPRAZolam 1 MG TABLET PO PRN (13:49)
[2021-04-16] MEDS: OLANZapine 5 MG TABLET PO SCH (21:26)
[2021-04-16] MEDS: MELATONIN 5 MG TABLETS PO SCH (21:26)
[2021-04-17] MEDS: ALPRAZolam 1 MG TABLET PO PRN (02:20)
[2021-04-17] MEDS: NYSTATIN 500,000 UNITS TABLET PO SCH ×3 (06:32→21:15)
[2021-04-17] MEDS: SODIUM CHLORIDE 1,000 ML IV SCH (06:32)
[2021-04-17] MEDS: ATOVAQUONE 750 MG/5 ML (UNIT-DOSE PACKAGING) PO SCH (08:30)
[2021-04-17] MEDS ORDERED: PT OWN MED DRAWER 7, Y5N ONE ×5 (09:39→21:12)
[2021-04-17] MEDS ORDERED: cefTRIAXone SODIUM 1 GM VIAL ONE (09:39)
[2021-04-17] MEDS ORDERED: DEXTROSE 5%-WATER - 50 ML IVPB ONE (09:40)
[2021-04-17] MEDS: HEPARIN NA (PORCINE) 5,000 UNITS/ML 1ML VIAL SQ SCH ×3 (09:53→21:24)
[2021-04-17] MEDS: METOPROLOL TARTRATE 25 MG TABLET (FP) PO SCH ×2 (09:54→21:15)
[2021-04-17] MEDS: ALPRAZolam 1 MG TABLET PO SCH ×2 (09:55→21:16)
[2021-04-17] MEDS: CEFTRIAXONE 1 GM in DEXTROSE 5%-WATER - 50 ML IVPB SCH ×2 (10:53→16:10)
[2021-04-17 13:11] LABS: BASO % 0.8 % (0-2.0); EOS % 5.3 % (0-4.5); HEMATOCRIT 20.5 % (32.4-45.2); LYMPH % 9.4 % (8-40); MCH 31.9 pg (25.7-33.7); MCHC 33.6 g/dl (32.0-36.0); MEAN PLT VOLUME 6.7 fl (7.5-11.1); MONO % 7.8 % (3.8-10.2); NEUT % 76.7 % (42.8-82.8); PLATELET COUNT 383 10^3/uL (134-434); RBC 2.16 M/mm3 (3.60-5.2); RDW 15.5 % (11.6-15.6); WHITE BLOOD COUNT 2.2 K/mm3 (4.0-10.0)
[2021-04-17 13:26] LABS: HEMOGLOBIN 6.9 GM/dL (10.7-15.3)
[2021-04-17 13:35] LABS: ALBUMIN 1.2 g/dl (3.4-5.0); BLOOD UREA NITROGEN 32.6 mg/dL (7-18)
[2021-04-17 13:38] LABS: CREATININE 2.1 mg/dL (0.55-1.3)
[2021-04-17 13:39] LABS: BILIRUBIN,TOTAL 0.4 mg/dL (0.2-1); TOT PROT 6.8 g/dl (6.4-8.2)
[2021-04-17 14:13] LABS: ANISOCYTOSIS 1+; MACROCYTOSIS 1+; ROULEAU 1+
[2021-04-17 14:18] LABS: PLATELET ESTIMATE NORMAL
[2021-04-17] MEDS: DAPTOMYCIN 700 MG in SODIUM CHLORIDE 50 ML IVPB SCH (16:15)
[2021-04-17] MEDS ORDERED: ALPRAZolam 1 MG TABLET PO ONE (18:24)
[2021-04-17] MEDS: OLANZapine 5 MG TABLET PO SCH (21:17)
[2021-04-17] MEDS: MELATONIN 5 MG TABLETS PO SCH (21:17)
[2021-04-18] MEDS: SODIUM CHLORIDE 1,000 ML IV SCH (04:33)
[2021-04-18] MEDS: NYSTATIN 500,000 UNITS TABLET PO SCH ×3 (07:09→21:38)
[2021-04-18] MEDS ORDERED: DEXTROSE 5%-WATER - 50 ML IVPB ONE (09:33)
[2021-04-18] MEDS ORDERED: PT OWN MED DRAWER 7, Y5N ONE ×2 (09:33→10:04)
[2021-04-18] MEDS ORDERED: cefTRIAXone SODIUM 1 GM VIAL ONE (09:33)
[2021-04-18] MEDS: METOPROLOL TARTRATE 25 MG TABLET (FP) PO SCH ×2 (10:06→21:01)
[2021-04-18] MEDS: ALPRAZolam 1 MG TABLET PO SCH ×2 (10:07→21:02)
[2021-04-18] MEDS: ATOVAQUONE 750 MG/5 ML (UNIT-DOSE PACKAGING) PO SCH (10:07)
[2021-04-18] MEDS: CEFTRIAXONE 1 GM in DEXTROSE 5%-WATER - 50 ML IVPB SCH (10:08)
[2021-04-18] MEDS: HEPARIN NA (PORCINE) 5,000 UNITS/ML 1ML VIAL SQ SCH ×2 (10:08→21:02)
[2021-04-18] MEDS: OLANZapine 5 MG TABLET PO SCH ×2 (10:08→21:01)
[2021-04-18 13:07] LABS: ANTIGLOMERULAR BASEMENT MEN.AB 3 units (0-20)
[2021-04-18] MEDS ORDERED: ALPRAZolam 1 MG TABLET PO ONE (15:00)
[2021-04-18] MEDS: MELATONIN 5 MG TABLETS PO SCH (21:02)
[2021-04-19] MEDS: SODIUM CHLORIDE 1,000 ML IV SCH (03:10)
[2021-04-19] MEDS: NYSTATIN 500,000 UNITS TABLET PO SCH ×3 (05:46→21:03)
[2021-04-19] MEDS ORDERED: PT OWN MED DRAWER 7, Y5N ONE ×3 (08:39→21:06)
[2021-04-19] MEDS ORDERED: cefTRIAXone SODIUM 1 GM VIAL ONE (08:41)
[2021-04-19] MEDS ORDERED: DEXTROSE 5%-WATER - 50 ML IVPB ONE (08:41)
[2021-04-19] MEDS: ATOVAQUONE 750 MG/5 ML (UNIT-DOSE PACKAGING) PO SCH (08:55)
[2021-04-19] MEDS: OLANZapine 5 MG TABLET PO SCH ×2 (09:07→21:06)
[2021-04-19] MEDS: HEPARIN NA (PORCINE) 5,000 UNITS/ML 1ML VIAL SQ SCH (09:07)
[2021-04-19] MEDS: ALPRAZolam 1 MG TABLET PO SCH ×2 (09:07→21:03)
[2021-04-19] MEDS: CEFTRIAXONE 1 GM in DEXTROSE 5%-WATER - 50 ML IVPB SCH (09:08)
[2021-04-19] MEDS: METOPROLOL TARTRATE 25 MG TABLET (FP) PO SCH ×3 (09:08→21:03)
[2021-04-19] MEDS ORDERED: ALPRAZolam 1 MG TABLET PO PRN (13:57)
[2021-04-19] MEDS: DAPTOMYCIN 700 MG in SODIUM CHLORIDE 50 ML IVPB SCH (18:20)
[2021-04-19] MEDS: QUEtiapine FUMARATE 50 MG TABLET PO SCH (21:03)
[2021-04-19] MEDS: MELATONIN 5 MG TABLETS PO SCH (21:03)
[2021-04-20] MEDS: NYSTATIN 500,000 UNITS TABLET PO SCH ×3 (05:58→22:19)
[2021-04-20 07:29] LABS: HEMATOCRIT 20.7 % (32.4-45.2); HEMOGLOBIN 7.2 GM/dL (10.7-15.3); MCH 32.3 pg (25.7-33.7); MCHC 34.6 g/dl (32.0-36.0); MEAN CELL VOLUME 93.5 fl (80-96); PLATELET COUNT 359 10^3/uL (134-434); RBC 2.21 M/mm3 (3.60-5.2); RDW 14.7 % (11.6-15.6); WHITE BLOOD COUNT 2.3 K/mm3 (4.0-10.0)
[2021-04-20 07:42] LABS: ALBUMIN 1.2 g/dl (3.4-5.0); BLOOD UREA NITROGEN 29.7 mg/dL (7-18); CALCIUM 8.1 mg/dL (8.5-10.1); MAGNESIUM 1.4 mg/dL (1.8-2.4)
[2021-04-20 07:46] LABS: CREATININE 1.9 mg/dL (0.55-1.3); PHOSPHOROUS 4.3 mg/dL (2.5-4.9)
[2021-04-20 07:47] LABS: BILIRUBIN,TOTAL 0.2 mg/dL (0.2-1); TOT PROT 6.9 g/dl (6.4-8.2)
[2021-04-20 09:24] LABS: ANISOCYTOSIS 0; MACROCYTOSIS 1+; PLATELET ESTIMATE NORMAL
[2021-04-20] MEDS ORDERED: PT OWN MED DRAWER 7, Y5N ONE ×4 (09:55→22:09)
[2021-04-20] MEDS: ATOVAQUONE 750 MG/5 ML (UNIT-DOSE PACKAGING) PO SCH (10:05)
[2021-04-20] MEDS: ALPRAZolam 1 MG TABLET PO SCH ×2 (10:05→22:19)
[2021-04-20] MEDS: METOPROLOL TARTRATE 25 MG TABLET (FP) PO SCH ×2 (10:05→22:19)
[2021-04-20] MEDS: OLANZapine 5 MG TABLET PO SCH ×2 (10:06→22:19)
[2021-04-20] MEDS ORDERED: DAPTOMYCIN 700 MG in SODIUM CHLORIDE 50 ML IVPB SCH (10:15)
[2021-04-20] MEDS ORDERED: MAGNESIUM SULF 50% (8.12 MEQ/2 ML-1 GM VIAL) IVPB ONE (14:32)
[2021-04-20 15:08] LABS: ATYPICAL pANCA <1:20 titer (Neg:<1:20); C-ANCA <1:20 titer (Neg:<1:20)
[2021-04-20] MEDS: DAPTOMYCIN 700 MG in SODIUM CHLORIDE 50 ML IVPB SCH (17:33)
[2021-04-20] MEDS: QUEtiapine FUMARATE 50 MG TABLET PO SCH (22:18)
[2021-04-20] MEDS: MELATONIN 5 MG TABLETS PO SCH (22:19)
[2021-04-21] MEDS: NYSTATIN 500,000 UNITS TABLET PO SCH ×3 (06:12→21:05)
[2021-04-21] MEDS ORDERED: PT OWN MED DRAWER 7, Y5N ONE ×2 (09:41→21:01)
[2021-04-21] MEDS: ALPRAZolam 1 MG TABLET PO SCH ×2 (10:04→21:04)
[2021-04-21] MEDS: METOPROLOL TARTRATE 25 MG TABLET (FP) PO SCH ×2 (10:04→21:05)
[2021-04-21] MEDS: OLANZapine 5 MG TABLET PO SCH ×2 (10:05→21:04)
[2021-04-21] MEDS: ATOVAQUONE 750 MG/5 ML (UNIT-DOSE PACKAGING) PO SCH (10:05)
[2021-04-21] MEDS: DAPTOMYCIN 700 MG in SODIUM CHLORIDE 50 ML IVPB SCH (17:58)
[2021-04-21] MEDS: MELATONIN 5 MG TABLETS PO SCH (21:04)
[2021-04-21] MEDS: QUEtiapine FUMARATE 50 MG TABLET PO SCH (21:04)
[2021-04-22] MEDS: NYSTATIN 500,000 UNITS TABLET PO SCH ×3 (05:49→21:57)
[2021-04-22] MEDS ORDERED: PT OWN MED DRAWER 7, Y5N ONE (09:53)
[2021-04-22] MEDS: METOPROLOL TARTRATE 25 MG TABLET (FP) PO SCH ×2 (10:12→21:57)
[2021-04-22] MEDS: ALPRAZolam 1 MG TABLET PO SCH ×2 (10:13→21:58)
[2021-04-22] MEDS: ATOVAQUONE 750 MG/5 ML (UNIT-DOSE PACKAGING) PO SCH (10:13)
[2021-04-22] MEDS: OLANZapine 5 MG TABLET PO SCH ×2 (10:13→21:57)
[2021-04-22 12:23] LABS: HEMATOCRIT 20.9 % (32.4-45.2); MCH 31.8 pg (25.7-33.7); MCHC 33.4 g/dl (32.0-36.0); MEAN CELL VOLUME 95.3 fl (80-96); PLATELET COUNT 327 10^3/uL (134-434); RBC 2.19 M/mm3 (3.60-5.2); RDW 15.5 % (11.6-15.6)
[2021-04-22 12:29] LABS: WHITE BLOOD COUNT 1.9 K/mm3 (4.0-10.0)
[2021-04-22 12:50] LABS: ALBUMIN 1.4 g/dl (3.4-5.0); ANISOCYTOSIS 0; BLOOD UREA NITROGEN 35.8 mg/dL (7-18); CALCIUM 8.7 mg/dL (8.5-10.1); HELMET CELLS 0; HOWELL-JOLLY BODIES 0; MACROCYTOSIS 0; OVALOCYTE 0; PLATELET ESTIMATE NORMAL; ROULEAU 0; SICKELED CELLS 0; TARGET CELLS 0; TEAR DROP CELLS 0; TOXIC GRANULATION 0
[2021-04-22 12:53] LABS: CREATININE 2.3 mg/dL (0.55-1.3); PHOSPHOROUS 5.2 mg/dL (2.5-4.9)
[2021-04-22 12:55] LABS: BILIRUBIN,TOTAL 0.5 mg/dL (0.2-1); TOT PROT 7.4 g/dl (6.4-8.2)
[2021-04-22] MEDS: DAPTOMYCIN 700 MG in SODIUM CHLORIDE 50 ML IVPB SCH (17:30)
[2021-04-22] MEDS: SODIUM CHLORIDE 0.45% 1,000 ML IV SCH (17:49)
[2021-04-22] MEDS: MELATONIN 5 MG TABLETS PO SCH (21:57)
[2021-04-22] MEDS: QUEtiapine FUMARATE 50 MG TABLET PO SCH (21:58)
[2021-04-23] MEDS ORDERED: PT OWN MED DRAWER 7, Y5N ONE ×4 (05:41→21:16)
[2021-04-23] MEDS: SODIUM CHLORIDE 0.45% 1,000 ML IV SCH ×2 (05:42→17:59)
[2021-04-23] MEDS: NYSTATIN 500,000 UNITS TABLET PO SCH ×3 (05:42→21:17)
[2021-04-23] MEDS: METOPROLOL TARTRATE 25 MG TABLET (FP) PO SCH ×2 (09:56→21:17)
[2021-04-23] MEDS: ATOVAQUONE 750 MG/5 ML (UNIT-DOSE PACKAGING) PO SCH (09:57)
[2021-04-23] MEDS: ALPRAZolam 1 MG TABLET PO SCH ×2 (09:57→21:17)
[2021-04-23] MEDS: OLANZapine 5 MG TABLET PO SCH ×2 (09:57→21:17)
[2021-04-23] MEDS: HEPARIN NA (PORCINE) 5,000 UNITS/ML 1ML VIAL SQ SCH ×2 (14:48→21:17)
[2021-04-23] MEDS: DAPTOMYCIN 700 MG in SODIUM CHLORIDE 50 ML IVPB SCH (17:59)
[2021-04-23] MEDS: MELATONIN 5 MG TABLETS PO SCH (21:17)
[2021-04-23] MEDS: QUEtiapine FUMARATE 50 MG TABLET PO SCH (21:17)
[2021-04-24] MEDS: NYSTATIN 500,000 UNITS TABLET PO SCH ×3 (05:39→21:28)
[2021-04-24] MEDS: HEPARIN NA (PORCINE) 5,000 UNITS/ML 1ML VIAL SQ SCH ×3 (05:39→21:27)
[2021-04-24] MEDS ORDERED: PT OWN MED DRAWER 7, Y5N ONE ×3 (08:34→21:22)
[2021-04-24] MEDS: METOPROLOL TARTRATE 25 MG TABLET (FP) PO SCH ×2 (10:03→21:28)
[2021-04-24] MEDS: OLANZapine 5 MG TABLET PO SCH ×2 (10:03→21:28)
[2021-04-24] MEDS: ALPRAZolam 1 MG TABLET PO SCH ×2 (10:04→21:28)
[2021-04-24] MEDS: ATOVAQUONE 750 MG/5 ML (UNIT-DOSE PACKAGING) PO SCH (10:05)
[2021-04-24] MEDS: SODIUM CHLORIDE 0.45% 1,000 ML IV SCH ×2 (11:40→14:40)
[2021-04-24 12:16] LABS: HEMATOCRIT 22.1 % (32.4-45.2); HEMOGLOBIN 7.4 GM/dL (10.7-15.3); MCH 31.8 pg (25.7-33.7); MCHC 33.6 g/dl (32.0-36.0); MEAN CELL VOLUME 94.5 fl (80-96); MEAN PLT VOLUME 6.6 fl (7.5-11.1); PLATELET COUNT 293 10^3/uL (134-434); RBC 2.33 M/mm3 (3.60-5.2); RDW 15.1 % (11.6-15.6)
[2021-04-24 12:21] LABS: WHITE BLOOD COUNT 1.8 K/mm3 (4.0-10.0)
[2021-04-24 12:57] LABS: ALBUMIN 1.3 g/dl (3.4-5.0); BILIRUBIN,TOTAL 0.3 mg/dL (0.2-1); BLOOD UREA NITROGEN 38.8 mg/dL (7-18); CALCIUM 7.9 mg/dL (8.5-10.1); CREATININE 2.3 mg/dL (0.55-1.3); TOT PROT 7.4 g/dl (6.4-8.2)
[2021-04-24 14:08] LABS: ANISOCYTOSIS 0; HELMET CELLS 0; HOWELL-JOLLY BODIES 0; MACROCYTOSIS 0; OVALOCYTE 0; PLATELET ESTIMATE NORMAL; ROULEAU 0; SICKELED CELLS 0; TARGET CELLS 0; TEAR DROP CELLS 0; TOXIC GRANULATION 0
[2021-04-24] MEDS: DAPTOMYCIN 700 MG in SODIUM CHLORIDE 50 ML IVPB SCH (17:32)
[2021-04-24] MEDS: MELATONIN 5 MG TABLETS PO SCH (21:28)
[2021-04-24] MEDS: QUEtiapine FUMARATE 50 MG TABLET PO SCH (21:28)
[2021-04-25] MEDS: SODIUM CHLORIDE 0.45% 1,000 ML IV SCH ×2 (01:06→13:49)
[2021-04-25] MEDS: HEPARIN NA (PORCINE) 5,000 UNITS/ML 1ML VIAL SQ SCH ×3 (05:29→21:42)
[2021-04-25] MEDS: NYSTATIN 500,000 UNITS TABLET PO SCH ×3 (05:30→21:42)
[2021-04-25] MEDS: ATOVAQUONE 750 MG/5 ML (UNIT-DOSE PACKAGING) PO SCH (08:27)
[2021-04-25] MEDS: ALPRAZolam 1 MG TABLET PO SCH ×2 (08:59→21:42)
[2021-04-25] MEDS: METOPROLOL TARTRATE 25 MG TABLET (FP) PO SCH ×2 (08:59→21:42)
[2021-04-25] MEDS: OLANZapine 5 MG TABLET PO SCH ×2 (09:00→21:42)
[2021-04-25] MEDS: BICTEGRAV/EMTRICIT/TENOFOV (BIKTARVY) 50-200-25 MG TABLET PO SCH (15:31)
[2021-04-25] MEDS: DAPTOMYCIN 700 MG in SODIUM CHLORIDE 50 ML IVPB SCH (17:30)
[2021-04-25] MEDS: QUEtiapine FUMARATE 50 MG TABLET PO SCH (21:42)
[2021-04-25] MEDS: MELATONIN 5 MG TABLETS PO SCH (21:42)
[2021-04-26] MEDS: HEPARIN NA (PORCINE) 5,000 UNITS/ML 1ML VIAL SQ SCH ×3 (06:10→21:25)
[2021-04-26] MEDS: NYSTATIN 500,000 UNITS TABLET PO SCH ×3 (06:20→21:19)
[2021-04-26] MEDS ORDERED: PT OWN MED DRAWER 7, Y5N ONE ×4 (08:38→20:58)
[2021-04-26] MEDS: ATOVAQUONE 750 MG/5 ML (UNIT-DOSE PACKAGING) PO SCH ×2 (08:53→17:40)
[2021-04-26] MEDS: OLANZapine 5 MG TABLET PO SCH ×2 (09:02→21:19)
[2021-04-26] MEDS: BICTEGRAV/EMTRICIT/TENOFOV (BIKTARVY) 50-200-25 MG TABLET PO SCH ×2 (09:02→17:40)
[2021-04-26] MEDS: ALPRAZolam 1 MG TABLET PO SCH ×2 (09:02→21:19)
[2021-04-26] MEDS: METOPROLOL TARTRATE 25 MG TABLET (FP) PO SCH ×2 (13:54→21:19)
[2021-04-26] MEDS: SODIUM CHLORIDE 0.45% 1,000 ML IV SCH ×2 (15:34→18:05)
[2021-04-26] MEDS: DAPTOMYCIN 700 MG in SODIUM CHLORIDE 50 ML IVPB SCH (17:41)
[2021-04-26] MEDS: PHYTONADIONE 10 MG/1 ML AMP IVPB ONE ×2 (17:47→20:50)
[2021-04-26] MEDS: MELATONIN 5 MG TABLETS PO SCH (21:19)
[2021-04-26] MEDS: QUEtiapine FUMARATE 50 MG TABLET PO SCH (21:19)
[2021-04-27] MEDS: HEPARIN NA (PORCINE) 5,000 UNITS/ML 1ML VIAL SQ SCH ×3 (06:53→21:12)
[2021-04-27] MEDS: METOPROLOL TARTRATE 25 MG TABLET (FP) PO SCH ×3 (06:58→21:13)
[2021-04-27] MEDS: NYSTATIN 500,000 UNITS TABLET PO SCH ×3 (06:58→21:13)
[2021-04-27 08:12] LABS: ALBUMIN 1.4 g/dl (3.4-5.0); BLOOD UREA NITROGEN 33.2 mg/dL (7-18); CALCIUM 8.3 mg/dL (8.5-10.1); MAGNESIUM 1.9 mg/dL (1.8-2.4)
[2021-04-27 08:16] LABS: CREATININE 2.5 mg/dL (0.55-1.3); PHOSPHOROUS 4.4 mg/dL (2.5-4.9)
[2021-04-27 08:17] LABS: BILIRUBIN,TOTAL 0.5 mg/dL (0.2-1); TOT PROT 7.2 g/dl (6.4-8.2)
[2021-04-27 08:21] LABS: HEMATOCRIT 19.2 % (32.4-45.2); MCHC 33.5 g/dl (32.0-36.0); MEAN CELL VOLUME 95.6 fl (80-96); PLATELET COUNT 276 10^3/uL (134-434); RDW 15.7 % (11.6-15.6)
[2021-04-27 08:26] LABS: INR 1.05 (0.83-1.09); PROTHROMBIN TIME (PATIENT) 12.3 SEC (9.7-13.0)
[2021-04-27 09:01] LABS: HEMOGLOBIN 6.4 GM/dL (10.7-15.3); WHITE BLOOD COUNT 1.4 K/mm3 (4.0-10.0)
[2021-04-27] MEDS: SODIUM CHLORIDE 0.45% 1,000 ML IV SCH ×2 (09:02→14:54)
[2021-04-27] MEDS: BICTEGRAV/EMTRICIT/TENOFOV (BIKTARVY) 50-200-25 MG TABLET PO SCH (09:03)
[2021-04-27] MEDS: ALPRAZolam 1 MG TABLET PO SCH ×3 (09:03→22:57)
[2021-04-27] MEDS: OLANZapine 5 MG TABLET PO SCH ×2 (09:04→21:13)
[2021-04-27] MEDS: ATOVAQUONE 750 MG/5 ML (UNIT-DOSE PACKAGING) PO SCH (09:04)
[2021-04-27 11:13] LABS: ANISOCYTOSIS 1+; MACROCYTOSIS 1+; OVALOCYTE 1+; PLATELET ESTIMATE NORMAL; TEAR DROP CELLS 1+
[2021-04-27] MEDS: DAPTOMYCIN 700 MG in SODIUM CHLORIDE 50 ML IVPB SCH (17:32)
[2021-04-27] MEDS: ALPRAZolam 1 MG TABLET PO PRN (19:59)
[2021-04-27] MEDS ORDERED: PT OWN MED DRAWER 7, Y5N ONE ×2 (21:11→21:41)
[2021-04-27] MEDS: MELATONIN 5 MG TABLETS PO SCH (21:13)
[2021-04-27] MEDS: QUEtiapine FUMARATE 50 MG TABLET PO SCH (21:13)
[2021-04-28] MEDS: METOPROLOL TARTRATE 25 MG TABLET (FP) PO SCH ×3 (05:39→21:35)
[2021-04-28] MEDS: HEPARIN NA (PORCINE) 5,000 UNITS/ML 1ML VIAL SQ SCH ×3 (05:39→21:35)
[2021-04-28] MEDS: NYSTATIN 500,000 UNITS TABLET PO SCH ×3 (05:39→21:34)
[2021-04-28 08:06] LABS: CARCINOEMBRYONIC ANTIGEN 1.3 ng/mL (0.0-4.7)
[2021-04-28] MEDS ORDERED: PT OWN MED DRAWER 7, Y5N ONE (09:11)
[2021-04-28] MEDS: ALPRAZolam 1 MG TABLET PO SCH ×2 (09:14→21:34)
[2021-04-28] MEDS: OLANZapine 5 MG TABLET PO SCH ×2 (09:15→21:34)
[2021-04-28] MEDS: ATOVAQUONE 750 MG/5 ML (UNIT-DOSE PACKAGING) PO SCH (09:15)
[2021-04-28] MEDS: BICTEGRAV/EMTRICIT/TENOFOV (BIKTARVY) 50-200-25 MG TABLET PO SCH (09:15)
[2021-04-28] MEDS ORDERED: LORazepam 2 MG/ML SDV VIAL IVPUSH ONE (13:00)
[2021-04-28] MEDS: SODIUM CHLORIDE 0.45% 1,000 ML IV SCH ×2 (14:00→18:00)
[2021-04-28] MEDS: ALPRAZolam 1 MG TABLET PO PRN (17:59)
[2021-04-28] MEDS: DAPTOMYCIN 700 MG in SODIUM CHLORIDE 50 ML IVPB SCH ×2 (17:59→19:17)
[2021-04-28] MEDS: MELATONIN 5 MG TABLETS PO SCH (21:34)
[2021-04-28] MEDS: QUEtiapine FUMARATE 50 MG TABLET PO SCH (21:35)
[2021-04-29] MEDS: HEPARIN NA (PORCINE) 5,000 UNITS/ML 1ML VIAL SQ SCH ×3 (05:20→21:16)
[2021-04-29] MEDS: METOPROLOL TARTRATE 25 MG TABLET (FP) PO SCH ×3 (06:16→21:01)
[2021-04-29] MEDS: NYSTATIN 500,000 UNITS TABLET PO SCH ×3 (06:16→21:01)
[2021-04-29] MEDS ORDERED: PT OWN MED DRAWER 7, Y5N ONE (08:14)
[2021-04-29] MEDS: OLANZapine 5 MG TABLET PO SCH ×2 (09:09→21:01)
[2021-04-29] MEDS: ATOVAQUONE 750 MG/5 ML (UNIT-DOSE PACKAGING) PO SCH (09:09)
[2021-04-29] MEDS: BICTEGRAV/EMTRICIT/TENOFOV (BIKTARVY) 50-200-25 MG TABLET PO SCH (09:09)
[2021-04-29] MEDS ORDERED: LORazepam 2 MG/ML SDV VIAL IVPUSH ONE (10:00)
[2021-04-29] MEDS: ALPRAZolam 1 MG TABLET PO PRN ×2 (10:34→22:30)
[2021-04-29 13:41] LABS: HEMATOCRIT 25.2 % (32.4-45.2); HEMOGLOBIN 8.5 GM/dL (10.7-15.3); MCH 31.4 pg (25.7-33.7); MCHC 33.6 g/dl (32.0-36.0); MEAN CELL VOLUME 93.4 fl (80-96); MEAN PLT VOLUME 6.8 fl (7.5-11.1); PLATELET COUNT 286 10^3/uL (134-434); RDW 15.7 % (11.6-15.6)
[2021-04-29 13:48] LABS: WHITE BLOOD COUNT 1.8 K/mm3 (4.0-10.0)
[2021-04-29 14:29] LABS: ALBUMIN 1.4 g/dl (3.4-5.0)
[2021-04-29 14:31] LABS: CALCIUM 8.9 mg/dL (8.5-10.1)
[2021-04-29 14:32] LABS: CREATININE 2.7 mg/dL (0.55-1.3); MAGNESIUM 1.7 mg/dL (1.8-2.4)
[2021-04-29 14:33] LABS: BILIRUBIN,TOTAL 0.3 mg/dL (0.2-1)
[2021-04-29 14:35] LABS: PHOSPHOROUS 3.3 mg/dL (2.5-4.9)
[2021-04-29 14:37] LABS: TOT PROT 7.7 g/dl (6.4-8.2)
[2021-04-29 15:27] LABS: ANISOCYTOSIS 1+; MACROCYTOSIS 1+; OVALOCYTE 1+; PLATELET ESTIMATE NORMAL; TEAR DROP CELLS 1+
[2021-04-29] MEDS: DAPTOMYCIN 700 MG in SODIUM CHLORIDE 50 ML IVPB SCH (18:13)
[2021-04-29] MEDS: SODIUM CHLORIDE 0.45% 1,000 ML IV SCH (18:13)
[2021-04-29] MEDS: MELATONIN 5 MG TABLETS PO SCH (21:01)
[2021-04-29] MEDS: QUEtiapine FUMARATE 50 MG TABLET PO SCH (21:01)
[2021-04-30] MEDS: NYSTATIN 500,000 UNITS TABLET PO SCH ×3 (05:05→21:03)
[2021-04-30] MEDS: METOPROLOL TARTRATE 25 MG TABLET (FP) PO SCH ×3 (05:05→21:03)
[2021-04-30] MEDS: HEPARIN NA (PORCINE) 5,000 UNITS/ML 1ML VIAL SQ SCH (05:05)
[2021-04-30 08:32] LABS: HEMATOCRIT 25.7 % (32.4-45.2); HEMOGLOBIN 8.8 GM/dL (10.7-15.3); MCH 32.1 pg (25.7-33.7); MEAN CELL VOLUME 94.4 fl (80-96); MEAN PLT VOLUME 7.4 fl (7.5-11.1); PLATELET COUNT 270 10^3/uL (134-434); RBC 2.73 M/mm3 (3.60-5.2); RDW 15.6 % (11.6-15.6)
[2021-04-30 09:03] LABS: ALBUMIN 1.5 g/dl (3.4-5.0); CALCIUM 8.7 mg/dL (8.5-10.1)
[2021-04-30 09:04] LABS: MAGNESIUM 1.9 mg/dL (1.8-2.4)
[2021-04-30 09:06] LABS: CREATININE 3.1 mg/dL (0.55-1.3); PHOSPHOROUS 4.3 mg/dL (2.5-4.9)
[2021-04-30 09:08] LABS: BILIRUBIN,TOTAL 0.5 mg/dL (0.2-1); TOT PROT 7.9 g/dl (6.4-8.2)
[2021-04-30] MEDS ORDERED: PT OWN MED DRAWER 7, Y5N ONE (10:21)
[2021-04-30] MEDS: OLANZapine 5 MG TABLET PO SCH ×2 (10:39→21:03)
[2021-04-30] MEDS: ATOVAQUONE 750 MG/5 ML (UNIT-DOSE PACKAGING) PO SCH (10:39)
[2021-04-30] MEDS: BICTEGRAV/EMTRICIT/TENOFOV (BIKTARVY) 50-200-25 MG TABLET PO SCH (10:40)
[2021-04-30] MEDS: ALPRAZolam 1 MG TABLET PO PRN ×2 (10:40→22:00)
[2021-04-30 12:31] LABS: ANISOCYTOSIS 1+; MACROCYTOSIS 0; PLATELET ESTIMATE NORMAL
[2021-04-30] MEDS: SODIUM CHLORIDE 0.45% 1,000 ML IV SCH (17:32)
[2021-04-30] MEDS: DAPTOMYCIN 700 MG in SODIUM CHLORIDE 50 ML IVPB SCH (17:33)
[2021-04-30] MEDS: MELATONIN 5 MG TABLETS PO SCH (21:03)
[2021-04-30] MEDS: QUEtiapine FUMARATE 50 MG TABLET PO SCH (21:03)
[2021-05-01] MEDS: NYSTATIN 500,000 UNITS TABLET PO SCH ×3 (05:21→21:19)
[2021-05-01] MEDS: METOPROLOL TARTRATE 25 MG TABLET (FP) PO SCH ×3 (05:21→21:14)
[2021-05-01] MEDS ORDERED: PT OWN MED DRAWER 7, Y5N ONE ×3 (09:50→21:16)
[2021-05-01] MEDS: BICTEGRAV/EMTRICIT/TENOFOV (BIKTARVY) 50-200-25 MG TABLET PO SCH (09:56)
[2021-05-01] MEDS: OLANZapine 5 MG TABLET PO SCH ×2 (09:56→21:14)
[2021-05-01] MEDS: ATOVAQUONE 750 MG/5 ML (UNIT-DOSE PACKAGING) PO SCH (09:56)
[2021-05-01] MEDS: ALPRAZolam 1 MG TABLET PO PRN ×2 (09:57→21:14)
[2021-05-01] MEDS: SODIUM CHLORIDE 0.45% 1,000 ML IV SCH (17:38)
[2021-05-01] MEDS: DAPTOMYCIN 700 MG in SODIUM CHLORIDE 50 ML IVPB SCH (17:39)
[2021-05-01] MEDS ORDERED: QUEtiapine FUMARATE 25 MG TABLET ONE (21:02)
[2021-05-01] MEDS: MELATONIN 5 MG TABLETS PO SCH (21:14)
[2021-05-01] MEDS: QUEtiapine FUMARATE 50 MG TABLET PO SCH (21:14)
[2021-05-02] MEDS: NYSTATIN 500,000 UNITS TABLET PO SCH ×3 (06:57→23:53)
[2021-05-02] MEDS: METOPROLOL TARTRATE 25 MG TABLET (FP) PO SCH ×3 (06:58→21:52)
[2021-05-02] MEDS ORDERED: PT OWN MED DRAWER 7, Y5N ONE ×2 (08:15→11:29)
[2021-05-02] MEDS: OLANZapine 5 MG TABLET PO SCH ×2 (09:46→21:51)
[2021-05-02] MEDS: BICTEGRAV/EMTRICIT/TENOFOV (BIKTARVY) 50-200-25 MG TABLET PO SCH (09:46)
[2021-05-02] MEDS: ALPRAZolam 1 MG TABLET PO PRN (09:48)
[2021-05-02 10:05] LABS: HEMOGLOBIN 9.2 GM/dL (10.7-15.3); MCH 31.2 pg (25.7-33.7); MCHC 32.9 g/dl (32.0-36.0); MEAN CELL VOLUME 94.6 fl (80-96); MEAN PLT VOLUME 7.3 fl (7.5-11.1); PLATELET COUNT 305 10^3/uL (134-434); RBC 2.96 M/mm3 (3.60-5.2); RDW 15.4 % (11.6-15.6)
[2021-05-02 10:10] LABS: WHITE BLOOD COUNT 1.9 K/mm3 (4.0-10.0)
[2021-05-02 10:26] LABS: BLOOD UREA NITROGEN 43.6 mg/dL (7-18); CALCIUM 9.1 mg/dL (8.5-10.1)
[2021-05-02 10:27] LABS: ALBUMIN 1.6 g/dl (3.4-5.0)
[2021-05-02 10:29] LABS: CREATININE 2.7 mg/dL (0.55-1.3)
[2021-05-02 10:31] LABS: BILIRUBIN,TOTAL 0.9 mg/dL (0.2-1); TOT PROT 8.3 g/dl (6.4-8.2)
[2021-05-02 11:40] LABS: ANISOCYTOSIS 0; MACROCYTOSIS 0; PLATELET ESTIMATE NORMAL
[2021-05-02] MEDS: ATOVAQUONE 750 MG/5 ML (UNIT-DOSE PACKAGING) PO SCH (12:18)
[2021-05-02] MEDS: DAPTOMYCIN 700 MG in SODIUM CHLORIDE 50 ML IVPB SCH (17:44)
[2021-05-02] MEDS: SODIUM CHLORIDE 0.45% 1,000 ML IV SCH ×2 (17:44→21:47)
[2021-05-02] MEDS: ALPRAZolam 1 MG TABLET PO SCH ×2 (17:45→21:51)
[2021-05-02] MEDS ORDERED: METOPROLOL TARTRATE 5 MG/5 ML VIAL IVPUSH PRN (19:46)
[2021-05-02] MEDS: ACETAMINOPHEN 500 MG TABLET (FP) PO PRN (21:51)
[2021-05-02] MEDS: MELATONIN 5 MG TABLETS PO SCH (21:51)
[2021-05-02] MEDS: QUEtiapine FUMARATE 25 MG TABLET PO SCH (21:52)
[2021-05-02] MEDS ORDERED: ALPRAZolam 1 MG TABLET PO SCH (22:00)
[2021-05-03] MEDS ORDERED: PT OWN MED DRAWER 7, Y5N ONE ×4 (00:12→13:19)
[2021-05-03] MEDS: METOPROLOL TARTRATE 25 MG TABLET (FP) PO SCH ×3 (07:02→21:07)
[2021-05-03] MEDS: ALPRAZolam 1 MG TABLET PO SCH ×4 (07:03→21:09)
[2021-05-03] MEDS: NYSTATIN 500,000 UNITS TABLET PO SCH ×3 (07:03→21:10)
[2021-05-03] MEDS: ACETAMINOPHEN 500 MG TABLET (FP) PO PRN (08:43)
[2021-05-03] MEDS: ATOVAQUONE 750 MG/5 ML (UNIT-DOSE PACKAGING) PO SCH (08:46)
[2021-05-03] MEDS: OLANZapine 5 MG TABLET PO SCH ×2 (09:04→21:08)
[2021-05-03] MEDS ORDERED: diazePAM CARPU-JECT 10 MG/2 ML DISP.SYRIN IM ONE (10:25)
[2021-05-03] MEDS: BICTEGRAV/EMTRICIT/TENOFOV (BIKTARVY) 50-200-25 MG TABLET PO SCH ×2 (11:38→11:42)
[2021-05-03] MEDS: DAPTOMYCIN 700 MG in SODIUM CHLORIDE 50 ML IVPB SCH (18:39)
[2021-05-03] MEDS: SODIUM CHLORIDE 0.45% 1,000 ML IV SCH (21:07)
[2021-05-03] MEDS: QUEtiapine FUMARATE 25 MG TABLET PO SCH (21:08)
[2021-05-03] MEDS: MELATONIN 5 MG TABLETS PO SCH (21:09)
[2021-05-04] MEDS: NYSTATIN 500,000 UNITS TABLET PO SCH ×3 (06:26→21:16)
[2021-05-04] MEDS: METOPROLOL TARTRATE 25 MG TABLET (FP) PO SCH ×3 (06:26→21:16)
[2021-05-04] MEDS: ALPRAZolam 1 MG TABLET PO SCH ×4 (06:27→21:15)
[2021-05-04] MEDS ORDERED: PT OWN MED DRAWER 7, Y5N ONE (09:21)
[2021-05-04] MEDS: ATOVAQUONE 750 MG/5 ML (UNIT-DOSE PACKAGING) PO SCH (09:25)
[2021-05-04] MEDS: OLANZapine 5 MG TABLET PO SCH ×2 (09:25→21:14)
[2021-05-04] MEDS: BICTEGRAV/EMTRICIT/TENOFOV (BIKTARVY) 50-200-25 MG TABLET PO SCH (09:25)
[2021-05-04] MEDS: ACETAMINOPHEN 500 MG TABLET (FP) PO PRN (09:30)
[2021-05-04 11:44] LABS: SARS COV-2 MOLECULAR Negative (Negative)
[2021-05-04] MEDS ORDERED: ALPRAZolam 1 MG TABLET PO PRN (17:29)
[2021-05-04] MEDS: DAPTOMYCIN 700 MG in SODIUM CHLORIDE 50 ML IVPB SCH (18:05)
[2021-05-04] MEDS: QUEtiapine FUMARATE 25 MG TABLET PO SCH (21:14)
[2021-05-04] MEDS: MELATONIN 5 MG TABLETS PO SCH (21:14)
[2021-05-04] MEDS: SODIUM CHLORIDE 0.45% 1,000 ML IV SCH (21:17)
[2021-05-05] MEDS: ALPRAZolam 1 MG TABLET PO SCH ×2 (05:27→14:13)
[2021-05-05] MEDS: METOPROLOL TARTRATE 25 MG TABLET (FP) PO SCH ×2 (05:27→14:13)
[2021-05-05] MEDS: NYSTATIN 500,000 UNITS TABLET PO SCH ×2 (05:28→14:14)
[2021-05-05 08:09] LABS: SARS-CoV-2 NAA Not Detected (Not Detected)
[2021-05-05] MEDS ORDERED: PT OWN MED DRAWER 7, Y5N ONE ×3 (10:33→17:28)
[2021-05-05] MEDS: OLANZapine 5 MG TABLET PO SCH (10:37)
[2021-05-05] MEDS: BICTEGRAV/EMTRICIT/TENOFOV (BIKTARVY) 50-200-25 MG TABLET PO SCH (10:38)
[2021-05-05] MEDS: ATOVAQUONE 750 MG/5 ML (UNIT-DOSE PACKAGING) PO SCH (10:39)
[2021-05-05] MEDS ORDERED: LINEZOLID 600 MG TABLET (RESTRICTED TO ID) PO SCH (14:30)
[2021-05-05] MEDS: DAPTOMYCIN 700 MG in SODIUM CHLORIDE 50 ML IVPB SCH (18:00)
[2021-05-05 18:31] VITALS: BP 147/98; PULSE 108; TEMP 98.3
== END 2021-05-05 18:51 | disposition short-term general hospital (02) | DRG 975 ==
LOC: JER 17:27 → JERBED 04-12 00:02 → J4W 04-12 23:27 → J4S 05-01 13:06
PROVIDERS: ADMIT Internal Medicine
PROC: 30233N1 Transfusion of Nonautologous Red Blood Cells into Peripheral Vein, Percutaneous Approach (ICD-10-PCS; principal; 2021-04-12)
DX: A41.02 Sepsis due to Methicillin resistant Staphylococcus aureus (principal); B20 Human immunodeficiency virus [HIV] disease; N30.00 Acute cystitis without hematuria; I33.0 Acute and subacute infective endocarditis; J18.9 Pneumonia, unspecified organism; N17.9 Acute kidney failure, unspecified; F20.0 Paranoid schizophrenia; B37.81 Candidal esophagitis; I47.1 Supraventricular tachycardia; N13.30 Unspecified hydronephrosis; J98.11 Atelectasis; K92.2 Gastrointestinal hemorrhage, unspecified; E46 Unspecified protein-calorie malnutrition; E87.0 Hyperosmolality and hypernatremia; R64 Cachexia; B37.0 Candidal stomatitis; F20.9 Schizophrenia, unspecified; F31.9 Bipolar disorder, unspecified; F25.9 Schizoaffective disorder, unspecified; D70.9 Neutropenia, unspecified; E04.9 Nontoxic goiter, unspecified; K76.89 Other specified diseases of liver; R91.1 Solitary pulmonary nodule; F41.8 Other specified anxiety disorders; D69.6 Thrombocytopenia, unspecified; E87.8 Other disorders of electrolyte and fluid balance, not elsewhere classified; N18.9 Chronic kidney disease, unspecified; Z68.25 Body mass index [BMI] 25.0-25.9, adult; Z91.14 Patient's other noncompliance with medication regimen; D64.9 Anemia, unspecified; D72.819 Decreased white blood cell count, unspecified; R74.01 Elevation of levels of liver transaminase levels
CPT/HCPCS: 36415; 36430; 70450-TC; 71045-TC-FY; 71250-TC; 72070-TC-FY; 72100-TC-FY; 72125-TC; 74176-TC; 76705-TC; 80048; 80053; 80307; 81003; 82105; 82272; 82378; 82436; 82550; 82553; 82570; 82728; 83516; 83520; 83540; 83550; 83605; 83735; 84100; 84133; 84155; 84165; 84300; 84443; 84484; 84703; 85025; 85027; 85610; 85730; 86038; 86140; 86225; 86256; 86301; 86359; 86360; 86706; 86708; 86803; 86850; 86900; 86901; 86922; 87040; 87045; 87046; 87086; 87177; 87186; 87205; 87209; 87324; 87328; 87329; 87340; 87449; 87517; 87804; 87807; 87899; 93005; 93010; 93306-TC; 97116-GP; 97162-GP; 99285-25; C9803; G0480; J0131; J0878; J1644; P9058; U0003; U0005

== ENCOUNTER 2022-02-13 06:25 | Inpatient (IN) | payer OTHER ==
[2022-02-13 06:32] VITALS: BMI 18.4
[2022-02-13 09:32] LABS: INR 1.03 (0.83-1.09); PROTHROMBIN TIME (PATIENT) 11.8 SEC (9.7-13.0)
[2022-02-13 09:35] LABS: ACTIVATED PTT 32.5 SECONDS (25.2-36.5); MCH 31.6 pg (25.7-33.7); MCHC 33.8 g/dl (32.0-36.0); MEAN CELL VOLUME 93.6 fl (80-96); MEAN PLT VOLUME 7.1 fl (7.5-11.1); PLATELET COUNT 277 10^3/uL (134-434); RBC 2.13 M/mm3 (3.60-5.2); RDW 13.6 % (11.6-15.6); WHITE BLOOD COUNT 2.2 K/mm3 (4.0-10.0)
[2022-02-13 09:39] LABS: HEMOGLOBIN 6.8 GM/dL (10.7-15.3)
[2022-02-13 09:46] LABS: ALBUMIN 2.2 g/dl (3.4-5.0); BLOOD UREA NITROGEN 28.3 mg/dL (7-18); MAGNESIUM 1.7 mg/dL (1.8-2.4)
[2022-02-13 09:49] LABS: CREATININE 2.5 mg/dL (0.55-1.3); PHOSPHOROUS 2.6 mg/dL (2.5-4.9)
[2022-02-13 09:51] LABS: BILIRUBIN,TOTAL 0.6 mg/dL (0.2-1); TOT PROT 8.1 g/dl (6.4-8.2)
[2022-02-13 10:16] LABS: ANISOCYTOSIS 0; HELMET CELLS 0; HOWELL-JOLLY BODIES 0; MACROCYTOSIS 0; OVALOCYTE 0; ROULEAU 0; SICKELED CELLS 0; TARGET CELLS 0; TEAR DROP CELLS 0; TOXIC GRANULATION 0
[2022-02-13 10:31] LABS: RETICULOCYTES 1.25 % (0.5-1.5)
[2022-02-13] MEDS ORDERED: MAGNESIUM SULF 50% (8.12 MEQ/2 ML-1 GM VIAL) IVPB ONE (12:41)
[2022-02-13 16:26] LABS: EPI CELLS 31 /uL (0-25.1); HYALINE CASTS 1 /uL (0-3.1); URINE APPEARANCE CLOUDY; URINE BACTERIA >9,000 /uL (0-1359); URINE BILIRUBIN NEGATIVE (NEGATIVE); URINE COLOR YELLOW; URINE GLUCOSE (UA) NEGATIVE (NEGATIVE); URINE KETONE NEGATIVE (NEGATIVE); URINE LEUK ESTERASE 1+ (NEGATIVE); URINE NITRITE NEGATIVE (NEGATIVE); URINE PROTEIN 3+ (NEGATIVE); URINE RBC 6 /uL (0-23.9); URINE WBC 85 /uL (0-25.8)
[2022-02-13] MEDS ORDERED: MAGNESIUM 1GM/D5W - 1 GM/100 ML IVPB IVPB ONE (17:06)
[2022-02-14 01:54] LABS: HEMATOCRIT 23.9 % (32.4-45.2); HEMOGLOBIN 8.1 GM/dL (10.7-15.3); MCH 30.9 pg (25.7-33.7); MCHC 33.8 g/dl (32.0-36.0); MEAN CELL VOLUME 91.4 fl (80-96); MEAN PLT VOLUME 7.3 fl (7.5-11.1); PLATELET COUNT 257 10^3/uL (134-434); RBC 2.62 M/mm3 (3.60-5.2); RDW 15.5 % (11.6-15.6); WHITE BLOOD COUNT 2.3 K/mm3 (4.0-10.0)
[2022-02-14 05:17] LABS: ANISOCYTOSIS 1+; MACROCYTOSIS 0; TARGET CELLS 2+
[2022-02-14 09:05] LABS: HEMATOCRIT 23.1 % (32.4-45.2); HEMOGLOBIN 7.8 GM/dL (10.7-15.3); MCH 31.5 pg (25.7-33.7); MCHC 33.9 g/dl (32.0-36.0); MEAN CELL VOLUME 92.8 fl (80-96); MEAN PLT VOLUME 7.7 fl (7.5-11.1); PLATELET COUNT 252 10^3/uL (134-434); RBC 2.49 M/mm3 (3.60-5.2); RDW 15.6 % (11.6-15.6)
[2022-02-14 09:10] LABS: WHITE BLOOD COUNT 1.7 K/mm3 (4.0-10.0)
[2022-02-14 09:23] LABS: CALCIUM 8.7 mg/dL (8.5-10.1)
[2022-02-14 09:24] LABS: BLOOD UREA NITROGEN 28.7 mg/dL (7-18); MAGNESIUM 2.2 mg/dL (1.8-2.4)
[2022-02-14 09:26] LABS: CREATININE 2.2 mg/dL (0.55-1.3)
[2022-02-14 09:28] LABS: BILIRUBIN,TOTAL 0.7 mg/dL (0.2-1); TOT PROT 7.6 g/dl (6.4-8.2)
[2022-02-14 09:48] LABS: ANISOCYTOSIS 0; MACROCYTOSIS 0; OVALOCYTE 1+
[2022-02-14] MEDS: ATOVAQUONE 750 MG/5 ML (UNIT-DOSE PACKAGING) PO SCH (11:25)
[2022-02-14] MEDS ORDERED: CEFTRIAXONE 1 GM/50 ML BAG ONE (14:12)
[2022-02-14] MEDS: CEFTRIAXONE 1 GM in DEXTROSE 5%-WATER - 50 ML IVPB SCH (14:57)
[2022-02-14] MEDS: ACETAMINOPHEN 1000 MG/100 ML BAG IVPB PRN (22:04)
[2022-02-15] MEDS: ATOVAQUONE 750 MG/5 ML (UNIT-DOSE PACKAGING) PO SCH (09:14)
[2022-02-15] MEDS: CEFTRIAXONE 1 GM in DEXTROSE 5%-WATER - 50 ML IVPB SCH (10:20)
[2022-02-15] MEDS: ACETAMINOPHEN 1000 MG/100 ML BAG IVPB PRN (11:37)
[2022-02-15] MEDS: OLANZapine 5 MG TABLET PO SCH ×2 (14:48→15:49)
[2022-02-15] MEDS: BICTEGRAV/EMTRICIT/TENOFOV (BIKTARVY) 50-200-25 MG TABLET PO SCH (15:49)
[2022-02-15] MEDS: AMINO ACIDS/PROTEIN HYDROLYS 30 ML LIQUID.PKT PO SCH (17:45)
[2022-02-15] MEDS: valACYclovir HCL 500 MG TABLET (FP) PO SCH (23:07)
[2022-02-15] MEDS: ASCORBIC ACID 250 MG TABLET (FP) PO SCH (23:08)
[2022-02-16] MEDS: ATOVAQUONE 750 MG/5 ML (UNIT-DOSE PACKAGING) PO SCH (09:15)
[2022-02-16] MEDS: valACYclovir HCL 500 MG TABLET (FP) PO SCH ×2 (09:15→22:12)
[2022-02-16] MEDS: AMINO ACIDS/PROTEIN HYDROLYS 30 ML LIQUID.PKT PO SCH ×2 (09:15→16:51)
[2022-02-16] MEDS: OLANZapine 5 MG TABLET PO SCH (09:15)
[2022-02-16] MEDS: BICTEGRAV/EMTRICIT/TENOFOV (BIKTARVY) 50-200-25 MG TABLET PO SCH (09:16)
[2022-02-16] MEDS: CEFTRIAXONE 1 GM in DEXTROSE 5%-WATER - 50 ML IVPB SCH (09:16)
[2022-02-16] MEDS: ASCORBIC ACID 250 MG TABLET (FP) PO SCH ×2 (09:16→22:13)
[2022-02-16] MEDS: MULTIVITAMINS (DAILY MVI) TABLET (FP) PO SCH (09:36)
[2022-02-17] MEDS: ATOVAQUONE 750 MG/5 ML (UNIT-DOSE PACKAGING) PO SCH (09:40)
[2022-02-17] MEDS: AMINO ACIDS/PROTEIN HYDROLYS 30 ML LIQUID.PKT PO SCH ×2 (09:40→17:24)
[2022-02-17] MEDS: MULTIVITAMINS (DAILY MVI) TABLET (FP) PO SCH (09:41)
[2022-02-17] MEDS: CEFTRIAXONE 1 GM in DEXTROSE 5%-WATER - 50 ML IVPB SCH (09:41)
[2022-02-17] MEDS: valACYclovir HCL 500 MG TABLET (FP) PO SCH ×2 (09:41→22:07)
[2022-02-17] MEDS: BICTEGRAV/EMTRICIT/TENOFOV (BIKTARVY) 50-200-25 MG TABLET PO SCH (09:41)
[2022-02-17] MEDS: ASCORBIC ACID 250 MG TABLET (FP) PO SCH ×2 (09:42→22:07)
[2022-02-17] MEDS: OLANZapine 5 MG TABLET PO SCH (09:42)
[2022-02-17] MEDS ORDERED: ACETAMINOPHEN 325 MG TABLET (FP) PO PRN ×2 (10:12→14:46)
[2022-02-17] MEDS ORDERED: TRIMETHOBENZAMIDE HCL 200MG/2ML INJ IM PRN (10:35)
[2022-02-17] MEDS ORDERED: SODIUM CHLORIDE 500 ML IV STA (11:05)
[2022-02-17] MEDS ORDERED: LORazepam 2 MG/ML SDV VIAL IVPUSH ONE (17:38)
[2022-02-17] MEDS ORDERED: LORazepam 0.5 MG TABLET PO ONE (18:43)
[2022-02-18] MEDS: AMINO ACIDS/PROTEIN HYDROLYS 30 ML LIQUID.PKT PO SCH ×3 (08:57→18:36)
[2022-02-18] MEDS: valACYclovir HCL 500 MG TABLET (FP) PO SCH ×2 (08:57→11:04)
[2022-02-18] MEDS: BICTEGRAV/EMTRICIT/TENOFOV (BIKTARVY) 50-200-25 MG TABLET PO SCH ×2 (08:58→11:04)
[2022-02-18] MEDS: ASCORBIC ACID 250 MG TABLET (FP) PO SCH ×2 (08:58→11:04)
[2022-02-18] MEDS: OLANZapine 5 MG TABLET PO SCH ×2 (08:58→11:04)
[2022-02-18] MEDS: MULTIVITAMINS (DAILY MVI) TABLET (FP) PO SCH (08:59)
[2022-02-18] MEDS: CEFTRIAXONE 1 GM in DEXTROSE 5%-WATER - 50 ML IVPB SCH (08:59)
[2022-02-18] MEDS: ATOVAQUONE 750 MG/5 ML (UNIT-DOSE PACKAGING) PO SCH (09:18)
[2022-02-18 13:33] VITALS: RESP 18
[2022-02-18 14:56] VITALS: BP 106/66; PULSE 107; TEMP 99
== END 2022-02-18 20:05 | disposition left against medical advice (07) | DRG 977 ==
LOC: JER 06:25 → JERBED 12:19 → J7W 02-14 20:02
PROVIDERS: ADMIT Internal Medicine; ATTEND Internal Medicine
PROC: 0HQ1XZZ Repair Face Skin, External Approach (ICD-10-PCS; principal; 2022-02-13)
PROC: 30233N1 Transfusion of Nonautologous Red Blood Cells into Peripheral Vein, Percutaneous Approach (ICD-10-PCS; 2022-02-13)
DX: D64.9 Anemia, unspecified (principal); B20 Human immunodeficiency virus [HIV] disease; N39.0 Urinary tract infection, site not specified; N17.9 Acute kidney failure, unspecified; S01.91XA Laceration without foreign body of unspecified part of head, initial encounter; W01.0XXA Fall on same level from slipping, tripping and stumbling without subsequent striking against object, initial encounter; Y93.89 Activity, other specified; Y92.89 Other specified places as the place of occurrence of the external cause; Y99.8 Other external cause status; N18.30 Chronic kidney disease, stage 3 unspecified; F20.9 Schizophrenia, unspecified; D69.6 Thrombocytopenia, unspecified; R91.1 Solitary pulmonary nodule; F14.10 Cocaine abuse, uncomplicated; F11.10 Opioid abuse, uncomplicated; F31.9 Bipolar disorder, unspecified; Z91.14 Patient's other noncompliance with medication regimen; E27.9 Disorder of adrenal gland, unspecified; N89.8 Other specified noninflammatory disorders of vagina; R16.0 Hepatomegaly, not elsewhere classified; R26.81 Unsteadiness on feet; Z53.29 Procedure and treatment not carried out because of patient's decision for other reasons
CPT/HCPCS: 36415; 36430; 70450-TC; 71045-TC-FY; 72125-TC; 72128-TC; 76775-TC; 80053; 81003; 82272; 82728; 83010; 83540; 83550; 83615; 83735; 83930; 84100; 84439; 84443; 84466; 84484; 85025; 85045; 85610; 85730; 86359; 86360; 86850; 86900; 86901; 86922; 87040; 87086; 87186; 87529; 93005; 93010; 97116-GP; 97161-GP; 99285-25; C9803-CS; P9058; U0003; U0005

== ENCOUNTER 2022-07-17 15:34 | Inpatient (IN) | payer OTHER ==
[2022-07-17] MEDS ORDERED: ACETAMINOPHEN 1000 MG/100 ML BAG IVPB ONE (19:04)
[2022-07-17 19:31] LABS: HEMATOCRIT 19.3 % (32.4-45.2); MEAN CELL VOLUME 87.7 fl (80-96); PLATELET COUNT 123 10^3/uL (134-434); RDW 15.8 % (11.6-15.6); WHITE BLOOD COUNT 2.5 K/mm3 (4.0-10.0)
[2022-07-17 19:36] LABS: INR 1.7 (0.83-1.09); PROTHROMBIN TIME (PATIENT) 19.6 SEC (9.7-13.0)
[2022-07-17 19:39] LABS: ACTIVATED PTT 33.5 SECONDS (25.2-36.5)
[2022-07-17 19:55] LABS: ALBUMIN 1.1 g/dl (3.4-5.0); BLOOD UREA NITROGEN 19.7 mg/dL (7-18); CALCIUM 8.8 mg/dL (8.5-10.1)
[2022-07-17 19:57] LABS: HEMOGLOBIN 6.4 GM/dL (10.7-15.3)
[2022-07-17 19:58] LABS: CREATININE 1.5 mg/dL (0.55-1.3)
[2022-07-17 20:00] LABS: BILIRUBIN,TOTAL 1.4 mg/dL (0.2-1); TOT PROT 6.4 g/dl (6.4-8.2)
[2022-07-17] MEDS ORDERED: ACETAMINOPHEN INJECTION 100 ML IVPB ONE (20:42)
[2022-07-17 20:57] LABS: ANISOCYTOSIS 0; HELMET CELLS 0; HOWELL-JOLLY BODIES 0; MACROCYTOSIS 0; OVALOCYTE 0; ROULEAU 0; SICKELED CELLS 0; TARGET CELLS 0; TEAR DROP CELLS 0; TOXIC GRANULATION 0
[2022-07-17 22:00] LABS: BILIRUBIN,DIRECT 0.5 mg/dL (0.0-0.2)
[2022-07-17] MEDS ORDERED: SODIUM CHLORIDE 500 ML IV STA (22:37)
[2022-07-17 23:03] LABS: RETICULOCYTES 1.01 % (0.5-1.5)
[2022-07-17 23:19] LABS: MAGNESIUM 1.5 mg/dL (1.8-2.4)
[2022-07-17 23:23] LABS: PHOSPHOROUS 2.2 mg/dL (2.5-4.9)
[2022-07-17] MEDS ORDERED: SODIUM CHLORIDE 0.9% 500 ML INFUS.BAG IV ONE (23:58)
[2022-07-18] MEDS ORDERED: REMDESIVIR 200 MG in SODIUM CHLORIDE 250 ML IVPB ONE ×2 (01:00→15:40)
[2022-07-18] MEDS: SODIUM CHLORIDE 1,000 ML IV SCH ×2 (03:14→23:20)
[2022-07-18] MEDS ORDERED: APIXABAN 5 MG TABLET ONE (09:25)
[2022-07-18] MEDS ORDERED: QUEtiapine FUMARATE 100 MG TABLET (FP) ONE (09:25)
[2022-07-18] MEDS: RALTEGRAVIR POTASSIUM 400 MG TAB PO SCH (09:38)
[2022-07-18] MEDS: QUEtiapine FUMARATE 100 MG TABLET (FP) PO SCH ×2 (09:39→23:19)
[2022-07-18] MEDS: ATOVAQUONE 750 MG/5 ML (UNIT-DOSE PACKAGING) PO SCH (09:39)
[2022-07-18] MEDS: APIXABAN 5 MG TABLET PO SCH (09:39)
[2022-07-18 10:51] LABS: HEMATOCRIT 22.2 % (32.4-45.2); HEMOGLOBIN 7.6 GM/dL (10.7-15.3); MCH 29.2 pg (25.7-33.7); MEAN CELL VOLUME 85.8 fl (80-96); MEAN PLT VOLUME 8.1 fl (7.5-11.1); PLATELET COUNT 164 10^3/uL (134-434); RBC 2.59 M/mm3 (3.60-5.2); RDW 16.3 % (11.6-15.6); WHITE BLOOD COUNT 2.3 K/mm3 (4.0-10.0)
[2022-07-18 11:18] LABS: CALCIUM 8.2 mg/dL (8.5-10.1)
[2022-07-18 11:19] LABS: BLOOD UREA NITROGEN 19.7 mg/dL (7-18)
[2022-07-18 11:22] LABS: CREATININE 1.3 mg/dL (0.55-1.3)
[2022-07-18 11:23] LABS: BILIRUBIN,TOTAL 0.9 mg/dL (0.2-1); TOT PROT 6.1 g/dl (6.4-8.2)
[2022-07-18 11:53] LABS: ANISOCYTOSIS 0; HELMET CELLS 0; HOWELL-JOLLY BODIES 0; MACROCYTOSIS 0; OVALOCYTE 0; ROULEAU 0; SICKELED CELLS 0; TARGET CELLS 0; TEAR DROP CELLS 0; TOXIC GRANULATION 0
[2022-07-18] MEDS ORDERED: ALPRAZolam 1 MG TABLET ONE (17:07)
[2022-07-18] MEDS: ALPRAZolam 1 MG TABLET PO PRN ×2 (17:08→23:19)
[2022-07-18] MEDS ORDERED: QUEtiapine FUMARATE 50 MG TABLET ONE (22:52)
[2022-07-18] MEDS: POTASSIUM CHLORIDE TABS 20 MEQ TABLET.ER (FP) PO SCH (23:19)
[2022-07-19] MEDS ORDERED: REMDESIVIR 100 MG in SODIUM CHLORIDE 250 ML IVPB SCH (05:00)
[2022-07-19 05:19] VITALS: BMI 19.9
[2022-07-19] MEDS: RALTEGRAVIR POTASSIUM 400 MG TAB PO SCH ×3 (05:54→11:14)
[2022-07-19] MEDS: SODIUM CHLORIDE 1,000 ML IV SCH (06:13)
[2022-07-19] MEDS ORDERED: SODIUM CHLORIDE 1,000 ML IV STA ×2 (10:24→17:25)
[2022-07-19] MEDS: QUEtiapine FUMARATE 100 MG TABLET (FP) PO SCH ×2 (10:58→22:20)
[2022-07-19] MEDS: POTASSIUM CHLORIDE TABS 20 MEQ TABLET.ER (FP) PO SCH (10:59)
[2022-07-19] MEDS: DEXAMETHASONE 2 MG TABLET PO SCH (10:59)
[2022-07-19] MEDS: ATOVAQUONE 750 MG/5 ML (UNIT-DOSE PACKAGING) PO SCH (11:08)
[2022-07-19] MEDS: PIPERACILLIN/TAZOB 4.5 GM 4.5 GM in DEXTROSE 5%-WATER 100 ML IVPB SCH ×2 (16:32→19:04)
[2022-07-19] MEDS ORDERED: ACETAMINOPHEN 1000 MG/100 ML BAG IVPB ONE (17:27)
[2022-07-19] MEDS: VANCOMYCIN/WATER FOR INJ (PEG) 1,000 MG/200 ML BAG IVPB SCH ×2 (18:54)
[2022-07-19 21:31] LABS: BASO % 0.3 % (0-2.0); EOS % 0.2 % (0-4.5); HEMATOCRIT 19.9 % (32.4-45.2); LYMPH % 3.6 % (8-40); MCH 28.5 pg (25.7-33.7); MCHC 33.1 g/dl (32.0-36.0); MEAN CELL VOLUME 86.2 fl (80-96); MEAN PLT VOLUME 7.7 fl (7.5-11.1); MONO % 3.4 % (3.8-10.2); NEUT % 92.5 % (42.8-82.8); RDW 17.2 % (11.6-15.6)
[2022-07-19 21:35] LABS: HEMOGLOBIN 6.6 GM/dL (10.7-15.3)
[2022-07-19 21:36] LABS: PLATELET COUNT 87 10^3/uL (134-434)
[2022-07-19 22:05] LABS: ANISOCYTOSIS 3+; MACROCYTOSIS 2+; TARGET CELLS 1+; TOXIC GRANULATION 1+
[2022-07-20] MEDS: PIPERACILLIN/TAZOB 4.5 GM 4.5 GM in DEXTROSE 5%-WATER 100 ML IVPB SCH ×3 (02:44→17:51)
[2022-07-20] MEDS: VANCOMYCIN 1 GM/200 ML PREMIX BAG (RESTRICTED TO ID ONLY) IVPB SCH ×2 (07:25→18:52)
[2022-07-20] MEDS: SODIUM CHLORIDE 1,000 ML IV SCH ×3 (07:34→22:57)
[2022-07-20] MEDS: QUEtiapine FUMARATE 100 MG TABLET (FP) PO SCH ×2 (09:52→22:56)
[2022-07-20] MEDS: POTASSIUM CHLORIDE TABS 20 MEQ TABLET.ER (FP) PO SCH (09:52)
[2022-07-20] MEDS: BICTEGRAV/EMTRICIT/TENOFOV (BIKTARVY) 50-200-25 MG TABLET PO SCH (09:52)
[2022-07-20] MEDS: DEXAMETHASONE 2 MG TABLET PO SCH (09:53)
[2022-07-20] MEDS: ATOVAQUONE 750 MG/5 ML (UNIT-DOSE PACKAGING) PO SCH (09:53)
[2022-07-20] MEDS: REMDESIVIR 100 MG in SODIUM CHLORIDE 250 ML IVPB SCH (10:30)
[2022-07-20 12:44] LABS: HEMATOCRIT 24.5 % (32.4-45.2); HEMOGLOBIN 8.2 GM/dL (10.7-15.3); MCH 28.2 pg (25.7-33.7); MCHC 33.5 g/dl (32.0-36.0); MEAN PLT VOLUME 8.9 fl (7.5-11.1); PLATELET COUNT 69 10^3/uL (134-434); RBC 2.92 M/mm3 (3.60-5.2); RDW 19.6 % (11.6-15.6)
[2022-07-20 13:04] LABS: BLOOD UREA NITROGEN 20.8 mg/dL (7-18); CALCIUM 8.3 mg/dL (8.5-10.1); MAGNESIUM 1.4 mg/dL (1.8-2.4)
[2022-07-20 13:07] LABS: CREATININE 1.3 mg/dL (0.55-1.3); PHOSPHOROUS 2.7 mg/dL (2.5-4.9)
[2022-07-20 13:09] LABS: TOT PROT 5.5 g/dl (6.4-8.2)
[2022-07-20 13:51] LABS: ANISOCYTOSIS 1+; MACROCYTOSIS 1+; OVALOCYTE 1+
[2022-07-20] MEDS ORDERED: MAGNESIUM SULF 50% (8.12 MEQ/2 ML-1 GM VIAL) IVPB ONE (15:55)
[2022-07-20] MEDS ORDERED: oxyCODONE HCL 5 MG TABLET PO PRN (16:06)
[2022-07-20] MEDS: AMINO ACIDS/PROTEIN HYDROLYS 30 ML LIQUID.PKT PO SCH (17:51)
[2022-07-20] MEDS: CEFEPIME 2 GM in DEXTROSE 5%-WATER 100 ML IVPB SCH (20:10)
[2022-07-20] MEDS: APIXABAN 5 MG TABLET PO SCH (22:56)
[2022-07-20] MEDS: valACYclovir HCL 500 MG TABLET (FP) PO SCH (22:56)
[2022-07-21] MEDS: CEFEPIME 2 GM in DEXTROSE 5%-WATER 100 ML IVPB SCH ×3 (02:36→18:25)
[2022-07-21] MEDS: SODIUM CHLORIDE 1,000 ML IV SCH (07:15)
[2022-07-21] MEDS: AMINO ACIDS/PROTEIN HYDROLYS 30 ML LIQUID.PKT PO SCH ×2 (08:28→16:58)
[2022-07-21 09:48] LABS: EPI CELLS 28 /uL (0-25.1); HYALINE CASTS 11 /uL (0-3.1); PH,URINE 5.5 (5.0-8.0); URINE APPEARANCE CLOUDY; URINE BILIRUBIN NEGATIVE (NEGATIVE); URINE COLOR YELLOW; URINE GLUCOSE (UA) NEGATIVE (NEGATIVE); URINE KETONE NEGATIVE (NEGATIVE); URINE LEUK ESTERASE 2+ (NEGATIVE); URINE NITRITE POSITIVE (NEGATIVE); URINE PROTEIN 2+ (NEGATIVE); URINE UROBILINOGEN 0.2 mg/dL (0.2-1.0); URINE WBC 932 /uL (0-25.8)
[2022-07-21] MEDS: POTASSIUM CHLORIDE TABS 20 MEQ TABLET.ER (FP) PO SCH (09:58)
[2022-07-21] MEDS: APIXABAN 5 MG TABLET PO SCH ×2 (09:58→21:22)
[2022-07-21] MEDS: BICTEGRAV/EMTRICIT/TENOFOV (BIKTARVY) 50-200-25 MG TABLET PO SCH (09:58)
[2022-07-21] MEDS: QUEtiapine FUMARATE 100 MG TABLET (FP) PO SCH ×2 (09:58→21:22)
[2022-07-21] MEDS: REMDESIVIR 100 MG in SODIUM CHLORIDE 250 ML IVPB SCH (09:58)
[2022-07-21] MEDS: DEXAMETHASONE 2 MG TABLET PO SCH (09:59)
[2022-07-21] MEDS: valACYclovir HCL 500 MG TABLET (FP) PO SCH ×2 (09:59→23:25)
[2022-07-21] MEDS: ATOVAQUONE 750 MG/5 ML (UNIT-DOSE PACKAGING) PO SCH (09:59)
[2022-07-21 10:36] LABS: URINE RBC 45 /uL (0-23.9)
[2022-07-21] MEDS ORDERED: SODIUM CHLORIDE 1,000 ML IV SCH (17:10)
[2022-07-21 17:19] LABS: HEMATOCRIT 21.6 % (32.4-45.2); HEMOGLOBIN 7.5 GM/dL (10.7-15.3); MCH 29.1 pg (25.7-33.7); MCHC 34.6 g/dl (32.0-36.0); MEAN CELL VOLUME 83.9 fl (80-96); RBC 2.57 M/mm3 (3.60-5.2); RDW 20.4 % (11.6-15.6); WHITE BLOOD COUNT 2.2 K/mm3 (4.0-10.0)
[2022-07-21 17:28] LABS: CHLORIDE 123 mmol/L (98-107); SODIUM 149 mmol/L (136-145)
[2022-07-21 17:30] LABS: ALBUMIN 0.9 g/dl (3.4-5.0); CALCIUM 8.5 mg/dL (8.5-10.1); CO2 16 mmol/L (21-32); GLUCOSE,RANDOM 109 mg/dL (74-106); MAGNESIUM 1.7 mg/dL (1.8-2.4)
[2022-07-21] MEDS: VANCOMYCIN 1 GM/200 ML PREMIX BAG (RESTRICTED TO ID ONLY) IVPB SCH (17:30)
[2022-07-21 17:31] LABS: BLOOD UREA NITROGEN 24.9 mg/dL (7-18)
[2022-07-21 17:33] LABS: SGPT/ALT 10 U/L (13-61)
[2022-07-21 17:34] LABS: CREATININE 1.4 mg/dL (0.55-1.3); PHOSPHOROUS 2.8 mg/dL (2.5-4.9); SGOT/AST 22 U/L (15-37)
[2022-07-21 17:35] LABS: BILIRUBIN,TOTAL 0.6 mg/dL (0.2-1); TOT PROT 5.1 g/dl (6.4-8.2)
[2022-07-21 17:53] LABS: ANISOCYTOSIS 3+; MACROCYTOSIS 2+; OVALOCYTE 1+; PLATELET COUNT 49.5 10^3/uL (134-434); TARGET CELLS 1+
[2022-07-21] MEDS ORDERED: DEXTROSE 5%-WATER - 1,000 ML IV SCH (18:00)
[2022-07-21 18:54] LABS: ALK PHOS 190 U/L (45-117); ANION GAP 10 MMOL/L (8-16)
[2022-07-21] MEDS ORDERED: POTASSIUM CHLORIDE ORAL LIQUID 20 MEQ/15 ML PO ONE ×2 (18:58→21:15)
[2022-07-21] MEDS ORDERED: KCL 10 MEQ IVPB 10 MEQ/100 ML INFUS.BAG IVPB SCH (19:00)
[2022-07-21] MEDS ORDERED: D5-1/2NS+10 MEQ KCL - 10 MEQ/1,000 ML INFUS.BAG IV SCH (19:00)
[2022-07-22] MEDS: CEFEPIME 2 GM in DEXTROSE 5%-WATER 100 ML IVPB SCH ×3 (02:50→18:35)
[2022-07-22] MEDS: AMINO ACIDS/PROTEIN HYDROLYS 30 ML LIQUID.PKT PO SCH ×2 (08:17→17:46)
[2022-07-22] MEDS ORDERED: MAGNESIUM 1GM/D5W 100ML - 100 ML IVPB IVPB ONE ×2 (09:00→15:00)
[2022-07-22 09:16] LABS: HEMATOCRIT 21.6 % (32.4-45.2); HEMOGLOBIN 7.3 GM/dL (10.7-15.3); MCHC 33.6 g/dl (32.0-36.0); MEAN CELL VOLUME 83.3 fl (80-96); MEAN PLT VOLUME 10.6 fl (7.5-11.1); RBC 2.59 M/mm3 (3.60-5.2); WHITE BLOOD COUNT 2.3 K/mm3 (4.0-10.0)
[2022-07-22 09:24] LABS: CALCIUM 8.5 mg/dL (8.5-10.1)
[2022-07-22 09:25] LABS: ALBUMIN 0.8 g/dl (3.4-5.0); BLOOD UREA NITROGEN 28.3 mg/dL (7-18); MAGNESIUM 1.7 mg/dL (1.8-2.4)
[2022-07-22 09:28] LABS: CREATININE 1.6 mg/dL (0.55-1.3); PHOSPHOROUS 3.1 mg/dL (2.5-4.9)
[2022-07-22 09:30] LABS: BILIRUBIN,TOTAL 0.7 mg/dL (0.2-1)
[2022-07-22] MEDS: ATOVAQUONE 750 MG/5 ML (UNIT-DOSE PACKAGING) PO SCH (10:20)
[2022-07-22] MEDS: SODIUM HYPOCHLORITE 0.25%- 473 ML BULK BOTTLE TP SCH (10:21)
[2022-07-22] MEDS: REMDESIVIR 100 MG in SODIUM CHLORIDE 250 ML IVPB SCH (10:22)
[2022-07-22] MEDS: valACYclovir HCL 500 MG TABLET (FP) PO SCH ×2 (10:53→21:20)
[2022-07-22] MEDS: POTASSIUM CHLORIDE TABS 20 MEQ TABLET.ER (FP) PO SCH (10:54)
[2022-07-22] MEDS: QUEtiapine FUMARATE 100 MG TABLET (FP) PO SCH ×2 (10:54→21:20)
[2022-07-22] MEDS: BICTEGRAV/EMTRICIT/TENOFOV (BIKTARVY) 50-200-25 MG TABLET PO SCH (10:54)
[2022-07-22] MEDS: DEXAMETHASONE 2 MG TABLET PO SCH (10:54)
[2022-07-22 11:06] LABS: ANISOCYTOSIS 2+; MACROCYTOSIS 0; OVALOCYTE 2+; PLATELET ESTIMATE DECREASED; TARGET CELLS 1+
[2022-07-22 11:11] LABS: PLATELET COUNT 33 10^3/uL (134-434)
[2022-07-22 13:00] LABS: INR 2.17 (0.83-1.09); PROTHROMBIN TIME (PATIENT) 25.1 SEC (9.7-13.0)
[2022-07-22] MEDS ORDERED: DEXTROSE 5%-WATER - 1,000 ML IV SCH (14:00)
[2022-07-22] MEDS ORDERED: PHYTONADIONE 10 MG/1 ML AMP IVPB ONE (15:00)
[2022-07-22] MEDS: KCL 10 MEQ IVPB 10 MEQ/100 ML INFUS.BAG IVPB SCH ×2 (15:18→16:18)
[2022-07-22] MEDS: METOPROLOL TARTRATE 5 MG/5 ML VIAL IVPUSH PRN (16:20)
[2022-07-22] MEDS: VANCOMYCIN 1 GM/200 ML PREMIX BAG (RESTRICTED TO ID ONLY) IVPB SCH (18:35)
[2022-07-22] MEDS: POTASSIUM CHLORIDE 40 MEQ in DEXTROSE 5%-WATER - 1,000 ML IV SCH (18:35)
[2022-07-22 21:42] LABS: BLOOD UREA NITROGEN 31.9 mg/dL (7-18)
[2022-07-22 21:43] LABS: CALCIUM 9.1 mg/dL (8.5-10.1)
[2022-07-22 21:50] LABS: CREATININE 1.7 mg/dL (0.55-1.3)
[2022-07-23] MEDS: METOPROLOL TARTRATE 5 MG/5 ML VIAL IVPUSH PRN ×2 (02:24→13:03)
[2022-07-23] MEDS: CEFEPIME 2 GM in DEXTROSE 5%-WATER 100 ML IVPB SCH ×3 (02:29→18:51)
[2022-07-23] MEDS: POTASSIUM CHLORIDE 40 MEQ in DEXTROSE 5%-WATER - 1,000 ML IV SCH ×3 (04:43→17:38)
[2022-07-23 07:37] LABS: HEMATOCRIT 22.2 % (32.4-45.2); HEMOGLOBIN 7.3 GM/dL (10.7-15.3); MCH 27.4 pg (25.7-33.7); MEAN CELL VOLUME 82.9 fl (80-96); MEAN PLT VOLUME 8.9 fl (7.5-11.1); RBC 2.68 M/mm3 (3.60-5.2); RDW 21.2 % (11.6-15.6)
[2022-07-23 07:40] LABS: WHITE BLOOD COUNT 1.9 K/mm3 (4.0-10.0)
[2022-07-23 10:04] LABS: ALBUMIN 0.8 g/dl (3.4-5.0); BILIRUBIN,TOTAL 0.7 mg/dL (0.2-1); BLOOD UREA NITROGEN 33.6 mg/dL (7-18); CALCIUM 9.4 mg/dL (8.5-10.1); CREATININE 1.8 mg/dL (0.55-1.3); MAGNESIUM 1.8 mg/dL (1.8-2.4); PHOSPHOROUS 2.9 mg/dL (2.5-4.9); TOT PROT 4.9 g/dl (6.4-8.2)
[2022-07-23 10:23] LABS: ANISOCYTOSIS 3+; MACROCYTOSIS 1+; PLATELET ESTIMATE DECREASED
[2022-07-23 10:28] LABS: PLATELET COUNT 21 10^3/uL (134-434)
[2022-07-23] MEDS: BICTEGRAV/EMTRICIT/TENOFOV (BIKTARVY) 50-200-25 MG TABLET PO SCH (13:04)
[2022-07-23] MEDS: DEXAMETHASONE 2 MG TABLET PO SCH (13:04)
[2022-07-23] MEDS: FOLIC ACID 1 MG TABLET (FP) PO SCH (13:04)
[2022-07-23] MEDS: ATOVAQUONE 750 MG/5 ML (UNIT-DOSE PACKAGING) PO SCH (13:04)
[2022-07-23] MEDS: QUEtiapine FUMARATE 100 MG TABLET (FP) PO SCH (13:05)
[2022-07-23] MEDS: valACYclovir HCL 500 MG TABLET (FP) PO SCH ×2 (13:05→22:20)
[2022-07-23] MEDS ORDERED: dilTIAZem HCL 50 MG/10 ML - 10 ML VIAL IVPUSH ONE (13:49)
[2022-07-23] MEDS ORDERED: ROCURONIUM BROMIDE 50 MG/5 ML VIAL IV ONE (14:40)
[2022-07-23 14:45] LABS: VENOUS BASE EXCESS -11.2 mmol/L (-2-2); VENOUS O2 SATURATION 91.3 % (70-80); VENOUS PCO2 21.9 mmHg (38-52); VENOUS PH 7.375 (7.310-7.410)
[2022-07-23] MEDS ORDERED: NOREPINEPHRINE BITARTRATE 16,000 MCG in DEXTROSE 5%-WATER - 484 ML IVPB SCH (14:45)
[2022-07-23] MEDS ORDERED: MIDAZOLAM HCL 2 MG/2 ML SINGLE DOSE VIAL IVPUSH ONE (15:00)
[2022-07-23] MEDS: MIDAZOLAM IN 0.9 % SOD.CHLORID 100 MG/100 ML PLAST..BAG IVPB SCH (15:15)
[2022-07-23] MEDS ORDERED: KETAMINE HCL 200 MG/20 ML VIAL IVPUSH ONE (15:15)
[2022-07-23] MEDS: FENTANYL NS IVPB 500 MCG/100 ML BAG IVPB SCH (15:15)
[2022-07-23] MEDS ORDERED: ALPRAZolam 1 MG TABLET PO PRN (15:23)
[2022-07-23] MEDS ORDERED: LACTATED RINGERS SOLUTION 1,000 ML/1,000 ML INFUS.BAG IV STA (15:41)
[2022-07-23] MEDS: METOPROLOL TARTRATE 5 MG/5 ML VIAL IVPUSH SCH ×2 (17:37→21:03)
[2022-07-23] MEDS: AMINO ACIDS/PROTEIN HYDROLYS 30 ML LIQUID.PKT PO SCH (17:37)
[2022-07-23] MEDS ORDERED: LACTATED RINGERS SOLUTION 1,000 ML/1,000 ML INFUS.BAG IV ONE (17:38)
[2022-07-23] MEDS: VANCOMYCIN 1 GM/200 ML PREMIX BAG (RESTRICTED TO ID ONLY) IVPB SCH (17:44)
[2022-07-23] MEDS: NYSTATIN 500,000 UNITS/5 ML SUSPENSION PO SCH (17:46)
[2022-07-23 18:04] LABS: INR 2.08 (0.83-1.09); PROTHROMBIN TIME (PATIENT) 24.1 SEC (9.7-13.0)
[2022-07-23 18:07] LABS: ARTERIAL BLD GAS O2 SATURATION 99.1 % (95-98); ARTERIAL BLOOD GAS BASE EXCESS -14.5 mmol/L (-2-2); ARTERIAL BLOOD GAS PO2 200.2 mmHg (80-100); ARTERIAL BLOOD GAS pH 7.205 (7.350-7.450)
[2022-07-23 18:08] LABS: ALLENS TEST POSITIVE; VENT MODE V/AC; VENT RATE 24
[2022-07-23 18:09] LABS: PH,URINE 5.5 (5.0-8.0); URINE APPEARANCE CLOUDY; URINE BILIRUBIN NEGATIVE (NEGATIVE); URINE COLOR YELLOW; URINE GLUCOSE (UA) NEGATIVE (NEGATIVE); URINE KETONE TRACE (NEGATIVE); URINE LEUK ESTERASE NEGATIVE (NEGATIVE); URINE NITRITE NEGATIVE (NEGATIVE); URINE PROTEIN 2+ (NEGATIVE); URINE UROBILINOGEN 0.2 mg/dL (0.2-1.0)
[2022-07-23 18:19] LABS: CALCIUM 9.7 mg/dL (8.5-10.1)
[2022-07-23 18:20] LABS: ALBUMIN 0.8 g/dl (3.4-5.0); BLOOD UREA NITROGEN 33.3 mg/dL (7-18); MAGNESIUM 1.7 mg/dL (1.8-2.4)
[2022-07-23 18:23] LABS: PHOSPHOROUS 3.7 mg/dL (2.5-4.9)
[2022-07-23 18:24] LABS: BILIRUBIN,TOTAL 0.8 mg/dL (0.2-1); TOT PROT 4.9 g/dl (6.4-8.2)
[2022-07-23 18:26] LABS: HEMOGLOBIN 8.2 GM/dL (10.7-15.3); MCH 27.8 pg (25.7-33.7); MCHC 32.9 g/dl (32.0-36.0); MEAN CELL VOLUME 84.4 fl (80-96); MEAN PLT VOLUME 9.5 fl (7.5-11.1); RBC 2.97 M/mm3 (3.60-5.2); RDW 21.2 % (11.6-15.6); WHITE BLOOD COUNT 2.2 K/mm3 (4.0-10.0)
[2022-07-23] MEDS ORDERED: MAGNESIUM 1GM/D5W - 1 GM/100 ML IVPB IVPB ONE (18:45)
[2022-07-23 18:49] LABS: PLATELET COUNT 20 10^3/uL (134-434)
[2022-07-23 19:20] LABS: EPI CELLS 29.3 /uL (0-25.1); URINE BACTERIA 27.6 /uL (0-1359); URINE WBC 59.1 /uL (0-25.8)
[2022-07-23 19:22] LABS: HYALINE CASTS 10.05 /uL (0-3.1)
[2022-07-23 19:23] LABS: YEAST PRESENT (NEGATIVE)
[2022-07-23 20:08] LABS: ANISOCYTOSIS 2+; MACROCYTOSIS 0; OVALOCYTE 1+; TOXIC GRANULATION 3+
[2022-07-23] MEDS ORDERED: PHYTONADIONE 10 MG/1 ML AMP IVPB ONE (21:30)
[2022-07-23] MEDS ORDERED: QUEtiapine FUMARATE 100 MG TABLET (FP) PO SCH (22:00)
[2022-07-23] MEDS: CHLORHEXIDINE GLUCONATE 0.12% 15ML CUP MM SCH (22:20)
[2022-07-23] MEDS: METHIMAZOLE 5 MG TABLET PO SCH (22:20)
[2022-07-23] MEDS ORDERED: LACTATED RINGERS SOLUTION 1000 ML INFUS.BAG IV ONE (23:47)
[2022-07-24] MEDS: POTASSIUM CHLORIDE 40 MEQ in DEXTROSE 5%-WATER - 1,000 ML IV SCH ×3 (00:12→23:43)
[2022-07-24] MEDS: NYSTATIN 500,000 UNITS/5 ML SUSPENSION PO SCH ×4 (00:48→17:56)
[2022-07-24] MEDS: CEFEPIME 2 GM in DEXTROSE 5%-WATER 100 ML IVPB SCH ×3 (01:54→17:55)
[2022-07-24] MEDS: METHIMAZOLE 5 MG TABLET PO SCH ×3 (05:01→21:22)
[2022-07-24 06:48] LABS: HEMATOCRIT 24.2 % (32.4-45.2); HEMOGLOBIN 8.2 GM/dL (10.7-15.3); MCH 28.6 pg (25.7-33.7); MCHC 33.7 g/dl (32.0-36.0); MEAN CELL VOLUME 84.8 fl (80-96); MEAN PLT VOLUME 9.1 fl (7.5-11.1); RBC 2.85 M/mm3 (3.60-5.2); RDW 21.2 % (11.6-15.6); WHITE BLOOD COUNT 2.2 K/mm3 (4.0-10.0)
[2022-07-24 06:54] LABS: INR 2.06 (0.83-1.09); PROTHROMBIN TIME (PATIENT) 23.9 SEC (9.7-13.0)
[2022-07-24 07:18] LABS: CALCIUM 9.6 mg/dL (8.5-10.1)
[2022-07-24 07:19] LABS: ALBUMIN 0.7 g/dl (3.4-5.0); MAGNESIUM 1.8 mg/dL (1.8-2.4)
[2022-07-24 07:22] LABS: CREATININE 2.1 mg/dL (0.55-1.3); PHOSPHOROUS 3.4 mg/dL (2.5-4.9)
[2022-07-24 07:23] LABS: TOT PROT 4.6 g/dl (6.4-8.2)
[2022-07-24 07:25] LABS: BLOOD UREA NITROGEN 38.1 mg/dL (7-18)
[2022-07-24] MEDS: NOREPINEPHRINE BITARTRATE/D5W 8 MG/250 ML BAG IVPB SCH (07:35)
[2022-07-24] MEDS: FENTANYL NS IVPB 500 MCG/100 ML BAG IVPB SCH (08:41)
[2022-07-24] MEDS: AMINO ACIDS/PROTEIN HYDROLYS 30 ML LIQUID.PKT PO SCH ×2 (09:29→17:54)
[2022-07-24] MEDS ORDERED: LACTATED RINGERS SOLUTION 1000 ML INFUS.BAG IV ONE (10:25)
[2022-07-24] MEDS ORDERED: VERAPAMIL HCL 80 MG TABLET PO SCH (10:30)
[2022-07-24] MEDS ORDERED: FAMOTIDINE 20 MG/50 ML IVPB 20 MG/50 ML MG IVPB SCH (10:30)
[2022-07-24] MEDS: FOLIC ACID 1 MG TABLET (FP) PO SCH (11:28)
[2022-07-24] MEDS: THIAMINE HCL 200 MG/2 ML VIAL IVPB SCH (11:28)
[2022-07-24] MEDS: valACYclovir HCL 500 MG TABLET (FP) PO SCH ×2 (11:28→21:23)
[2022-07-24] MEDS: CHLORHEXIDINE GLUCONATE 0.12% 15ML CUP MM SCH ×2 (11:28→21:24)
[2022-07-24] MEDS: ATOVAQUONE 750 MG/5 ML (UNIT-DOSE PACKAGING) PO SCH (11:34)
[2022-07-24] MEDS: SODIUM HYPOCHLORITE 0.25%- 473 ML BULK BOTTLE TP SCH (11:36)
[2022-07-24] MEDS ORDERED: LINEZOLID 600 MG PREMIX BAG 600 MG/300 ML BAG IVPB ONE (12:00)
[2022-07-24] MEDS: FAMOTIDINE 20 MG/50 ML IVPB 20 MG/50 ML MG IVPB SCH (12:16)
[2022-07-24] MEDS: BICTEGRAV/EMTRICIT/TENOFOV (BIKTARVY) 50-200-25 MG TABLET PO SCH (12:33)
[2022-07-24] MEDS: MIDAZOLAM IN 0.9 % SOD.CHLORID 100 MG/100 ML PLAST..BAG IVPB SCH (15:56)
[2022-07-24] MEDS ORDERED: dilTIAZem HCL 50 MG/10 ML - 10 ML VIAL IVPUSH ONE (16:08)
[2022-07-24] MEDS: FLUCONAZOLE 200 MG/NS 100 ML IVPB SCH (17:54)
[2022-07-24] MEDS: VANCOMYCIN 1 GM/200 ML PREMIX BAG (RESTRICTED TO ID ONLY) IVPB SCH (17:55)
[2022-07-24] MEDS ORDERED: ACETAMINOPHEN 1000 MG/100 ML BAG IVPB PRN (18:41)
[2022-07-24] MEDS: VERAPAMIL HCL 40 MG TABLET NGT SCH (23:05)
[2022-07-25] MEDS: NYSTATIN 500,000 UNITS/5 ML SUSPENSION PO SCH ×5 (01:06→23:50)
[2022-07-25] MEDS: FENTANYL NS IVPB 500 MCG/100 ML BAG IVPB SCH ×3 (01:07→14:55)
[2022-07-25] MEDS: CEFEPIME 2 GM in DEXTROSE 5%-WATER 100 ML IVPB SCH ×2 (03:22→11:30)
[2022-07-25] MEDS: METHIMAZOLE 5 MG TABLET PO SCH ×3 (04:06→20:32)
[2022-07-25] MEDS: POTASSIUM CHLORIDE 40 MEQ in DEXTROSE 5%-WATER - 1,000 ML IV SCH (06:15)
[2022-07-25] MEDS ORDERED: LACTATED RINGERS SOLUTION 1,000 ML/1,000 ML INFUS.BAG IV ONE (06:20)
[2022-07-25 06:51] LABS: HEMATOCRIT 22.1 % (32.4-45.2); HEMOGLOBIN 7.1 GM/dL (10.7-15.3); MCH 27.6 pg (25.7-33.7); MEAN CELL VOLUME 86.4 fl (80-96); MEAN PLT VOLUME 11.3 fl (7.5-11.1); PLATELET COUNT 28 10^3/uL (134-434); RBC 2.56 M/mm3 (3.60-5.2); RDW 22.1 % (11.6-15.6)
[2022-07-25 06:59] LABS: WHITE BLOOD COUNT 1.8 K/mm3 (4.0-10.0)
[2022-07-25 07:00] LABS: CALCIUM 9.9 mg/dL (8.5-10.1)
[2022-07-25 07:01] LABS: ALBUMIN 0.6 g/dl (3.4-5.0); BLOOD UREA NITROGEN 45.7 mg/dL (7-18); MAGNESIUM 1.7 mg/dL (1.8-2.4)
[2022-07-25 07:04] LABS: CREATININE 2.6 mg/dL (0.55-1.3)
[2022-07-25 07:05] LABS: BILIRUBIN,TOTAL 0.8 mg/dL (0.2-1); TOT PROT 4.2 g/dl (6.4-8.2)
[2022-07-25] MEDS: SODIUM HYPOCHLORITE 0.25%- 473 ML BULK BOTTLE TP SCH ×2 (08:21→10:01)
[2022-07-25] MEDS: AMINO ACIDS/PROTEIN HYDROLYS 30 ML LIQUID.PKT PO SCH ×3 (08:21→16:41)
[2022-07-25 09:12] LABS: ANISOCYTOSIS 2+; CORRECTED WBC 1.25 K/mm3; MACROCYTOSIS 1+
[2022-07-25] MEDS: CHLORHEXIDINE GLUCONATE 0.12% 15ML CUP MM SCH ×2 (09:59→21:27)
[2022-07-25] MEDS: FAMOTIDINE 20 MG/50 ML IVPB 20 MG/50 ML MG IVPB SCH (09:59)
[2022-07-25] MEDS: ATOVAQUONE 750 MG/5 ML (UNIT-DOSE PACKAGING) PO SCH (09:59)
[2022-07-25] MEDS: FOLIC ACID 1 MG TABLET (FP) PO SCH (10:00)
[2022-07-25] MEDS: THIAMINE HCL 200 MG/2 ML VIAL IVPB SCH (10:00)
[2022-07-25] MEDS: valACYclovir HCL 500 MG TABLET (FP) PO SCH ×2 (10:00→21:29)
[2022-07-25] MEDS ORDERED: ADENOSINE 6 MG/2 ML VIAL IVPUSH ONE ×2 (10:34→11:35)
[2022-07-25] MEDS: VERAPAMIL HCL 40 MG TABLET NGT SCH (10:39)
[2022-07-25] MEDS: PHENYLEPHRINE NS PREMIX 50,000 MCG/500 ML BAG CVP SCH (11:41)
[2022-07-25] MEDS: FLUCONAZOLE 200 MG/NS 100 ML IVPB SCH (11:54)
[2022-07-25] MEDS ORDERED: LACTATED RINGERS SOLUTION 1,000 ML/1,000 ML INFUS.BAG IV SCH (13:15)
[2022-07-25] MEDS ORDERED: SODIUM CHLORIDE IV ONE (13:55)
[2022-07-25] MEDS ORDERED: SODIUM CHLORIDE 1,000 ML IV SCH (14:30)
[2022-07-25] MEDS ORDERED: NOREPINEPHRINE BITARTRATE 4,000 MCG in DEXTROSE 5%-WATER - 496 ML IV SCH (15:00)
[2022-07-25] MEDS ORDERED: VASOPRESSIN 40 UNITS in SODIUM CHLORIDE 100 ML IVPB SCH (16:00)
[2022-07-25] MEDS ORDERED: VASOPRESSIN 20 UNITS/ML VIAL IV ONE (16:22)
[2022-07-25] MEDS: HYDROCORTISONE SOD SUCCINATE 100 MG/2 ML VIAL IVPUSH SCH (16:41)
[2022-07-25 17:09] LABS: PARV B19 IGG 8.7 index (0.0-0.8); PARV B19 IGM 0.2 index (0.0-0.8)
[2022-07-25] MEDS ORDERED: MAGNESIUM SULF 50% (8.12 MEQ/2 ML-1 GM VIAL) IVPB ONE (17:26)
[2022-07-25] MEDS ORDERED: SODIUM CHLORIDE 0.45% 1,000 ML with SODIUM BICARBONATE 8.4% - 75 MEQ IV SCH (17:30)
[2022-07-25] MEDS ORDERED: SODIUM BICARBONATE 8.4% 50 MEQ/50 ML VIAL ONE ×2 (18:12→20:30)
[2022-07-25] MEDS: SODIUM BICARBONATE 8.4% 50 MEQ/50 ML DISP.SYRIN IVPUSH SCH ×2 (18:15→20:32)
[2022-07-25] MEDS: SODIUM BICARBONATE 8.4% - 75 MEQ in SODIUM CHLORIDE 0.45% 1,000 ML IV SCH (18:15)
[2022-07-25] MEDS: NOREPINEPHRINE BITARTRATE/D5W 8 MG/250 ML BAG IVPB SCH (19:12)
[2022-07-25] MEDS: VANCOMYCIN 1 GM/200 ML PREMIX BAG (RESTRICTED TO ID ONLY) IVPB SCH (19:12)
[2022-07-25] MEDS: MIDAZOLAM IN 0.9 % SOD.CHLORID 100 MG/100 ML PLAST..BAG IVPB SCH (20:34)
[2022-07-25] MEDS ORDERED: CEFEPIME 2 GM in DEXTROSE 5%-WATER 100 ML IVPB SCH (23:00)
[2022-07-26] MEDS: FENTANYL NS IVPB 500 MCG/100 ML BAG IVPB SCH (01:10)
[2022-07-26] MEDS: PHENYLEPHRINE NS PREMIX 50,000 MCG/500 ML BAG CVP SCH (01:23)
[2022-07-26] MEDS: HYDROCORTISONE SOD SUCCINATE 100 MG/2 ML VIAL IVPUSH SCH (02:19)
[2022-07-26 05:19] VITALS: TEMP 98.9
[2022-07-26] MEDS: NYSTATIN 500,000 UNITS/5 ML SUSPENSION PO SCH (05:44)
[2022-07-26] MEDS: METHIMAZOLE 5 MG TABLET PO SCH (05:44)
[2022-07-26] MEDS: SODIUM BICARBONATE 8.4% - 75 MEQ in SODIUM CHLORIDE 0.45% 1,000 ML IV SCH (05:44)
[2022-07-26] MEDS ORDERED: SODIUM BICARBONATE 8.4% 50 MEQ/50 ML DISP.SYRIN IVPUSH ONE (06:19)
[2022-07-26] MEDS ORDERED: EPINEPHrine 1:10,000 (P-F SYR) 1 MG/10 ML DISP.SYRIN IVPUSH ONE (06:20)
[2022-07-26] MEDS ORDERED: SODIUM BICARBONATE 8.4% 50 MEQ/50 ML VIAL ONE (06:21)
[2022-07-26 06:25] LABS: ARTERIAL BLD GAS O2 SATURATION 99.4 % (95-98); ARTERIAL BLOOD GAS BASE EXCESS -31.5 mmol/L (-2-2)
[2022-07-26 06:26] LABS: ALLENS TEST POSITIVE; VENT MODE A/C; VENT RATE 24
[2022-07-26 06:27] LABS: ARTERIAL BLOOD GAS pH < 6.717 (7.350-7.450)
[2022-07-26] MEDS ORDERED: PHENYLEPHRINE HCL 10 MG/1 ML SINGLE DOSE VIAL ONE (07:10)
[2022-07-26 09:19] VITALS: BP 66/21; PULSE 112; RESP 24
== END 2022-07-26 07:22 | disposition expired | DRG 974 ==
LOC: JER 15:34 → JERBED 20:48 → OBSVTOIN 07-18 00:09 → J7W 07-18 21:14 → J4S 07-19 18:35 → JICU 07-23 14:48
PROVIDERS: ADMIT Internal Medicine; ATTEND Internal Medicine Pulmonary Disease
PROC: XW033E5 Introduction of Remdesivir Anti-infective into Peripheral Vein, Percutaneous Approach, New Technology Group 5 (ICD-10-PCS; 2022-07-17)
PROC: 30233N1 Transfusion of Nonautologous Red Blood Cells into Peripheral Vein, Percutaneous Approach (ICD-10-PCS; 2022-07-18)
PROC: 5A1945Z Respiratory Ventilation, 24-96 Consecutive Hours (ICD-10-PCS; principal; 2022-07-23)
PROC: 0BH17EZ Insertion of Endotracheal Airway into Trachea, Via Natural or Artificial Opening (ICD-10-PCS; 2022-07-23)
PROC: 05HN33Z Insertion of Infusion Device into Left Internal Jugular Vein, Percutaneous Approach (ICD-10-PCS; 2022-07-23)
PROC: B544ZZA Ultrasonography of Left Jugular Veins, Guidance (ICD-10-PCS; 2022-07-23)
PROC: 5A12012 Performance of Cardiac Output, Single, Manual (ICD-10-PCS; 2022-07-26)
DX: A41.59 Other Gram-negative sepsis (principal); E43 Unspecified severe protein-calorie malnutrition; B20 Human immunodeficiency virus [HIV] disease; J96.01 Acute respiratory failure with hypoxia; U07.1 COVID-19; G93.41 Metabolic encephalopathy; J69.0 Pneumonitis due to inhalation of food and vomit; R65.21 Severe sepsis with septic shock; E87.20 Acidosis, unspecified; I47.1 Supraventricular tachycardia; N39.0 Urinary tract infection, site not specified; N17.9 Acute kidney failure, unspecified; R64 Cachexia; E87.0 Hyperosmolality and hypernatremia; Z68.1 Body mass index [BMI] 19.9 or less, adult; D61.9 Aplastic anemia, unspecified; M46.28 Osteomyelitis of vertebra, sacral and sacrococcygeal region; B37.0 Candidal stomatitis; N18.2 Chronic kidney disease, stage 2 (mild); E83.42 Hypomagnesemia; E03.9 Hypothyroidism, unspecified; D64.9 Anemia, unspecified; F20.9 Schizophrenia, unspecified; F25.0 Schizoaffective disorder, bipolar type; E05.90 Thyrotoxicosis, unspecified without thyrotoxic crisis or storm; B37.9 Candidiasis, unspecified; E87.6 Hypokalemia; L89.152 Pressure ulcer of sacral region, stage 2; D69.6 Thrombocytopenia, unspecified; I10 Essential (primary) hypertension; F11.10 Opioid abuse, uncomplicated; I46.9 Cardiac arrest, cause unspecified
CPT/HCPCS: 0241U-QW; 31500; 36415; 36430; 36600; 70450-TC; 71045-TC-FY; 71260-TC; 74177-TC; 76705-TC; 80048; 80053; 81003; 82248; 82272; 82607; 82728; 82746; 82803; 83540; 83550; 83605; 83615; 83735; 84100; 84439; 84443; 84484; 85025; 85045; 85384; 85610; 85730; 86140; 86359; 86360; 86747; 86803; 86850; 86900; 86901; 86922; 87040; 87070; 87076; 87077; 87086; 87186; 87205; 87496; 87517; 87899; 93005; 93010; 93306-TC; 94002; 97161-GP; 99285-25; C9399; G0378; G0480; P9058; Q9967